=== PATIENT | female | born 1950 | race Caucasian/White ===

== ENCOUNTER 2017-12-21 08:15 | Outpatient (RCR) | payer MEDICARE, OTHER, SELFPAY ==
--- NOTE | 2017-12-07 16:03 | PT.OTN ---
Transition note: On December 01, 2017 our therapy services consisting of Speech, Occupational, and Physical Therapy transitioned from the [employer] electronic documentation system to a new [employer] electronic documentation system.?? All documentation prior to December 01 can be found under [employer] saved data. From December 01 forward all medical record documentation will be in [employer] 6.1. Current Diagnoses Type 2 diabetes mellitus with diabetic nephropathy (12/07/17) Type 2 diabetes mellitus with hyperglycemia (12/07/17) Other abnormalities of gait and mobility (12/07/17) retirement (current) use of insulin (12/07/17)
--- NOTE | 2017-12-08 10:05 | PT.OTN ---
Current Diagnoses Type 2 diabetes mellitus with diabetic nephropathy (12/07/17) Type 2 diabetes mellitus with hyperglycemia (12/07/17) Other abnormalities of gait and mobility (12/07/17) alf (current) use of insulin (12/07/17) Physical Therapy Treatment Note PT-OP-A Visit Information Start: 12/07/17 08:13 Freq: Status: Active Protocol: Activity Type Activity Date Activity User E-Sign Co-Sign Detail Recorded Client Recorded Date Recorded By Document 12/07/17 08:25 [facility] [id number] 12/07/17 16:19 LRN 12/07/17 08:25 Out-Patient Physical Therapy Visit Information [Visit Information] -Visit Type Treatment Note -Visit Start Time 08:22 -Visit Stop Time 09:01 -Total Visit Minutes 39 -Visit Number 4 -Number of WATER VALVE MECHANIC Visits 0 [Evaluation Information] -Evaluation Date 11/16/17 PT-OP-C Subjective Start: 12/07/17 08:13 Freq: Status: Active Protocol: Activity Type Activity Date Activity User E-Sign Co-Sign Detail Recorded Client Recorded Date Recorded By Document 12/07/17 08:25 [facility] [id number] 12/07/17 09:03 LRN 12/07/17 08:25 OP-PT Subjective [Patient Comments] -Patient Comments Knee feels better, quit hurting. Still has swollen R foot and still hurts in the lower leg. -Patient Reported Progress Improving OP-PT Pain Assessment [Pain Assessment Grid] -Paper Pain Assessment Grid Completed No [Location] Right Ankle -Pain Location Details Lateral ankle and lower leg -Intensity 8 -Scale Used Numeric (1 - 10 ) -Pain Alleviating Factors Cold -Patient Stated Pain Goal Walk 200-300 ft PT-OP-Q Treatments Start: 12/07/17 08:13 Freq: Status: Active Protocol: Activity Type Activity Date Activity User E-Sign Co-Sign Detail Recorded Client Recorded Date Recorded By Document 12/07/17 08:25 LR [id number] 12/07/17 09:03 LRN 12/07/17 08:25 Cardio Equipment [Recumbent Stepper (Sci-Fit)] -Duration (Minutes) 8 -Seat Position 10 Therapeutic Exercises [Supine Exercises] 4 -Supine Exercise Name Active hip ext immediately after stretch with DLS -Side bilateral -Reps/Minutes 10 3 -Supine Exercise Name Supine Iliopsoas stretch with DLS -Side bilateral -Reps/Minutes 2 -Comments 60 second stretch followed by active hip ext 2 -Supine Exercise Name Leg lifts: Flex , AB, ext -Side bilateral -Reps/Minutes 15x2 1 -Supine Exercise Name Bridging -Side bilateral -Reps/Minutes 15 [Prone Exercises] 2 -Prone Exercise Name Hip ext -Side bilateral -Reps/Minutes 15x2 1 -Prone Exercise Name Knee flex -Side bilateral -Reps/Minutes 15x2 Neuro Re-Education Treatment [Balance Activities] 1 -Details SLS in corner -Surface Level -Equipment Chair in front during training for self care -Reps/Duration 15 each leg -Comments Self care training and Core training during balance PT-OP-T Assessment and Plan Start: 12/07/17 09:03 Freq: Status: Active Protocol: Activity Type Activity Date Activity User E-Sign Co-Sign Detail Recorded Client Recorded Date Recorded By Document 12/07/17 08:25 LRRonen [id number] 12/08/17 10:05 LRN 12/07/17 08:25 Physical Therapy Assessment [Impairments] -Impairments Balance Edema Gait Pain Posture ROM Strength [Assessment Summary] -Assessment Patient is having less knee pain, primarily ankle pain. Pt has good understanding of home ex's and appears to be compliant. SLS posture improves with core stabilization. Physical Therapy Plan [Frequency and Duration] -Frequency of Treatment 2x/Week -Duration of Treatment 5 weeks left -Plan of Care Start Date 11/16/17 -Plan of Care End Date 01/15/18 [Next Visit Focus/Plan] -Next Visit Plan Assess Feet sensation & 5TSTS test. Educate in edema management. Review SLS home ex, progress ROM hips & LE/ core strengthening ex's. Progress ankle IV ROM. Progress stair ambulation tolerance.
--- NOTE | 2017-12-14 15:26 | PT.OTN ---
Current Diagnoses Type 2 diabetes mellitus with diabetic nephropathy (12/14/17) Type 2 diabetes mellitus with hyperglycemia (12/14/17) Other abnormalities of gait and mobility (12/14/17) FDC (current) use of insulin (12/14/17) Physical Therapy Treatment Note PT-OP-A Visit Information Start: 12/07/17 08:13 Freq: Status: Active Protocol: Document 12/14/17 08:21 LRN (Rec: 12/14/17 15:12 LRN [id number]) Out-Patient Physical Therapy Visit Information Visit Information Visit Type Treatment Note Visit Note 12/10 Visit Start Time 08:18 Visit Stop Time 09:12 Total Visit Minutes 54 Visit Number 5 Number of CODE ENFORCEMENT SUPERVISOR Visits 0 Evaluation Information Evaluation Date 11/16/17 PT-OP-C Subjective Start: 12/07/17 08:13 Freq: Status: Active Protocol: Document 12/14/17 08:21 LRN (Rec: 12/14/17 09:08 LRN [id number]) OP-PT Subjective Patient Comments Patient Comments States she was able to stand and put her pants on, so she feels her balance is better. States she is very tired because she worked hard this weekend. Patient Reported Progress Improving PT-OP-Q Treatments Start: 12/07/17 08:13 Freq: Status: Active Protocol: Document 12/14/17 08:21 LRN (Rec: 12/14/17 09:08 LRN [id number]) Therapeutic Exercises Supine Exercises 5 Supine Exercise Name Hip AB with T-Band resistance Side bilateral Equipment Used Lev 1 T-Band Reps/Minutes 15x2 Comments Started with Sidelie hip AB, but pt unable to tolerate lying on the hip 4 Supine Exercise Name Active hip ext immediately after stretch with DLS Side bilateral Reps/Minutes 10x2 reps 3 Supine Exercise Name Supine Iliopsoas stretch with DLS Side bilateral Reps/Minutes 2 Comments 60 second stretch followed by active hip ext 2 Supine Exercise Name Hip Flex Side bilateral Resistance see below Reps/Minutes 15x2 Comments 1st set with 1# 1 Supine Exercise Name Bridging Side bilateral Reps/Minutes 15x2 Prone Exercises 2 Prone Exercise Name Hip ext Side bilateral Reps/Minutes 15x2 Comments Use of B-Ball to assist his end-range hip ext PT-OP-T Assessment and Plan Start: 12/07/17 09:03 Freq: Status: Active Protocol: Document 12/14/17 08:21 LRN (Rec: 12/14/17 09:08 LRN [id number]) Physical Therapy Assessment Impairments Impairments Balance Edema Gait Pain Posture ROM Strength Assessment Summary Assessment Pt is having trouble with anterior hip stretch routine, needed extra training Physical Therapy Plan Frequency and Duration Frequency of Treatment 2x/Week Duration of Treatment 4 weeks left Plan of Care Start Date 11/16/17 Plan of Care End Date 01/15/18 Next Visit Focus/Plan Next Visit Plan Assess Feet sensation. 5TSTS. Progress ROM hips & LE/core strengthening ex's. Progress ankle IV ROM. Progress stair ambulation tolerance.
--- NOTE | 2017-12-21 16:14 | PT.OTRE ---
Current Diagnoses Type 2 diabetes mellitus with diabetic nephropathy (12/21/17) Type 2 diabetes mellitus with hyperglycemia (12/21/17) Other abnormalities of gait and mobility (12/21/17) assisted (current) use of insulin (12/21/17) Provider Visit Care Team Role Provider Type Vanessa Hirsch MD Family Provider Physician Primary Care Provider Specialty: Internal Medicine Address: [address] [place] [address], [id number] Email: Keya Haque MD Attending Provider Non-Staff Specialty: Neurology Address: [address] [place], [address] Email: Physical Therapy Re-Evaluation PT-OP-A Visit Information Start: 12/07/17 08:13 Freq: Status: Active Protocol: Document 12/21/17 08:16 LRN (Rec: 12/21/17 09:02 LRN [id number]) Out-Patient Physical Therapy Visit Information Visit Information Visit Type Treatment Note Visit Note 01/10 Visit Start Time 08:16 Visit Stop Time 09:10 Total Visit Minutes 54 Visit Number 6 Number of SURGICAL SALES REPRESENTATIVE Visits 0 Evaluation Information Evaluation Date 11/16/17 PT-OP-C Subjective Start: 12/07/17 08:13 Freq: Status: Active Protocol: Document 12/21/17 08:16 LRN (Rec: 12/21/17 15:31 LRN [id number]) OP-PT Subjective Patient Comments Patient Comments Has new physician referral for treatment of R ankle for chronic pain. Wasn't able to do ex's this weekend because being so busy at work. OP-PT Pain Assessment Location Right Ankle Pain Location Details R lateral ankle pain Description Aching Chronic Frequency Constant Pain Aggravating Factors Activity Standing Walking Stair Climbing Pain Alleviating Factors Inactivity Rest Patient Stated Pain Goal Alleviate the pain PT-OP-H Neuro Start: 12/21/17 16:09 Freq: Status: Active Protocol: Document 12/21/17 08:16 LRN (Rec: 12/21/17 16:10 LRN [id number]) Sensation Evaluation Location Details Right Volar Foot Light Touch Impaired Sharp/Dull Impaired Hot/Cold Impaired PT-OP-K Range of Motion Start: 12/21/17 16:07 Freq: Status: Active Protocol: Document 12/21/17 08:16 LRN (Rec: 12/21/17 16:09 LRN [id number]) Ankle and Foot Goniometric Range of Motion Ankle and Foot Measured in Degrees Left Active Testing Position Supine Dorsiflexion with Knee Extended 10 Plantarflexion 40 Inversion 30 Eversion 20 Right Active Testing Position Supine Dorsiflexion with Knee Extended 7 Plantarflexion 45 Inversion 15 Eversion 18 PT-OP-M Strength Start: 12/07/17 08:13 Freq: Status: Active Protocol: Document 12/21/17 08:16 LRN (Rec: 12/21/17 16:06 LRN [id number]) Ankle/Foot Strength Ankle and Foot Manual Muscle Testing Left Dorsiflexion (L4) 5 Normal Plantarflexion (S1) 5 Normal Inversion 5 Normal Eversion (S1) 5 Normal Right Dorsiflexion (L4) 3 Fair Plantarflexion (S1) 5 Normal Inversion 4 Good Eversion (S1) 3+ Fair+ PT-OP-Q Treatments Start: 12/07/17 08:13 Freq: Status: Active Protocol: Document 12/21/17 08:16 LRN (Rec: 12/21/17 09:02 LRN [id number]) Therapeutic Exercises Supine Exercises 8 Supine Exercise Name Ankle IV/PF Reps/Minutes 1' Comments No Deficits noted 7 Supine Exercise Name Ankle EV Side right Reps/Minutes 1' 6 Supine Exercise Name Ankle DF Side right Reps/Minutes 1' 5 Supine Exercise Name Hip AB with T-Band resistance Side bilateral Equipment Used Lev 1 T-Band Reps/Minutes 15x3 Comments Started with Sidelie hip AB, but pt unable to tolerate lying on the hip 4 Supine Exercise Name Active hip ext immediately after stretch with DLS Side bilateral Reps/Minutes 10x2 reps 3 Supine Exercise Name Supine Iliopsoas stretch with DLS Side bilateral Reps/Minutes 2 Comments 60 second stretch followed by active hip ext 2 Supine Exercise Name Hip Flex Side bilateral Resistance see below Reps/Minutes 15x2, 8 L/ 15R with 0# Comments 1# 1 Supine Exercise Name Bridging Side bilateral Reps/Minutes 15x3 Prone Exercises 2 Prone Exercise Name Hip ext Side bilateral Reps/Minutes 10x3 Comments Use of B-Ball to assist his end-range hip ext 1 Prone Exercise Name Knee flex Side bilateral Reps/Minutes 15x2 Self-Care/Home Management Treatment Education Other Education Pt instructed in self care for Edema management for R ankle. Use of her current compression stockings before getting out of bed. PT-OP-T Assessment and Plan Start: 12/07/17 09:03 Freq: Status: Active Protocol: Document 12/21/17 08:16 LRN (Rec: 12/21/17 09:02 LRN [id number]) Physical Therapy Assessment Impairments Impairments Balance Edema Gait Pain Posture ROM Strength Goals Five Impairment Chronic R Ankle Pain Correction Goal (LTG) Pt will have relief of R ankle pain and will be able to walk with minimal pain and will be able to manage her pain with home modalities (cryotherapy, compression sock). LTG Duration 02/12/18 Four Impairment Client Lacks knowledge of HEP: Lacks appropriate program. Centrifugal Screen Tender Goal (LTG) Pt will be educated and independent in a Home Exercise /Self Care Program. LTG Duration 02/12/18 Three Impairment TUG 13 sec's: 12-13 (20%<40% impaired) Short Term Goal (STG) Pt to improve endurance per TUG score decrease and pt able to make a Sumit sized bed without having to sit and rest . STG Duration 01/15/18 Two Impairment Decreased balance Correction Goal (LTG) Pt able to demosntrate improved balance and will be able to transfer sit to stand without onset of falling backwards. LTG Duration 02/12/18. One Impairment LE Weakness Correction Goal (LTG) Improve hip and knee by 1 grade with pt able to transfer floor to stand without use of furniture. 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 The pt has improved in her tolerance to activity overall and she has occasional onset of knee pain. Assessment Summary Assessment The pt presents with Chronic R ankle sprain of probably the anterior talofibular ligament, with severe swelling at the ankle and lower limb. 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 Her General lower extremity weakness hinders her progress, but the pt has shown some improvement in LE strength. Lately the pt reports no R knee pain except with stair ambulation. Her hip strength is weak and especial the gluteal strength is very weak. The pt appears to be very diligent with her HEP and is expected to continue progressing with the exercise program. Therapy is expected to be prolonged with the addition of rehabilitation for her chronic R ankle pain. Pt prognosis is good. Recommend the pt continue with skilled physical therapy to achieve the above stated goals . Physical Therapy Plan Frequency and Duration Frequency of Treatment 2x/Week Duration of Treatment 4 weeks left Plan of Care Start Date 11/16/17 Plan of Care End Date 01/15/18 Therapeutic Interventions Therapeutic Interventions Aquatic Therapy Balance Training Home Exercise Program Manual Therapy Neuromuscular Re-education Patient/Caregiver Education Self-Care/Home Management Soft Tissue Mobilization Taping Therapeutic Exercises Modalities Cold Pack/Ice Massage Hot Packs Iontophoresis Ultrasound Next Visit Focus/Plan Next Visit Plan Initiate Ultrasound for the R ankle at anterior talofibular lig 50%, 1.0W/cm2. She has decreased sensation in the R foot for sharp/dull and hot/ cold. L foot is normal. Please Sign and Return: I have reviewed this Plan of Care and certify that the skilled therapy services above are required to meet the patient???s needs. Physician Signature Date Printed Name and Credentials Clinical Instructor Signature Printed Name and Credentials
--- NOTE | 2018-03-26 17:21 | PT.OPDS ---
Current Diagnoses Type 2 diabetes mellitus with diabetic nephropathy (12/21/17) Type 2 diabetes mellitus with hyperglycemia (12/21/17) Other abnormalities of gait and mobility (12/21/17) detention (current) use of insulin (12/21/17) Provider Visit Care Team Role Provider Type Vanessa Hirsch MD Family Provider Physician Primary Care Provider Specialty: Internal Medicine Address: [address] [place] [address], [id number] Email: Keya Haque MD Attending Provider Non-Staff Specialty: Neurology Address: [address] [place], [address] Email: Visit Number Visit Number 6 Discharge Summary PT-OP-T Assessment and Plan Start: 12/07/17 09:03 Freq: Status: Active Protocol: Document 03/26/18 17:14 LRN (Rec: 03/26/18 17:20 LRN [id number]) Physical Therapy Assessment Goals Five Impairment Chronic R Ankle Pain Senior Care Goal (LTG) Pt will have relief of R ankle pain and will be able to walk with minimal pain and will be able to manage her pain with home modalities (cryotherapy, compression sock). LTG Duration 02/12/18 Four Impairment Client Lacks knowledge of HEP: Lacks appropriate program. 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 LTG Duration 02/12/18 Three Impairment TUG 13 sec's: 12-13 (20%<40% impaired) Short Term Goal (STG) Pt to improve endurance per TUG score decrease and pt able to make a Sumit sized bed without having to sit and rest . STG Duration 01/15/18 Two Impairment Decreased balance Senior Care Goal (LTG) Pt able to demosntrate improved balance and will be able to transfer sit to stand without onset of falling backwards. LTG Duration 02/12/18. 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 LTG Duration 02/12/18 Assessment Summary Assessment Pt was last seen 12/21/17. Unable to assess status of goals due to pt unavailable for final assessment. Per phone conversation with the patient she has had a change in status with admittance to the hospital in January. The pt will need a new referral to return to physical therapy. Physical Therapy Plan Discharge Physical Therapy Discharge Reasons No Longer Attending PT Discharge Comments Pt has had a change in medical status with hospital admittance in January 2018. Pt is being discharged from physical therapy.
== END 2018-07-02 13:51 ==
LOC: PHYS 08:15
PROVIDERS: Family Provider Internal Medicine; PCP Internal Medicine; Visit Provider Psychiatry & Neurology Neurology
DX: R26.89 Other abnormalities of gait and mobility (principal); E11.21 Type 2 diabetes mellitus with diabetic nephropathy; E11.65 Type 2 diabetes mellitus with hyperglycemia; Z79.4 Long term (current) use of insulin
CPT/HCPCS: 97010; 97110; 97112

== ENCOUNTER → 2017-12-21 09:23 | Outpatient (CLI) | payer MEDICARE, OTHER, SELFPAY ==
[2017-12-21 11:06] LABS: BUN Creatinine Ratio 24.4 (6-22); Calcium 9.5 mg/dL (8.4-10.2); Estimated Glomerular Filt Rate 32.1 mL/min (>60); Glucose 128 mg/dL (80-110); HEMOLYSIS < 15 (0-50); Sodium 140 mmol/L (137-145)
[2017-12-21 11:26] LABS: Creatinine Urine Random 63.5 mg/dL; Protein (Total) Urine Random 82 mg/dL (0-12); Protein Creatinine Ratio Urine 1.29 GRAM/24H
== END ==
PROVIDERS: Family Provider Internal Medicine; PCP Internal Medicine; Visit Provider Student in an Organized Health Care Education/Training Program
DX: N05.9 Unspecified nephritic syndrome with unspecified morphologic changes (principal); N80.9 Endometriosis, unspecified
CPT/HCPCS: 36415; 80048; 82570; 84156

== ENCOUNTER → 2017-12-24 06:54 | Outpatient (CLI) | payer MEDICARE, OTHER, SELFPAY ==
[2017-12-24 08:44] LABS: HEMOLYSIS < 15 (0-50); Potassium 4.8 mmol/L (3.4-5.1)
== END ==
PROVIDERS: PCP Internal Medicine; Visit Provider Student in an Organized Health Care Education/Training Program
DX: E87.5 Hyperkalemia (principal)
CPT/HCPCS: 36415; 84132

== ENCOUNTER 2018-01-04 12:06 | Inpatient (IN) | payer MEDICARE, OTHER, SELFPAY ==
[2018-01-04] VITALS (15 sets, daily range): BP systolic 103–143; BP diastolic 37–58; PULSE 67–88; RESP 13–20; TEMP 37.2; O2SAT 92–99
--- NOTE | 2018-01-04 12:53 | DI.RAD.S_ITS ---
PROCEDURE: XR CHEST 2V INDICATIONS: weakness and hypoxemia TECHNIQUE: 2 views of the chest were acquired. COMPARISON: None. FINDINGS: Surgical changes and devices: None. Lungs and pleura: No pleural effusions or pneumothorax. Lungs are clear. Mediastinum: Mediastinal contours are normal. Heart size is normal. Bones and chest wall: No suspicious bony abnormalities. Soft tissues appear unremarkable. IMPRESSION: Mildly reduced inspiratory volume, no acute disease. Dictated by: Doc Mccann M.D. on 01/04/2018 at 13:18 Approved by: Doc Mccann M.D. on 01/04/2018 at 13:19
[2018-01-04 13:01] LABS: Add Manual Diff / Slide Review NO; Basophils Percent Auto 0.3 % (0-2); Eosinophils Percent Auto 0.2 % (2-4); Hematocrit 29.3 % (36-46); Lymphocytes Percent Auto 4.8 % (25-40); Mean Corpuscular Hemoglobin 28.5 PG (26-34); Mean Corpuscular Volume 83.9 fL (80-100); Monocytes Percent Auto 5.9 % (3-14); Neutrophils Absolute Auto 10900 /uL (3000-5900); Neutrophils Percent Auto 88.8 % (50-75); Platelet Count 204 X10^3/uL (150-400); Red Blood Cell Count 3.49 X10^6/uL (4.0-5.2); Red Cell Distribution Width 13.2 % (11.6-14.8); White Blood Cell Count 12.3 X10^3/uL (4.5-11.0)
[2018-01-04 13:05] LABS: D Dimer 713 ng/mL (<230)
[2018-01-04 13:24] LABS: Procalcitonin 9.13 ng/mL (<0.5)
--- NOTE | 2018-01-04 13:42 | ED_ITS ---
HPI - Weakness General Chief complaint: Weakness Stated complaint: DIABETIC, CANNOT STAND, FALLING VOMMITING Related Data Home Medications Medication Instructions Recorded Confirmed gabapentin [Neurontin] 600 mg PO BID #0 06/05/16 glyburide 5 mg PO BID #0 06/05/16 metformin [Glucophage XR] 500 mg PO TID #0 06/05/16 lisinopril 2.5 mg PO QDAY #0 11/16/16 Previous Rx's Medication Instructions Recorded ondansetron 4 mg SUBLINGUAL Q6HP PRN #10 tab 06/05/16 Allergies Allergy/AdvReac Type Severity Reaction Status Date / Time No Known Allergies Allergy Uncoded 11/11/17 12:01 Exam Initial Vital Signs Initial Vital Signs: Vital Signs Temperature 99 F 01/04/18 12:29 Pulse Rate 88 01/04/18 12:29 Respiratory Rate 13 01/04/18 12:29 Blood Pressure 143/44 H 01/04/18 12:29 Pulse Oximetry 94 01/04/18 12:29 Course Orders Ordered: ED Orders 01/04/18 12:32 Complete Blood Count AUTO DIFF Stat D Dimer Stat Procalcitonin Stat 01/04/18 12:53 XR chest 2V Stat Urinalysis and Microscopic Stat 01/04/18 13:22 Comprehensive Metabolic Panel Stat Lactate (Lactic Acid) Stat Troponin I Stat Vital Signs - 8 hr 01/04/18 12:29 Temperature 99 F Pulse Rate 88 Respiratory Rate 13 Blood Pressure 143/44 H Pulse Oximetry 94 MDM - Weakness Differential Diagnosis Differential diagnosis: Likely other Lab Data Result diagrams: 01/04/18 12:32 01/04/18 13:22 Lab Results 01/04/18 01/04/18 01/04/18 Range/Units 12:32 12:32 12:32 WBC 12.3 H (4.5-11.0) X10^3/uL RBC 3.49 L (4.0-5.2) X10^6/uL Hgb 10.0 L (12.0-16.0) g/dL Hct 29.3 L (36-46) % MCV 83.9 (80-100) fL MCH 28.5 (26-34) PG MCHC 34.0 (30-36) % RDW 13.2 (11.6-14.8) % Plt Count 204 (150-400) X10^3/uL Neut % (Auto) 88.8 H (50-75) % Lymph % (Auto) 4.8 L (25-40) % [place] % (Auto) 5.9 (3-14) % Eos % (Auto) 0.2 L (2-4) % Baso % (Auto) 0.3 (0-2) % Neut # (Auto) 26313 H (8705-0816) /uL D-Dimer 713 H (<230) ng/mL Procalcitonin 9.13 H (<0.5) ng/mL Discharge Plan Departure Prescriptions: No Action glyburide 5 MG tablet 5 mg PO BID Qty: 0 RF: 0 gabapentin [Neurontin] 300 MG capsule 600 mg PO BID Qty: 0 RF: 0 metformin [Glucophage XR] 500 MG tablet extended release 24 hr 500 mg PO TID Qty: 0 RF: 0 ondansetron 4 MG tablet,disintegrating 4 mg Sublingual Q6HP PRNQty: 10 RF: 0 lisinopril 2.5 MG tablet 2.5 mg PO QDAY Qty: 0 RF: 0
[2018-01-04 13:44] LABS: Lactate (Lactic Acid) 1.1 mmol/L (0.7-2.1)
[2018-01-04 13:45] LABS: Alanine Aminotransferase 71 IU/L (9-52); Albumin 3.9 g/dL (3.5-5.0); Albumin Globulin Ratio 1.3 (1.0-2.8); Alkaline Phosphatase 114 U/L (38-126); Aspartate Aminotransferase 89 IU/L (14-36); BUN Creatinine Ratio 21.1 (6-22); Bilirubin Total 0.4 mg/dL (0.2-1.3); Blood Urea Nitrogen 38 mg/dL (7-17); Calcium 9.2 mg/dL (8.4-10.2); Carbon Dioxide 25 mmol/L (22-32); Chloride 100 mmol/L (98-107); Glucose 294 mg/dL (80-110); HEMOLYSIS < 15 (0-50); Potassium 4.7 mmol/L (3.4-5.1); Sodium 137 mmol/L (137-145); Total Protein 6.9 g/dL (6.3-8.2)
[2018-01-04 13:58] LABS: Troponin I < 0.012 ng/mL (0.01-0.034)
--- NOTE | 2018-01-04 14:17 | DI.CT.S_ITS ---
PROCEDURE: CT HEAD/BRAIN WO CON INDICATIONS: syncope TECHNIQUE: Noncontrast 4.5 mm thick angled axial sections acquired from the foramen magnum to the vertex, with coronal and sagittal reformats. For radiation dose reduction, the following was used: automated exposure control, adjustment of mA and/or kV according to patient size. COMPARISON: [facility], CT, HEAD WITHOUT CONTRAST, 06/05/2016, 17:10. FINDINGS: Image quality: Excellent. CSF spaces: Basal cisterns are patent. No extra-axial fluid collections. Ventricles are normal in size and shape. Brain: No midline shift. No intracranial masses or hemorrhage. Childress-white matter interface is normal. Skull and face: Calvarium and visualized facial bones are intact, without suspicious lesions. Sinuses: Visualized sinuses and mastoids are clear. IMPRESSION: Stable head CT. No acute intracranial hemorrhage. Dictated by: Kali Kelley M.D. on 01/04/2018 at 13:36 Approved by: Kali Kelley M.D. on 01/04/2018 at 13:36
--- NOTE | 2018-01-04 14:17 | DI.CT.S_ITS ---
PROCEDURE: CT CHEST WO CON INDICATIONS: hypoxemia w/ elevated dimer clear CXR TECHNIQUE: Noncontrast 5 mm thick sections acquired from the pulmonary apices to the posterior costophrenic angles. 7 mm thick coronal and sagittal MIP reformats were then acquired. For radiation dose reduction, the following was used: automated exposure control, adjustment of mA and/or kV according to patient size. COMPARISON: [facility], CR, XR CHEST 2V, 01/04/2018, 12:44. FINDINGS: Image quality: Diagnostic. Lungs and pleura: The lungs are relatively well aerated. There are areas of scarring versus atelectasis within the bilateral lung bases (left greater than right). No focal consolidation, effusion, or pneumothorax is evident. There is no lung mass. No definitive pulmonary nodules are appreciated. Mediastinum: Heart size is normal. No pericardial effusion. No mediastinal adenopathy by size criteria. There is coronary artery atherosclerosis. Thoracic aorta and central pulmonary arteries are normal in size. Esophagus is normal in caliber. No hiatal hernia. Bones and chest wall: No suspicious bony lesions. No vertebral body compression fractures. Age-appropriate degenerative changes of the spine are present. No axillary or supraclavicular adenopathy by size criteria. Thyroid gland is not enlarged. Abdomen: Visualized upper abdominal solid organs and bowel loops appear normal in the absence of contrast. IMPRESSION: 1. No acute cardiopulmonary process is evident. 2. Scarring versus atelectasis within the bilateral lung bases. 3. Mild prominence of the wall of the esophagus may be related to incomplete distention. Distal esophagitis is difficult to exclude. 4. Coronary artery atherosclerosis. Dictated by: Kali Kelley M.D. on 01/04/2018 at 13:31 Approved by: Kali Kelley M.D. on 01/04/2018 at 13:33
[2018-01-04] MEDS: SODIUM CHLORIDE 0.9% 1,000 ML 1000 ML IV ×2 (14:40→20:54)
[2018-01-04 16:19] LABS: Creatine Kinase 34 U/L (30-135); Lactate (Lactic Acid) 1.1 mmol/L (0.7-2.1)
--- NOTE | 2018-01-04 18:02 | ED.WEAKNESS ---
HPI - Weakness General Chief complaint: Weakness Stated complaint: DIABETIC, CANNOT STAND, FALLING VOMMITING History of Present Illness HPI Narrative: HPI 67-year-old female presents for evaluation of mild weakness that is been present since yesterday evening, mild malaise, and a syncopal event this morning after which she fell was unable to stand for 2 hours. Patient denies head strike LOC, denies blood thinners or anticoagulants. Denies history of DVT or PE, denies preceding chest pain, abdominal pain, SOB. No apparent dysuria, urinary frequency. Non-smoker. History obtained from: patient. M/S/F/SocHx notable for: DM II; remainder reviewed with patient and in chart. ROS: Negative constitutional, eye, cardiovascular, pulmonary, GI, , MSK, skin, neurologic, psychiatric, endocrine unless noted in the HPI. Exam Gen: Pleasant, non-toxic appearing, resting comfortably. HEENT: Normocephalic, atraumatic Resp: Clear to auscultation bilaterally, normal work of breathing with no accessory muscle usage. Card: Regular rate and rhythm with no murmurs rubs or gallops. No JVD. No pedal edema bilaterally. GI: Nontender to palpation throughout all quadrants. Nondistended. : No CVA tenderness to percussion bilaterally. No suprapubic tenderness or palpable masses. MSK: No visible deformities, strength and tone within normal limits. Skin: Normal color with no visible lesions. Neuro: Gen AO x 3, no facial asymmetry, no gaze preference, no slurring of speech. CN II-III: pupils equal and reactive (4->2mm bilaterally); III, IV, : EOMI, V1-V3: sensation to touch bilaterally intact; VII: no facial asymmetry (frown / smile); VIII: no nystagmus; X: phonation intact, uvula midline; XI: trapezius 5/5 bilaterally, XII: tongue midline. Cerebellar: no pronator drift, [id number] testing without dysmetria. Motor: bilateral 5/5 licensed electrician strength and intact hand sensation to touch, bilateral 5/5 dorsiflexion/plantarflexion and foot sensation intact to touch. Gait: unable to assess. Psych: Mood and affect appropriate. Labs / Imaging (pertinent): WBC 12.3, hemoglobin 10.0, d-dimer 713, sodium 137, potassium 4.7, creatinine 1.0, glucose 294, troponin <0.012, Procalcitonin 9.13, d-dimer 713, lactic (repeat) 1.1. CXR: no acute cardiopulmonary disease process. EKG: SR at 88 BPM, [place] 418 msec, no new ST segment changes, new LBBB, or T-wave changes that would suggest acute ischemia. CT chest (non-contrast): no acute cardiopulmonary process is evident. Scarring versus atelectasis within the bilateral lung bases. Mild prominence of the wall the esophagus may be related incomplete distention. Distal esophagitis is difficult to exclude. Coronary artery atherosclerosis. CT head: no acute intracranial abnormality. MDM Previous chart, nursing note, and vitals reviewed. A: 67-year-old female presents for evaluation of mild weakness that is been present since yesterday evening, mild malaise, and a syncopal event this morning after which she fell was unable to stand for 2 hours. DDx: CVA, ACS/UA, UTI, pneumonia, electrolyte abnormalities,anemia, hypothyroidism, hypothermia. Evaluation: * CVA: Examination without evidence of focal neuro deficit and history without evidence of resolved focal neuro deficit making stroke or TIA unlikely. CT head without evidence of abnormalities. * ACS/UA: Doubt ACS given a nonischemic EKG and negative troponin, history without clear evidence of symptoms consistent with unstable angina. * UTI: urinalysis pending. * Pneumonia: chest x-ray and noncontrast CT the chest without evidence of pneumonia. * Heme/Lytes/Thyroid: CBC, BMP are clinically within normal limits. * PE: concern exists for PE, patient with mild hypoxemia, elevated d-dimer, remains hemodynamically stable. CTA chest pending fluid resuscitation, and anticipated demonstration of improved GFR. Otherwise, anticipate VQ scan. * Sepsis: patient without clear sepsis pathophysiology, lactic stable over time, Procalcitonin elevation of uncertain etiology. Blood cultures drawn, Levaquin ordered. Patient without signs of meningitis, intra-abdominal infection, skin infection. Disposition: patient care transfer to the oncoming provider pending completion of evaluation. Impression: syncope, elevated Procalcitonin, hypoxemia. (please reference below for remainder of encounter information) Related Data Home Medications Medication Instructions Recorded Confirmed gabapentin [Neurontin] 600 mg PO BID #0 06/05/16 01/04/18 Novolog Mix 70-30 U-100 Insuln 30 units SUB-Q QPM 01/04/18 01/04/18 aspirin 81 mg PO DAILY 01/04/18 01/04/18 atorvastatin 20 mg PO DAILY 01/04/18 01/04/18 gabapentin 300 mg PO QNOON 01/04/18 01/04/18 hydrochlorothiazide 12.5 mg PO DAILY 01/04/18 01/04/18 insulin regular human [Novolin R 5 units SUB-Q TIDWM 01/04/18 01/04/18 Regular U-100 Insuln] primidone 250 mg PO BEDTIME 01/04/18 01/04/18 sodium bicarbonate 2 tab PO BID 01/04/18 01/04/18 Allergies Allergy/AdvReac Type Severity Reaction Status Date / Time No Known Drug Allergies Allergy Verified 01/04/18 14:11 Exam Initial Vital Signs Initial Vital Signs: Vital Signs Temperature 99 F 01/04/18 12:29 Pulse Rate 88 01/04/18 12:29 Respiratory Rate 13 01/04/18 12:29 Blood Pressure 143/44 H 01/04/18 12:29 Pulse Oximetry 94 01/04/18 12:29 Course Orders Ordered: ED Orders 01/04/18 12:32 Complete Blood Count AUTO DIFF Stat D Dimer Stat Procalcitonin Stat 01/04/18 12:53 XR chest 2V Stat 01/04/18 13:22 Comprehensive Metabolic Panel Stat Lactate (Lactic Acid) Stat Troponin I Stat 01/04/18 14:17 CT chest wo con Stat CT head/brain wo con Stat 01/04/18 14:41 Basic Metabolic Panel PRN 01/04/18 15:53 Basic Metabolic Panel Stat Creatine Kinase Stat Lactate (Lactic Acid) Stat 01/04/18 16:00 Blood Culture Stat 01/04/18 17:47 Urinalysis and Microscopic Stat Levofloxacin (Levaquin) 750 mg in 150 mls @ 100 mls/hr IV NOW ONE Stop: 01/04/18 19:16 Last Admin: 01/04/18 18:10 Dose: 100 mls/hr Discontinued Medications Sodium Chloride (Normal Saline 0.9%) 1,000 mls @ 1,000 mls/hr IV BOLUS ONE Stop: 01/04/18 15:02 Last Infusion: 01/04/18 16:24 Dose: 0 mls/hr Admin: 01/04/18 14:40 Dose: 1,000 mls/hr Vital Signs - 8 hr 01/04/18 12:29 01/04/18 14:18 01/04/18 15:08 Temperature 99 F Pulse Rate 88 83 81 Respiratory Rate 13 16 16 Blood Pressure 143/44 H Blood Pressure [Left Arm] 125/40 H 124/45 H Pulse Oximetry 94 96 99 01/04/18 17:29 Temperature Pulse Rate 77 Respiratory Rate 14 Blood Pressure Blood Pressure [Left Arm] 126/50 H Pulse Oximetry 95 MDM - Weakness Lab Data Result diagrams: 01/04/18 12:32 01/04/18 13:22 Lab Results 01/04/18 01/04/18 01/04/18 Range/Units 12:32 12:32 12:32 WBC 12.3 H (4.5-11.0) X10^3/uL RBC 3.49 L (4.0-5.2) X10^6/uL Hgb 10.0 L (12.0-16.0) g/dL Hct 29.3 L (36-46) % MCV 83.9 (80-100) fL MCH 28.5 (26-34) PG MCHC 34.0 (30-36) % RDW 13.2 (11.6-14.8) % Plt Count 204 (150-400) X10^3/uL Neut % (Auto) 88.8 H (50-75) % Lymph % (Auto) 4.8 L (25-40) % Rankin % (Auto) 5.9 (3-14) % Eos % (Auto) 0.2 L (2-4) % Baso % (Auto) 0.3 (0-2) % Neut # (Auto) 42920 H (9119-8137) /uL D-Dimer 713 H (<230) ng/mL Sodium (137-145) mmol/L Potassium (3.4-5.1) mmol/L Chloride (98-107) mmol/L Carbon Dioxide (22-32) mmol/L BUN (7-17) mg/dL Creatinine (0.52-1.04) mg/dL Estimated GFR (>60) mL/min BUN/Creatinine Ratio (6-22) Glucose (80-110) mg/dL Lactate (0.7-2.1) mmol/L Calcium (8.4-10.2) mg/dL Total Bilirubin (0.2-1.3) mg/dL AST (14-36) IU/L ALT (9-52) IU/L Alkaline Phosphatase (38-126) U/L Total Creatine Kinase (30-135) U/L Troponin I (0.01-0.034) ng/mL Total Protein (6.3-8.2) g/dL Albumin (3.5-5.0) g/dL Globulin (1.7-4.1) g/dL Albumin/Globulin Ratio (1.0-2.8) Procalcitonin 9.13 H (<0.5) ng/mL 01/04/18 01/04/18 01/04/18 Range/Units 13:22 13:22 15:53 WBC (4.5-11.0) X10^3/uL RBC (4.0-5.2) X10^6/uL Hgb (12.0-16.0) g/dL Hct (36-46) % MCV (80-100) fL MCH (26-34) PG MCHC (30-36) % RDW (11.6-14.8) % Plt Count (150-400) X10^3/uL Neut % (Auto) (50-75) % Lymph % (Auto) (25-40) % Rankin % (Auto) (3-14) % Eos % (Auto) (2-4) % Baso % (Auto) (0-2) % Neut # (Auto) (7618-6141) /uL D-Dimer (<230) ng/mL Sodium 137 (137-145) mmol/L Potassium 4.7 (3.4-5.1) mmol/L Chloride 100 (98-107) mmol/L Carbon Dioxide 25 (22-32) mmol/L BUN 38 H (7-17) mg/dL Creatinine 1.80 H (0.52-1.04) mg/dL Estimated GFR 28.0 L (>60) mL/min BUN/Creatinine Ratio 21.1 (6-22) Glucose 294 H (80-110) mg/dL Lactate 1.1 (0.7-2.1) mmol/L Calcium 9.2 (8.4-10.2) mg/dL Total Bilirubin 0.4 (0.2-1.3) mg/dL AST 89 H (14-36) IU/L ALT 71 H (9-52) IU/L Alkaline Phosphatase 114 (38-126) U/L Total Creatine Kinase 34 (30-135) U/L Troponin I < 0.012 (0.01-0.034) ng/mL Total Protein 6.9 (6.3-8.2) g/dL Albumin 3.9 (3.5-5.0) g/dL Globulin 3.0 (1.7-4.1) g/dL Albumin/Globulin Ratio 1.3 (1.0-2.8) Procalcitonin (<0.5) ng/mL 01/04/18 Range/Units 15:53 WBC (4.5-11.0) X10^3/uL RBC (4.0-5.2) X10^6/uL Hgb (12.0-16.0) g/dL Hct (36-46) % MCV (80-100) fL MCH (26-34) PG MCHC (30-36) % RDW (11.6-14.8) % Plt Count (150-400) X10^3/uL Neut % (Auto) (50-75) % Lymph % (Auto) (25-40) % Rankin % (Auto) (3-14) % Eos % (Auto) (2-4) % Baso % (Auto) (0-2) % Neut # (Auto) (2922-4664) /uL D-Dimer (<230) ng/mL Sodium (137-145) mmol/L Potassium (3.4-5.1) mmol/L Chloride (98-107) mmol/L Carbon Dioxide (22-32) mmol/L BUN (7-17) mg/dL Creatinine (0.52-1.04) mg/dL Estimated GFR (>60) mL/min BUN/Creatinine Ratio (6-22) Glucose (80-110) mg/dL Lactate 1.1 (0.7-2.1) mmol/L Calcium (8.4-10.2) mg/dL Total Bilirubin (0.2-1.3) mg/dL AST (14-36) IU/L ALT (9-52) IU/L Alkaline Phosphatase (38-126) U/L Total Creatine Kinase (30-135) U/L Troponin I (0.01-0.034) ng/mL Total Protein (6.3-8.2) g/dL Albumin (3.5-5.0) g/dL Globulin (1.7-4.1) g/dL Albumin/Globulin Ratio (1.0-2.8) Procalcitonin (<0.5) ng/mL Discharge Plan Departure Prescriptions: No Action gabapentin [Neurontin] 300 MG capsule 600 mg PO BID Qty: 0 RF: 0 primidone 50 mg tablet 250 mg PO BEDTIME RF: 0 atorvastatin 20 mg tablet 20 mg PO DAILY RF: 0 sodium bicarbonate 650 mg tablet 2 tab PO BID RF: 0 hydrochlorothiazide 12.5 mg tablet 12.5 mg PO DAILY RF: 0 aspirin 81 mg Tablet,Delayed Release (Dr/Ec) 81 mg PO DAILY RF: 0 insulin regular human [Novolin R Regular U-100 Insuln] 100 unit/mL solution 5 units Sub-Q TIDWM RF: 0 Novolog Mix 70-30 U-100 Insuln 30 units Sub-Q QPM RF: 0 gabapentin 300 mg Capsule 300 mg PO QNOON RF: 0
[2018-01-04] MEDS: levoFLOXacin 750 MG/150 ML PIGGYBACK 100 MG IV (18:10)
--- NOTE | 2018-01-04 18:16 | ED_ITS ---
HPI - Weakness General Chief complaint: Weakness Stated complaint: DIABETIC, CANNOT STAND, FALLING VOMMITING History of Present Illness HPI Narrative: HPI 67-year-old female presents for evaluation of mild weakness that is been present since yesterday evening, mild malaise, and a syncopal event this morning after which she fell was unable to stand for 2 hours. Patient denies head strike LOC, denies blood thinners or anticoagulants. Denies history of DVT or PE, denies preceding chest pain, abdominal pain, SOB. No apparent dysuria, urinary frequency. Non-smoker. History obtained from: patient. M/S/F/SocHx notable for: DM II; remainder reviewed with patient and in chart. ROS: Negative constitutional, eye, cardiovascular, pulmonary, GI, , MSK, skin , neurologic, psychiatric, endocrine unless noted in the HPI. Exam Gen: Pleasant, non-toxic appearing, resting comfortably. HEENT: Normocephalic, atraumatic Resp: Clear to auscultation bilaterally, normal work of breathing with no accessory muscle usage. Card: Regular rate and rhythm with no murmurs rubs or gallops. No JVD. No pedal edema bilaterally. GI: Nontender to palpation throughout all quadrants. Nondistended. : No CVA tenderness to percussion bilaterally. No suprapubic tenderness or palpable masses. MSK: No visible deformities, strength and tone within normal limits. Skin: Normal color with no visible lesions. Neuro: Gen AO x 3, no facial asymmetry, no gaze preference, no slurring of speech. CN II-III: pupils equal and reactive (4->2mm bilaterally); III, IV, : EOMI, V1-V3: sensation to touch bilaterally intact; VII: no facial asymmetry ( frown / smile); VIII: no nystagmus; X: phonation intact, uvula midline; XI: trapezius 5/5 bilaterally, XII: tongue midline. Cerebellar: no pronator drift, [id number] testing without dysmetria. Motor: bilateral 5/5 senior administrative services officer strength and intact hand sensation to touch, bilateral 5/5 dorsiflexion/plantarflexion and foot sensation intact to touch. Gait: unable to assess. Psych: Mood and affect appropriate. Labs / Imaging (pertinent): WBC 12.3, hemoglobin 10.0, d-dimer 713, sodium 137, potassium 4.7, creatinine 1.0, glucose 294, troponin <0.012, Procalcitonin 9.13, d-dimer 713, lactic ( repeat) 1.1. CXR: no acute cardiopulmonary disease process. EKG: SR at 88 BPM, [place] 418 msec, no new ST segment changes, new LBBB, or T-wave changes that would suggest acute ischemia. CT chest (non-contrast): no acute cardiopulmonary process is evident. Scarring versus atelectasis within the bilateral lung bases. Mild prominence of the wall the esophagus may be related incomplete distention. Distal esophagitis is difficult to exclude. Coronary artery atherosclerosis. CT head: no acute intracranial abnormality. MDM Previous chart, nursing note, and vitals reviewed. A: 67-year-old female presents for evaluation of mild weakness that is been present since yesterday evening, mild malaise, and a syncopal event this morning after which she fell was unable to stand for 2 hours. DDx: CVA, ACS/UA, UTI, pneumonia, electrolyte abnormalities,anemia, hypothyroidism, hypothermia. Evaluation: * CVA: Examination without evidence of focal neuro deficit and history without evidence of resolved focal neuro deficit making stroke or TIA unlikely. CT head without evidence of abnormalities. * ACS/UA: Doubt ACS given a nonischemic EKG and negative troponin, history without clear evidence of symptoms consistent with unstable angina. * UTI: urinalysis pending. * Pneumonia: chest x-ray and noncontrast CT the chest without evidence of pneumonia. * Heme/Lytes/Thyroid: CBC, BMP are clinically within normal limits. * PE: concern exists for PE, patient with mild hypoxemia, elevated d-dimer, remains hemodynamically stable. CTA chest pending fluid resuscitation, and anticipated demonstration of improved GFR. Otherwise, anticipate VQ scan. * Sepsis: patient without clear sepsis pathophysiology, lactic stable over time , Procalcitonin elevation of uncertain etiology. Blood cultures drawn, Levaquin ordered. Patient without signs of meningitis, intra-abdominal infection, skin infection. Disposition: patient care transfer to the oncoming provider pending completion of evaluation. Impression: syncope, elevated Procalcitonin, hypoxemia. (please reference below for remainder of encounter information) Related Data Home Medications Medication Instructions Recorded Confirmed gabapentin [Neurontin] 600 mg PO BID #0 06/05/16 01/04/18 Novolog Mix 70-30 U-100 Insuln 30 units SUB-Q QPM 01/04/18 01/04/18 aspirin 81 mg PO DAILY 01/04/18 01/04/18 atorvastatin 20 mg PO DAILY 01/04/18 01/04/18 gabapentin 300 mg PO QNOON 01/04/18 01/04/18 hydrochlorothiazide 12.5 mg PO DAILY 01/04/18 01/04/18 insulin regular human [Novolin R 5 units SUB-Q TIDWM 01/04/18 01/04/18 Regular U-100 Insuln] primidone 250 mg PO BEDTIME 01/04/18 01/04/18 sodium bicarbonate 2 tab PO BID 01/04/18 01/04/18 Allergies Allergy/AdvReac Type Severity Reaction Status Date / Time No Known Drug Allergies Allergy Verified 01/04/18 14:11 Exam Initial Vital Signs Initial Vital Signs: Vital Signs Temperature 99 F 01/04/18 12:29 Pulse Rate 88 01/04/18 12:29 Respiratory Rate 13 01/04/18 12:29 Blood Pressure 143/44 H 01/04/18 12:29 Pulse Oximetry 94 01/04/18 12:29 Course Orders Ordered: ED Orders 01/04/18 12:32 Complete Blood Count AUTO DIFF Stat D Dimer Stat Procalcitonin Stat 01/04/18 12:53 XR chest 2V Stat 01/04/18 13:22 Comprehensive Metabolic Panel Stat Lactate (Lactic Acid) Stat Troponin I Stat 01/04/18 14:17 CT chest wo con Stat CT head/brain wo con Stat 01/04/18 14:41 Basic Metabolic Panel PRN 01/04/18 15:53 Basic Metabolic Panel Stat Creatine Kinase Stat Lactate (Lactic Acid) Stat 01/04/18 16:00 Blood Culture Stat 01/04/18 17:47 Urinalysis and Microscopic Stat Levofloxacin (Levaquin) 750 mg in 150 mls @ 100 mls/hr IV NOW ONE Stop: 01/04/18 19:16 Last Admin: 01/04/18 18:10 Dose: 100 mls/hr Discontinued Medications Sodium Chloride (Normal Saline 0.9%) 1,000 mls @ 1,000 mls/hr IV BOLUS ONE Stop: 01/04/18 15:02 Last Infusion: 01/04/18 16:24 Dose: 0 mls/hr Admin: 01/04/18 14:40 Dose: 1,000 mls/hr Vital Signs - 8 hr 01/04/18 12:29 01/04/18 14:18 01/04/18 15:08 Temperature 99 F Pulse Rate 88 83 81 Respiratory Rate 13 16 16 Blood Pressure 143/44 H Blood Pressure [Left Arm] 125/40 H 124/45 H Pulse Oximetry 94 96 99 01/04/18 17:29 Temperature Pulse Rate 77 Respiratory Rate 14 Blood Pressure Blood Pressure [Left Arm] 126/50 H Pulse Oximetry 95 MDM - Weakness Lab Data Result diagrams: 01/04/18 12:32 01/04/18 13:22 Lab Results 01/04/18 01/04/18 01/04/18 Range/Units 12:32 12:32 12:32 WBC 12.3 H (4.5-11.0) X10^3/uL RBC 3.49 L (4.0-5.2) X10^6/uL Hgb 10.0 L (12.0-16.0) g/dL Hct 29.3 L (36-46) % MCV 83.9 (80-100) fL MCH 28.5 (26-34) PG MCHC 34.0 (30-36) % RDW 13.2 (11.6-14.8) % Plt Count 204 (150-400) X10^3/uL Neut % (Auto) 88.8 H (50-75) % Lymph % (Auto) 4.8 L (25-40) % Jackson % (Auto) 5.9 (3-14) % Eos % (Auto) 0.2 L (2-4) % Baso % (Auto) 0.3 (0-2) % Neut # (Auto) 51674 H (8679-9611) /uL D-Dimer 713 H (<230) ng/mL Sodium (137-145) mmol/L Potassium (3.4-5.1) mmol/L Chloride (98-107) mmol/L Carbon Dioxide (22-32) mmol/L BUN (7-17) mg/dL Creatinine (0.52-1.04) mg/dL Estimated GFR (>60) mL/min BUN/Creatinine Ratio (6-22) Glucose (80-110) mg/dL Lactate (0.7-2.1) mmol/L Calcium (8.4-10.2) mg/dL Total Bilirubin (0.2-1.3) mg/dL AST (14-36) IU/L ALT (9-52) IU/L Alkaline Phosphatase (38-126) U/L Total Creatine Kinase (30-135) U/L Troponin I (0.01-0.034) ng/mL Total Protein (6.3-8.2) g/dL Albumin (3.5-5.0) g/dL Globulin (1.7-4.1) g/dL Albumin/Globulin Ratio (1.0-2.8) Procalcitonin 9.13 H (<0.5) ng/mL 01/04/18 01/04/18 01/04/18 Range/Units 13:22 13:22 15:53 WBC (4.5-11.0) X10^3/uL RBC (4.0-5.2) X10^6/uL Hgb (12.0-16.0) g/dL Hct (36-46) % MCV (80-100) fL MCH (26-34) PG MCHC (30-36) % RDW (11.6-14.8) % Plt Count (150-400) X10^3/uL Neut % (Auto) (50-75) % Lymph % (Auto) (25-40) % Jackson % (Auto) (3-14) % Eos % (Auto) (2-4) % Baso % (Auto) (0-2) % Neut # (Auto) (5707-4417) /uL D-Dimer (<230) ng/mL Sodium 137 (137-145) mmol/L Potassium 4.7 (3.4-5.1) mmol/L Chloride 100 (98-107) mmol/L Carbon Dioxide 25 (22-32) mmol/L BUN 38 H (7-17) mg/dL Creatinine 1.80 H (0.52-1.04) mg/dL Estimated GFR 28.0 L (>60) mL/min BUN/Creatinine Ratio 21.1 (6-22) Glucose 294 H (80-110) mg/dL Lactate 1.1 (0.7-2.1) mmol/L Calcium 9.2 (8.4-10.2) mg/dL Total Bilirubin 0.4 (0.2-1.3) mg/dL AST 89 H (14-36) IU/L ALT 71 H (9-52) IU/L Alkaline Phosphatase 114 (38-126) U/L Total Creatine Kinase 34 (30-135) U/L Troponin I < 0.012 (0.01-0.034) ng/mL Total Protein 6.9 (6.3-8.2) g/dL Albumin 3.9 (3.5-5.0) g/dL Globulin 3.0 (1.7-4.1) g/dL Albumin/Globulin Ratio 1.3 (1.0-2.8) Procalcitonin (<0.5) ng/mL 01/04/18 Range/Units 15:53 WBC (4.5-11.0) X10^3/uL RBC (4.0-5.2) X10^6/uL Hgb (12.0-16.0) g/dL Hct (36-46) % MCV (80-100) fL MCH (26-34) PG MCHC (30-36) % RDW (11.6-14.8) % Plt Count (150-400) X10^3/uL Neut % (Auto) (50-75) % Lymph % (Auto) (25-40) % Jackson % (Auto) (3-14) % Eos % (Auto) (2-4) % Baso % (Auto) (0-2) % Neut # (Auto) (8092-7719) /uL D-Dimer (<230) ng/mL Sodium (137-145) mmol/L Potassium (3.4-5.1) mmol/L Chloride (98-107) mmol/L Carbon Dioxide (22-32) mmol/L BUN (7-17) mg/dL Creatinine (0.52-1.04) mg/dL Estimated GFR (>60) mL/min BUN/Creatinine Ratio (6-22) Glucose (80-110) mg/dL Lactate 1.1 (0.7-2.1) mmol/L Calcium (8.4-10.2) mg/dL Total Bilirubin (0.2-1.3) mg/dL AST (14-36) IU/L ALT (9-52) IU/L Alkaline Phosphatase (38-126) U/L Total Creatine Kinase (30-135) U/L Troponin I (0.01-0.034) ng/mL Total Protein (6.3-8.2) g/dL Albumin (3.5-5.0) g/dL Globulin (1.7-4.1) g/dL Albumin/Globulin Ratio (1.0-2.8) Procalcitonin (<0.5) ng/mL Discharge Plan Departure Prescriptions: No Action gabapentin [Neurontin] 300 MG capsule 600 mg PO BID Qty: 0 RF: 0 primidone 50 mg tablet 250 mg PO BEDTIME RF: 0 atorvastatin 20 mg tablet 20 mg PO DAILY RF: 0 sodium bicarbonate 650 mg tablet 2 tab PO BID RF: 0 hydrochlorothiazide 12.5 mg tablet 12.5 mg PO DAILY RF: 0 aspirin 81 mg Tablet,Delayed Release (Dr/Ec) 81 mg PO DAILY RF: 0 insulin regular human [Novolin R Regular U-100 Insuln] 100 unit/mL solution 5 units Sub-Q TIDWM RF: 0 Novolog Mix 70-30 U-100 Insuln 30 units Sub-Q QPM RF: 0 gabapentin 300 mg Capsule 300 mg PO QNOON RF: 0
[2018-01-04 18:20] LABS: BUN Creatinine Ratio 22.9 (6-22); Blood Urea Nitrogen 39 mg/dL (7-17); Calcium 8.8 mg/dL (8.4-10.2); Carbon Dioxide 24 mmol/L (22-32); Chloride 102 mmol/L (98-107); Estimated Glomerular Filt Rate 29.9 mL/min (>60); Glucose 250 mg/dL (80-110); HEMOLYSIS 15 (0-50); Potassium 4.7 mmol/L (3.4-5.1); Sodium 137 mmol/L (137-145)
[2018-01-04 20:31] LABS: RBC Urine None Seen (0-5/HPF)
--- NOTE | 2018-01-04 20:37 | DI.US.S_ITS ---
PROCEDURE: US PERIPH VENOUS LOW EXTREM BI INDICATIONS: syncope, elevated DDimer, can't do CTA TECHNIQUE: Real-time imaging, as well as color and pulse Doppler interrogation, were performed of the deep veins of both legs from the inguinal ligament to the popliteal fossa. COMPARISON: None. FINDINGS: The deep veins are normally compressible, and free of intraluminal thrombus. Color and pulse Doppler demonstrate normal phasic intravascular flow. There is normal augmentation response to distal compression maneuver. IMPRESSION: No sonographic evidence of deep venous thrombus in either lower extremity. Dictated by: Tanner Barragan M.D. on 01/04/2018 at 21:44 Approved by: Tanner Barragan M.D. on 01/04/2018 at 21:44
[2018-01-04 20:47] LABS: Bilirubin Urine UA NEGATIVE (NEGATIVE); Color Urine UA YELLOW; Glucose Urine UA TRACE g/dL (Normal); Ketones Urine UA NEGATIVE (NEGATIVE); Leukocyte Esterase Urine UA 1+ (NEGATIVE); Nitrite Urine UA Negative (Negative); Occult Blood Urine UA TRACE-LYSED (Negative); Protein Urine UA 2+ (Negative); Specific Gravity Urine UA 1.015 (1.000-1.035); Urobilinogen Urine UA 0.2 E.U./dL (0.2); pH Urine UA 5.5 (4.5-8.0)
[2018-01-04] MEDS: KETOROLAC 60 MG/2 ML VIAL 15 MG IV (20:54)
[2018-01-04] MEDS: METOCLOPRAMIDE 10 MG/2 ML INJ IV (20:54)
[2018-01-04 21:02] LABS: Appearance Urine UA Slightly Cloudy; WBC Urine 10-30/HPF (0-5/HPF)
[2018-01-04 21:03] LABS: Bacteria Urine Occasional (0-1); Culture Indicated Urine Specimen Cultured; Squamous Epithelial Cell Urine 0-1 /HPF
[2018-01-05] VITALS (16 sets, daily range): BP systolic 77–147; BP diastolic 27–69; PULSE 70–103; RESP 15–26; TEMP 36.6–37; O2SAT 93–99; BMI 41.5
[2018-01-05] MEDS: cefTRIAXone 500 MG in DEXTROSE 5 % IN WATER 50 ML 100 ML IV (00:06)
[2018-01-05] MEDS: EPINEPHrine 1 MG/ML AMPUL 0.5 MG IM (01:45)
[2018-01-05] MEDS: FAMOTIDINE 20 MG/50 ML PIGGYBACK 200 MG IV (01:46)
[2018-01-05] MEDS: diphenhydrAMINE 50 MG/ML VIAL 25 MG IV (01:46)
[2018-01-05] MEDS: methylPREDNISolone 125 MG/2 ML VIAL IV (01:50)
[2018-01-05 01:56] LABS: Add Manual Diff / Slide Review NO; Basophils Percent Auto 0.2 % (0-2); Eosinophils Percent Auto 0.7 % (2-4); Hematocrit 27.4 % (36-46); Hemoglobin 9.6 g/dL (12.0-16.0); Lymphocytes Percent Auto 26.8 % (25-40); Mean Corpuscular HGB Conc 34.9 % (30-36); Mean Corpuscular Hemoglobin 29.5 PG (26-34); Mean Corpuscular Volume 84.7 fL (80-100); Monocytes Percent Auto 5.1 % (3-14); Neutrophils Absolute Auto 5500 /uL (3000-5900); Neutrophils Percent Auto 67.2 % (50-75); Platelet Count 241 X10^3/uL (150-400); Red Blood Cell Count 3.24 X10^6/uL (4.0-5.2); Red Cell Distribution Width 13.5 % (11.6-14.8); White Blood Cell Count 8.1 X10^3/uL (4.5-11.0)
--- NOTE | 2018-01-05 02:00 | PC.NURSE ---
0115- Pt became diaphoretic, c/o nausea and just not feeling well. Rocephin infusion complete. Room air sats dropped to 80's. BP 70's/40's. Pt had unresponsive episode in which she held her arms out in front of her, tremoring, gaze fixed to upper left. Episode lasted <[address] Marsh called to bedside. Pt became responsive, c/o itching. No hives noted. 2nd PIV inserted and repeat labs drawn. Repeat 12 lead done. Pt medicated with solumederol, benedryl, pepcid, and IM epi to treat for allergic reaction. Floor nurse, Lurdes, phoned to notify that transfer is pending for now. 0200- BP improved now after epi 147/46. Pt responsive, still comlaining of not feeling right.
[2018-01-05 02:08] LABS: Alanine Aminotransferase 66 IU/L (9-52); Albumin 3.2 g/dL (3.5-5.0); Albumin Globulin Ratio 1.1 (1.0-2.8); Alkaline Phosphatase 102 U/L (38-126); Aspartate Aminotransferase 70 IU/L (14-36); BUN Creatinine Ratio 19.5 (6-22); Bilirubin Total 0.4 mg/dL (0.2-1.3); Blood Urea Nitrogen 39 mg/dL (7-17); Calcium 8.5 mg/dL (8.4-10.2); Carbon Dioxide 22 mmol/L (22-32); Chloride 102 mmol/L (98-107); Estimated Glomerular Filt Rate 24.8 mL/min (>60); Globulin 2.9 g/dL (1.7-4.1); Glucose 214 mg/dL (80-110); HEMOLYSIS < 15 (0-50); Sodium 137 mmol/L (137-145); Total Protein 6.1 g/dL (6.3-8.2)
[2018-01-05] MEDS: LACTATED RINGERS 1,000 ML 125 ML IV ×3 (04:02→20:58)
[2018-01-05 05:44] LABS: Add Manual Diff / Slide Review NO; Hematocrit 26.7 % (36-46); Hemoglobin 9.2 g/dL (12.0-16.0); Lymphocytes Percent Auto 5.3 % (25-40); Mean Corpuscular HGB Conc 34.4 % (30-36); Mean Corpuscular Hemoglobin 29.4 PG (26-34); Mean Corpuscular Volume 85.4 fL (80-100); Monocytes Percent Auto 2.5 % (3-14); Neutrophils Absolute Auto 9900 /uL (3000-5900); Neutrophils Percent Auto 92.2 % (50-75); Platelet Count 173 X10^3/uL (150-400); Red Blood Cell Count 3.12 X10^6/uL (4.0-5.2); Red Cell Distribution Width 13.7 % (11.6-14.8); White Blood Cell Count 10.8 X10^3/uL (4.5-11.0)
[2018-01-05 05:52] LABS: BUN Creatinine Ratio 21.6 (6-22); Blood Urea Nitrogen 41 mg/dL (7-17); Calcium 8.2 mg/dL (8.4-10.2); Carbon Dioxide 21 mmol/L (22-32); Chloride 104 mmol/L (98-107); Estimated Glomerular Filt Rate 26.3 mL/min (>60); Glucose 310 mg/dL (80-110); HEMOLYSIS < 15 (0-50); Potassium 4.4 mmol/L (3.4-5.1); Sodium 136 mmol/L (137-145)
--- NOTE | 2018-01-05 06:17 | PC.NURSE ---
Auditing Coder- Report rec'd from PHILLIP Brown in ED at 0120. Updated at 0147 by ED RN that pt is Symptomatic and a delay in transfer. Update rec'd again at 0300 by PHILLIP Brown on current pt status. Pt arrived at 0310 via stretcher into room 218. Pt A&OX3, able to make needs known, states very tired. Rates 6/10 headache more so to right anterior, falls asleep easily. VSS, IVF started per order. BG checked at 0330 for 325. Pt placed on telemetry monitoring & WAREHOUSE ATTENDANT called & notified. HR 96bpm & regular upon auscultation. Skin intact. Voided last in ED-inc. BSX4 hypoactive, denies flatus which pt states is normal for her to have little to no flatus. Last BM was Monday 01/01, pt states is normal for her to have BM every 8-9 days at home. High fall risk precautions in place. Bed alarm on, call light within reach.
--- NOTE | 2018-01-05 08:32 | CM.DANOTE ---
Addendum entered by Valerie Brooks LPN 01/05/18 12:48: No needs at this point indicating an BAND EDGER referral. adz worker Anh is updated and agrees with same. Original Note: Addendum entered by Valerie Brooks LPN 01/05/18 12:32: Met with pt and her daughter Radha as planned. Introduced self and role. Pt clarifies that she lives with her sister Jh. She says she has been living with her since August as was homeless. She notes she is a severe alcoholic. Radha, her and 3 children live in [facility] and are very supportive. Pt confirms Dr Hirsch is PCP. Says also has a contact center representative: Dr. Rodriguez (?sp), a diabetic specialist: RAMANA Abebe and a neurologist (for ideopathic tremors, mostly in hands. 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 Pt has been seeing PT in the outpt setting ([facility] dept) with one session left. working on core strenthening. Does not have Life, Radha has been encouraging her to get this and thus far she has not wished to do this. She does today accept the [employer] brochure and will reconsider. P: likely home when stable for same but will follow prn for needs as POC unfolds. re Admission status: confirmed inpt now by NANI Hubbard. Original Note: DCP: assessment: Case received, EMR reviewed. Is noted that contrary to information on face sheet stating that pt admitted 01/05 2332 she failed to stabilize in the ER and was not sent to the medical floor until 01/05 310. Info shared with UR PHILLIP Hubbard. Admission status currently listed as inpt/pending UR review. Payer: Medicare and [facility] Admitted to hospitalist team. PCP: Dr. Patricio Hirsch Pt is a 67 year old female who admitted after weakness with syncopal event and inability to stand for 2 hours. Went to room to check in with pt. She is noted to be lying very still, eyes closed. Will check in later after she is awake and alert. Social Work consult: routine is noted via the initial furniture packer. Will discuss with BAND EDGER colleaglb Kamara at [facility] team meeting.
--- NOTE | 2018-01-05 08:42 | PC.NURSE ---
Dena is easily awakened this AM. She denies pain but reports she feels queasy. VSS. Pre-meal blood glucose 307. Awaiting orders for meds, including usual insulin coverage, from MD. Page out to MD currently requesting this. Has not voided since admission, wearing diaper. States she feels very tired, sleeping if no one in room.
--- NOTE | 2018-01-05 09:26 | PM.HP.1 ---
History of Present Illness Date Patient Seen: 01/05/18 Time Patient Seen: 06:40 Chief complaint: Weakness, Dehydration, UTI Narrative: The patient presents to emergency department with onset of weakness, malaise and a syncopal event yesterday morning, after which she was unable to stand for 2 hr due to weakness. She had no overt symptoms, and on emergency department evaluation was found to have mild hypoxia, and elevated D-dimer of 713 and elevated creatinine of 1.8, with a procalcitonin of 9.3 and white blood count 12.3, with negative cardiac enzymes and normal lactate of 1.1. Head CT showed no acute changes, chest x-ray showed no acute cardiopulmonary disease process, noncontrast chest CT was unremarkable for infection, and urinalysis markedly abnormal suggestive of a urinary infection. CT angiogram was not performed due to her elevated creatinine though bilateral lower extremity Dopplers were negative for DVT. She was administered 3 L of IV fluids given persistent orthostatic hypotension and IV antibiotics, and admitted for further management and evaluation. Upon admission, just prior to transfer to the floor she became nauseated, diaphoretic and lightheaded. IV antibiotics had just completed and she complained of itchiness. She was given Benadryl and Solu-Medrol. She reports feeling significantly better this morning. She notes that she had dental extractions done 1 week ago, and has 2 teeth in her right side that require extraction, though has no dental pain at this point. She does note right ear pain, with a normal ear exam today, likely due to his eustachian tube dysfunction. Patient History Medical History Chronic kidney disease (CKD) (Acute) Closed head injury (Acute) Diabetes mellitus with neuropathy (Acute) Diabetic neuropathy (Acute) Essential tremor (Acute) High cholesterol (Acute) Hypertension (Acute) Surgical History Hx of cataract surgery (Acute) S/P cholecystectomy (Acute) Family & Social History Family History: Reviewed 01/05/18 by José Luis Milligan MD Social History: household members family Prior Living Arrangements Apartment/Condo Safety & Behavioral: Feels Safe in Current Yes Environment Been Physically Hurt or No Threatened By a Person Suicidal Ideation Description None Suicide Plan Description No Plan Tobacco & Substance use: Smoking Status Never smoker alcohol intake frequency holiday/special occasion Substance Use Type does not use Meds Home Medications Medication Instructions Recorded Confirmed Type gabapentin [Neurontin] 600 mg PO BID #0 06/05/16 01/04/18 History Novolog Mix 70-30 U-100 Insuln 30 units SUB-Q QPM 01/04/18 01/04/18 History aspirin 81 mg PO DAILY 01/04/18 01/04/18 History atorvastatin 20 mg PO DAILY 01/04/18 01/04/18 History gabapentin 300 mg PO QNOON 01/04/18 01/04/18 History hydrochlorothiazide 12.5 mg PO DAILY 01/04/18 01/04/18 History insulin regular human [Novolin R 5 units SUB-Q TIDWM 01/04/18 01/04/18 History Regular U-100 Insuln] primidone 250 mg PO BEDTIME 01/04/18 01/04/18 History sodium bicarbonate 2 tab PO BID 01/04/18 01/04/18 History Allergies Allergy/AdvReac Type Severity Reaction Status Date / Time ceftriaxone Allergy Severe Anaphylaxis Verified 01/05/18 08:05 Review of Systems Review of Systems All systems reviewed & are unremarkable except as noted in HPI and below Exam Vital Signs (past 8 hours): Vital Signs - 8 hr 01/05/18 01:33 01/05/18 01:48 01/05/18 02:03 Temperature Pulse Rate 76 83 96 H Respiratory Rate 19 26 H 15 Blood Pressure Blood Pressure [Left Arm] 77/35 L 93/45 L 147/46 H Pulse Oximetry 96 96 95 01/05/18 02:49 01/05/18 03:20 01/05/18 03:44 Temperature 98.2 F 97.9 F Pulse Rate 103 H 96 H Respiratory Rate 17 19 Blood Pressure 139/48 H Blood Pressure [Left Arm] 122/50 H Pulse Oximetry 99 95 96 01/05/18 05:30 01/05/18 08:30 Temperature 98.2 F Pulse Rate 80 79 Respiratory Rate 20 16 Blood Pressure 138/63 H Blood Pressure [Left Arm] Pulse Oximetry 95 96 Pulse Oximetry 96 Oxygen Delivery Method Room Air Oxygen Flow Rate 0 Narrative Exam Narrative: General: Alert, pleasant obese female, in no apparent distress HEENT: Pupils 2 mm, round, reactive, extraocular movements intact, mucous membranes pink and moist, poor dentition with several carious teeth in the right mandible Neck: Supple Lungs: Clear to auscultation Cardiac: Regular rate and rhythm with grade 1/6 systolic ejection murmur at right upper sternal border Abdomen: Soft, obese, nontender Extremities: Trace pedal edema Neurologic: Alert, oriented, mild head and arm intention tremor consistent with benign essential tremor, full upper and motor strength, normal distal sensation with hyperesthesia of lower extremities to feet consistent with diabetic neuropathy Dermatologic: No rash or skin lesions, onychomycosis involving several toenails noted incidentally Objective Imaging Chest x-ray: Radiologist's impression: Mildly reduced inspiratory volume, no acute disease. CT scan - chest: Radiologist's impression: 1. No acute cardiopulmonary process is evident. 2. Scarring versus atelectasis within the bilateral lung bases. 3. Mild prominence of the wall of the esophagus may be related to incomplete distention. Distal esophagitis is difficult to exclude. 4. Coronary artery atherosclerosis. CT scan - head: Radiologist's impression: No acute intracranial hemorrhage. Venous US: Radiologist's impression: No sonographic evidence of deep venous thrombus in either lower extremity. ECG: Normal sinus rhythm at 88 beats per minute, no ischemic changes. Labs Result Diagrams: 01/05/18 05:25 01/05/18 05:25 Labs: Laboratory Results - last 24 hr 01/04/18 01/04/18 01/04/18 12:32 12:32 12:32 WBC 12.3 H RBC 3.49 L Hgb 10.0 L Hct 29.3 L MCV 83.9 MCH 28.5 MCHC 34.0 RDW 13.2 Plt Count 204 Neut % (Auto) 88.8 H Lymph % (Auto) 4.8 L [place] % (Auto) 5.9 Eos % (Auto) 0.2 L Baso % (Auto) 0.3 Neut # (Auto) 86754 H D-Dimer 713 H Sodium Potassium Chloride Carbon Dioxide BUN Creatinine Estimated GFR BUN/Creatinine Ratio Glucose Lactate Calcium Total Bilirubin AST ALT Alkaline Phosphatase Total Creatine Kinase Troponin I B-Natriuretic Peptide Total Protein Albumin Globulin Albumin/Globulin Ratio Procalcitonin 9.13 H Urine Color Urine Appearance Urine pH Ur Specific [place] Urine Protein Urine Glucose (UA) Urine Ketones Urine Occult Blood Urine Nitrate Urine Bilirubin Urine Urobilinogen Ur Leukocyte Esterase Urine RBC Urine WBC Ur Squamous Epith Cells Urine Bacteria Ur Culture Indicated? Micro UA Comment 01/04/18 01/04/18 01/04/18 13:22 13:22 15:53 WBC RBC Hgb Hct MCV MCH MCHC RDW Plt Count Neut % (Auto) Lymph % (Auto) [place] % (Auto) Eos % (Auto) Baso % (Auto) Neut # (Auto) D-Dimer Sodium 137 Potassium 4.7 Chloride 100 Carbon Dioxide 25 BUN 38 H Creatinine 1.80 H Estimated GFR 28.0 L BUN/Creatinine Ratio 21.1 Glucose 294 H Lactate 1.1 Calcium 9.2 Total Bilirubin 0.4 AST 89 H ALT 71 H Alkaline Phosphatase 114 Total Creatine Kinase 34 Troponin I < 0.012 B-Natriuretic Peptide Total Protein 6.9 Albumin 3.9 Globulin 3.0 Albumin/Globulin Ratio 1.3 Procalcitonin Urine Color Urine Appearance Urine pH Ur Specific [place] Urine Protein Urine Glucose (UA) Urine Ketones Urine Occult Blood Urine Nitrate Urine Bilirubin Urine Urobilinogen Ur Leukocyte Esterase Urine RBC Urine WBC Ur Squamous Epith Cells Urine Bacteria Ur Culture Indicated? Micro UA Comment 01/04/18 01/04/18 01/04/18 15:53 15:53 Unknown WBC RBC Hgb Hct MCV MCH MCHC RDW Plt Count Neut % (Auto) Lymph % (Auto) [place] % (Auto) Eos % (Auto) Baso % (Auto) Neut # (Auto) D-Dimer Sodium 137 Potassium 4.7 Chloride 102 Carbon Dioxide 24 BUN 39 H Creatinine 1.70 H Estimated GFR 29.9 L BUN/Creatinine Ratio 22.9 H Glucose 250 H Lactate 1.1 Calcium 8.8 Total Bilirubin AST ALT Alkaline Phosphatase Total Creatine Kinase Troponin I B-Natriuretic Peptide Total Protein Albumin Globulin Albumin/Globulin Ratio Procalcitonin Urine Color Yellow Urine Appearance Slightly cloudy Urine pH 5.5 Ur Specific [place] 1.015 Urine Protein 2+ H Urine Glucose (UA) Trace Urine Ketones Negative Urine Occult Blood Trace-lysed Urine Nitrate Negative Urine Bilirubin Negative Urine Urobilinogen 0.2 Ur Leukocyte Esterase 1+ H Urine RBC None seen Urine WBC 10-30/hpf H Ur Squamous Epith Cells 0-1 /hpf Urine Bacteria Occasional (0-1) Ur Culture Indicated? Specimen cultured Micro UA Comment Not Reportable 01/05/18 01/05/18 01/05/18 01:40 01:40 01:40 WBC 8.1 RBC 3.24 L Hgb 9.6 L Hct 27.4 L MCV 84.7 MCH 29.5 MCHC 34.9 RDW 13.5 Plt Count 241 Neut % (Auto) 67.2 D Lymph % (Auto) 26.8 D [place] % (Auto) 5.1 Eos % (Auto) 0.7 L Baso % (Auto) 0.2 Neut # (Auto) 5500 D-Dimer Sodium 137 Potassium 4.0 Chloride 102 Carbon Dioxide 22 BUN 39 H Creatinine 2.00 H Estimated GFR 24.8 L BUN/Creatinine Ratio 19.5 Glucose 214 H Lactate 1.0 Calcium 8.5 Total Bilirubin 0.4 AST 70 H ALT 66 H Alkaline Phosphatase 102 Total Creatine Kinase Troponin I B-Natriuretic Peptide 164.0 H Total Protein 6.1 L Albumin 3.2 L Globulin 2.9 Albumin/Globulin Ratio 1.1 Procalcitonin Urine Color Urine Appearance Urine pH Ur Specific [place] Urine Protein Urine Glucose (UA) Urine Ketones Urine Occult Blood Urine Nitrate Urine Bilirubin Urine Urobilinogen Ur Leukocyte Esterase Urine RBC Urine WBC Ur Squamous Epith Cells Urine Bacteria Ur Culture Indicated? Micro UA Comment 01/05/18 01/05/18 05:25 05:25 WBC 10.8 RBC 3.12 L Hgb 9.2 L Hct 26.7 L MCV 85.4 MCH 29.4 MCHC 34.4 RDW 13.7 Plt Count 173 Neut % (Auto) 92.2 H D Lymph % (Auto) 5.3 L D [place] % (Auto) 2.5 L Eos % (Auto) 0.0 L Baso % (Auto) 0.0 Neut # (Auto) 9900 H D-Dimer Sodium 136 L Potassium 4.4 Chloride 104 Carbon Dioxide 21 L BUN 41 H Creatinine 1.90 H Estimated GFR 26.3 L BUN/Creatinine Ratio 21.6 Glucose 310 H Lactate Calcium 8.2 L Total Bilirubin AST ALT Alkaline Phosphatase Total Creatine Kinase Troponin I B-Natriuretic Peptide Total Protein Albumin Globulin Albumin/Globulin Ratio Procalcitonin Urine Color Urine Appearance Urine pH Ur Specific [place] Urine Protein Urine Glucose (UA) Urine Ketones Urine Occult Blood Urine Nitrate Urine Bilirubin Urine Urobilinogen Ur Leukocyte Esterase Urine RBC Urine WBC Ur Squamous Epith Cells Urine Bacteria Ur Culture Indicated? Micro UA Comment Assessment & Plan Plan: Assessment/Plan Narrative: 1. Syncope, due to orthostatic hypotension. Possibly due to urinary infection. Monitor blood cultures and follow serial orthostatics. Doubt pulmonary embolism clinically, noting negative Dopplers on admission and lack of hypoxemia (initial hypoxemia may have been artifactual due to decreased perfusion). Consider possible underlying diabetic autonomic neuropathy. Continue IV hydration. 2. Possible urinary tract infection. Continue IV antibiotics and follow clinically. She received a dose of Levaquin 750 mg at 5:00 p.m. on 01/04/2018, and will need a 2nd dose ordered on 01/06/2018 at 5:00 p.m. pending culture review. 3. Possible allergic reaction. She received Levaquin at 5:00 p.m. in the emergency department and ceftriaxone at 10:00 p.m.. After the ceftriaxone she developed itching, nausea and orthostasis. She was given Benadryl and Solu-Medrol. Therefore, it is presumed she reacted to ceftriaxone and will continue to monitor. 4. Acute prerenal kidney injury superimposed on chronic kidney disease, stage III. Continue to monitor with IV hydration and treatment. Continue sodium bicarbonate per home routine for chronic renal tubular acidosis. Dose medications for renal function. 5. Anemia. Appears stable. She has chronic anemia and appears near her baseline of 27-29%, likely due to chronic kidney disease. Continue to monitor. 6. Diabetes mellitus, type 2. Continue diabetic diet, her usual insulin with sliding scale coverage as needed. 7. Hypertension. Hold diuretics at this point and monitor. 8. Hyperlipidemia. Continue atorvastatin. 9. Diabetic neuropathy. Continue gabapentin. Note that she may have a component of chronic autonomic insufficiency, proprioceptive loss and painful diabetic neuropathy. Continue to monitor orthostatics. 10. Benign essential tremor. Continue primidone. 11. DVT prophylaxis. Treat with low-dose Lovenox. 12. Code status: Full code. Addressed on admission with patient. Thirteen. Disposition: The patient is admitted to inpatient status as she will require at least 2 midnights of inpatient level care. Quality VTE Deep Vein Thrombosis/Pulmonary Embolism Present on Admission: No
[2018-01-05] MEDS: ASPIRIN EC 81 MG TABLET PO (10:09)
[2018-01-05] MEDS: SODIUM BICARBONATE 650 MG TABLET 1300 MG PO ×2 (10:09→22:00)
[2018-01-05] MEDS: ATORVASTATIN 20 MG TABLET PO (10:10)
[2018-01-05] MEDS: GABAPENTIN 300 MG CAPSULE 600 MG PO ×2 (10:10→21:59)
[2018-01-05] MEDS: INSULIN REGULAR 100 UNIT/ML 3 ML VIAL SUBCUT ×3 (10:32→17:14)
[2018-01-05] MEDS: ENOXAPARIN 30 MG/0.3 ML SYRINGE SUBCUT (12:26)
[2018-01-05] MEDS: GABAPENTIN 300 MG CAPSULE PO (14:48)
[2018-01-05] MEDS: POLYETHYLENE GLYCOL 3350 17 GM POWD.PACK PO (16:57)
[2018-01-05] MEDS: PRIMIDONE 50 MG TABLET 250 MG PO (21:59)
[2018-01-05] MEDS: NOVOLIN N 30 EACH SUBCUT (22:03)
[2018-01-06] VITALS (7 sets, daily range): BP systolic 134–179; BP diastolic 52–96; PULSE 71–82; RESP 16–19; TEMP 36.6–37.1; O2SAT 94–97
--- NOTE | 2018-01-06 01:32 | PC.NURSE ---
Patient is alert and oriented. Breath sounds CTA with RA sat of 97%. HRR; on telemetry and last reading available was SR. Denies nausea. BT present and abdomen is soft. Has not had BM since 01/01 but states that is normal for her; did take Miralax last night. Denies dysuria, frequency or urgency but states it take a long time for her to empty her bladder. Is able to turn self in bed. Skin moist and warm. Non pitting edema in right ankle noted. Has chronic neuropathy in bilateral feet. Denies pain. Fall risk score is high and bed alarm is activated. Gets up to BSC with 1 assist and walker; denies dizziness and/or lightheadedness.
[2018-01-06] MEDS: LACTATED RINGERS 1,000 ML 125 ML IV (05:16)
[2018-01-06 05:43] LABS: Add Manual Diff / Slide Review NO; Basophils Percent Auto 0.4 % (0-2); Eosinophils Percent Auto 3.6 % (2-4); Hematocrit 25.4 % (36-46); Hemoglobin 8.6 g/dL (12.0-16.0); Lymphocytes Percent Auto 36.2 % (25-40); Mean Corpuscular HGB Conc 33.8 % (30-36); Mean Corpuscular Hemoglobin 28.8 PG (26-34); Mean Corpuscular Volume 85.3 fL (80-100); Monocytes Percent Auto 4.5 % (3-14); Neutrophils Absolute Auto 3000 /uL (3000-5900); Neutrophils Percent Auto 55.3 % (50-75); Platelet Count 180 X10^3/uL (150-400); Red Blood Cell Count 2.98 X10^6/uL (4.0-5.2); Red Cell Distribution Width 13.2 % (11.6-14.8); White Blood Cell Count 5.4 X10^3/uL (4.5-11.0)
[2018-01-06 05:57] LABS: BUN Creatinine Ratio 21.2 (6-22); Blood Urea Nitrogen 36 mg/dL (7-17); Calcium 8.9 mg/dL (8.4-10.2); Carbon Dioxide 25 mmol/L (22-32); Chloride 106 mmol/L (98-107); Estimated Glomerular Filt Rate 29.9 mL/min (>60); Glucose 136 mg/dL (80-110); HEMOLYSIS < 15 (0-50); Potassium 4.2 mmol/L (3.4-5.1); Sodium 141 mmol/L (137-145)
--- NOTE | 2018-01-06 08:46 | P.PN_ITS ---
Subjective Date Patient Seen: 01/06/18 Time Patient Seen: 08:44 Interval history: Uneventful overnight. Patient up in chair, in no acute distress, without complaints. Exam Vital Signs (past 8 hours): Vital Signs - 8 hr 3 01/06/18 04:36 01/06/18 07:35 Temperature 98.7 F 97.8 F Pulse Rate 72 76 Respiratory Rate 19 17 Blood Pressure 146/65 H 153/76 H Pulse Oximetry 96 95 Pulse Oximetry 95 Oxygen Delivery Method Room Air Oxygen Flow Rate 96 Narrative Exam Narrative: Const General: cooperative, comfortable and well hydrated Nutritional Appearance: obese Orientation: alert, awake and oriented x3 HENMT Head: normal to inspection Ears: hearing grossly normal bilaterally and other (No ear pain.) Nose: external nose normal Face and sinus: other (Mild pain and tenderness noted on right latter-day region.) Mouth: oral mucosae normal and moist mucous membranes Eyes General: appearance normal, both eyes and all related structures Pupils: PERRL and pupil size (2mm) bilaterally Neck Neck: normal visual inspection Chest Chest: normal inspection of the chest Resp Effort & Inspection: normal respiratory effort and able to speak in complete sentences Auscultation: rales (Lower lobes) bilaterally Cardio Rate: regular rate Rhythm: regular rhythm (Telemetry reveals normal sinus rhythm without any events.) Heart Sounds: S1 normal and S2 normal GI Inspection: normal to inspection Palpation: soft Auscultation: normal bowel sounds Other: Voiding without dysuria Back/Spine/Pelvis Back: normal to inspection Sacroiliac Joints: nontender Skin General: no rashes or lesions noted Neuro General: alert, awake and oriented x3 Cranial Nerves: CN's II-XI intact bilaterally Cognition: normal cognition Speech: speech normal Motor: muscle tone normal throughout Sensory Exam: no sensory deficits noted Other: Patient has tremors in both right and left hands. Extrem Right lower extremity: edema Details: 2+ Left lower extremity: edema Details: 2+ Psych Appearance: grossly normal Mental Status: mental status grossly normal Speech and Movement: speech and movement normal Mood: congruent mood Affect: normal affect Attitude: cooperative Thought Process: normal Thought Content: normal Judgment: judgment good Objective Labs Result Diagrams: 01/06/18 05:26 01/06/18 05:26 Labs: Laboratory Results - last 24 hr 01/06/18 01/06/18 05:26 05:26 WBC 5.4 RBC 2.98 L Hgb 8.6 L Hct 25.4 L MCV 85.3 MCH 28.8 MCHC 33.8 RDW 13.2 Plt Count 180 Neut % (Auto) 55.3 D Lymph % (Auto) 36.2 D [place] % (Auto) 4.5 Eos % (Auto) 3.6 Baso % (Auto) 0.4 Neut # (Auto) 3000 Sodium 141 Potassium 4.2 Chloride 106 Carbon Dioxide 25 BUN 36 H Creatinine 1.70 H Estimated GFR 29.9 L BUN/Creatinine Ratio 21.2 Glucose 136 H D Calcium 8.9 Assessment & Plan Plan: Assessment/Plan Narrative: 1. Syncope, due to orthostatic hypotension. Monitor blood cultures and follow serial orthostatics. No evidence for pulmonary embolism clinically, noting negative Dopplers on admission and lack of hypoxemia (initial hypoxemia may have been artifactual due to decreased perfusion). D-dimer most likely elevated secondary to syncopal episode. Consider possible underlying diabetic autonomic neuropathy. Patient taking adequate oral intake. Positive 3 L fluid balance since arriving. Urine output greater than 1300 mL overnight. Will decrease IV fluids. 2. Possible urinary tract infection. Continue IV antibiotics and follow clinically. She received a dose of Levaquin 750 mg at 5:00 p.m. on 01/04/2018, and a 2nd dose is ordered for 01/06/2018 at 5:00 p.m. urine revealed mixed gram- positive jyothi. Blood culture pending review. 3. Possible allergic reaction. She received Levaquin at 5:00 p.m. in the emergency department and ceftriaxone at 10:00 p.m.. After the ceftriaxone she developed itching, nausea and orthostasis. She was given Benadryl and Solu- Medrol. Therefore, it is presumed she reacted to ceftriaxone. No further itching, shortness of breath, or signs of reaction to antibiotics. 4. Acute prerenal kidney injury superimposed on chronic kidney disease, stage III. Continue to monitor with IV hydration and treatment. Continue sodium bicarbonate per home routine for chronic renal tubular acidosis. Dose medications for renal function. Will restart her hydrochlorothiazide blood pressure remains stable without orthostatic changes. 5. Anemia. Appears stable. She has chronic anemia and appears near her baseline of 27-29%, likely due to chronic kidney disease. Continue to monitor. 6. Diabetes mellitus, type 2. Continue diabetic diet, her usual insulin with sliding scale coverage as needed. 7. Hypertension. Will restart her hydrochlorothiazide blood pressure medication if there are no further orthostatic changes. 8. Hyperlipidemia. Continue atorvastatin. 9. Diabetic neuropathy. Continue gabapentin. Note that she may have a component of chronic autonomic insufficiency, proprioceptive loss and painful diabetic neuropathy. Continue to monitor orthostatics. 10. Benign essential tremor. Continue primidone. 11. DVT prophylaxis. Treat with low-dose Lovenox. 12. Code status: Full code. Addressed on admission with patient. 13. Disposition: The patient is admitted to inpatient status as she will require at least 2 midnights of inpatient level care. Possible discharge in a.m. Quality VTE Deep Vein Thrombosis/Pulmonary Embolism Present on Admission: No
[2018-01-06] MEDS: GABAPENTIN 300 MG CAPSULE 600 MG PO ×2 (09:47→20:58)
[2018-01-06] MEDS: ATORVASTATIN 20 MG TABLET PO (09:47)
[2018-01-06] MEDS: ASPIRIN EC 81 MG TABLET PO (09:47)
[2018-01-06] MEDS: INSULIN REGULAR 100 UNIT/ML 3 ML VIAL SUBCUT ×3 (09:47→17:16)
[2018-01-06] MEDS: ENOXAPARIN 30 MG/0.3 ML SYRINGE SUBCUT (09:48)
[2018-01-06] MEDS: SODIUM BICARBONATE 650 MG TABLET 1300 MG PO ×2 (09:48→20:59)
[2018-01-06] MEDS: GABAPENTIN 300 MG CAPSULE PO (12:28)
[2018-01-06] MEDS: ACETAMINOPHEN 325 MG TABLET PO (12:29)
[2018-01-06] MEDS: LACTATED RINGERS 1,000 ML 50 ML IV (13:26)
[2018-01-06] MEDS: levoFLOXacin 750 MG/150 ML PIGGYBACK 100 MG IV (17:10)
[2018-01-06] MEDS: PRIMIDONE 50 MG TABLET 250 MG PO (20:58)
[2018-01-06] MEDS: STORED IN PHARMACY 30 EACH SUBCUT (20:59)
[2018-01-06] MEDS: NOVOLIN N 30 EACH SUBCUT (20:59)
--- NOTE | 2018-01-06 22:59 | PC.NURSE ---
Silke shift- Pt reports feeling less weakness, using FWW to BRP with 1 assist to void and BM. 96%RA, LS clear, but later on slight wheezy, new order to DC LR fluids. Order for CBC, BMP, and procalcitonin. CBG 116 @ 1600, and 121 @ 1999. Telemetry in place with NSR this shift.DC to home 01/07. Call light in reach and bed alarm on for safety.
[2018-01-07 02:25] VITALS: RESP 20
[2018-01-07 03:18] VITALS: BP 146/68; PULSE 80; RESP 16; TEMP 36.7; O2SAT 96
--- NOTE | 2018-01-07 05:15 | PC.NURSE ---
Bulbs Farmworker- Pt A&OX3, able to make needs known using call light. Denied pain, nausea, chest pain, any breathing issues. Remains on telemetry monitoring at [facility] documented by RESIDENT DIRECTOR at 2400/0400. Orthostatic vital signs taken by GUN TESTER, see flowsheet, pt asymptomatic. O2 95% on RA. Reports neuropathy to left bottom of foot is greater than left bottom foot that has intermittently woken pt. Offered out of room ambulation & pt declined stating she feels tired enough now. At 0305, blod glucose finger stick checked by GUN TESTER, result was 62, pt asymptomatic, awoken from sleep. 2 orange juice boxes and 2 felicity cracker packages given, pt ate all and rechecked for result of 94. Pt states at home when she is symptomatic, the first symptom is her upper lip is diaphoretic. No other voiced concerns.
[2018-01-07 05:49] LABS: Add Manual Diff / Slide Review NO; Basophils Percent Auto 0.4 % (0-2); Hematocrit 26.1 % (36-46); Hemoglobin 8.7 g/dL (12.0-16.0); Lymphocytes Percent Auto 19.8 % (25-40); Mean Corpuscular HGB Conc 33.4 % (30-36); Mean Corpuscular Hemoglobin 28.6 PG (26-34); Mean Corpuscular Volume 85.8 fL (80-100); Monocytes Percent Auto 5.2 % (3-14); Neutrophils Absolute Auto 4500 /uL (3000-5900); Neutrophils Percent Auto 71.6 % (50-75); Platelet Count 197 X10^3/uL (150-400); Red Blood Cell Count 3.05 X10^6/uL (4.0-5.2); Red Cell Distribution Width 13.5 % (11.6-14.8); White Blood Cell Count 6.3 X10^3/uL (4.5-11.0)
[2018-01-07 05:57] LABS: BUN Creatinine Ratio 21.4 (6-22); Blood Urea Nitrogen 30 mg/dL (7-17); Calcium 9.2 mg/dL (8.4-10.2); Carbon Dioxide 27 mmol/L (22-32); Chloride 106 mmol/L (98-107); Estimated Glomerular Filt Rate 37.4 mL/min (>60); Glucose 118 mg/dL (80-110); HEMOLYSIS < 15 (0-50); Magnesium 1.6 mg/dL (1.6-2.3); Potassium 4.7 mmol/L (3.4-5.1); Sodium 141 mmol/L (137-145)
[2018-01-07 06:19] LABS: Procalcitonin 11.39 ng/mL (<0.5)
[2018-01-07 07:30] VITALS: BP 151/79; PULSE 75; RESP 16; TEMP 36.7; O2SAT 95
--- NOTE | 2018-01-07 09:09 | P.DS_ITS ---
History of Present Illness Date Patient Seen: 01/07/18 Time Patient Seen: 09:02 Chief complaint: Weakness, Dehydration, UTI Narrative: Dena Borrego is a 67-year-old female patient. She presented to the emergency department with onset of weakness, malaise and a syncopal event yesterday morning, after which she was unable to stand for 2 hr due to weakness. She had no overt symptoms, and on emergency department evaluation was found to have mild hypoxia, and elevated D-dimer of 713 and elevated creatinine of 1.8, with a procalcitonin of 9.3 and white blood count 12.3, with negative cardiac enzymes and normal lactate of 1.1. Head CT showed no acute changes, chest x-ray showed no acute cardiopulmonary disease process, noncontrast chest CT was unremarkable for infection, and urinalysis markedly abnormal suggestive of a urinary infection. CT angiogram was not performed due to her elevated creatinine though bilateral lower extremity Dopplers were negative for DVT. She was administered 3 L of IV fluids given persistent orthostatic hypotension and IV antibiotics, and admitted for further management and evaluation. Upon admission, just prior to transfer to the floor she became nauseated, diaphoretic and lightheaded. IV antibiotics had just completed and she complained of itchiness. She was given Benadryl and Solu-Medrol. She reports feeling significantly better this morning. She notes that she had dental extractions done 1 week ago, and has 2 teeth in her right side that require extraction, though has no dental pain at this point. She does note right ear pain, with a normal ear exam today, likely due to his eustachian tube dysfunction. Discharge Providers Date of admission: 01/05/18 03:10 Primary care physician: Vanessa Hirsch MD Consults: 01/05/18 08:04 Consult to Aircraft Seat Upholsterer Routine Comment: Discharge provider: MACIEJ Saravia Summary Discharge Diagnosis: 1. Syncope 2. Acute pre renal injury superimposed on chronic kidney disease, stage III 3. Chronic anemia 4. Diabetes mellitus, type 2 5. Hypertension 6. Diabetic neuropathy 7. Hyperlipidemia Hospital Course: This is a summary for 3 day hospitalization for this patient who presented to the emergency department with onset of weakness, malaise, and a syncopal event. She was suspected of having urinary tract infection,and was started on IV antibiotics Levaquin and ceftriaxone. She appeared to have an allergy to ceftriaxone and was treated appropriately with steroids, epi, Benadryl, and Pepcid. and She was also bolused with 3 L of normal saline for her underlying dehydration. She continued to fail orthostatics after these 3 L. Blood and urine were sent for cultures but after 48 hr revealed no growth. She also had an elevated D-dimer of 713 and a procalcitonin of 9.3, and elevated white count of 12.3. Chest x-ray showed no acute disease. Due to her chronic kidney disease a chest CT without contrast was performed which showed no acute pulmonary process. There was scarring versus atelectasis within the bilateral lung bases. Head CT was normal. An ultrasound of her bilateral lower extremities revealed no evidence of deep vein thrombosis. She was admitted to the inpatient espino. She has remained afebrile during the hospitalization. Dena was also placed on cardiac telemetry with no history of tachy or Evans dysrhythmias. She continues to have orthostatic changes with drop in systolic blood pressure of 15-20 mm from the lying to the standing position. She is asymptomatic with standing and/or walking. Her changes in her blood pressure may be associated with diabetic neuropathy and vascular tone issues. She will need to be followed up by her primary care provider for her elevated procalcitonin levels (11.4 at discharge) and management of her diabetes. During this hospitalization her glucoses were all managed with the exception of 1 event where her blood sugar went to 62 during the night. She was supplemented with oral glucose. She will continue on her routine home medications for her hypertension hyperlipidemia and diabetes. Thyroid studies may also be indicated. Status at Discharge Functional status at discharge: independent ambulation Overall status at discharge: patient is back to baseline Time Spent with Patient Greater than 30 minutes Exam Vital Signs (past 8 hours): Vital Signs - 8 hr 3 01/07/18 02:25 01/07/18 03:18 01/07/18 07:30 Temperature 98.0 F 98.1 F Pulse Rate 80 75 Respiratory Rate 20 16 16 Blood Pressure 146/68 H 151/79 H Pulse Oximetry 96 95 Pulse Oximetry 95 Oxygen Delivery Method Room Air Oxygen Flow Rate 96 Narrative Exam Narrative: Exam Narrative: Const General: cooperative, comfortable and well hydrated Nutritional Appearance: obese Orientation: alert, awake and oriented x3 HENMT Head: normal to inspection Ears: hearing grossly normal bilaterally and other (No ear pain.) Nose: external nose normal Face and sinus: other (minimal pain and tenderness noted on right gnosticism region. ) Mouth: oral mucosae normal and moist mucous membranes Eyes General: appearance normal, both eyes and all related structures Pupils: PERRL and pupil size (2mm) bilaterally Neck Neck: normal visual inspection Chest Chest: normal inspection of the chest Resp Effort & Inspection: normal respiratory effort and able to speak in complete sentences Auscultation: Clear bilaterally Cardio Rate: regular rate Rhythm: regular rhythm (Telemetry reveals normal sinus rhythm without any events.) Heart Sounds: S1 normal and S2 normal GI Inspection: normal to inspection Palpation: soft Auscultation: normal bowel sounds Other: Voiding without dysuria Back/Spine/Pelvis Back: Lower back macular rash, pruritic in nature Sacroiliac Joints: nontender Skin General: no rashes or lesions noted with the exception of above Neuro General: alert, awake and oriented x3 Cranial Nerves: CN's II-XI intact bilaterally Cognition: normal cognition Speech: speech normal Motor: muscle tone normal throughout Sensory Exam: no sensory deficits noted Other: Patient has tremors in both right and left hands. Extrem Right lower extremity: edema Details: 2+ Left lower extremity: edema Details: 2+ Psych Appearance: grossly normal Mental Status: mental status grossly normal Speech and Movement: speech and movement normal Mood: congruent mood Affect: normal affect Attitude: cooperative Thought Process: normal Thought Content: normal Judgment: judgment good Objective Labs Result Diagrams: 01/07/18 05:35 01/07/18 05:35 Labs: Laboratory Results - last 24 hr 01/07/18 01/07/18 01/07/18 05:35 05:35 05:35 WBC 6.3 RBC 3.05 L Hgb 8.7 L Hct 26.1 L MCV 85.8 MCH 28.6 MCHC 33.4 RDW 13.5 Plt Count 197 Neut % (Auto) 71.6 Lymph % (Auto) 19.8 L [place] % (Auto) 5.2 Eos % (Auto) 3.0 Baso % (Auto) 0.4 Neut # (Auto) 4500 Sodium 141 Potassium 4.7 Chloride 106 Carbon Dioxide 27 BUN 30 H Creatinine 1.40 H Estimated GFR 37.4 L BUN/Creatinine Ratio 21.4 Glucose 118 H Calcium 9.2 Magnesium 1.6 Procalcitonin 11.39 H Discharge Plan Discharge Plan Patient Disposition: Home, Self-Care Provider Discharge Instructions Diet: Carb-consistent/Diabetic Activity: Up ad theresa as tolerated. Oxygen: Room air Wound Care Report to your healthcare provider any signs of infection, such as:: chills, fever, night sweats and increased pain Discharge Data Primary Care Provider: Vanessa Hirsch Attending Provider: José Luis Milligan V Admit Date/Time: 01/05/18 03:10 Quality VTE Deep Vein Thrombosis/Pulmonary Embolism Present on Admission: No
[2018-01-07] MEDS: ENOXAPARIN 30 MG/0.3 ML SYRINGE SUBCUT (09:44)
[2018-01-07] MEDS: ATORVASTATIN 20 MG TABLET PO (09:44)
[2018-01-07] MEDS: SODIUM BICARBONATE 650 MG TABLET 1300 MG PO (09:44)
[2018-01-07] MEDS: ASPIRIN EC 81 MG TABLET PO (09:45)
[2018-01-07] MEDS: GABAPENTIN 300 MG CAPSULE 600 MG PO (09:45)
--- NOTE | 2018-01-07 11:46 | CM.DPC ---
DCP Discharge Home Per MD, pt is medically stable to d/c home today with no identified barriers to discharge. Per RN, no needs identified. Plan: Patient to d/c home today via POV and no SW needs at this time. ALEJANDRO German
== END 2018-01-07 12:00 | disposition home or self-care (01) | DRG 683 ==
LOC: ED 18:58 → AC 01-05 03:51
PROVIDERS: Emergency Medicine; Nurse Practitioner Acute Care; Admitting Provider Internal Medicine; Emergency Provider Emergency Medicine; Family Provider Internal Medicine; PCP Internal Medicine; Visit Provider Internal Medicine
DX: N17.9 Acute kidney failure, unspecified (principal); Z68.41 Body mass index [BMI] 40.0-44.9, adult; I95.1 Orthostatic hypotension; N25.89 Other disorders resulting from impaired renal tubular function; I12.9 Hypertensive chronic kidney disease with stage 1 through stage 4 chronic kidney disease, or unspecified chronic kidney disease; E11.22 Type 2 diabetes mellitus with diabetic chronic kidney disease; N18.3 Chronic kidney disease, stage 3 (moderate); Z79.4 Long term (current) use of insulin; E11.40 Type 2 diabetes mellitus with diabetic neuropathy, unspecified; D63.1 Anemia in chronic kidney disease; E78.5 Hyperlipidemia, unspecified; G25.0 Essential tremor; E66.9 Obesity, unspecified; E86.0 Dehydration; R11.0 Nausea; L29.9 Pruritus, unspecified; T36.1X5A Adverse effect of cephalosporins and other beta-lactam antibiotics, initial encounter
CPT/HCPCS: 36415; 70450; 71046; 71250; 80048; 80053; 81001; 82550; 82962; 83605; 83735; 83880; 84145; 84484; 85025; 85379; 87040; 87086; 93005; 93041; 93970; 96361; 96365; 99285; 99291; 99292; J0171; J0696; J1200; J1650; J1885; J1956; J2765; J2930

== ENCOUNTER → 2018-01-22 06:51 | Outpatient (CLI) | payer MEDICARE, OTHER, SELFPAY ==
[2018-01-05 15:09] VITALS: BMI 41.5
[2018-01-22 09:05] LABS: Hematocrit 31.3 % (36-46); Hemoglobin 10.5 g/dL (12.0-16.0)
[2018-01-22 09:11] LABS: BUN Creatinine Ratio 21.9 (6-22); Blood Urea Nitrogen 35 mg/dL (7-17); Calcium 9.6 mg/dL (8.4-10.2); Carbon Dioxide 26 mmol/L (22-32); Chloride 101 mmol/L (98-107); Estimated Glomerular Filt Rate 32.1 mL/min (>60); Glucose 80 mg/dL (80-110); HEMOLYSIS < 15 (0-50); Potassium 4.6 mmol/L (3.4-5.1); Sodium 142 mmol/L (137-145)
[2018-01-22 09:22] LABS: HEMOLYSIS < 15 (0-50); Iron 57 ug/dL (37-170)
[2018-01-22 09:32] LABS: Percent Iron Saturation 21 % (15-50); Total Iron Binding Capacity 276 ug/dL (265-497); Transferrin 217 mg/dL (206-381)
[2018-01-22 09:42] LABS: Ferritin 52.9 ng/mL (11.1-264)
== END ==
PROVIDERS: PCP Internal Medicine; Visit Provider Student in an Organized Health Care Education/Training Program
DX: N05.9 Unspecified nephritic syndrome with unspecified morphologic changes (principal); D50.0 Iron deficiency anemia secondary to blood loss (chronic); D64.9 Anemia, unspecified
CPT/HCPCS: 36415; 80048; 82728; 83540; 83550; 85014; 85018

== ENCOUNTER → 2018-04-30 10:05 | Outpatient (CLI) | payer MEDICARE, OTHER, SELFPAY ==
[2018-01-05 15:09] VITALS: BMI 41.5
[2018-04-30 11:22] LABS: Hematocrit 29.7 % (36-46); Hemoglobin 10.1 g/dL (12.0-16.0)
[2018-04-30 11:48] LABS: HEMOLYSIS < 15 (0-50); Iron 72 ug/dL (37-170)
[2018-04-30 11:50] LABS: BUN Creatinine Ratio 19.4 (6-22); Blood Urea Nitrogen 33 mg/dL (7-17); Calcium 9.7 mg/dL (8.4-10.2); Carbon Dioxide 25 mmol/L (22-32); Chloride 105 mmol/L (98-107); Estimated Glomerular Filt Rate 29.9 mL/min (>60); Glucose 75 mg/dL (80-110); HEMOLYSIS < 15 (0-50); Potassium 5.2 mmol/L (3.4-5.1); Sodium 143 mmol/L (137-145)
[2018-04-30 11:59] LABS: Percent Iron Saturation 28 % (15-50); Total Iron Binding Capacity 256 ug/dL (265-497); Transferrin 215 mg/dL (206-381)
[2018-04-30 12:16] LABS: Creatinine Urine Random 42.7 mg/dL; Protein (Total) Urine Random 53 mg/dL (0-12); Protein Creatinine Ratio Urine 1.24 GRAM/24H
[2018-04-30 12:24] LABS: Ferritin 41.3 ng/mL (11.1-264)
[2018-05-04 15:18] LABS: Parathyroid Hormone Int 112 pg/mL (14-64)
== END ==
PROVIDERS: Family Provider Internal Medicine; PCP Internal Medicine; Visit Provider Student in an Organized Health Care Education/Training Program
DX: N05.9 Unspecified nephritic syndrome with unspecified morphologic changes (principal); D50.0 Iron deficiency anemia secondary to blood loss (chronic); D64.9 Anemia, unspecified; N25.81 Secondary hyperparathyroidism of renal origin; R80.9 Proteinuria, unspecified
CPT/HCPCS: 36415; 80048; 82570; 82728; 83540; 83550; 83970; 84156; 85014; 85018

== ENCOUNTER → 2018-06-11 09:45 | Outpatient (CLI) | payer MEDICARE, OTHER, SELFPAY ==
[2018-01-05 15:09] VITALS: BMI 41.5
[2018-06-11 12:11] LABS: Blood Urea Nitrogen 36 mg/dL (7-17); Calcium 9.2 mg/dL (8.4-10.2); Carbon Dioxide 22 mmol/L (22-32); Chloride 107 mmol/L (98-107); Estimated Glomerular Filt Rate 24.8 mL/min (>60); Glucose 172 mg/dL (80-110); HEMOLYSIS < 15 (0-50); Potassium 5.1 mmol/L (3.4-5.1); Sodium 142 mmol/L (137-145)
== END ==
PROVIDERS: PCP Internal Medicine; Visit Provider Student in an Organized Health Care Education/Training Program
DX: N05.9 Unspecified nephritic syndrome with unspecified morphologic changes (principal)
CPT/HCPCS: 36415; 80048

== ENCOUNTER → 2018-08-13 08:26 | Outpatient (CLI) | payer MEDICARE, OTHER, SELFPAY ==
[2018-01-05 15:09] VITALS: BMI 41.5
[2018-08-13 09:11] LABS: Hematocrit 30.5 % (36-46); Hemoglobin 10.3 g/dL (12.0-16.0)
[2018-08-13 09:32] LABS: Blood Urea Nitrogen 38 mg/dL (7-17); Calcium 9.6 mg/dL (8.4-10.2); Carbon Dioxide 21 mmol/L (22-32); Chloride 103 mmol/L (98-107); Estimated Glomerular Filt Rate 26.3 mL/min (>60); Glucose 142 mg/dL (80-110); HEMOLYSIS < 15 (0-50); Potassium 4.6 mmol/L (3.4-5.1); Sodium 138 mmol/L (137-145)
[2018-08-13 09:40] LABS: HEMOLYSIS < 15 (0-50); Iron 78 ug/dL (37-170)
[2018-08-13 09:50] LABS: Percent Iron Saturation 29 % (15-50); Total Iron Binding Capacity 269 ug/dL (265-497); Transferrin 220 mg/dL (206-381)
[2018-08-13 10:00] LABS: Ferritin 42.6 ng/mL (11.1-264)
[2018-08-14 14:13] LABS: Parathyroid Hormone Int 86 pg/mL (14-64)
== END ==
PROVIDERS: PCP Internal Medicine; Visit Provider Student in an Organized Health Care Education/Training Program
DX: N05.9 Unspecified nephritic syndrome with unspecified morphologic changes (principal); D50.0 Iron deficiency anemia secondary to blood loss (chronic); D64.9 Anemia, unspecified; N25.81 Secondary hyperparathyroidism of renal origin
CPT/HCPCS: 36415; 80048; 82728; 83540; 83550; 83970; 85014; 85018

== ENCOUNTER 2018-08-22 22:19 | Emergency (ER) | payer MEDICARE, OTHER, SELFPAY ==
[2018-01-05 15:09] VITALS: BMI 41.5
[2018-08-22 22:18] VITALS: BP 164/63; PULSE 118; RESP 26; TEMP 39.3; O2SAT 95
[2018-08-22] MEDS: ONDANSETRON 4 MG/2 ML INJ IV (22:29)
--- NOTE | 2018-08-22 22:30 | DI.RAD.S_ITS ---
PROCEDURE: XR CHEST 1V INDICATIONS: fever TECHNIQUE: One view of the chest was acquired. COMPARISON: [facility], CT, CT CHEST WO CON, 01/04/2018, 14:03. [facility], CR, XR CHEST 2V, 01/04/2018, 12:44. FINDINGS: Surgical changes and devices: None. Lungs and pleura: No pleural effusions or pneumothorax. Lungs are free of consolidative pneumonia considering reduced inspiratory volume. There is a radiodensity identified by the emergency room physician at the right upper lobe overlying the medial right fifth rib, of uncertain etiology and clinical significance. Mediastinum: Mediastinal contours appear normal. Heart size is normal. Bones and chest wall: No suspicious bony lesions. Overlying soft tissues appear unremarkable. IMPRESSION: 1. The inspiratory volume is reduced, the patient body habitus is large, no definite pneumonia found. 2. Overlying the medial aspect of the right fifth rib is a radiodensity which also was identified by the emergency room physician as a possible mass, a two-view chest with deep inspiration is recommended to more accurately assess that area. If this density persists contrast-enhanced CT scanning would be recommended. With reference to a prior CT scan from January of last year no lesion in that area was present, but this does not entirely exclude the possibility of interval development of malignancy in that area. Dictated by: Doc Mccann M.D. on 08/23/2018 at 8:27 Approved by: Doc Mccann M.D. on 08/23/2018 at 8:32
[2018-08-22] MEDS: SODIUM CHLORIDE 0.9% 1,000 ML 200 ML IV (22:36)
[2018-08-22] MEDS: ACETAMINOPHEN 325 MG TABLET 975 MG PO (22:38)
[2018-08-22 22:40] VITALS: BP 171/61; PULSE 111; RESP 24; O2SAT 92
[2018-08-22 22:45] LABS: Add Manual Diff / Slide Review NO; Basophils Absolute Auto 0 /uL (0-100); Basophils Percent Auto 0.8 % (0-2); Eosinophils Absolute Auto 0 /uL (0-450); Eosinophils Percent Auto 0.8 % (2-4); Hematocrit 32.2 % (36-46); Hemoglobin 10.8 g/dL (12.0-16.0); Lymphocytes Absolute Auto 600 /uL (1100-4500); Lymphocytes Percent Auto 12.4 % (25-40); Mean Corpuscular HGB Conc 33.6 % (30-36); Mean Corpuscular Hemoglobin 29.3 PG (26-34); Mean Corpuscular Volume 87.1 fL (80-100); Monocytes Absolute Auto 0 /uL (0-900); Monocytes Percent Auto 0.9 % (3-14); Neutrophils Absolute Auto 4200 /uL (1500-7000); Neutrophils Percent Auto 85.1 % (50-75); Platelet Count 192 X10^3/uL (150-400); Red Cell Distribution Width 13.3 % (11.6-14.8)
--- NOTE | 2018-08-22 22:52 | PC.NURSE ---
Patient not oriented to place, time, or situation. Thinks she is in a hotel and it is 1992. Hx of prior episodes like this with UTI. Family at bedside.
[2018-08-22 22:54] LABS: Alanine Aminotransferase 18 IU/L (9-52); Albumin 4.5 g/dL (3.5-5.0); Albumin Globulin Ratio 1.4 (1.0-2.8); Alkaline Phosphatase 114 U/L (38-126); Aspartate Aminotransferase 45 IU/L (14-36); BUN Creatinine Ratio 21.6 (6-22); Bilirubin Total 0.3 mg/dL (0.2-1.3); Blood Urea Nitrogen 41 mg/dL (7-17); Carbon Dioxide 22 mmol/L (22-32); Chloride 106 mmol/L (98-107); Estimated Glomerular Filt Rate 26.3 mL/min (>60); Globulin 3.3 g/dL (1.7-4.1); Glucose 227 mg/dL (80-110); HEMOLYSIS 17 (0-50); Potassium 4.9 mmol/L (3.4-5.1); Sodium 141 mmol/L (137-145); Total Protein 7.8 g/dL (6.3-8.2)
[2018-08-22 22:59] LABS: Influenza A and B by PCR Rapid Negative (Negative)
[2018-08-22 22:59] LABS: Ketones (Beta-Hydroxybutyrate) 0.17 mmol/L (<0.27)
[2018-08-22 23:05] LABS: Appearance Urine UA CLEAR; Bilirubin Urine UA NEGATIVE (NEGATIVE); Color Urine UA YELLOW; Glucose Urine UA 1+ g/dL (Negative); Ketones Urine UA NEGATIVE (NEGATIVE); Leukocyte Esterase Urine UA 1+ (NEGATIVE); Nitrite Urine UA NEGATIVE (Negative); Occult Blood Urine UA TRACE-INTACT (Negative); Protein Urine UA 2+ (Negative); Specific Gravity Urine UA 1.015 (1.000-1.035); Urobilinogen Urine UA 0.2 E.U./dL (0.2)
--- NOTE | 2018-08-22 23:07 | ED_ITS ---
HPI - Altered Mental Status General Chief Complaint: Altered Mental Status Stated Complaint: Altered mental status Time Seen by Provider: 08/22/18 22:24 Source: patient Mode of arrival: ambulatory Limitations: no limitations History of Present Illness HPI narrative: Patient is a 59-year-old female who presents with fever and confusion. She is a diabetic. She missed 1 dose of insulin today. According to family lumbar did not have a prescription ready or there was not a refill. She missed her long-acting insulin. She is currently febrile at 1:02 a.m.. She does have a history of getting frequent UTIs. She was well earlier today and yesterday. Now she is feeling nauseated she has vomited a number of times in the last hour. No abdominal pain. No diarrhea. MD complaint: altered mental status and confusion Related Data Home Medications Medication Instructions Recorded Confirmed gabapentin [Neurontin] 600 mg PO BID #0 06/05/16 08/22/18 aspirin 81 mg PO DAILY 01/04/18 08/22/18 atorvastatin 20 mg PO DAILY 01/04/18 08/22/18 gabapentin 300 mg PO QNOON 01/04/18 08/22/18 hydrochlorothiazide 12.5 mg PO DAILY 01/04/18 08/22/18 insulin NPH isoph U-100 human 30 units SUB-Q QPM 01/04/18 01/04/18 insulin regular human 5 units SUB-Q TIDWM 01/04/18 08/22/18 primidone 250 mg PO BEDTIME 01/04/18 08/22/18 sodium bicarbonate 2 tab PO BID 01/04/18 08/22/18 Allergies Allergy/AdvReac Type Severity Reaction Status Date / Time ceftriaxone Allergy Severe Anaphylaxis Verified 08/22/18 22:25 Review of Systems Review of Systems ROS Unobtainable: All systems reviewed & are unremarkable except as noted in HPI and below Constitutional Reports fever(s) Cardiovascular Denies chest pain, Denies irregular heart rhythm, Denies lightheadedness, Denies palpitations, Denies dyspnea, Denies dyspnea on exertion and Denies orthopnea Respiratory Denies cough, Denies dyspnea, Denies dyspnea on exertion and Denies wheezing Gastrointestinal Gastrointestinal: Denies abdominal pain, Denies diarrhea and Reports vomiting Musculoskeletal Denies back pain, Denies muscle weakness, Denies numbness and Denies tingling Integumentary/Breasts Denies pruritus, Denies erythema, Denies rash and Denies wounds Neurologic Denies numbness and Denies tingling Endocrine Denies palpitations Allergic/Immunologic Denies wheezing Exam Initial Vital Signs Initial Vital Signs: Vital Signs Temperature 102.8 F H 08/22/18 22:18 Pulse Rate 118 H 08/22/18 22:18 Respiratory Rate 26 H 08/22/18 22:18 Blood Pressure 164/63 H 08/22/18 22:18 Pulse Oximetry 95 08/22/18 22:18 GENERAL: patient confused, extremely warm to touch HEENT: Head atraumatic,EOMI, pupils reactive, Face symmetric CARDIOVASCULAR: Regular rate and rhythm without murmurs, rubs or gallops. RESPIRATORY: Breath sounds equal bilaterally, no wheezes rales or rhonchi. ABDOMEN: Soft, nontender. Normoactive bowel sounds all 4 quadrants. No guarding or rebound. EXTREMITIES: Normal range of motion, no clubbing or edema. Neurovascularly intact NEUROLOGICAL: Alert and oriented x4. 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 Course Orders Ordered: ED Orders 08/22/18 22:05 Complete Blood Count AUTO DIFF Stat Comprehensive Metabolic Panel Stat Ketones (Beta-Hydroxybutyrate) Stat Procalcitonin Stat 08/22/18 22:25 Influenza A and B by PCR Rapid Stat 08/22/18 22:30 XR chest 1V Stat 08/22/18 22:50 Urinalysis and Microscopic Stat Urine Culture Stat 08/22/18 22:56 Lactate (Lactic Acid) Stat 08/22/18 23:00 Blood Culture Stat Discontinued Medications Acetaminophen (Tylenol) 975 mg PO NOW ONE Stop: 08/22/18 22:37 Last Admin: 08/22/18 22:38 Dose: 975 mg Sodium Chloride (Normal Saline 0.9%) 1,000 mls @ 200 mls/hr IV CONT MELY Last Infusion: 08/23/18 00:03 Dose: 0 mls/hr Admin: 08/22/18 22:36 Dose: 200 mls/hr Sodium Chloride (Normal Saline 0.9%) 1,000 mls @ 1,000 mls/hr IV BOLUS ONE Stop: 08/23/18 00:40 Last Infusion: 08/23/18 01:24 Dose: 0 mls/hr Admin: 08/23/18 00:04 Dose: 1,000 mls/hr Ondansetron HCl (Zofran) 4 mg IV NOW ONE Stop: 08/22/18 22:27 Last Admin: 08/22/18 22:29 Dose: 4 mg Vital Signs - 8 hr 08/22/18 22:18 08/22/18 22:40 08/22/18 23:17 Temperature 102.8 F H 100.2 F H Pulse Rate 118 H 111 H Respiratory Rate 26 H 24 Blood Pressure 164/63 H Blood Pressure [Left Arm] 171/61 H Pulse Oximetry 95 92 08/22/18 23:30 08/23/18 00:04 08/23/18 00:50 Temperature Pulse Rate 100 H 96 H 95 H Respiratory Rate 23 21 16 Blood Pressure Blood Pressure [Left Arm] 143/55 H 143/50 H 132/49 L Pulse Oximetry 94 93 100 08/23/18 01:22 Temperature Pulse Rate 91 H Respiratory Rate 18 Blood Pressure Blood Pressure [Left Arm] 132/46 L Pulse Oximetry 95 MDM - Altered Mental Status Lab Data Attestation: I reviewed the patient's lab results. Result diagrams: 08/22/18 22:05 08/22/18 22:05 Lab Results 08/22/18 08/22/18 08/22/18 Range/Units 22:05 22:05 22:05 WBC 5.0 (4.5-11.0) X10^3/uL RBC 3.70 L (4.0-5.2) X10^6/uL Hgb 10.8 L (12.0-16.0) g/dL Hct 32.2 L (36-46) % MCV 87.1 (80-100) fL MCH 29.3 (26-34) PG MCHC 33.6 (30-36) % RDW 13.3 (11.6-14.8) % Plt Count 192 (150-400) X10^3/uL Neut % (Auto) 85.1 H (50-75) % Lymph % (Auto) 12.4 L (25-40) % [place] % (Auto) 0.9 L (3-14) % Eos % (Auto) 0.8 L (2-4) % Baso % (Auto) 0.8 (0-2) % Neut # (Auto) 4200 (4284-5891) /uL Lymph # (Auto) 600 L (5087-4029) /uL [place] # (Auto) 0 (0-900) /uL Eos # (Auto) 0 (0-450) /uL Baso # (Auto) 0 (0-100) /uL Sodium 141 (137-145) mmol/L Potassium 4.9 (3.4-5.1) mmol/L Chloride 106 (98-107) mmol/L Carbon Dioxide 22 (22-32) mmol/L BUN 41 H (7-17) mg/dL Creatinine 1.90 H (0.52-1.04) mg/dL Estimated GFR 26.3 L (>60) mL/min BUN/Creatinine Ratio 21.6 (6-22) Glucose 227 H (80-110) mg/dL Lactate (0.7-2.1) mmol/L Calcium 10.0 (8.4-10.2) mg/dL Total Bilirubin 0.3 (0.2-1.3) mg/dL AST 45 H (14-36) IU/L ALT 18 (9-52) IU/L Alkaline Phosphatase 114 (38-126) U/L Total Protein 7.8 (6.3-8.2) g/dL Albumin 4.5 (3.5-5.0) g/dL Globulin 3.3 (1.7-4.1) g/dL Albumin/Globulin Ratio 1.4 (1.0-2.8) Procalcitonin 0.21 (<0.5) ng/mL Urine Color Urine Appearance Urine pH (4.5-8.0) Ur Specific [place] (1.000-1.035) Urine Protein (Negative) Urine Glucose (UA) (Negative) g/dL Urine Ketones (NEGATIVE) Urine Occult Blood (Negative) Urine Nitrate (Negative) Urine Bilirubin (NEGATIVE) Urine Urobilinogen (0.2) E.U./dL Ur Leukocyte Esterase (NEGATIVE) Urine RBC (0-5/HPF) Urine WBC (0-5/HPF) Urine Bacteria (None) Ur Culture Indicated? Ketones 0.17 (<0.27) mmol/L Influenza A & B (PCR) (Negative) 01/20/19 01/20/19 01/20/19 Range/Units 22:25 22:50 22:56 WBC (4.5-11.0) X10^3/uL RBC (4.0-5.2) X10^6/uL Hgb (12.0-16.0) g/dL Hct (36-46) % MCV (80-100) fL MCH (26-34) PG MCHC (30-36) % RDW (11.6-14.8) % Plt Count (150-400) X10^3/uL Neut % (Auto) (50-75) % Lymph % (Auto) (25-40) % [place] % (Auto) (3-14) % Eos % (Auto) (2-4) % Baso % (Auto) (0-2) % Neut # (Auto) (4295-9410) /uL Lymph # (Auto) (5696-0338) /uL [place] # (Auto) (0-900) /uL Eos # (Auto) (0-450) /uL Baso # (Auto) (0-100) /uL Sodium (137-145) mmol/L Potassium (3.4-5.1) mmol/L Chloride (98-107) mmol/L Carbon Dioxide (22-32) mmol/L BUN (7-17) mg/dL Creatinine (0.52-1.04) mg/dL Estimated GFR (>60) mL/min BUN/Creatinine Ratio (6-22) Glucose (80-110) mg/dL Lactate 2.3 H (0.7-2.1) mmol/L Calcium (8.4-10.2) mg/dL Total Bilirubin (0.2-1.3) mg/dL AST (14-36) IU/L ALT (9-52) IU/L Alkaline Phosphatase (38-126) U/L Total Protein (6.3-8.2) g/dL Albumin (3.5-5.0) g/dL Globulin (1.7-4.1) g/dL Albumin/Globulin Ratio (1.0-2.8) Procalcitonin (<0.5) ng/mL Urine Color Yellow Urine Appearance Clear Urine pH 6.0 (4.5-8.0) Ur Specific [place] 1.015 (1.000-1.035) Urine Protein 2+ H (Negative) Urine Glucose (UA) 1+ H (Negative) g/dL Urine Ketones Negative (NEGATIVE) Urine Occult Blood Trace-intact (Negative) Urine Nitrate Negative (Negative) Urine Bilirubin Negative (NEGATIVE) Urine Urobilinogen 0.2 (0.2) E.U./dL Ur Leukocyte Esterase 1+ H (NEGATIVE) Urine RBC 0-1/hpf (0-5/HPF) Urine WBC 1-5/hpf (0-5/HPF) Urine Bacteria Occasional (0-1) (None) Ur Culture Indicated? Specimen cultured Ketones (<0.27) mmol/L Influenza A & B (PCR) Negative (Negative) Point of Care Testing Glucose POC 237 Imaging Data Chest x-ray: Attestation: I personally reviewed and interpreted this imaging study as follows: My impression: no acute cardiopulmonary process. Possible right upper low but mass not seen on previous chest x-ray MDM Narrative Medical decision making narrative: patient is renal function is baseline. She has no leukocytosis slightly elevated lactic acid. Procalcitonin also slightly elevated but no clear source of bacterial infection. Urine shows occasional bacteria she frequently gets UTIs. Her last urine culture in January of 2018 at this hospital did not actually grow anything. She has no symptoms of UTI she frequently does not get symptoms of a UTI. Chest x-ray is clear. She has only had fever for a few hours. This may be viral. She has appointment with her PCP tomorrow. She is much less confused after IV fluids in fever improved. At this time she does not appear septic a toxic. She has a follow-up with tomorrow. Is will hold off antibiotics for now. Discharge Plan Departure Patient Disposition: Home Clinical Impression: Acute viral syndrome Discharge Date/Time: 08/23/18 01:46 Interventions: ED Discharge Assessment Last Done: 08/23/18 01:46 Instructions: DI for Viral Syndrome Activity Restrictions/Additional Instructions: *You have been diagnosed with Viral syndrome *What to do: at this time influenza is negative chest x-ray is negative. Will wait for urine culture results before starting antibiotics *Continue to take medications as directed *Follow up with your primary care provider in 2-3 days *Return to ER if you should have confusion, persistant vomiting, or any new, worsening or concerning symptoms Prescriptions: No Action gabapentin [Neurontin] 300 MG capsule 600 mg PO BID Qty: 0 RF: 0 primidone 50 mg tablet 250 mg PO BEDTIME RF: 0 atorvastatin 20 mg tablet 20 mg PO DAILY RF: 0 sodium bicarbonate 650 mg tablet 2 tab PO BID RF: 0 hydrochlorothiazide 12.5 mg tablet 12.5 mg PO DAILY RF: 0 aspirin 81 mg Tablet,Delayed Release (Dr/Ec) 81 mg PO DAILY RF: 0 insulin regular human 100 unit/mL solution 5 units Sub-Q TIDWM RF: 0 insulin NPH isoph U-100 human 30 units Sub-Q QPM RF: 0 gabapentin 300 mg Capsule 300 mg PO QNOON RF: 0
[2018-08-22 23:08] LABS: Procalcitonin 0.21 ng/mL (<0.5)
[2018-08-22 23:13] LABS: RBC Urine 0-1/HPF (0-5/HPF); WBC Urine 1-5/HPF (0-5/HPF)
[2018-08-22 23:14] LABS: Bacteria Urine Occasional (0-1); Culture Indicated Urine Specimen Cultured
[2018-08-22 23:16] LABS: Lactate (Lactic Acid) 2.3 mmol/L (0.7-2.1)
[2018-08-22 23:17] VITALS: TEMP 37.9
[2018-08-22 23:30] VITALS: BP 143/55; PULSE 100; RESP 23; O2SAT 94
[2018-08-23 00:04] VITALS: BP 143/50; PULSE 96; RESP 21; O2SAT 93
[2018-08-23] MEDS: SODIUM CHLORIDE 0.9% 1,000 ML 1000 ML IV (00:04)
[2018-08-23 00:50] VITALS: BP 132/49; PULSE 95; RESP 16; O2SAT 100
[2018-08-23 01:22] VITALS: BP 132/46; PULSE 91; RESP 18; O2SAT 95
[2018-08-23 03:03] LABS: Reflexed Lactate in 2 Hours Y
== END 2018-08-23 01:46 | disposition home or self-care (01) ==
PROVIDERS: Emergency Provider Emergency Medicine; Family Provider Internal Medicine; PCP Internal Medicine
DX: B34.9 Viral infection, unspecified (principal); R41.0 Disorientation, unspecified; E11.9 Type 2 diabetes mellitus without complications; Z87.440 Personal history of urinary (tract) infections
CPT/HCPCS: 36415; 71045; 80053; 81001; 82009; 82962; 83605; 84145; 85025; 87040; 87077; 87086; 87186; 87400; 96361; 96374; 99284; 99285; J2405

== ENCOUNTER 2018-09-27 09:53 | Emergency (ER) | payer MEDICARE, OTHER, SELFPAY ==
[2018-01-05 15:09] VITALS: BMI 41.5
[2018-09-27 10:00] VITALS: BP 159/103; PULSE 80; RESP 18; TEMP 36.6; O2SAT 99
--- NOTE | 2018-09-27 10:56 | DI.RAD.S_ITS ---
PROCEDURE: XR HUMERUS RT 2V INDICATIONS: fall with right arm outstretched catching fall. TECHNIQUE: 2 views of the humerus were acquired. COMPARISON: [facility], CR, XR HAND RT MIN 3V, 09/27/2018, 10:58. [facility], CR, XR SHOULDER RT MIN 2V, 09/27/2018, 10:58. FINDINGS: Bones: There is a complex structure seen the humeral head and neck. Age-appropriate bony degenerative changes are seen. Soft tissues: No suspicious soft tissue calcifications. Cholecystectomy clips are seen. IMPRESSION: Complex fracture of the humeral head and neck. Dictated by: Alonzo Harry M.D. on 09/27/2018 at 10:42 Approved by: Alonzo Harry M.D. on 09/27/2018 at 10:44
--- NOTE | 2018-09-27 10:56 | DI.RAD.S_ITS ---
PROCEDURE: XR SHOULDER RT MIN 2V INDICATIONS: fall with right arm outstretched catching fall. TECHNIQUE: 3 views of the shoulder were acquired. COMPARISON: [facility], CT, CT CHEST WO CON, 01/04/2018, 14:03. [facility], CR, XR HAND RT MIN 3V, 09/27/2018, 10:58. [facility], CR, XR HUMERUS RT 2V, 09/27/2018, 10:58. [facility], CR, XR CHEST 1V, 08/22/2018, 22:36. FINDINGS: Bones: There is a complex are seen of the humeral head and neck. No dislocation can be seen. Age-appropriate bony degenerative changes are seen. No suspicious lytic or blastic lesions are seen. Soft tissues: No suspicious soft tissue calcifications. The visualized lung demonstrates an unremarkable appearance. IMPRESSION: Complex fracture of the humeral head and neck. Dictated by: Alonzo Harry M.D. on 09/27/2018 at 10:44 Approved by: Alonzo Harry M.D. on 09/27/2018 at 10:45
--- NOTE | 2018-09-27 10:56 | DI.RAD.S_ITS ---
PROCEDURE: XR HAND RT MIN 3V INDICATIONS: fall with right arm outstretched catching fall. TECHNIQUE: 3 views of the hand(s) acquired. COMPARISON: None. FINDINGS: Bones: No fractures or dislocations. Carpal bones are normally aligned. No suspicious bony lesions. Possible marginal lucency projecting at the DIP joint of the ring finger comment nonspecific. Diffuse interphalangeal, first CMC and triscaphe degeneration. Soft tissues: No suspicious soft tissue calcifications. IMPRESSION: No fracture Dictated by: Yogesh Vasquez M.D. on 09/27/2018 at 11:27 Approved by: Yogesh Vasquez M.D. on 09/27/2018 at 11:28
--- NOTE | 2018-09-27 12:05 | ED.UPPEXIN ---
HPI - Extremity Injury (Upper) <Sangita Myers PA-C - Last Filed: 09/27/18 21:09> General Chief Complaint: Extremity Injury, Upper Stated Complaint: FELL,RIGHT ARM SORE Time Seen by Provider: 09/27/18 12:05 Source: patient Mode of arrival: ambulatory Limitations: no limitations History of Present Illness HPI narrative: This 67-year-old female who has a history of balance problems and neuropathy in her feet states that she tripped getting out of her chair this morning and pitched forward onto her outstretched right arm and shoulder. She states that she fell onto thin carpet. She denies any other injury, head contusion, LOC, but started to have pain mainly in the upper arm near the shoulder right away, also swelling. She states that she has problems with her ankle on the right and thinks that and her neuropathy are why she tripped. No new symptoms such as chest pain or dizziness prior. Related Data Home Medications Medication Instructions Recorded Confirmed gabapentin [Neurontin] 600 mg PO BID #0 06/05/16 09/27/18 aspirin 81 mg PO DAILY 01/04/18 08/22/18 atorvastatin 20 mg PO DAILY 01/04/18 09/27/18 gabapentin 300 mg PO QNOON 01/04/18 08/22/18 primidone 250 mg PO BEDTIME 01/04/18 09/27/18 sodium bicarbonate 2 tab PO BID 01/04/18 08/22/18 hydrochlorothiazide 25 mg PO DAILY 09/27/18 09/27/18 insulin NPH isoph U-100 human 09/27/18 [Novolin N NPH U-100 Insulin] insulin regular human [Novolin R 09/27/18 Regular U-100 Insuln] Previous Rx's Medication Instructions Recorded hydrocodone-acetaminophen [[place]] 1 tab PO Q4H PRN #20 tab 09/27/18 Allergies Allergy/AdvReac Type Severity Reaction Status Date / Time ceftriaxone Allergy Severe Anaphylaxis Verified 08/22/18 22:25 Review of Systems <Sangita Myers PA-C - Last Filed: 09/27/18 21:09> Review of Systems ROS Unobtainable: All systems reviewed & are unremarkable except as noted in HPI and below PFSH <Sangita Myers PA-C - Last Filed: 09/27/18 21:09> Medical History Chronic kidney disease (CKD) (Chronic) Diabetes mellitus with neuropathy (Chronic) Diabetic neuropathy (Chronic) Essential tremor (Chronic) High cholesterol (Chronic) Hypertension (Chronic) Closed head injury (Resolved) Surgical History Hx of cataract surgery (Resolved) S/P cholecystectomy (Resolved) Family History Father Diabetes mellitus COPD (chronic obstructive pulmonary disease) Mother Alzheimer disease Brother Diabetes mellitus Sister Hyperlipidemia Hypertension Social History household members: family Smoking Status: Never smoker Family History Father Diabetes mellitus COPD (chronic obstructive pulmonary disease) Mother Alzheimer disease Brother Diabetes mellitus Sister Hyperlipidemia Hypertension Social History household members: family Smoking Status: Never smoker Exam <Sangita Myers PA-C - Last Filed: 09/27/18 21:09> Narrative Exam Narrative: GENERAL APPEARANCE: Patient sitting comfortably, in no distress. LUNGS: Clear to auscultation bilaterally. HEART: Rate and rhythm regular without murmur, normal S1 and S2, no S3 or S4. DERMATOLOGIC: ecchymoses and erythema right proximal forearm MUSCULOSKELETAL: Tender from the proximal right forearm to the lateral shoulder bony prominences. Unable to attempt range of motion of the shoulder secondary to tenderness. She has normal range of motion of the right elbow, wrist and fingers, rubber trimmer strength intact. She has a little bit of tenderness with range of motion of the fingers but no point tenderness over the hand on exam NEUROVASCULAR: right hand fingers are warm and pink with a brisk cap refill, sensation grossly intact Initial Vital Signs Initial Vital Signs: Vital Signs Temperature 97.8 F 09/27/18 10:00 Pulse Rate 80 09/27/18 10:00 Respiratory Rate 18 09/27/18 10:00 Blood Pressure 159/103 H 09/27/18 10:00 Pulse Oximetry 99 09/27/18 10:00 <Frances Strickland DO - Last Filed: 09/28/18 11:54> Initial Vital Signs Initial Vital Signs: Vital Signs Temperature 97.8 F 09/27/18 10:00 Pulse Rate 80 09/27/18 10:00 Respiratory Rate 18 09/27/18 10:00 Blood Pressure 159/103 H 09/27/18 10:00 Pulse Oximetry 99 09/27/18 10:00 Course <Sangita Myers PA-C - Last Filed: 09/27/18 21:09> Orders Ordered: Discontinued Medications Hydrocodone Bitart/Acetaminophen ([place] 5/325) 2 tab PO NOW ONE Stop: 09/27/18 12:18 Last Admin: 09/27/18 12:21 Dose: 2 tab review x-rays with Dr. Strickland who agrees patient can be placed in a sling with ortho f/u since n/v intact. Patient is agreeable and will call orthopedics to schedule after d/c from here. She agreed to return if any acutely worsening sx in the interim Vital Signs - 8 hr 09/27/18 10:00 Temperature 97.8 F Pulse Rate 80 Respiratory Rate 18 Blood Pressure 159/103 H Pulse Oximetry 99 <Frances Strickland DO - Last Filed: 09/28/18 11:54> Orders Ordered: Discontinued Medications Hydrocodone Bitart/Acetaminophen ([place] 5/325) 2 tab PO NOW ONE Stop: 09/27/18 12:18 Last Admin: 09/27/18 12:21 Dose: 2 tab Vital Signs - 8 hr 09/27/18 10:00 Temperature 97.8 F Pulse Rate 80 Respiratory Rate 18 Blood Pressure 159/103 H Pulse Oximetry 99 MDM - Extremity Injury (Upper) <Sangita Myers PA-C - Last Filed: 09/27/18 21:09> Imaging Data hand: Radiologist's impression: Chart Viewer Diagnostics DATE TYPE STATUS AUTHOR Hx 09/27/18 10:56 Yogesh Vasquez 09/27/18 10:56 Alonzo Harry 09/27/18 10:56 Alonzo Harry 08/22/18 22:30 Doc Mccann 01/05/18 03:10 01/05/18 03:10 01/04/18 20:37 Michael Barragan 01/04/18 14:17 Kali Kelley 01/04/18 14:17 Kali Kelley 01/04/18 12:53 Doc Mccann Marsha L 67, 1950 REG ER, ED.LOC - Main ED: R04 Extremity Injury, Upper Search Chart Anaphylaxis ONSET Today 10:00 Dena Borrego F [address] [address] XRay Report Signed Patient: Dena Borrego LMR#: [id number] : 1950Acct:[id number] Age/Sex: 67 / FDate of Service: 09/27/18 Loc: ED Accession Number: [id number] Procedure: XR hand RT min 3V Ordering Provider: Frances Strickland D.O. PROCEDURE: XR HAND RT MIN 3V INDICATIONS: fall with right arm outstretched catching fall. TECHNIQUE: 3 views of the hand(s) acquired. COMPARISON: None. FINDINGS: Bones: No fractures or dislocations. Carpal bones are normally aligned. No suspicious bony lesions. Possible marginal lucency projecting at the DIP joint of the ring finger comment nonspecific. Diffuse interphalangeal, first CMC and triscaphe degeneration. Soft tissues: No suspicious soft tissue calcifications. IMPRESSION: No fracture Dictated by: Yogesh Vasquez M.D. on 09/27/2018 at 11:27 Approved by: Yogesh Vasquez M.D. on 09/27/2018 at 11:28 humerus: Radiologist's impression: Chart Viewer Diagnostics DATE TYPE STATUS AUTHOR Hx 09/27/18 10:56 Yogesh Vasquez 09/27/18 10:56 Alonzo Harry 09/27/18 10:56 Alonzo Harry 08/22/18 22:30 Doc Mccann 01/05/18 03:10 01/05/18 03:10 01/04/18 20:37 Michael Barragan 01/04/18 14:17 Kali Kelley 01/04/18 14:17 Kali Kelley 01/04/18 12:53 Doc Mccann Marsha L 67, 1950 REG ER, ED.LOC - Main ED: R04 Extremity Injury, Upper Search Chart Anaphylaxis ONSET Today 10:00 Dena Borrego F [address] [address] XRay Report Signed Patient: Dena Borrego LMR#: [id number] : 1950Acct:[id number] Age/Sex: 67 / FDate of Service: 09/27/18 Loc: ED Accession Number: [id number] Procedure: XR humerus RT 2V Ordering Provider: Frances Strickland D.O. PROCEDURE: XR HUMERUS RT 2V INDICATIONS: fall with right arm outstretched catching fall. TECHNIQUE: 2 views of the humerus were acquired. COMPARISON: [facility], CR, XR HAND RT MIN 3V, 09/27/2018, 10:58. [facility], CR, XR SHOULDER RT MIN 2V, 09/27/2018, 10:58. FINDINGS: Bones: There is a complex structure seen the humeral head and neck. Age-appropriate bony degenerative changes are seen. Soft tissues: No suspicious soft tissue calcifications. Cholecystectomy clips are seen. IMPRESSION: Complex fracture of the humeral head and neck. Dictated by: Alonzo Harry M.D. on 09/27/2018 at 10:42 Approved by: Alonzo Harry M.D. on 09/27/2018 at 10:44 shoulder: Radiologist's impression: [address] [address] XRay Report Signed Patient: Dena Borrego LMR#: [id number] : 1950Acct:[id number] Age/Sex: 67 / FDate of Service: 09/27/18 Loc: ED Accession Number: [id number] Procedure: XR shoulder RT min 2V Ordering Provider: Frances Strickland D.O. PROCEDURE: XR SHOULDER RT MIN 2V INDICATIONS: fall with right arm outstretched catching fall. TECHNIQUE: 3 views of the shoulder were acquired. COMPARISON: [facility], CT, CT CHEST WO CON, 01/04/2018, 14:03. [facility], CR, XR HAND RT MIN 3V, 09/27/2018, 10:58. [facility], CR, XR HUMERUS RT 2V, 09/27/2018, 10:58. [facility], CR, XR CHEST 1V, 08/22/2018, 22:36. FINDINGS: Bones: There is a complex are seen of the humeral head and neck. No dislocation can be seen. Age-appropriate bony degenerative changes are seen. No suspicious lytic or blastic lesions are seen. Soft tissues: No suspicious soft tissue calcifications. The visualized lung demonstrates an unremarkable appearance. IMPRESSION: Complex fracture of the humeral head and neck. Dictated by: Alonzo Harry M.D. on 09/27/2018 at 10:44 Approved by: Alonzo Harry M.D. on 09/27/2018 at 10:45 Discharge Plan Departure Patient Disposition: Home Clinical Impression: Fracture, humerus closed Qualifiers: Encounter type: initial encounter Humerus Location: proximal Fracture morphology: unspecified fracture morphology Laterality: right Qualified Code(s): S42.201A - Unspecified fracture of upper end of right humerus, initial encounter for closed fracture Discharge Date/Time: 09/27/18 13:23 Interventions: ED Discharge Assessment Last Done: 09/27/18 13:16 Instructions: DI for Shoulder Fracture Activity Restrictions/Additional Instructions: You have a break in the bone in your upper arm close to the shoulder (where your pain and swelling are). Please keep this arm in the sling to help with pain and keep the fracture stable. I have given you a prescription for hydrocodone / acetaminophen, that you have taken in the past without problems for pain. Please use it as needed, but remember and can make you sleepy and to be careful of falls. Please call Orthopedics when you leave here today and let them know that you were seen here with an arm and shoulder fracture and need to be seen this week for follow-up. Please return here if you have acutely worsening pain, or new symptoms such as new numbness or weakness in your hand or fingers. in the interim Prescriptions: New hydrocodone-acetaminophen [[place]] 5-325 mg tablet 1 tab PO Q4H PRN (Reason: shoulder fracture (acute)) Qty: 20 RF: 0 No Action gabapentin [Neurontin] 300 MG capsule 600 mg PO BID Qty: 0 RF: 0 primidone 50 mg tablet 250 mg PO BEDTIME RF: 0 atorvastatin 20 mg tablet 20 mg PO DAILY RF: 0 sodium bicarbonate 650 mg tablet 2 tab PO BID RF: 0 aspirin 81 mg Tablet,Delayed Release (Dr/Ec) 81 mg PO DAILY RF: 0 gabapentin 300 mg Capsule 300 mg PO QNOON RF: 0 Novolin N NPH U-100 Insulin 100 unit/mL suspension RF: 0 hydrochlorothiazide 25 mg tablet 25 mg PO DAILY RF: 0 Novolin R Regular U-100 Insuln 100 unit/mL solution RF: 0 Referrals: Quincy Ramires MD [Physician] - Vanessa Hirsch MD [Primary Care Provider] - <Frances Strickland DO - Last Filed: 09/28/18 11:54> Cosign ED Attending Cosignature Attestation: I was immediately available in the department for consultation. Documentation has been reviewed. I agree with assessment and plan.
--- NOTE | 2018-09-27 12:08 | ED_ITS ---
HPI - Extremity Injury (Upper) <Sangita Myers PA-C - Last Filed: 09/27/18 21:09> General Chief Complaint: Extremity Injury, Upper Stated Complaint: FELL,RIGHT ARM SORE Time Seen by Provider: 09/27/18 12:05 Source: patient Mode of arrival: ambulatory Limitations: no limitations History of Present Illness HPI narrative: This 67-year-old female who has a history of balance problems and neuropathy in her feet states that she tripped getting out of her chair this morning and pitched forward onto her outstretched right arm and shoulder. She states that she fell onto thin carpet. She denies any other injury, head contusion, LOC, but started to have pain mainly in the upper arm near the shoulder right away, also swelling. She states that she has problems with her ankle on the right and thinks that and her neuropathy are why she tripped. No new symptoms such as chest pain or dizziness prior. Related Data Home Medications Medication Instructions Recorded Confirmed gabapentin [Neurontin] 600 mg PO BID #0 06/05/16 09/27/18 aspirin 81 mg PO DAILY 01/04/18 08/22/18 atorvastatin 20 mg PO DAILY 01/04/18 09/27/18 gabapentin 300 mg PO QNOON 01/04/18 08/22/18 primidone 250 mg PO BEDTIME 01/04/18 09/27/18 sodium bicarbonate 2 tab PO BID 01/04/18 08/22/18 hydrochlorothiazide 25 mg PO DAILY 09/27/18 09/27/18 insulin NPH isoph U-100 human 09/27/18 [Novolin N NPH U-100 Insulin] insulin regular human [Novolin R 09/27/18 Regular U-100 Insuln] Previous Rx's Medication Instructions Recorded hydrocodone-acetaminophen [Deport] 1 tab PO Q4H PRN #20 tab 09/27/18 Allergies Allergy/AdvReac Type Severity Reaction Status Date / Time ceftriaxone Allergy Severe Anaphylaxis Verified 08/22/18 22:25 Review of Systems <Sangita Myers PA-C - Last Filed: 09/27/18 21:09> Review of Systems ROS Unobtainable: All systems reviewed & are unremarkable except as noted in HPI and below PFSH <Sangita Myers PA-C - Last Filed: 09/27/18 21:09> Medical History Chronic kidney disease (CKD) (Chronic) Diabetes mellitus with neuropathy (Chronic) Diabetic neuropathy (Chronic) Essential tremor (Chronic) High cholesterol (Chronic) Hypertension (Chronic) Closed head injury (Resolved) Surgical History Hx of cataract surgery (Resolved) S/P cholecystectomy (Resolved) Family History Father Diabetes mellitus COPD (chronic obstructive pulmonary disease) Mother Alzheimer disease Brother Diabetes mellitus Sister Hyperlipidemia Hypertension Social History household members: family Smoking Status: Never smoker Family History Father Diabetes mellitus COPD (chronic obstructive pulmonary disease) Mother Alzheimer disease Brother Diabetes mellitus Sister Hyperlipidemia Hypertension Social History household members: family Smoking Status: Never smoker Exam <Sangita Myers PA-C - Last Filed: 09/27/18 21:09> Narrative Exam Narrative: GENERAL APPEARANCE: Patient sitting comfortably, in no distress. LUNGS: Clear to auscultation bilaterally. HEART: Rate and rhythm regular without murmur, normal S1 and S2, no S3 or S4. DERMATOLOGIC: ecchymoses and erythema right proximal forearm MUSCULOSKELETAL: Tender from the proximal right forearm to the lateral shoulder bony prominences. Unable to attempt range of motion of the shoulder secondary to tenderness. 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 She has a little bit of tenderness with range of motion of the fingers but no point tenderness over the hand on exam NEUROVASCULAR: right hand fingers are warm and pink with a brisk cap refill, sensation grossly intact Initial Vital Signs Initial Vital Signs: Vital Signs Temperature 97.8 F 09/27/18 10:00 Pulse Rate 80 09/27/18 10:00 Respiratory Rate 18 09/27/18 10:00 Blood Pressure 159/103 H 09/27/18 10:00 Pulse Oximetry 99 09/27/18 10:00 <Frances Strickland DO - Last Filed: 09/28/18 11:54> Initial Vital Signs Initial Vital Signs: Vital Signs Temperature 97.8 F 09/27/18 10:00 Pulse Rate 80 09/27/18 10:00 Respiratory Rate 18 09/27/18 10:00 Blood Pressure 159/103 H 09/27/18 10:00 Pulse Oximetry 99 09/27/18 10:00 Course <Sangita Myers PA-C - Last Filed: 09/27/18 21:09> Orders Ordered: Discontinued Medications Hydrocodone Bitart/Acetaminophen ([place] 5/325) 2 tab PO NOW ONE Stop: 09/27/18 12:18 Last Admin: 09/27/18 12:21 Dose: 2 tab review x-rays with Dr. Strickland who agrees patient can be placed in a sling with ortho f/u since n/v intact. Patient is agreeable and will call orthopedics to schedule after d/c from here. She agreed to return if any acutely worsening sx in the interim Vital Signs - 8 hr 09/27/18 10:00 Temperature 97.8 F Pulse Rate 80 Respiratory Rate 18 Blood Pressure 159/103 H Pulse Oximetry 99 <Frances Strickland DO - Last Filed: 09/28/18 11:54> Orders Ordered: Discontinued Medications Hydrocodone Bitart/Acetaminophen ([place] 5/325) 2 tab PO NOW ONE Stop: 09/27/18 12:18 Last Admin: 09/27/18 12:21 Dose: 2 tab Vital Signs - 8 hr 09/27/18 10:00 Temperature 97.8 F Pulse Rate 80 Respiratory Rate 18 Blood Pressure 159/103 H Pulse Oximetry 99 MDM - Extremity Injury (Upper) <Sangita Myers PA-C - Last Filed: 09/27/18 21:09> Imaging Data hand: Radiologist's impression: Chart Viewer Diagnostics DATE TYPE STATUS AUTHOR Hx 09/27/18 10:56 Yogesh Vasquez 09/27/18 10:56 Alonzo Harry 09/27/18 10:56 Alonzo Harry 08/22/18 22:30 Doc Mccann 01/05/18 03:10 01/05/18 03:10 01/04/18 20:37 Michael Barragan 01/04/18 14:17 Kali Kelley 01/04/18 14:17 Kali Kelley 01/04/18 12:53 Doc Mccann Marsha L 67, 1950 REG ER, ED.LOC - Main ED: R04 Extremity Injury, Upper Search Chart Anaphylaxis ONSET Today 10:00 Dena Borrego F [address] [address] XRay Report Signed Patient: Dena Borrego LMR#: [id number] : 1950Acct:[id number] Age/Sex: 67 / FDate of Service: 09/27/18 Loc: ED Accession Number: [id number] Procedure: XR hand RT min 3V Ordering Provider: Frances Strickland D.O. PROCEDURE: XR HAND RT MIN 3V INDICATIONS: fall with right arm outstretched catching fall. TECHNIQUE: 3 views of the hand(s) acquired. COMPARISON: None. FINDINGS: Bones: No fractures or dislocations. Carpal bones are normally aligned. No suspicious bony lesions. Possible marginal lucency projecting at the DIP joint of the ring finger comment nonspecific. Diffuse interphalangeal, first CMC and triscaphe degeneration. Soft tissues: No suspicious soft tissue calcifications. IMPRESSION: No fracture Dictated by: Yogesh Vasquez M.D. on 09/27/2018 at 11:27 Approved by: Yogesh Vasquez M.D. on 09/27/2018 at 11:28 humerus: Radiologist's impression: Chart Viewer Diagnostics DATE TYPE STATUS AUTHOR Hx 09/27/18 10:56 Yogesh Vasquez 09/27/18 10:56 Alonzo Harry 09/27/18 10:56 Alonzo Harry 08/22/18 22:30 Doc Mccann 01/05/18 03:10 01/05/18 03:10 01/04/18 20:37 Michael Barragan 01/04/18 14:17 Kali Kelley 01/04/18 14:17 Kali Kelley 01/04/18 12:53 Doc Mccann Marsha L 67, 1950 REG ER, ED.LOC - Main ED: R04 Extremity Injury, Upper Search Chart Anaphylaxis ONSET Today 10:00 Dena Borrego F [address] [address] XRay Report Signed Patient: Dena Borrego LMR#: [id number] : 1950Acct:[id number] Age/Sex: 67 / FDate of Service: 09/27/18 Loc: ED Accession Number: [id number] Procedure: XR humerus RT 2V Ordering Provider: Frances Strickland D.O. PROCEDURE: XR HUMERUS RT 2V INDICATIONS: fall with right arm outstretched catching fall. TECHNIQUE: 2 views of the humerus were acquired. COMPARISON: [facility], CR, XR HAND RT MIN 3V, 09/27/2018, 10:58. [facility], CR, XR SHOULDER RT MIN 2V, 09/27/2018, 10:58. FINDINGS: Bones: There is a complex structure seen the humeral head and neck. Age-appropriate bony degenerative changes are seen. Soft tissues: No suspicious soft tissue calcifications. Cholecystectomy clips are seen. IMPRESSION: Complex fracture of the humeral head and neck. Dictated by: Alonzo Harry M.D. on 09/27/2018 at 10:42 Approved by: Alonzo Harry M.D. on 09/27/2018 at 10:44 shoulder: Radiologist's impression: [address] [address] XRay Report Signed Patient: Dena Borrego LMR#: [id number] : 1950Acct:[id number] Age/Sex: 67 / FDate of Service: 09/27/18 Loc: ED Accession Number: [id number] Procedure: XR shoulder RT min 2V Ordering Provider: Frances Strickland D.O. PROCEDURE: XR SHOULDER RT MIN 2V INDICATIONS: fall with right arm outstretched catching fall. TECHNIQUE: 3 views of the shoulder were acquired. COMPARISON: [facility], CT, CT CHEST WO CON, 01/04/2018, 14:03. [facility], CR, XR HAND RT MIN 3V, 09/27/2018, 10:58. [facility], CR, XR HUMERUS RT 2V, 09/27/2018, 10:58. [facility], CR, XR CHEST 1V, 08/22/2018, 22:36. FINDINGS: Bones: There is a complex are seen of the humeral head and neck. No dislocation can be seen. Age-appropriate bony degenerative changes are seen. No suspicious lytic or blastic lesions are seen. Soft tissues: No suspicious soft tissue calcifications. The visualized lung demonstrates an unremarkable appearance. IMPRESSION: Complex fracture of the humeral head and neck. Dictated by: Alonzo Harry M.D. on 09/27/2018 at 10:44 Approved by: Alonzo Harry M.D. on 09/27/2018 at 10:45 Discharge Plan Departure Patient Disposition: Home Clinical Impression: Fracture, humerus closed Qualifiers: Encounter type: initial encounter Humerus Location: proximal Fracture morphology: unspecified fracture morphology Laterality: right Qualified Code(s): S42.201A - Unspecified fracture of upper end of right humerus, initial encounter for closed fracture Discharge Date/Time: 09/27/18 13:23 Interventions: ED Discharge Assessment Last Done: 09/27/18 13:16 Instructions: DI for Shoulder Fracture Activity Restrictions/Additional Instructions: You have a break in the bone in your upper arm close to the shoulder (where your pain and swelling are). Please keep this arm in the sling to help with pain and keep the fracture stable. I have given you a prescription for hydrocodone / acetaminophen, that you have taken in the past without problems for pain. Please use it as needed, but remember and can make you sleepy and to be careful of falls. Please call Orthopedics when you leave here today and let them know that you were seen here with an arm and shoulder fracture and need to be seen this week for follow-up. Please return here if you have acutely worsening pain, or new symptoms such as new numbness or weakness in your hand or fingers. in the interim Prescriptions: New hydrocodone-acetaminophen [Deport] 5-325 mg tablet 1 tab PO Q4H PRN (Reason: shoulder fracture (acute)) Qty: 20 RF: 0 No Action gabapentin [Neurontin] 300 MG capsule 600 mg PO BID Qty: 0 RF: 0 primidone 50 mg tablet 250 mg PO BEDTIME RF: 0 atorvastatin 20 mg tablet 20 mg PO DAILY RF: 0 sodium bicarbonate 650 mg tablet 2 tab PO BID RF: 0 aspirin 81 mg Tablet,Delayed Release (Dr/Ec) 81 mg PO DAILY RF: 0 gabapentin 300 mg Capsule 300 mg PO QNOON RF: 0 Novolin N NPH U-100 Insulin 100 unit/mL suspension RF: 0 hydrochlorothiazide 25 mg tablet 25 mg PO DAILY RF: 0 Novolin R Regular U-100 Insuln 100 unit/mL solution RF: 0 Referrals: Quincy Ramires MD [Physician] - Vanessa Hirsch MD [Primary Care Provider] - <Frances Strickland DO - Last Filed: 09/28/18 11:54> Cosign ED Attending Cosignature Attestation: I was immediately available in the department for consultation. Documentation has been reviewed. I agree with assessment and plan.
[2018-09-27] MEDS: HYDROCODONE/ACET 5/325 TABLET 2 TAB PO (12:21)
[2018-09-27 12:41] VITALS: BP 175/73; PULSE 72; RESP 18; O2SAT 98
== END 2018-09-27 13:23 | disposition home or self-care (01) ==
PROVIDERS: Emergency Provider Internal Medicine; Family Provider Internal Medicine; PCP Internal Medicine
DX: S42.201A Unspecified fracture of upper end of right humerus, initial encounter for closed fracture (principal); W01.0XXA Fall on same level from slipping, tripping and stumbling without subsequent striking against object, initial encounter
CPT/HCPCS: 73030; 73060; 73130; 99283

== ENCOUNTER → 2018-09-29 11:34 | Outpatient (CLI) | payer MEDICARE, OTHER, SELFPAY ==
[2018-01-05 15:09] VITALS: BMI 41.5
--- NOTE | 2018-09-29 11:56 | DI.CT.S_ITS ---
PROCEDURE: CT UE RT WO CON INDICATIONS: FRACTURE OF HUMERUS TECHNIQUE: Noncontrast 1-1.5 mm thick sections acquired from the acromioclavicular joint to the inferior scapula, with coronal and sagittal reformatting. COMPARISON: None. FINDINGS: Image quality: Excellent. Bones: Comminuted severely impacted fracture involving the surgical neck of the right proximal humerus. There is also fracture involving the greater tuberosity. The visualized ribs and remaining osseous structures appear grossly intact. There is anatomic alignment at the AC joint, which demonstrates moderate osteoarthritis Soft tissues: Scattered atelectasis seen in the visualized right lung without focal consolidation. Glenohumeral joint effusion. IMPRESSION: Severely impacted comminuted fracture involving the surgical neck and greater tuberosity of the proximal right humerus. Dictated by: Yogesh Vasquez M.D. on 09/29/2018 at 13:37 Approved by: Yogesh Vasquez M.D. on 09/29/2018 at 13:41
== END ==
PROVIDERS: Family Provider Internal Medicine; PCP Internal Medicine; Visit Provider Internal Medicine
DX: S42.251A Displaced fracture of greater tuberosity of right humerus, initial encounter for closed fracture (principal); S42.211A Unspecified displaced fracture of surgical neck of right humerus, initial encounter for closed fracture
CPT/HCPCS: 73200

== ENCOUNTER → 2018-10-07 07:08 | Outpatient (CLI) | payer MEDICARE, OTHER, SELFPAY ==
[2018-01-05 15:09] VITALS: BMI 41.5
[2018-10-07 08:33] LABS: Hematocrit 29.1 % (36-46); Hemoglobin 9.6 g/dL (12.0-16.0); Mean Corpuscular HGB Conc 32.8 % (30-36); Mean Corpuscular Hemoglobin 29.3 PG (26-34); Mean Corpuscular Volume 89.2 fL (80-100); Platelet Count 344 X10^3/uL (150-400); Red Blood Cell Count 3.26 X10^6/uL (4.0-5.2); White Blood Cell Count 5.5 X10^3/uL (4.5-11.0)
[2018-10-07 08:51] LABS: Carbon Dioxide 25 mmol/L (22-32); Chloride 101 mmol/L (98-107); HEMOLYSIS < 15 (0-50); Potassium 5.2 mmol/L (3.4-5.1); Sodium 140 mmol/L (137-145)
== END ==
PROVIDERS: Family Provider Internal Medicine; PCP Internal Medicine; Visit Provider Orthopaedic Surgery
DX: Z01.818 Encounter for other preprocedural examination (principal)
CPT/HCPCS: 36415; 80051; 85027; 93005; 93010

== ENCOUNTER 2018-10-12 05:59 | Inpatient (IN) | payer MEDICARE, OTHER, SELFPAY ==
[2018-01-05 15:09] VITALS: BMI 41.5
[2018-10-08 13:26] VITALS: BMI 42.4
[2018-10-12] VITALS (18 sets, daily range): BP systolic 109–169; BP diastolic 46–82; PULSE 73–86; RESP 12–24; TEMP 36.4–36.9; O2SAT 91–99; BMI 42.5
--- NOTE | 2018-10-12 | DI.RAD.S_ITS ---
PROCEDURE: XR SHOULDER RT MIN 2V INDICATIONS: RIGHT SHOULDER ORIF TECHNIQUE: 5 intraoperative fluoroscopic views of the shoulder were acquired. COMPARISON: [facility], CR, XR SHOULDER RT MIN 2V, 09/27/2018, 10:58. FINDINGS: Intraoperative fluoroscopic images of right shoulder shows internal fixation of right proximal humeral shaft and humeral head. Alignment of right shoulder is anatomic. IMPRESSION: Fluoroscopy guidance was provided intraoperatively for internal fixation of proximal right humeral shaft and right humeral head. Dictated by: Donis Gilman M.D. on 10/12/2018 at 11:54 Approved by: Donis Gilman M.D. on 10/12/2018 at 11:57
[2018-10-12] MEDS: LACTATED RINGERS 1,000 ML 42 ML IV (07:20)
--- NOTE | 2018-10-12 07:44 | PM.PREOP ---
Pre-operative Note Interval Note History & Physical reviewed/Exam performed by Physician: Yes Changes to H&P: No
[2018-10-12] MEDS: CLINDAMYCIN 900 MG/50 ML PIGGYBACK 50 MG IV ×2 (08:17→16:02)
[2018-10-12] MEDS: MIDAZOLAM 2 MG/2 ML VIAL IV (08:20)
[2018-10-12] MEDS: fentaNYL 100 MCG/2 ML INJ IV (08:21)
--- NOTE | 2018-10-12 08:23 | SUR.PREOP ---
Block start time [0750] . Monitoring initiated and maintained throughout procedure. Oxygen and medications given per anesthesiologist instructions. Patient remained stable throughout procedure, no adverse reactions noted. Block end time [0815].
--- NOTE | 2018-10-12 08:58 | SUR.OPER ---
Beach chair with skytron bed shoulder positioner. Lower body on padded OR bed. Head in foam padded head cradle, secured with straps. Non-operative arm secured <90 degrees abduction. Pillow under knees. Safety belt at thigh. Cloth tape over blanket over lower legs.
--- NOTE | 2018-10-12 08:59 | SUR.OPER ---
pt prestnts to OR with multiple contusions on right arm on inner bicep and on forearm from elbow to wrist posteriorly
[2018-10-12] MEDS: LIDOCAINE 1% W/EPI INJ 20 ML INJ (09:13)
--- NOTE | 2018-10-12 09:14 | PC.NURSE ---
Day shift: Pt not on the AC unit at this time.
--- NOTE | 2018-10-12 10:25 | SUR.OPER ---
glucose checked at 1021 and was 79
--- NOTE | 2018-10-12 11:13 | PM.OP.1 ---
Operative Date/Time/Diagnoses Date of procedure: 10/12/18 Time of procedure: 09:00 Pre-op diagnosis: comminuted displaced right proximal humerus fracture Post-op diagnosis: same Procedure & Clinicians Procedure: open reduction internal fixation of a right proximal humerus fracture with allograft bone graft Same procedure as scheduled: Yes Indications: highly comminuted displaced impacted proximal humerus fracture, right Surgeon: Quincy Ramires Student Support Advisor: Tatum Stallworth Anesthesia Type: General and Peripheral nerve block Operative Notes Findings: displaced humeral neck fracture with no extension into the head. Significant posterior superior displacement of the greater tuberosity. No sign of any lesser tuberosity fracture. No significant arthritic changes to the glenohumeral joint. Three-part proximal humerus fracture Closure Type: primary Specimen(s): none sent Prosthetic devices, grafts, tissues, transplants, or devices: Arthrex proximal humerus plate as well as a cortical strut graft Applied: graft(s) and implant(s) Estimated Blood Loss (mL): 20 Blood products transfused: none Procedure in detail: on date of service, patient was met in the holding area where her operative site was signed and witnessed by the OR staff. Surgeries once again discussed with the patient any remaining questions or concerns she had were answered fully. Patient received her preoperative antibiotics. Patient was taken to the operating theater. Time-out had been performed verifying patient's name procedure and operative site. Patient was placed on to the operative table in a supine position. Great care was taken to ensure that all bony prominences were appropriately padded. Patient was placed into the beach chair position with the head and neck appropriately positioned and secured in a stable fashion. Patient's right upper extremity and chest area was prepped and draped in the normal sterile fashion. Deltopectoral approach was performed. Ten blade was used incise through skin and fascia tissue. Electrocautery was used to achieve hemostasis and Gelpi retractors were placed. Continued sharp dissection with a deep knife was performed. The cephalic vein was identified and exposed. It was taken laterally with the deltoid while the pectoralis was taken medially opening the deltopectoral interval. This gave us good visualization the proximal humerus. Rongeur was used to debride around the fracture site removing soft callus and any devitalized tissue. Deeper retractors were placed giving us good visualization of the head as well as the neck. Patient had a large tuberosity fragment that was displaced quite posteriorly. We are able to get some sutures around the posterior aspect of the head at the head tendon interval. This allowed us to pull traction on the tuberosity and bring it back over to a more anatomic position. Next, we turned our attention to the neck. Patient had displacement as well as impaction. Lamina retirement administrator was used to bring the head back into a more anatomic position. A strut graft was placed into the shaft and secured into the shaft with a K-wire. This allowed us to hold the head in a more anatomic position. Two more sutures were then placed through the bicipital groove and then these were then passed through the greater tuberosity and tied to itself allowing us to reduce the greater tuberosity fragment back to the remaining intact tuberosity. No sign of any rotator cuff injury with the cuff tendon attached securely to the tuberosity fragment. This allowed us to reduce the tuberosity back to the remaining tuberosity as well as the head. C-arm was brought in to verify overall reduction of the head onto the neck as well as the tuberosity to the head. Next, a plate was placed and held provisionally with 3 separate K-wires. C-arm was brought in again to verify plate positioning and overall reduction. Once we were satisfied with the position of the plate and the reduction of fracture screws were placed both distally and proximally securing the plate across the fracture site. Throughout screw placement C-arm was brought in periodically to verify maintenance of reduction as well as screw positioning. Once all the final proximal and distal screws were placed final x-rays were obtained showing good overall alignment and reduction of the fracture with placement of the strut graft providing additional fixation as well as additional reduction of the humeral head. Shoulder was taken through range of motion and was quite stable. No stressors strain across the fracture site with forward flexion beyond 90? and abduction to 90?. Good external internal rotation with the arm at the side as well as with the arm abducted to 90?. Next, wound was then copiously irrigated. It was closed in layered fashion. Patient's shoulder was then cleaned, dried, and dressed. Patient was extubated and taken to the PACU in stable condition. Complications: none Condition: stable Disposition: PACU Plan for aftercare: sling is mainly for comfort. Okay for patient to come out of the sling to work on gentle range of motion of the proximal humerus.
[2018-10-12] MEDS: fentaNYL 100 MCG/2 ML INJ 50 MCG IV ×2 (11:57→12:05)
--- NOTE | 2018-10-12 12:39 | PC.NURSE ---
Day shift: Pt on unit from PACU at approx 1235. A&Ox3. 2L NC 94%. Rt arm in sling. Aquacel dressing CDI with 2 pin head sized areas of shadow drainage. Marked with Sharpie. Also area slightly smaller than a dime. Ice on site. Pt stated that she needs to void. ROCK ROOM WORKER and RN student helping to BSC. Oriented to room and call light. BP elevated. Will continue to monitor BP. Bruises present on rt arm from the fall 2 weeks ago. No nausea. Hx chronic back pain. Will medicate for pain per OCT.
[2018-10-12] MEDS: LACTATED RINGERS 1,000 ML 125 ML IV ×2 (12:55→22:09)
[2018-10-12] MEDS: ACETAMINOPHEN 325 MG TABLET 975 MG PO ×2 (13:49→21:39)
[2018-10-12] MEDS: INSULIN REGULAR 100 UNIT/ML 3 ML VIAL SUBCUT (14:00)
--- NOTE | 2018-10-12 14:14 | PC.NURSE ---
Day shift: Verbal MD order to d/c the discharge order. That was done. Still not complete set of AC unit orders. MAR orders still have PACU/per surgery orders. SECURITY FLEX UTILITY OFFICER notified as well as telehealth director [place]. Put in ADA diet order per protocol. No orders for PT OT. Pt doing well. Only c/o headache. Admission done but it may need to be done again if current orders change or get wiped out. Will report above info to oncoming RN.
--- NOTE | 2018-10-12 14:15 | PT.IPTN ---
Current Diagnoses Other displaced fracture of upper end of right humerus, initial encounter for closed fracture (10/12/18) Surgery Performed Operation Date: 10/12/18 07:45 Actual Procedures p ORIF Shoulder fracture (Right) - Quincy Ramires MD s Total Shoulder Arthroplasty - Reverse(Right) - Quincy Ramires MD Physical Therapy Treatment Note M2 PT-IP Current Condition Start: 10/12/18 12:09 Freq: NEEDED Status: Active Protocol: Document 10/12/18 14:15 AB (Rec: 10/12/18 17:12 AB [id number]) Physical Therapy Current Condition Current Condition Evaluation Date 10/12/18 Treatment Diagnosis R comminuted displaced R prox. humerus fx s/p ORIF: difficulty in walking Onset Date 10/12/18 Precautions Shoulder Precautions Sling PROM Internal Rotation to Body No External Rotation No Abduction Forward Flexion to 90 degrees Pendulums Other Precautions from Dr. Sánchez POC: sling is mainly for comfort. Okay for patient to come out of the sling to work on gentle range of motion of the proximal humerus. Weight Bearing Status Weight Bearing Status Non-Weight Bearing Allowed Weight Bearing Amount (enter % R UE NWB or #) (%) M3 PT-IP Subjective Start: 10/12/18 12:09 Freq: NEEDED Status: Active Protocol: Document 10/12/18 14:15 AB (Rec: 10/12/18 17:12 AB [id number]) Subjective Physical Therapy Visit Type Type Initial Evaluation Visit Start Time 14:15 Visit Stop Time 15:15 Total Visit Minutes 60 Number of CUSTOM MILLER Visits 0 Physical Therapy Visit Comments Patient Comments pt agreeable to do PT Therapy Pain Assessment Pain Present Pain Present Denied Pain M4 PT-IP Mobility and Gait Start: 10/12/18 12:09 Freq: NEEDED Status: Active Protocol: Document 10/12/18 14:15 AB (Rec: 10/12/18 17:12 AB [id number]) PT-Bed Mobility Assessment Supine to Sit Supine to Sit Standby Assistance Sit to Supine Sit to Supine Standby Assistance Scooting Scooting to Edge of Bed Standby Assistance PT-Transfer Assessment Sit to and From Stand Sit to and from Stand Moderate Assistance 1 Person Assistance Use of Upper Extremities Equipment Transfer Assistive Device Gait Belt Straight Cane Comments Mobility Comments adjusted and completed sling management with pt sitting on EOB. pt still is numb from the elbow down but tends to shrug R shoulder and tighten R shoudler. Gait Assessment Gait Gait Assistance Required: Moderate Assistance Maximum Assistance Distance (Feet) 20 Able to Maintain Weight Bearing Status Yes During Gait Assistive Devices Assistive Device Gait Belt Straight Cane Gait Deviations General Gait Pattern Antalgic Decreased Stride Length Decreased Feet Clearance Step-to Gait Wide Based Gait Factors Limiting Gait Function Factors Limiting Gait Function Decreased Activity Tolerance Decreased Strength Difficulty Following Directions Limited Range of Motion Poor Balance Poor Safety Awareness Respiratory Distress Comments Gait Comments pt ambulated in room ~ 20 ft , initially requiring mod A but prison through requiring max A and cues for safety. Daughter present during PT session and stated that pt's knee just gives out whenever pt started to stagger with ambulation . pt requested to go back to bed after ambulation. PT-Balance Assessment Sitting Balance and Reactions Static Sitting Balance Ability Good Dynamic Sitting Balance Ability Good Standing Balance and Reactions Static Standing Balance Ability Fair Dynamic Standing Balance Ability Poor Device Used SPC M5 PT-IP Objective Assessments Start: 10/12/18 12:09 Freq: NEEDED Status: Active Protocol: Document 10/12/18 14:15 AB (Rec: 10/12/18 17:12 [id number]) Orientation Orientation/Cognition Level of Alertness Alert Orientation Name Place Situation Safety Awareness Decreased Safety Awareness Memory Description Short Term Impaired Snf Impaired Gross Range of Motion Lower Extremity ROM Assessment Right Impaired Strength Lower Extremity Strength Assessment Right Impaired Knee 3+/5 Sensation Assessment Sensation Gross Sensation Right LE Impaired Left LE Impaired Sensation Description Numbness Tingling Comments Sensation Comments impaired sensation to light touch on B fee but absent sensation on R big toe Muscle Tone Muscle Tone WNL No M6 PT-IP Treatment Start: 10/12/18 12:09 Freq: NEEDED Status: Active Protocol: Document 10/12/18 14:15 AB (Rec: 10/12/18 17:12 AB [id number]) Physical Therapy Treatment Other Treatments Other Treatment Performed educated on sling management and PROM on RUE M7 PT-IP Assessment and Plan Start: 10/12/18 12:09 Freq: NEEDED Status: Active Protocol: Document 10/12/18 14:15 AB (Rec: 10/12/18 17:12 [id number]) PT Summary Assessment and Plan Potential Rehabilitation Potential Fair Status of Condition at Evaluation Evolving Summary Impairments Pain ROM Strength Balance Coordination Sensation Tone Cognition Bed Mobility Transfers Gait Activity Tolerance Assessment Summary pt requiring max A with ambulation and presents with unsteady gait. pt also has decrease activity tolerance affecting independence and was only able to ambulate ~ 20 ft . d/c plan depending on progress but pt requirs SNF rehab at this time. Goals Bed Mobility Goal Standby Assistance Transfer Goal Standby Assistance Cane Gait Goal Standby Assistance Cane Gait Distance 150 Days to Meet Goals 5 Frequency of Treatment Frequency Of Treatment Twice a Day Treatment Plan Physical Therapy Treatment Plan Bed Mobility Training Transfer Training Gait Training Therapeutic Exercise Balance Retraining Post Op Education Discharge Planning Hot or Cold Pack Neuromuscular Re-ed Coordination Retraining Manual Therapy Other Recommendations and Next Treatment ambulation, stair climbing, Focus caregiver training. pendulums Recommendations To Nursing Amount of Assist Needed 2 Person Assist Discharge Recommendations PT Discharge Recommendations SNF Rehab
[2018-10-12] MEDS: GABAPENTIN 600 MG TABLET PO (21:39)
[2018-10-12] MEDS: SODIUM BICARBONATE 650 MG TABLET 1300 MG PO (21:41)
[2018-10-12] MEDS: PRIMIDONE 50 MG TABLET 250 MG PO (21:41)
[2018-10-12] MEDS: INSULIN NPH 100 UNIT/ML VIAL 15 UNIT SUBCUT (21:41)
[2018-10-13] MEDS: CLINDAMYCIN 900 MG/50 ML PIGGYBACK 50 MG IV ×3 (00:26→17:18)
--- NOTE | 2018-10-13 00:51 | PC.NURSE ---
Addendum entered by Zahra Little R.N. 10/13/18 06:26: Still states pain is 5/10 so medicated with morning dose of Gabapentin and warm blanket applied to area. Sister here massaging her arm for comfort. Original Note: Addendum entered by Zahra Little R.N. 10/13/18 05:18: Patient medicated with Oxycodone at 0408 for complaint of 5/10 right shoulder pain and now states pain has not improved so medicated with morning scheduled dose of Tylenol. Sling removed per patient request as she thought that may be increasing discomfort. No longer has tingling in right foot (although has existing neuropathy) but still tingling in right hand. No new drainage on dressing. Has bilateral UE tremors which are chronic. Original Note: Addendum entered by Zahra Little R.N. 10/13/18 01:03: States she is beginning to have pain in right shoulder and rates it at 4/10 with accompanying nausea. Medicated with SL Zofran and then with Oxycodone. Original Note: Patient is alert and oriented. Breath sounds diminished in right LL but CTA with RA sat of 93%. HRR. Denies nausea. BT hypoactive but states she is having flatus. Able to shift self in bed and pull self into sitting position. Up to bathroom with 1 assist. Dressing to right shoulder is intact with shadow drainage outlined. Still with tingling in right hand/foot but able to move fingers well and has good radial pulse. Right arm currently in sling. Denies pain but ice pack applied for comfort. Denies dysuria, frequency, urgency or incontinence. Wearing bilateral SCD's. Fall risk score is high and bed alarm is activated.
[2018-10-13] MEDS: ONDANSETRON 4 MG ODT PO (01:00)
[2018-10-13] MEDS: OXYCODONE IR 5 MG TABLET PO ×4 (01:02→11:28)
[2018-10-13 04:45] VITALS: BP 144/57; PULSE 80; RESP 20; TEMP 36.7; O2SAT 96
[2018-10-13] MEDS: ACETAMINOPHEN 325 MG TABLET 975 MG PO ×3 (05:11→21:34)
[2018-10-13 06:08] LABS: Hemoglobin 7.6 g/dL (12.0-16.0); Mean Corpuscular HGB Conc 33.4 % (30-36); Mean Corpuscular Hemoglobin 29.5 PG (26-34); Mean Corpuscular Volume 88.4 fL (80-100); Platelet Count 242 X10^3/uL (150-400); Red Blood Cell Count 2.57 X10^6/uL (4.0-5.2); Red Cell Distribution Width 14.4 % (11.6-14.8); White Blood Cell Count 5.5 X10^3/uL (4.5-11.0)
[2018-10-13 06:12] LABS: Hematocrit 22.7 % (36-46)
[2018-10-13] MEDS: GABAPENTIN 600 MG TABLET PO ×2 (06:23→21:34)
[2018-10-13 07:45] VITALS: BP 138/59; PULSE 77; RESP 18; TEMP 36.5; O2SAT 94
[2018-10-13] MEDS: ATORVASTATIN 20 MG TABLET PO (08:16)
[2018-10-13] MEDS: SODIUM BICARBONATE 650 MG TABLET 1300 MG PO ×2 (08:16→21:34)
[2018-10-13] MEDS: CHOLECALCIFEROL (VITAMIN D3) 1,000 UNIT TABLET 4000 UNIT PO (08:16)
[2018-10-13] MEDS: hydroCHLOROthiazide 25 MG TABLET PO (08:16)
[2018-10-13] MEDS: ASPIRIN EC 81 MG TABLET PO (08:16)
[2018-10-13] MEDS: INSULIN NPH 100 UNIT/ML VIAL 12 UNIT SUBCUT (08:19)
[2018-10-13] MEDS: INSULIN REGULAR 100 UNIT/ML 3 ML VIAL SUBCUT ×3 (08:20→17:51)
--- NOTE | 2018-10-13 08:58 | PC.NURSE ---
Addendum entered by Griselda Quinonez R.N. 10/13/18 16:32: Pt has continued c/o pain after oxycodone. PT has hasked about having OT see Pt as there are quitea few tasks she is needing assist with. Daughter is in later this shift, discussed d/c planning. Pt remains in OBS status. Original Note: Addendum entered by Griselda Quinonez R.N. 10/13/18 14:53: Pt has recieved increase dose of PRN Oxycodone in hopes to get mobilizing with better pain control. Original Note: Addendum entered by Griselda Quinonez R.N. 10/13/18 13:01: Multiple attempts to contact provider for pain management, nursing consultant Jenna made aware. Pt has c/o 9/10 pain and oxycodone PO q3 is only PRN. Original Note: Am shift Spoke with Pt's daughter who had concerns about potential d/c home today. Pt reports sister is living at home with her, per Daughter this is not a caregiver assist situation as sister is alcoholic and likely will not wake if assistance is needed. Daughter is for the rehab if that is possible, as Pt may not have been entirely honest about fall history at home. Update to CM. Pt has had significant pain to shoulder this AM. Oxycodone given, will address pain management with PA.
--- NOTE | 2018-10-13 09:28 | PM.PNPO.1 ---
Subjective Date Patient Seen: 10/13/18 Time Patient Seen: 07:28 Interval history: Pain 8/10. No fever, chills. No nausea, vomiting. Denies shortness of breath or chest pain. No dizziness. She had a short session of physical therapy yesterday has been up a couple times to use the restroom with assistance. Her sister is home and available to assist her. Otherwise without complaints. Exam Vital Signs (past 8 hours): - 10/13/18 04:45 Temperature 98.1 F Pulse Rate 80 Respiratory Rate 20 Blood Pressure 144/57 H Pulse Oximetry 96 Oxygen Delivery Method Room Air Oxygen Flow Rate 0 Narrative Exam Narrative: Pleasant 59-year-old female resting comfortably in bed in no apparent distress. Dressing is clean, dry and intact. Motor function is intact distally right upper extremity. Good capillary refill. Sensation grossly intact to light touch. Objective Labs Result Diagrams: 10/13/18 05:33 Labs: Laboratory Results - last 24 hr 10/13/18 05:33 WBC 5.5 RBC 2.57 L Hgb 7.6 L Hct 22.7 L MCV 88.4 MCH 29.5 MCHC 33.4 RDW 14.4 Plt Count 242 Assessment & Plan Post-op Postoperative Procedures Operation Date: 10/12/18 07:45 Actual Procedures Side Surgeon p ORIF Shoulder fracture Right Quincy Ramires MD s Total Shoulder Arthroplasty - Reverse Right Quincy Ramires MD Patient progressing as expected status post ORIF right proximal humerus fracture with allograft bone graft. Repeat H&H in the a.m.. Mobilize with physical therapy. A sling mainly for comfort. Patient may come out of sling to work on gentle range of motion of the proximal humerus.
--- NOTE | 2018-10-13 09:40 | PT.IPTN ---
Current Diagnoses Other displaced fracture of upper end of right humerus, initial encounter for closed fracture (10/12/18) Surgery Performed Operation Date: 10/12/18 07:45 Actual Procedures p ORIF Shoulder fracture (Right) - Quincy Ramires MD s Total Shoulder Arthroplasty - Reverse(Right) - Quincy Ramires MD Physical Therapy Treatment Note M2 PT-IP Current Condition Start: 10/12/18 12:09 Freq: NEEDED Status: Active Protocol: Document 10/12/18 14:15 AB (Rec: 10/12/18 17:12 AB [id number]) Physical Therapy Current Condition Current Condition Evaluation Date 10/12/18 Treatment Diagnosis R comminuted displaced R prox. humerus fx s/p ORIF: difficulty in walking Onset Date 10/12/18 Precautions Shoulder Precautions Sling PROM Internal Rotation to Body No External Rotation No Abduction Forward Flexion to 90 degrees Pendulums Other Precautions from Dr. Sánchez POC: sling is mainly for comfort. Okay for patient to come out of the sling to work on gentle range of motion of the proximal humerus. Weight Bearing Status Weight Bearing Status Non-Weight Bearing Allowed Weight Bearing Amount (enter % R UE NWB or #) (%) M3 PT-IP Subjective Start: 10/12/18 12:09 Freq: NEEDED Status: Active Protocol: Document 10/13/18 09:30 AMB (Rec: 10/13/18 09:40 AMB [email or web address]) Subjective Physical Therapy Visit Type Type Treatment Note Visit Start Time 09:10 Visit Stop Time 09:30 Total Visit Minutes 20 Physical Therapy Visit Comments Patient Comments Pt in room with pt's sister at beginning of session. Pt is willing to get up and walk. M4 PT-IP Mobility and Gait Start: 10/12/18 12:09 Freq: NEEDED Status: Active Protocol: Document 10/13/18 09:30 AMB (Rec: 10/13/18 09:40 AMB [email or web address]) PT-Bed Mobility Assessment Supine to Sit Supine to Sit Minimal Assistance Sit to Supine Sit to Supine Standby Assistance PT-Transfer Assessment Sit to and From Stand Sit to and from Stand Minimal Assistance Equipment Transfer Assistive Device Gait Belt Small Based Quad Cane Comments Mobility Comments Pt required bed rail and Jimmie for supine to sit. Pt sates she sleeps in recliner, but is worried she would be unable to reach the handle on the right to manage the leg rest at home. She states she has not slept in her bed for 3 years due to painful neuropathy. Gait Assessment Gait Gait Assistance Required: Moderate Assistance Distance (Feet) 15 Able to Maintain Weight Bearing Status Yes During Gait Assistive Devices Assistive Device Gait Belt Small Based Quad Cane Gait Deviations General Gait Pattern Antalgic Decreased Stride Length Decreased Feet Clearance Wide Based Gait Factors Limiting Gait Function Factors Limiting Gait Function Decreased Activity Tolerance Decreased Strength Difficulty Following Directions Limited Range of Motion Poor Balance Poor Safety Awareness Comments Gait Comments Pt ambulated with a SBQC 15'x2 with one seated rest break. Pt reports knee just gives way due neuropathy and ankle issues, but did not give way today. Pt continued to need physical assist for safe gait. M5 PT-IP Objective Assessments Start: 10/12/18 12:09 Freq: NEEDED Status: Active Protocol: Document 10/12/18 14:15 AB (Rec: 10/12/18 17:12 AB [id number]) Orientation Orientation/Cognition Level of Alertness Alert Orientation Name Place Situation Safety Awareness Decreased Safety Awareness Memory Description Short Term Impaired Fci Impaired Gross Range of Motion Lower Extremity ROM Assessment Right Impaired Strength Lower Extremity Strength Assessment Right Impaired Knee 3+/5 Sensation Assessment Sensation Gross Sensation Right LE Impaired Left LE Impaired Sensation Description Numbness Tingling Comments Sensation Comments impaired sensation to light touch on B fee but absent sensation on R big toe Muscle Tone Muscle Tone WNL No M6 PT-IP Treatment Start: 10/12/18 12:09 Freq: NEEDED Status: Active Protocol: Document 10/12/18 14:15 AB (Rec: 10/12/18 17:12 AB [id number]) Physical Therapy Treatment Other Treatments Other Treatment Performed educated on sling management and PROM on RUE M7 PT-IP Assessment and Plan Start: 10/12/18 12:09 Freq: NEEDED Status: Active Protocol: Document 10/13/18 09:30 AMB (Rec: 10/13/18 09:40 AMB [email or web address]) PT Summary Assessment and Plan Summary Assessment Summary Pt did better with gait today, but continues to have limited distance and needs physical assist for safety and would be unsafe with stairs. She needed assist getting out bed. Pt would benefit from OT eval and SNF placement due to safety concerns and continued need for physical assistance with transfers and gait. Although she lives with her sister, her sister would be unable to provide assistance due to alcoholism per the patient. Goals Bed Mobility Goal Standby Assistance Transfer Goal Standby Assistance Cane Gait Goal Standby Assistance Cane Gait Distance 150 Days to Meet Goals 5 Frequency of Treatment Frequency Of Treatment Twice a Day Treatment Plan Physical Therapy Treatment Plan Bed Mobility Training Transfer Training Gait Training Therapeutic Exercise Balance Retraining Post Op Education Discharge Planning Hot or Cold Pack Neuromuscular Re-ed Coordination Retraining Manual Therapy Other Recommendations and Next Treatment ambulation, stair climbing, Focus caregiver training. pendulums Recommendations To Nursing Amount of Assist Needed 2 Person Assist Discharge Recommendations PT Discharge Recommendations SNF Rehab
[2018-10-13 11:08] VITALS: BP 141/60; PULSE 77; RESP 18; TEMP 36.9; O2SAT 92
[2018-10-13] MEDS: OXYCODONE IR 10 MG TABLET PO ×2 (14:34→17:19)
--- NOTE | 2018-10-13 15:00 | PT.IPTN ---
Current Diagnoses Other displaced fracture of upper end of right humerus, initial encounter for closed fracture (10/12/18) Surgery Performed Operation Date: 10/12/18 07:45 Actual Procedures p ORIF Shoulder fracture (Right) - Quincy Ramires MD s Total Shoulder Arthroplasty - Reverse(Right) - Quincy Ramires MD Physical Therapy Treatment Note M2 PT-IP Current Condition Start: 10/12/18 12:09 Freq: NEEDED Status: Active Protocol: Document 10/12/18 14:15 AB (Rec: 10/12/18 17:12 AB [id number]) Physical Therapy Current Condition Current Condition Evaluation Date 10/12/18 Treatment Diagnosis R comminuted displaced R prox. humerus fx s/p ORIF: difficulty in walking Onset Date 10/12/18 Precautions Shoulder Precautions Sling PROM Internal Rotation to Body No External Rotation No Abduction Forward Flexion to 90 degrees Pendulums Other Precautions from Dr. Sánchez POC: sling is mainly for comfort. Okay for patient to come out of the sling to work on gentle range of motion of the proximal humerus. Weight Bearing Status Weight Bearing Status Non-Weight Bearing Allowed Weight Bearing Amount (enter % R UE NWB or #) (%) M3 PT-IP Subjective Start: 10/12/18 12:09 Freq: NEEDED Status: Active Protocol: Document 10/13/18 15:06 GGD (Rec: 10/13/18 15:19 GGD [email or web address]) Subjective Physical Therapy Visit Type Type Treatment Note Visit Start Time 14:45 Visit Stop Time 15:05 Total Visit Minutes 25 Number of SAS PROGRAMMER Visits 1 Physical Therapy Visit Comments Patient Comments Pt states she needs to use the bathroom. M4 PT-IP Mobility and Gait Start: 10/12/18 12:09 Freq: NEEDED Status: Active Protocol: Document 10/13/18 15:06 GGD (Rec: 10/13/18 15:19 GGD [email or web address]) PT-Bed Mobility Assessment Supine to Sit Supine to Sit Contact Guard Assistance 1 Person Assistance Head of Bed Elevated Scooting Scooting to Edge of Bed Standby Assistance PT-Transfer Assessment Sit to and From Stand Sit to and from Stand Contact Guard Assistance Equipment Transfer Assistive Device Gait Belt Small Based Quad Cane Transfers Transfer Destination Chair Toilet Gait Assessment Gait Gait Assistance Required: Minimum Assistance Distance (Feet) 20 Able to Maintain Weight Bearing Status Yes During Gait Assistive Devices Assistive Device Gait Belt Small Based Quad Cane Gait Deviations General Gait Pattern Antalgic Decreased Stride Length Decreased Feet Clearance Wide Based Gait Factors Limiting Gait Function Factors Limiting Gait Function Decreased Activity Tolerance Decreased Strength Difficulty Following Directions Limited Range of Motion Poor Balance Poor Safety Awareness M5 PT-IP Objective Assessments Start: 10/12/18 12:09 Freq: NEEDED Status: Active Protocol: Document 10/12/18 14:15 AB (Rec: 10/12/18 17:12 AB [id number]) Orientation Orientation/Cognition Level of Alertness Alert Orientation Name Place Situation Safety Awareness Decreased Safety Awareness Memory Description Short Term Impaired Shelter Impaired Gross Range of Motion Lower Extremity ROM Assessment Right Impaired Strength Lower Extremity Strength Assessment Right Impaired Knee 3+/5 Sensation Assessment Sensation Gross Sensation Right LE Impaired Left LE Impaired Sensation Description Numbness Tingling Comments Sensation Comments impaired sensation to light touch on B fee but absent sensation on R big toe Muscle Tone Muscle Tone WNL No M6 PT-IP Treatment Start: 10/12/18 12:09 Freq: NEEDED Status: Active Protocol: Document 10/12/18 14:15 AB (Rec: 10/12/18 17:12 AB [id number]) Physical Therapy Treatment Other Treatments Other Treatment Performed educated on sling management and PROM on RUE M7 PT-IP Assessment and Plan Start: 10/12/18 12:09 Freq: NEEDED Status: Active Protocol: Document 10/13/18 15:06 GGD (Rec: 10/13/18 15:19 GGD [email or web address]) PT Summary Assessment and Plan Summary Assessment Summary Pt improving slowly. She had trouble sequencing gait with quad cane. She is unsteady with gait. She was unable to safe care after toileting. She has stairs to enter home. Treatment Plan Physical Therapy Treatment Plan Bed Mobility Training Transfer Training Gait Training Therapeutic Exercise Balance Retraining Post Op Education Discharge Planning Hot or Cold Pack Neuromuscular Re-ed Coordination Retraining Manual Therapy Other Recommendations and Next Treatment ambulation, stair climbing, Focus caregiver training. pendulums Recommendations To Nursing Amount of Assist Needed 1 Person Assist Discharge Recommendations PT Discharge Recommendations SNF Rehab
[2018-10-13 15:36] VITALS: BP 160/57; PULSE 80; RESP 18; TEMP 36.7; O2SAT 94
--- NOTE | 2018-10-13 15:42 | CM.DANOTE ---
Patient is a 67 year old female who was admitted on 10/12/18 OBS STATUS for Surgical Intervention. Pt has MCR and REG PPO for insurance and her PCP is Dr. Vanessa Hirsch. EMR was reviewed. Per MD, pt's H&H has been quite low today and not medically stable for d/c yet today. Per PT, currently recommended SNF at d/c. SW met bedside with pt and explained role and updated white board and pt confirmed that she lives at home in [place] with her adult sister and is mostly Independent with ADL's at baseline. Pt states her sister can provide limited assist due to excessive drinking and not being the most reliable but she can help with some things. Pt's adult Dtr lives locally in [facility] but works realtime reporter and has 3 kids and is limited in her availability. Pt preference would be SNF at d/c and pt has no hx of HH or SNF but feels SNF needed prior to safe d/c home. SW discussed OBS vs Inpt Status and pt seems to mostly understand and confirms that she does not have financial means to private pay for SNF or for private pay caregivers. SW discussed HH frequency and diciplines and pt would be agreeable to this if Medicare does not cover SNF. SW provided her with the HH and SNF Choice List and currently SNF preference is [facility] and no current HH preference. Plan: SW to follow closely for likely d/c home with HH vs SNF but pt's OBS status a barrier to SNF placement. ALEJANDRO German Discharge Planning/Care Management CM Discharge Assessment Start: 10/13/18 15:39 Freq: Status: Active Protocol: Document 10/13/18 15:39 BF (Rec: 10/13/18 15:42 BF [id number]) Discharge Planning Assessment Assigned Commercial Manager ALEJANDRO Copeland Advance Directives? No: Declines further information History Provided By Patient Family Member Medical Record Has Patient been admitted in last 30 No days? Prior Living Arrangements Apartment/Condo Household Members family Type of transporation used prior to Drives own vehicle admit Comment Lives with adult sister and is mostly Independent with ADL's at base Independent with ADL's Yes Is patient alert and oriented? Yes Caregiver for Another No Comment outpt PT at Therapy Comment PT recommending SNF but pt currently OBS Status and cannot private pay SNF Barriers to Discharge Yes Comment OBS Status barrier to Medicare paying for SNF Discharge Plan Home with Home Health Transportation Arrangement Family can likely provide transport at d/c unless pt ends up going to SNF Medicare Choice List Provided Yes SNF/HH Preference [facility] if pt changes to Inpt Status, no HH pref Has Agency SNF been contacted No Whiteboard Updated in Patient Room with Yes name and ext. # of Commercial Manager Review Status In Process Please Provide Date Initial DC 10/13/18 Assessment Was Performed Next Review Type Continued Stay Review Pre-Anesthesia Assessment Start: 10/08/18 13:26 Freq: Status: Complete Protocol: Document 10/08/18 13:26 CAB (Rec: 10/08/18 14:57 CAB [id number]) Pre-Anesthesia Assessment PAC Comment [facility] Kidney Physician note 08/17/18 to surg folder for dos Patient Information Reviewed Via Phone Assessment Assessment Completed With Patient Diagnostic Results CBC Electrolytes Comment Labs at 10/07/18 H/H 9.6/29.1 , K+ 5.2 Primary Care Provider Vanessa Hirsch Seen Specialist in Last 12 Months Yes Specialist Seen [facility] Coder Technology Instructor Orthopedist Recordak Operator Primary Language B[place] Construction Carpenter Required No Height 166.37 cm Weight 117.48 kg Body Mass Index (BMI) 42.4 Hearing Ability Normal Visual Assist Magnifying Glass Dentition Type Teeth, Natural Present Teeth, Missing Barriers to Learning None Other Aids No Hx Anesthesia Reactions Yes: It took me longer to come out of it s/p stacie kaminski 2016 Hx Family Anesthesia Reaction No Hx Malignant Hyperthermia No Hx Blood Transfusions No Anesthesia Review Requested No Track Broom Operator No alcohol intake current alcohol intake frequency holidays/special occasions only Smoking Status Never smoker Substance Use Type marijuana Comment CBD cream for neuropathy Pain Present Pain Reported Musculoskeletal Symptoms Difficulty Walking Joint Pain Limited Range of Motion Numbness History of Falling (Recent or History of Yes ) Patient is completely paralyzed or No completely immobile Mental Status Oriented to own ability Comment Balance issues Is patient on oxygen? No Does patient have DEL CID/SOB No Hx Sleep Apnea No Currently Taking a Beta Jacquie No Can You Climb a Flight of Stairs Without Yes SOB Hx Chest Pain No Hx SOB No Hx Syncope or Dizziness No Anti-Coagulant Therapy No Has a Band Ripsaw Operator No Cardiac Testing No Hx Pacemaker/ICD No Pacemaker Rep Required? No Cardiac Clearance Received Not Applicable Diet Type At Home Regular dysphagia No Bladder Pattern Incontinent, Stress Urgency Urinary Catheter Present No Hx Urinary Self Catheterization No Diabetes Yes HgbA1C 7.0 Date 09/24/18 Patient No Lactating No Have you traveled outside the [place] in the last 30 days? Marital Status Lives With family Prior Living Arrangements Apartment/Condo Number of Floors (Floors) Two Floors Support System Sibling(s) Does the Patient Have Assistance After Yes Surgery Patient Discharge Plan Description Return Home Feels Safe in Current Environment Yes Been Physically Hurt or Threatened By a No Person in Current Environment Do you have thoughts of harming yourself None or others? Are you currently considering suicide? No Do you have a plan to hurt yourself or No Plan others? Do You Have Any Spiritual Beliefs That No May Affect Your HC Choices? Do You Have Any Cultural Practices That No May Affect Your HC Choices? Comment Shinto Who Can We Speak to About Patient's Care Family, friends Identifying Code for Release of Patient Declines to issue Information Health Care Proxy/Next of Kin Radha (daughter) Health Care Proxy Emergency Contact Name Radha Deterding Emergency Contact Advance Directives? No: Declines further information Power of Shaker Screen Operator No PAC Instructions Durable medical equipment Medications to take/avoid No ETOH/petroleum product on skin DOS NPO Post-op transportation
[2018-10-13] MEDS: SODIUM CHLORIDE 0.9% 250 ML 21 ML IV (16:50)
[2018-10-13 19:12] VITALS: BP 148/65; PULSE 80; RESP 18; TEMP 37.1; O2SAT 92
[2018-10-13] MEDS: hydrOXYzine pamoate 25 MG CAPSULE PO (19:26)
[2018-10-13] MEDS: DOCUSATE 100 MG CAPSULE PO (21:33)
[2018-10-13] MEDS: PRIMIDONE 50 MG TABLET 250 MG PO (21:33)
[2018-10-13] MEDS: INSULIN NPH 100 UNIT/ML VIAL 15 UNIT SUBCUT (21:35)
--- NOTE | 2018-10-13 22:56 | PC.NURSE ---
pt AOx3 and pleasant. Patient c/o being itchy at start of shift (1814). AM shift spoke with Dr. William on the phone and he ordered 25mg Visteril Q4 PRN and 50MG Visteril PO, Q4 PRN. 25mg visteril was administered around 1929, pain reported 8/10 then and 30 minutes later was sleeping. Patient was up to BR 3 times and needed moderate assistance to get back into bed. Patient states her goal pain is 0/10 and wouldn't be able to go home with anything greater than 0/10 pain. Patient associates generalized weakness to fall which occurred at home, previous to admission and the reason for the surgery.
[2018-10-14] VITALS (13 sets, daily range): BP systolic 107–143; BP diastolic 49–83; PULSE 71–80; RESP 16–24; TEMP 36.1–37.8; O2SAT 91–96
[2018-10-14] MEDS: CLINDAMYCIN 900 MG/50 ML PIGGYBACK 50 MG IV (00:05)
[2018-10-14] MEDS: SODIUM CHLORIDE 0.9% FLUSH 10 ML IV ×3 (00:05→20:27)
[2018-10-14] MEDS: OXYCODONE IR 10 MG TABLET PO ×2 (02:11→06:40)
--- NOTE | 2018-10-14 02:29 | PC.NURSE ---
Patient is drowsy but oriented. Breath sounds CTA with RA sat of 94%. HRR. Denies nausea. BT present and abdomen is soft; passing flatus. Denies urinary frequency, urgency or dysuria and is continent. Able to move self in bed but needs 1 assist with gait belt to walk to/from bathroom due to bilateral LE weakness. Dressing to right shoulder is intact with no new drainage beyond markings re-outlined on previous shift. Right arm is in sling for comfort. Has good radial pulse, cap refill, but still states hand feels tingly. Complains of 8/10 right shoulder pain so medicated with Oxycodone and warm blanket applied for comfort. Wearing bilateral SCD's. Fall risk score is high and bed alarm is activated.
[2018-10-14 06:32] LABS: Hematocrit 22.4 % (36-46); Hemoglobin 7.5 g/dL (12.0-16.0)
--- NOTE | 2018-10-14 09:01 | PM.PNPO.1 ---
Subjective Date Patient Seen: 10/14/18 Time Patient Seen: 09:01 Interval history: Hospital day 3, postop day 2 following right proximal humerus fracture ORIF by Dr. Ramires. She has remained stable postoperatively except a progressive anemia. H&H today 7.5/22.4 decreased from 7.6/22.7 yesterday. Patient continues having limited function. PT is recommending SNF. Patient is in hospital as outpatient observation. She does not have funds available for pain privately for SNF. She does have a sister who can give her limited help at home. She does have 14 stairs that she needs to go in to get into her home. Still having noticeable pain to her shoulder. The Aquacel dressing is causing a lot of itching and irritation. Exam Vital Signs (past 8 hours): - 10/14/18 04:05 Temperature 99.0 F Pulse Rate 78 Respiratory Rate 24 Blood Pressure 141/57 H Pulse Oximetry 93 Oxygen Delivery Method Room Air Oxygen Flow Rate 0 Narrative Exam Narrative: Alert, oriented no acute distress lying in bed. Right arm. Aquacel dressing to right shoulder notes she has some areas of shadowing to the distal and and there is some loosening of the dressing to the distal and. At no signs of infection or inflammation. Avionics Repair Technician is a little weaker on the right than left. Mild edema to her forearm and hand. Sling in position. Good pulses and sensation to hand. Objective Labs Result Diagrams: 10/14/18 06:09 Labs: Laboratory Results - last 24 hr 10/14/18 06:09 Hgb 7.5 L Hct 22.4 L Assessment & Plan Post-op (1) Postoperative anemia due to acute blood loss: Postoperative Procedures Operation Date: 10/12/18 07:45 Actual Procedures Side Surgeon p ORIF Shoulder fracture Right Quincy Ramires MD s Total Shoulder Arthroplasty - Reverse Right Quincy Ramires MD Plan: Will have patient received 2 units packed RBC today. Also order OT evaluation. resource management planner to evaluate patient for discharge options. May need to consider home health versus SNF. Recheck H&H in the morning.
--- NOTE | 2018-10-14 09:07 | P.PN_ITS ---
Subjective Date Patient Seen: 10/14/18 Time Patient Seen: 09:01 Interval history: Hospital day 3, postop day 2 following right proximal humerus fracture ORIF by Dr. Ramires. She has remained stable postoperatively except a progressive anemia. H&H today 7.5/22.4 decreased from 7.6/22.7 yesterday. Patient continues having limited function. PT is recommending SNF. Patient is in hospital as outpatient observation. She does not have funds available for pain privately for SNF. She does have a sister who can give her limited help at home. She does have 14 stairs that she needs to go in to get into her home. Still having noticeable pain to her shoulder. The Aquacel dressing is causing a lot of itching and irritation. Exam Vital Signs (past 8 hours): - 10/14/18 04:05 Temperature 99.0 F Pulse Rate 78 Respiratory Rate 24 Blood Pressure 141/57 H Pulse Oximetry 93 Oxygen Delivery Method Room Air Oxygen Flow Rate 0 Narrative Exam Narrative: Alert, oriented no acute distress lying in bed. Right arm. Aquacel dressing to right shoulder notes she has some areas of shadowing to the distal and and there is some loosening of the dressing to the distal and. At no signs of infection or inflammation. Leather Scraper is a little weaker on the right than left. Mild edema to her forearm and hand. Sling in position. Good pulses and sensation to hand. Objective Labs Result Diagrams: 10/14/18 06:09 Labs: Laboratory Results - last 24 hr 10/14/18 06:09 Hgb 7.5 L Hct 22.4 L Assessment & Plan Post-op (1) Postoperative anemia due to acute blood loss: Postoperative Procedures Operation Date: 10/12/18 07:45 Actual Procedures Side Surgeon p ORIF Shoulder fracture Right Quincy Ramires MD s Total Shoulder Arthroplasty - Reverse Right Quincy Ramires MD Plan: Will have patient received 2 units packed RBC today. Also order OT evaluation. manufacturing planner to evaluate patient for discharge options. May need to consider home health versus SNF. Recheck H&H in the morning.
[2018-10-14] MEDS: hydroCHLOROthiazide 25 MG TABLET PO (09:59)
[2018-10-14] MEDS: ATORVASTATIN 20 MG TABLET PO (10:00)
[2018-10-14] MEDS: ASPIRIN EC 81 MG TABLET PO (10:00)
[2018-10-14] MEDS: OXYCODONE IR 5 MG TABLET PO ×2 (10:00→20:27)
[2018-10-14] MEDS: SODIUM BICARBONATE 650 MG TABLET 1300 MG PO ×2 (10:01→20:29)
[2018-10-14] MEDS: GABAPENTIN 600 MG TABLET PO ×2 (10:01→20:29)
[2018-10-14] MEDS: INSULIN REGULAR 100 UNIT/ML 3 ML VIAL SUBCUT ×3 (10:03→16:33)
[2018-10-14] MEDS: INSULIN NPH 100 UNIT/ML VIAL 12 UNIT SUBCUT (10:05)
--- NOTE | 2018-10-14 10:55 | PT.IPTN ---
Current Diagnoses Acute posthemorrhagic anemia (10/12/18) Other displaced fracture of upper end of right humerus, initial encounter for closed fracture (10/12/18) Surgery Performed Operation Date: 10/12/18 07:45 Actual Procedures p ORIF Shoulder fracture (Right) - Quincy Ramires MD s Total Shoulder Arthroplasty - Reverse(Right) - Quincy Ramires MD Physical Therapy Treatment Note M2 PT-IP Current Condition Start: 10/12/18 12:09 Freq: NEEDED Status: Active Protocol: Document 10/12/18 14:15 AB (Rec: 10/12/18 17:12 AB [id number]) Physical Therapy Current Condition Current Condition Evaluation Date 10/12/18 Treatment Diagnosis R comminuted displaced R prox. humerus fx s/p ORIF: difficulty in walking Onset Date 10/12/18 Precautions Shoulder Precautions Sling PROM Internal Rotation to Body No External Rotation No Abduction Forward Flexion to 90 degrees Pendulums Other Precautions from Dr. Sánchez POC: sling is mainly for comfort. Okay for patient to come out of the sling to work on gentle range of motion of the proximal humerus. Weight Bearing Status Weight Bearing Status Non-Weight Bearing Allowed Weight Bearing Amount (enter % R UE NWB or #) (%) M3 PT-IP Subjective Start: 10/12/18 12:09 Freq: NEEDED Status: Active Protocol: Document 10/14/18 10:55 GGD (Rec: 10/14/18 12:23 GGD [id number]) Subjective Physical Therapy Visit Type Type Treatment Note Visit Start Time 10:30 Visit Stop Time 10:55 Total Visit Minutes 25 Number of RECOVERY COLLECTOR Visits 2 Physical Therapy Visit Comments Patient Comments Pt states she needs to use the bathroom. Therapy Pain Assessment Pain When Pain Assessed During Mobility Pain Present Pain Present Pain Reported M4 PT-IP Mobility and Gait Start: 10/12/18 12:09 Freq: NEEDED Status: Active Protocol: Document 10/14/18 10:55 GGD (Rec: 10/14/18 12:23 GGD [id number]) PT-Bed Mobility Assessment Supine to Sit Supine to Sit Contact Guard Assistance 1 Person Assistance Head of Bed Elevated Scooting Scooting to Edge of Bed Minimal Assistance PT-Transfer Assessment Sit to and From Stand Sit to and from Stand Minimal Assistance Equipment Transfer Assistive Device Gait Belt Small Based Quad Cane Transfers Transfer Destination Chair Toilet Transfer Ability Level of Assist Minimal Assistance Gait Assessment Gait Gait Assistance Required: Moderate Assistance Distance (Feet) 20 Able to Maintain Weight Bearing Status Yes During Gait Assistive Devices Assistive Device Gait Belt Small Based Quad Cane Gait Deviations General Gait Pattern Antalgic Decreased Stride Length Decreased Feet Clearance Wide Based Gait Factors Limiting Gait Function Factors Limiting Gait Function Decreased Activity Tolerance Decreased Strength Difficulty Following Directions Limited Range of Motion Poor Balance Poor Safety Awareness Comments Gait Comments Pt unsteady with gait with leg buckling and needing mod cues for safety cane. 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 Range of Motion Lower Extremity ROM Assessment Right Impaired Strength Lower Extremity Strength Assessment Right Impaired Knee 3+/5 Sensation Assessment Sensation Gross Sensation Right LE Impaired Left LE Impaired Sensation Description Numbness Tingling Comments Sensation Comments impaired sensation to light touch on B fee but absent sensation on R big toe Muscle Tone Muscle Tone WNL No M6 PT-IP Treatment Start: 10/12/18 12:09 Freq: NEEDED Status: Active Protocol: Document 10/12/18 14:15 AB (Rec: 10/12/18 17:12 AB [id number]) Physical Therapy Treatment Other Treatments Other Treatment Performed educated on sling management and PROM on RUE M7 PT-IP Assessment and Plan Start: 10/12/18 12:09 Freq: NEEDED Status: Active Protocol: Document 10/14/18 10:55 GGD (Rec: 10/14/18 12:23 GGD [id number]) PT Summary Assessment and Plan Summary Assessment Summary Pt needed increase in assistance. She was unsafe with gait and fall risk. She unable to do self care after using the toilet. She would benefit from SNF. Frequency of Treatment Frequency Of Treatment Twice a Day Treatment Plan Physical Therapy Treatment Plan Bed Mobility Training Transfer Training Gait Training Therapeutic Exercise Balance Retraining Post Op Education Discharge Planning Hot or Cold Pack Neuromuscular Re-ed Coordination Retraining Manual Therapy Other Recommendations and Next Treatment ambulation, stair climbing, Focus caregiver training. pendulums Recommendations To Nursing Amount of Assist Needed 1 Person Assist Discharge Recommendations PT Discharge Recommendations SNF Rehab
--- NOTE | 2018-10-14 11:54 | PC.NURSE ---
Addendum entered by Griselda Quinonez R.N. 10/14/18 15:32: Pt tolerating first unit well, no complications, sitting up in chair, napping most of afternoon. Family into visit. Updated on change of status and weakness, with hopes for improvement after PRBCs. Pt had knees buckle while coming back from BR and is now 2 PA d/t increased weakness and fall risk. Original Note: Am shift Pt reports pain has continued to be a barrier to mobility and comfort. Rating 7/10. However during assessment. Pt is nodding off midsentance. Pain control goals and Scale reviewewd with Pt again. Goal for pain is 0/10 Discussed post op course and need to not oversedate Pt, verbalizes understanding, however does not seem to understand not going to achieve pain free at this stage. Continue to provide education. PT into see Pt, significant decline from this RN's assessment 24 hours ago. KNees are almost buckling during ambulation to BR. Continues to rate pain 7/10. Orders rec'd for 2 units of PRBC and change dressing, lab to draw type and cross. Per Liliana, Pt will now be inpatient for status decline. DL
[2018-10-14] MEDS: ACETAMINOPHEN 325 MG TABLET 975 MG PO ×2 (14:01→20:28)
[2018-10-14] MEDS: ASCORBIC ACID 500 MG TABLET PO ×2 (14:01→20:28)
[2018-10-14] MEDS: FERROUS GLUCONATE 324 MG TABLET PO ×2 (14:01→20:28)
[2018-10-14] MEDS: CHOLECALCIFEROL (VITAMIN D3) 1,000 UNIT TABLET 4000 UNIT PO (14:06)
--- NOTE | 2018-10-14 15:03 | PT.IPTN ---
Current Diagnoses Acute posthemorrhagic anemia (10/14/18) Other displaced fracture of upper end of right humerus, initial encounter for closed fracture (10/14/18) Surgery Performed Operation Date: 10/12/18 07:45 Actual Procedures p ORIF Shoulder fracture (Right) - Quincy Ramires MD s Total Shoulder Arthroplasty - Reverse(Right) - Quincy Ramires MD Physical Therapy Treatment Note M2 PT-IP Current Condition Start: 10/12/18 12:09 Freq: NEEDED Status: Active Protocol: Document 10/12/18 14:15 AB (Rec: 10/12/18 17:12 AB [id number]) Physical Therapy Current Condition Current Condition Evaluation Date 10/12/18 Treatment Diagnosis R comminuted displaced R prox. humerus fx s/p ORIF: difficulty in walking Onset Date 10/12/18 Precautions Shoulder Precautions Sling PROM Internal Rotation to Body No External Rotation No Abduction Forward Flexion to 90 degrees Pendulums Other Precautions from Dr. Sánchez POC: sling is mainly for comfort. Okay for patient to come out of the sling to work on gentle range of motion of the proximal humerus. Weight Bearing Status Weight Bearing Status Non-Weight Bearing Allowed Weight Bearing Amount (enter % R UE NWB or #) (%) M3 PT-IP Subjective Start: 10/12/18 12:09 Freq: NEEDED Status: Active Protocol: Document 10/14/18 15:01 GGD (Rec: 10/14/18 15:03 GGD [id number]) Subjective Physical Therapy Visit Type Notes Hold per RN, due to pt receiving blood. M4 PT-IP Mobility and Gait Start: 10/12/18 12:09 Freq: NEEDED Status: Active Protocol: Document 10/14/18 10:55 GGD (Rec: 10/14/18 12:23 GGD [id number]) P Frequency of Treatment Frequency Of Treatment Twice a Day Treatment Plan Physical Therapy Treatment Plan Bed Mobility Training Transfer Training Gait Training Therapeutic Exercise Balance Retraining Post Op Education Discharge Planning Hot or Cold Pack Neuromuscular Re-ed Coordination Retraining Manual Therapy Other Recommendations and Next Treatment ambulation, stair climbing, Focus caregiver training. pendulums Recommendations To Nursing Amount of Assist Needed 1 Person Assist Discharge Recommendations PT Discharge Recommendations SNF Rehab
--- NOTE | 2018-10-14 15:44 | OT.IP.TRT ---
Current Diagnoses Acute posthemorrhagic anemia (10/14/18) Other displaced fracture of upper end of right humerus, initial encounter for closed fracture (10/14/18) Surgery Performed Operation Date: 10/12/18 07:45 Actual Procedures p ORIF Shoulder fracture (Right) - Quincy Ramires MD s Total Shoulder Arthroplasty - Reverse(Right) - Quincy Ramires MD Occupational Therapy Treatment Note M3 OT- IP Subjective and Pain Start: 10/14/18 15:43 Freq: Status: Active Protocol: Document 10/14/18 15:43 [facility] (Rec: 10/14/18 15:44 [facility] [id number]) OT- Subjective Occupational Therapy Visit Type Type Patient Unavailable Notes Pt getting blood transfusion today and therefore to see pt for OT eval tomorrow.
--- NOTE | 2018-10-14 20:08 | PC.NURSE ---
elevated BP after 2nd unit PRBCs likely r/t pt's activity and pain. Will notify
[2018-10-14] MEDS: DOCUSATE 100 MG CAPSULE PO (20:28)
[2018-10-14] MEDS: PRIMIDONE 50 MG TABLET 250 MG PO (20:29)
[2018-10-14] MEDS: INSULIN NPH 100 UNIT/ML VIAL 15 UNIT SUBCUT (20:30)
[2018-10-14 21:15] LABS: Hematocrit 27.9 % (36-46); Hemoglobin 9.4 g/dL (12.0-16.0)
[2018-10-15] VITALS (7 sets, daily range): BP systolic 111–148; BP diastolic 40–74; PULSE 70–76; RESP 16–20; TEMP 36.6–36.9; O2SAT 94–98
[2018-10-15] MEDS: OXYCODONE IR 5 MG TABLET PO ×4 (00:19→21:11)
--- NOTE | 2018-10-15 00:26 | PC.NURSE ---
Addendum entered by Zahra Little R.N. 10/15/18 05:57: Slept most of shift. UA obtained and sent to lab as part of transfusion reaction workup. States pain is 8/10 this morning so medicated with Oxycodone. Seems to be able to move arm slightly this morning. CMS is intact. Original Note: Patient is alert and oriented. Breath sounds with inspiratory crackles at bilateral base; RA sat 96%. HRR. Denies nausea. BT present and is passing flatus. Denies dysuria, frequency or urgency. Dressing to right shoulder is intact with old drainage outlined. Wearing sling to support right arm. Sensation normal with good radial pulse. Can move hand but not arm. Complains of 5/10 pain which exacerbates with movement; medicated with Oxycodone but declines ice/heat to area. Needing 1 assist to get up to bathroom; feeling stronger tonight after blood transfusion. Wearing bilateral SCD's. Fall risk score is high and bed alarm is activated.
[2018-10-15 06:02] LABS: Hematocrit 27.4 % (36-46); Hemoglobin 9.6 g/dL (12.0-16.0)
[2018-10-15] MEDS: ASPIRIN EC 81 MG TABLET PO (08:18)
[2018-10-15] MEDS: FERROUS GLUCONATE 324 MG TABLET PO ×2 (08:18→20:53)
[2018-10-15] MEDS: ACETAMINOPHEN 325 MG TABLET 975 MG PO ×3 (08:18→20:51)
[2018-10-15] MEDS: DOCUSATE 100 MG CAPSULE PO ×2 (08:18→20:53)
[2018-10-15] MEDS: ATORVASTATIN 20 MG TABLET PO (08:18)
[2018-10-15] MEDS: ASCORBIC ACID 500 MG TABLET PO ×2 (08:18→20:52)
[2018-10-15] MEDS: hydroCHLOROthiazide 25 MG TABLET PO (08:19)
[2018-10-15] MEDS: SODIUM BICARBONATE 650 MG TABLET 1300 MG PO ×2 (08:19→20:54)
[2018-10-15] MEDS: GABAPENTIN 600 MG TABLET PO ×2 (08:19→20:53)
[2018-10-15] MEDS: CHOLECALCIFEROL (VITAMIN D3) 1,000 UNIT TABLET 4000 UNIT PO (08:19)
[2018-10-15] MEDS: SODIUM CHLORIDE 0.9% FLUSH 10 ML IV ×2 (08:20→20:55)
[2018-10-15] MEDS: INSULIN NPH 100 UNIT/ML VIAL 12 UNIT SUBCUT (08:23)
--- NOTE | 2018-10-15 08:48 | P.PN_ITS ---
Subjective Date Patient Seen: 10/15/18 Interval history: Patient seen bedside s/p ORIF of the right proximal humerus postop day 3. Patient was transitioned from outpatient to inpatient yesterday as she was recommended for discharge to a subacute rehab facility by Physical therapy. She also received 2 units of packed red blood cells yesterday for postoperative anemia. Her hemoglobin is now stable at 9.6. Exam Vital Signs (past 8 hours): - 10/15/18 04:15 Temperature 98.0 F Pulse Rate 73 Respiratory Rate 16 Blood Pressure 148/68 H Pulse Oximetry 98 Oxygen Delivery Method Room Air Oxygen Flow Rate 0 Narrative Exam Narrative: Well-developed well-nourished no acute distress alert oriented x3. Dressing is clean dry and intact no signs of drainage minimal swelling and erythema around the operative joint. Full range of motion of the elbow and wrist. Neurovascularly intact in the right upper extremity. Objective Labs Result Diagrams: 10/15/18 05:40 Labs: Laboratory Results - last 24 hr 10/14/18 10/14/18 10/14/18 10:20 21:10 21:10 Hgb 9.4 L Hct 27.9 L Blood Type A Positive Antibody Screen Negative Crossmatch See Detail Transfusion React Rpt No discrepancies Donor Unit # [id number] Lab Clerical Err Check No error found Pre-Trans Blood Type A positive Pre-Trans Vis Hemolysis No Pre-Trans Antibody Scrn Not Reportable Post-Trans Blood Type A positive Post-Tx Visible Hemolys No Post-Trans Antibody Scrn Not Reportable 10/15/18 05:40 Hgb 9.6 L Hct 27.4 L Blood Type Antibody Screen Crossmatch Transfusion React Rpt Donor Unit # Lab Clerical Err Check Pre-Trans Blood Type Pre-Trans Vis Hemolysis Pre-Trans Antibody Scrn Post-Trans Blood Type Post-Tx Visible Hemolys Post-Trans Antibody Scrn Assessment & Plan Post-op Postoperative Procedures Operation Date: 10/12/18 07:45 Actual Procedures Side Surgeon p ORIF Shoulder fracture Right Quincy Ramires MD s Total Shoulder Arthroplasty - Reverse Right Quincy Ramires MD 1. Postop day 3 s/p ORIF right proximal humerus-continue PT OT, pain control. 2. Postoperative anemia secondary to acute blood loss-hemoglobin stable at 9.6 after 2 units were transfused yesterday. Monitor. Disposition-to SNF on Thursday after 3 day inpatient stay is met. Follow up in office on 10/25/18 at 2pm at the [facility].
--- NOTE | 2018-10-15 09:10 | PT.IPTN ---
Current Diagnoses Acute posthemorrhagic anemia (10/14/18) Other displaced fracture of upper end of right humerus, initial encounter for closed fracture (10/14/18) Surgery Performed Operation Date: 10/12/18 07:45 Actual Procedures p ORIF Shoulder fracture (Right) - Quincy Ramires MD s Total Shoulder Arthroplasty - Reverse(Right) - Quincy Ramires MD Physical Therapy Treatment Note M2 PT-IP Current Condition Start: 10/12/18 12:09 Freq: NEEDED Status: Active Protocol: Document 10/12/18 14:15 AB (Rec: 10/12/18 17:12 AB [id number]) Physical Therapy Current Condition Current Condition Evaluation Date 10/12/18 Treatment Diagnosis R comminuted displaced R prox. humerus fx s/p ORIF: difficulty in walking Onset Date 10/12/18 Precautions Shoulder Precautions Sling PROM Internal Rotation to Body No External Rotation No Abduction Forward Flexion to 90 degrees Pendulums Other Precautions from Dr. Sánchez POC: sling is mainly for comfort. Okay for patient to come out of the sling to work on gentle range of motion of the proximal humerus. Weight Bearing Status Weight Bearing Status Non-Weight Bearing Allowed Weight Bearing Amount (enter % R UE NWB or #) (%) M3 PT-IP Subjective Start: 10/12/18 12:09 Freq: NEEDED Status: Active Protocol: Document 10/15/18 09:09 LJ (Rec: 10/15/18 09:10 LJ [id number]) Subjective Physical Therapy Visit Type Type Treatment Note Notes Pt just returned to bed after being up with OT. States she is too groggy to get up again this am. M4 PT-IP Mobility and Gait Start: 10/12/18 12:09 Freq: NEEDED Status: Active Protocol: Document 10/14/18 10:55 GGD (Rec: 10/14/18 12:23 GGD [id number]) PT-Bed Mobility Assessment Supine to Sit Supine to Sit Contact Guard Assistance 1 Person Assistance Head of Bed Elevated Scooting Scooting to Edge of Bed Minimal Assistance PT-Transfer Assessment Sit to and From Stand Sit to and from Stand Minimal Assistance Equipment Transfer Assistive Device Gait Belt Small Based Quad Cane Transfers Transfer Destination Chair Toilet Transfer Ability Level of Assist Minimal Assistance Gait Assessment Gait Gait Assistance Required: Moderate Assistance Distance (Feet) 20 Able to Maintain Weight Bearing Status Yes During Gait Assistive Devices Assistive Device Gait Belt Small Based Quad Cane Gait Deviations General Gait Pattern Antalgic Decreased Stride Length Decreased Feet Clearance Wide Based Gait Factors Limiting Gait Function Factors Limiting Gait Function Decreased Activity Tolerance Decreased Strength Difficulty Following Directions Limited Range of Motion Poor Balance Poor Safety Awareness Comments Gait Comments Pt unsteady with gait with leg buckling and needing mod cues for safety cane. M5 PT-IP Objective Assessments Start: 10/12/18 12:09 Freq: NEEDED Status: Active Protocol: Document 10/12/18 14:15 AB (Rec: 10/12/18 17:12 AB [id number]) Orientation Orientation/Cognition Level of Alertness Alert Orientation Name Place Situation Safety Awareness Decreased Safety Awareness Memory Description Short Term Impaired Longterm Impaired Gross Range of Motion Lower Extremity ROM Assessment Right Impaired Strength Lower Extremity Strength Assessment Right Impaired Knee 3+/5 Sensation Assessment Sensation Gross Sensation Right LE Impaired Left LE Impaired Sensation Description Numbness Tingling Comments Sensation Comments impaired sensation to light touch on B fee but absent sensation on R big toe Muscle Tone Muscle Tone WNL No M6 PT-IP Treatment Start: 10/12/18 12:09 Freq: NEEDED Status: Active Protocol: Document 10/12/18 14:15 AB (Rec: 10/12/18 17:12 AB [id number]) Physical Therapy Treatment Other Treatments Other Treatment Performed educated on sling management and PROM on RUE M7 PT-IP Assessment and Plan Start: 10/12/18 12:09 Freq: NEEDED Status: Active Protocol: Document 10/14/18 10:55 GGD (Rec: 10/14/18 12:23 GGD [id number]) PT Summary Assessment and Plan Summary Assessment Summary Pt needed increase in assistance. She was unsafe with gait and fall risk. She unable to do self care after using the toilet. She would benefit from SNF. Frequency of Treatment Frequency Of Treatment Twice a Day Treatment Plan Physical Therapy Treatment Plan Bed Mobility Training Transfer Training Gait Training Therapeutic Exercise Balance Retraining Post Op Education Discharge Planning Hot or Cold Pack Neuromuscular Re-ed Coordination Retraining Manual Therapy Other Recommendations and Next Treatment ambulation, stair climbing, Focus caregiver training. pendulums Recommendations To Nursing Amount of Assist Needed 1 Person Assist Discharge Recommendations PT Discharge Recommendations SNF Rehab
--- NOTE | 2018-10-15 09:31 | OT.IP.EVAL ---
Current Diagnoses Acute posthemorrhagic anemia (10/14/18) Other displaced fracture of upper end of right humerus, initial encounter for closed fracture (10/14/18) Surgery Performed Operation Date: 10/12/18 07:45 Actual Procedures p ORIF Shoulder fracture (Right) - Quincy Ramires MD s Total Shoulder Arthroplasty - Reverse(Right) - Quincy Ramires MD Past Medical History (Last Updated 10/11/18 @ 07:29 by Padmini Jeff RN) CKD stage 4 due to type 2 diabetes mellitus (Acute) Balance problem (Acute) Neuropathy (Acute) Diabetes mellitus with neuropathy (Chronic) Essential tremor (Chronic) High cholesterol (Chronic) Hypertension (Chronic) Closed head injury (Resolved) Surgical History (Last Updated 09/27/18 @ 12:11 by Sangita Myers PA-C) Hx of cataract surgery (Resolved) S/P cholecystectomy (Resolved) Occupational Therapy Inpatient Evaluation/Re-Eval Protocol: Document 10/15/18 09:06 [facility] (Rec: 10/15/18 09:31 [facility] [id number]) Medical Review Prior Functional Status Medical History Reviewed Yes Communication able to make needs known Mobility and Gait pt stated that she is modified independent with all mobilities and ambulation without AD. has h/o falls with ~ 4 falls in that last year; stated that she started PT for her R ankle and the doctor also wants her to use a cane but pt refused. 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 Social History Household Members family Living Arrangements Apartment/Condo Number of Floors (Floors) One Floor Number of Stairs To Enter/Railing? has 14 steps to enter with L rail ascening Home Environment Walk in Shower Tub/Shower Home Equipment Straight Cane Shower Seat without Backrest Hand Held Shower Grab Bars In Shower Employment Status Retired Additional Social History Comment Pt's sister assist pt with mobility. 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 above toilet set up is regarding this walk in shower. pt has a recliner chair that she sleeps on M2 OT-IP Current Condition Start: 10/14/18 15:43 Freq: Status: Active Protocol: Document 10/15/18 09:06 [facility] (Rec: 10/15/18 09:31 [facility] [id number]) Occupational Therapy Current Condition Current Condition Evaluation Date 10/15/18 Treatment Diagnosis Right Proximal Humerus Fracture Diagnosis Onset Date 10/12/18 Post Operative Precautions Shoulder Precautions Sling No External Rotation No Abduction Forward Flexion to 90 degrees Pendulums Weight Bearing Status Weight Bearing Status Non-Weight Bearing M3 OT- IP Subjective and Pain Start: 10/14/18 15:43 Freq: Status: Active Protocol: Document 10/15/18 09:06 [facility] (Rec: 10/15/18 09:31 [facility] [id number]) OT- Subjective Occupational Therapy Visit Type Type Initial Evaluation Visit Start Time 09:35 Visit Stop Time 10:05 Total Visit Minutes 30 Occupational Therapy Visit Comments Patient Comments Pt agreeable to get up to rosario up at the sink. OT Pain Assessment Pain When Pain Assessed During Mobility Pain Present Pain Present Pain Reported Location Right Shoulder Intensity 8 Scale Used Numeric (1 - 10) M4 OT- IP ADL's Start: 10/14/18 15:43 Freq: Status: Active Protocol: Document 10/15/18 09:06 [facility] (Rec: 10/15/18 09:31 [facility] [id number]) OT ADL-Grooming General Evaluation Grooming Ability Moderate Assistance Areas Needing Assistance Retrieving/Set-up of Grooming Items Combing/Brushing Hair Comments OT Grooming Comments Pt able to hold toothbrush with right hand and able use left hand to brush her teeth. Pt needing assist for completeness to brush her hair in the back. Pt had to sit as getting tired. OT ADL-Oral Care General Eval Oral Care Ability Independent OT ADL-Dressing General Eval Upper Body Dressing Ability Total Assistance Comments OT Dressing Comments Dependent for sling management , had to readjust the sling for pt. Pt not wanting to do pendulums at this time. M6 OT- IP Functional Cognition Start: 10/14/18 15:43 Freq: Status: Active Protocol: Document 10/15/18 09:06 [facility] (Rec: 10/15/18 09:31 [facility] [id number]) Cognitive Factors Limiting Selfcare Function Cognitive Ability Level of Alertness Alert Patient Orientation Name Place Situation Attention Span Ability Capable of Focused Attention Capable of Sustained Attention Ability to Follow Commands Able to Follow One Step Commands Safety Awareness Underestimates Need for Assistance Problem Solving Ability Needs Assist to Identify Solutions Cognitive Comments Cognitive Assessment Comments Pt a bit groggy and tired and able to follow one step commands. Pt able to states that she should not move her right shoulder but okay to move from elbow to distal. OT- Vision and Hearing OT- Hearing Assessment OT- Hearing Assessment WFL M7 OT- IP Mobility and Balance Start: 10/14/18 15:43 Freq: Status: Active Protocol: Document 10/15/18 09:06 [facility] (Rec: 10/15/18 09:31 [facility] [id number]) OT- Bed Mobility Assessment Supine to Sit Supine to Sit Assist Moderate Assistance 1 Person Assistance Sit to Supine Sit to Supine Assist Moderate Assistance 1 Person Assistance Scooting Scooting to Edge of Bed Moderate Assistance 1 Person Assistance OT-Transfer Assessment Sit to and From Stand Sit to and from Stand Minimal Assistance 1 Person Assistance Transfers Transfer Ability Minimal Assistance Moderate Assistance 1 Person Assistance Technique Transfer Destination Bed Transfer Technique Stand Step Pivot Devices Transfer Assistive Devices Gait Belt Small Based Quad Cane Comments Mobility Comments Bed mobility, pt insistent on getting out from the right with HOB up as usually sleeps in a recliner at home. Educated pt best to get out from the left to prevent from putting pressure on right shoulder, therefore needing MOD A to get up. Pt very unsteady with small based quad cane and needing from DEBBIE to MODA for balance. OT- Balance Assessment Sitting Balance and Reactions Static Sitting Balance Ability Good Standing Balance and Reactions Static Standing Balance Ability Fair M8 OT- IP Objective Assessments Start: 10/14/18 15:43 Freq: Status: Active Protocol: Document 10/15/18 09:06 [facility] (Rec: 10/15/18 09:31 [facility] [id number]) OT Gross Range of Motion Upper Extremity Range of Motion Assessment Right Impaired ROM Impairments WFL from wrist/fingers right hand. M9 OT- IP Assessment and Plan Start: 10/14/18 15:43 Freq: Status: Active Protocol: Document 10/15/18 09:06 [facility] (Rec: 10/15/18 09:31 [facility] [id number]) OT Summary Assessment and Plan Potential Rehabilitation Potential Good Analytic Complexity at Evaluation Low Summary OT Impairments Pain Range of Motion Strength Balance Functional Cognition Functional Mobility Grooming Dressing Toileting Bathing Toilet Transfers Shower Transfers Progress Towards Goals Slow Progress due to Pain Slow Progress due to Activity Tolerance Assessment Summary Pt low complexity and main barrier is steps, activity tolerance, balance, and now needing one person assist for all ADL and IADl needs. Pt will benefit from skilled rehab prior to going home. Goals Grooming Goal Independent Dressing Goal Moderate Assistance Toileting Goal Moderate Assistance Toilet Transfer Goal Contact Guard Assistance Patient/Caregiver Education Goal Caregiver Independent Assisting Patient Days to Meet Goals 4 Frequency of Treatment Frequency Of Treatment Once a Day Treatment Plan OT Treatment Plan ADL Training Functional Cognition Training Functional Mobility Patient/Family Education Discharge Planning Other Treatment Recommendations and Next continue sling management Treatment Focus needs, pendulums Discharge Recommendations OT Discharge Recommendations SNF Rehab Home Equipment Needs defer to SNF
[2018-10-15] MEDS: INSULIN REGULAR 100 UNIT/ML 3 ML VIAL SUBCUT ×2 (12:13→17:07)
--- NOTE | 2018-10-15 15:54 | PT.IPTN ---
Current Diagnoses Acute posthemorrhagic anemia (10/14/18) Other displaced fracture of upper end of right humerus, initial encounter for closed fracture (10/14/18) Surgery Performed Operation Date: 10/12/18 07:45 Actual Procedures p ORIF Shoulder fracture (Right) - Quincy Ramires MD s Total Shoulder Arthroplasty - Reverse(Right) - Quincy Ramires MD Physical Therapy Treatment Note M2 PT-IP Current Condition Start: 10/12/18 12:09 Freq: NEEDED Status: Active Protocol: Document 10/12/18 14:15 AB (Rec: 10/12/18 17:12 AB [id number]) Physical Therapy Current Condition Current Condition Evaluation Date 10/12/18 Treatment Diagnosis R comminuted displaced R prox. humerus fx s/p ORIF: difficulty in walking Onset Date 10/12/18 Precautions Shoulder Precautions Sling PROM Internal Rotation to Body No External Rotation No Abduction Forward Flexion to 90 degrees Pendulums Other Precautions from Dr. Sánchez POC: sling is mainly for comfort. Okay for patient to come out of the sling to work on gentle range of motion of the proximal humerus. Weight Bearing Status Weight Bearing Status Non-Weight Bearing Allowed Weight Bearing Amount (enter % R UE NWB or #) (%) M3 PT-IP Subjective Start: 10/12/18 12:09 Freq: NEEDED Status: Active Protocol: Document 10/15/18 14:32 LJ (Rec: 10/15/18 15:54 LJ [id number]) Subjective Physical Therapy Visit Type Type Treatment Note Visit Start Time 14:32 Visit Stop Time 14:49 Total Visit Minutes 17 Notes Pt in bed more awake than this am. Requesting to get up and use the BSC M4 PT-IP Mobility and Gait Start: 10/12/18 12:09 Freq: NEEDED Status: Active Protocol: Document 10/15/18 14:32 LJ (Rec: 10/15/18 15:54 LJ [id number]) PT-Bed Mobility Assessment Supine to Sit Supine to Sit Standby Assistance 1 Person Assistance Head of Bed Elevated Scooting Scooting to Edge of Bed Standby Assistance PT-Transfer Assessment Sit to and From Stand Sit to and from Stand Contact Guard Assistance Use of Upper Extremities Equipment Transfer Assistive Device Gait Belt Small Based Quad Cane Transfers Transfer Destination Chair Toilet Transfer Ability Level of Assist Contact Guard Assistance Comments Mobility Comments Pt able to get out of bed SBA and use of LUE. Transfers with CGA and quad cane. Pt unsteady on her feet. Stand> sit onto BSC and into chair somewhat uncontrolled Gait Assessment Gait Gait Assistance Required: Contact Guard Assist Distance (Feet) 8 Able to Maintain Weight Bearing Status Yes During Gait Assistive Devices Assistive Device Gait Belt Small Based Quad Cane Gait Deviations General Gait Pattern Antalgic Decreased Stride Length Decreased Feet Clearance Wide Based Gait Factors Limiting Gait Function Factors Limiting Gait Function Decreased Activity Tolerance Decreased Strength Difficulty Following Directions Limited Range of Motion Poor Balance Poor Safety Awareness Comments Gait Comments Pt Unsteady on her feet. No loss of balance from BSC to chair. Pt requires cueing for proper posture during gait and hand placement for better control sor lowering into chair or BSC. M5 PT-IP Objective Assessments Start: 10/12/18 12:09 Freq: NEEDED Status: Active Protocol: Document 10/12/18 14:15 AB (Rec: 10/12/18 17:12 AB [id number]) Orientation Orientation/Cognition Level of Alertness Alert Orientation Name Place Situation Safety Awareness Decreased Safety Awareness Memory Description Short Term Impaired Ecmo Specialist Impaired Gross Range of Motion Lower Extremity ROM Assessment Right Impaired Strength Lower Extremity Strength Assessment Right Impaired Knee 3+/5 Sensation Assessment Sensation Gross Sensation Right LE Impaired Left LE Impaired Sensation Description Numbness Tingling Comments Sensation Comments impaired sensation to light touch on B fee but absent sensation on R big toe Muscle Tone Muscle Tone WNL No M6 PT-IP Treatment Start: 10/12/18 12:09 Freq: NEEDED Status: Active Protocol: Document 10/15/18 14:32 PAUL (Rec: 10/15/18 15:54 [id number]) Physical Therapy Treatment Exercises Exercises Ankle Pumps Gluteal Sets Elbow Flexion/Extension Wrist ROM Hand ROM Education Education Provided Safety Other Treatments Other Treatment Performed PROM of RUE flexion, extension , Adduction. Demonstrated and explained pendulum but not performed. M7 PT-IP Assessment and Plan Start: 10/12/18 12:09 Freq: NEEDED Status: Active Protocol: Document 10/15/18 14:32 LJ (Rec: 10/15/18 15:54 LJ [id number]) PT Summary Assessment and Plan Summary Assessment Summary Pt still unsafe for gait. Improving in bed mobility and transfers. Frequency of Treatment Frequency Of Treatment Twice a Day Treatment Plan Physical Therapy Treatment Plan Bed Mobility Training Transfer Training Gait Training Therapeutic Exercise Balance Retraining Post Op Education Discharge Planning Hot or Cold Pack Neuromuscular Re-ed Coordination Retraining Manual Therapy Recommendations To Nursing Amount of Assist Needed 1 Person Assist Discharge Recommendations PT Discharge Recommendations SNF Rehab
[2018-10-15] MEDS: INSULIN NPH 100 UNIT/ML VIAL 15 UNIT SUBCUT (20:50)
[2018-10-15] MEDS: MAGNESIUM HYDROXIDE 30 ML UDC PO (20:53)
[2018-10-15] MEDS: PRIMIDONE 50 MG TABLET 250 MG PO (20:54)
--- NOTE | 2018-10-15 23:13 | PC.NURSE ---
Pt continued to have low BP through the day, all pulses palpable except patient has swollen rgt hand. BP's were 125/59, 120/40,137/74. Pt continued to nod off and fall asleep. Patient complained of pain 03/12, observationally seemed like she would sleep through it. Tylenol given for the most part until the evening.
[2018-10-16 00:30] VITALS: BP 135/56; PULSE 70; RESP 18; TEMP 37.2; O2SAT 94
--- NOTE | 2018-10-16 01:07 | PC.NURSE ---
Food Service Worker Hospital Note: 0045: Awake, assisted up to bedside commode. Pt has good balance but states at home her knees buckle when she bends them and she falls. Advised pt to have the bed or chair behind her if she is going to bend her knees. Vital signs stable. Dressing to rt arm saturated with serosanguinous drainage.
[2018-10-16 04:15] VITALS: BP 115/65; PULSE 73; RESP 18; TEMP 36.3; O2SAT 94
[2018-10-16 07:40] VITALS: BP 142/61; PULSE 72; RESP 20; TEMP 36.7; O2SAT 93
[2018-10-16] MEDS: ACETAMINOPHEN 325 MG TABLET 975 MG PO ×3 (08:33→20:19)
[2018-10-16] MEDS: CHOLECALCIFEROL (VITAMIN D3) 1,000 UNIT TABLET 4000 UNIT PO (08:34)
[2018-10-16] MEDS: GABAPENTIN 600 MG TABLET PO ×2 (08:34→20:18)
[2018-10-16] MEDS: ASPIRIN EC 81 MG TABLET PO (08:34)
[2018-10-16] MEDS: ATORVASTATIN 20 MG TABLET PO (08:34)
[2018-10-16] MEDS: DOCUSATE 100 MG CAPSULE PO ×2 (08:34→20:19)
[2018-10-16] MEDS: FERROUS GLUCONATE 324 MG TABLET PO ×2 (08:34→20:19)
[2018-10-16] MEDS: ASCORBIC ACID 500 MG TABLET PO ×2 (08:34→20:18)
[2018-10-16] MEDS: hydroCHLOROthiazide 25 MG TABLET PO (08:35)
[2018-10-16] MEDS: SODIUM BICARBONATE 650 MG TABLET 1300 MG PO ×2 (08:35→20:18)
[2018-10-16] MEDS: SODIUM CHLORIDE 0.9% FLUSH 10 ML IV ×2 (08:35→20:20)
[2018-10-16] MEDS: INSULIN NPH 100 UNIT/ML VIAL 12 UNIT SUBCUT (08:37)
[2018-10-16] MEDS: INSULIN REGULAR 100 UNIT/ML 3 ML VIAL SUBCUT ×3 (08:40→16:31)
--- NOTE | 2018-10-16 10:20 | PM.PNPO.1 ---
Subjective Date Patient Seen: 10/16/18 Time Patient Seen: 10:20 Interval history: Hospital day 5, postop day 4 following right humerus fracture ORIF. Patient also had postoperative anemia. Received 2 units of PRBC 2 days ago with good improvement in H&H. She has been having some increasing drainage from the distal dressing area of her right arm. This was reinforced with gauze. Has been having swelling of the arm and hand. No increased pain. Patient is scheduled to go to [facility] for further rehab before going home. PT notes that she needs more learning support assistant is unstable with ambulation. Exam Vital Signs (past 8 hours): - 10/16/18 04:15 10/16/18 07:40 Temperature 97.3 F L 98.1 F Pulse Rate 73 72 Respiratory Rate 18 20 Blood Pressure 115/65 142/61 H Pulse Oximetry 94 93 Oxygen Delivery Method Room Air Oxygen Flow Rate 0 Narrative Exam Narrative: Alert, oriented in no acute distress resting in bed. Right arm. Dressing and Aquacel dressing removed. Skin in good condition. No signs of infection or inflammation. Slight serous drainage to distal incision. New Aquacel dressing applied. Patient does have moderate swelling of her forearm and hand with good blanching and sensation. Peg Driver is strong. Objective Labs Result Diagrams: 10/15/18 05:40 Assessment & Plan Post-op Postoperative Procedures Operation Date: 10/12/18 07:45 Actual Procedures Side Surgeon p ORIF Shoulder fracture Right Quincy Ramires MD s Total Shoulder Arthroplasty - Reverse Right Quincy Ramires MD Plan: Observe for further improvement in pain and function. Physical therapy may do gentle range of motion of her arm to help with circulation. Anticipate discharge to [facility] tomorrow if she is stable.
--- NOTE | 2018-10-16 10:23 | P.PN_ITS ---
Subjective Date Patient Seen: 10/16/18 Time Patient Seen: 10:20 Interval history: Hospital day 5, postop day 4 following right humerus fracture ORIF. Patient also had postoperative anemia. Received 2 units of PRBC 2 days ago with good improvement in H&H. She has been having some increasing drainage from the distal dressing area of her right arm. This was reinforced with gauze. Has been having swelling of the arm and hand. No increased pain. Patient is scheduled to go to [facility] for further rehab before going home. PT notes that she needs more cosmetic sales assistant is unstable with ambulation. Exam Vital Signs (past 8 hours): - 10/16/18 04:15 10/16/18 07:40 Temperature 97.3 F L 98.1 F Pulse Rate 73 72 Respiratory Rate 18 20 Blood Pressure 115/65 142/61 H Pulse Oximetry 94 93 Oxygen Delivery Method Room Air Oxygen Flow Rate 0 Narrative Exam Narrative: Alert, oriented in no acute distress resting in bed. Right arm. Dressing and Aquacel dressing removed. Skin in good condition. No signs of infection or inflammation. Slight serous drainage to distal incision. New Aqu acel dressing applied. Patient does have moderate swelling of her forearm and hand with good blanching and sensation. Paper Plate Machine Tender is strong. Objective Labs Result Diagrams: 10/15/18 05:40 Assessment & Plan Post-op Postoperative Procedures Operation Date: 10/12/18 07:45 Actual Procedures Side Surgeon p ORIF Shoulder fracture Right Quincy Ramires MD s Total Shoulder Arthroplasty - Reverse Right Quincy Ramires MD Plan: Observe for further improvement in pain and function. Physical therapy may do gentle range of motion of her arm to help with circulation. Anticipate discharge to [facility] tomorrow if she is stable.
--- NOTE | 2018-10-16 10:46 | CM.DPNOTE ---
Reviewed chart and met w/ pt this morning. Pt was changed to inpt as of 10.14.18. Reviewed DCP options w/ pt and she continues to want [facility] upon DC, Medicare ready [id number]. Placed call to Daisy at [facility]; discussed referral and faxed clinical packet to include completed PASRR. Awaiting CB to see if [facility] can accept pt Thursday. ALEJANDRO Morales
[2018-10-16 11:10] VITALS: BP 144/58; PULSE 73; RESP 20; TEMP 36.7; O2SAT 96
--- NOTE | 2018-10-16 12:10 | PT.IPTN ---
Current Diagnoses Acute posthemorrhagic anemia (10/14/18) Other displaced fracture of upper end of right humerus, initial encounter for closed fracture (10/14/18) Surgery Performed Operation Date: 10/12/18 07:45 Actual Procedures p ORIF Shoulder fracture (Right) - Quincy Ramires MD s Total Shoulder Arthroplasty - Reverse(Right) - Quincy Ramires MD Physical Therapy Treatment Note M2 PT-IP Current Condition Start: 10/12/18 12:09 Freq: NEEDED Status: Active Protocol: Document 10/12/18 14:15 AB (Rec: 10/12/18 17:12 AB [id number]) Physical Therapy Current Condition Current Condition Evaluation Date 10/12/18 Treatment Diagnosis R comminuted displaced R prox. humerus fx s/p ORIF: difficulty in walking Onset Date 10/12/18 Precautions Shoulder Precautions Sling PROM Internal Rotation to Body No External Rotation No Abduction Forward Flexion to 90 degrees Pendulums Other Precautions from Dr. Sánchez POC: sling is mainly for comfort. Okay for patient to come out of the sling to work on gentle range of motion of the proximal humerus. Weight Bearing Status Weight Bearing Status Non-Weight Bearing Allowed Weight Bearing Amount (enter % R UE NWB or #) (%) M3 PT-IP Subjective Start: 10/12/18 12:09 Freq: NEEDED Status: Active Protocol: Document 10/16/18 12:09 GGD (Rec: 10/16/18 12:10 GGD [id number]) Subjective Physical Therapy Visit Type Type Patient Refusal Notes Pt refused x 2 due to just getting up to BSC and then having family visit. Will see pt in PM. Amount of Assist Needed 1 Person Assist Discharge Recommendations PT Discharge Recommendations SNF Rehab
--- NOTE | 2018-10-16 13:40 | OT.IP.TRT ---
Current Diagnoses Acute posthemorrhagic anemia (10/14/18) Other displaced fracture of upper end of right humerus, initial encounter for closed fracture (10/14/18) Surgery Performed Operation Date: 10/12/18 07:45 Actual Procedures p ORIF Shoulder fracture (Right) - Quincy Ramires MD s Total Shoulder Arthroplasty - Reverse(Right) - Quincy Ramires MD Occupational Therapy Treatment Note M2 OT-IP Current Condition Start: 10/14/18 15:43 Freq: Status: Active Protocol: Document 10/15/18 09:06 [facility] (Rec: 10/15/18 09:31 [facility] [id number]) Occupational Therapy Current Condition Current Condition Evaluation Date 10/15/18 Treatment Diagnosis Right Proximal Humerus Fracture Diagnosis Onset Date 10/12/18 Post Operative Precautions Shoulder Precautions Sling No External Rotation No Abduction Forward Flexion to 90 degrees Pendulums Weight Bearing Status Weight Bearing Status Non-Weight Bearing M3 OT- IP Subjective and Pain Start: 10/14/18 15:43 Freq: Status: Active Protocol: Document 10/16/18 13:32 [facility] (Rec: 10/16/18 13:40 [facility] [id number]) OT- Subjective Occupational Therapy Visit Type Type Treatment Note Visit Start Time 12:35 Visit Stop Time 13:15 Total Visit Minutes 40 Occupational Therapy Visit Comments Patient Comments Pt agreeable to be seen for OT . OT Pain Assessment Pain When Pain Assessed At Rest Pain Present Pain Present Denied Pain M4 OT- IP ADL's Start: 10/14/18 15:43 Freq: Status: Active Protocol: Document 10/16/18 13:32 [facility] (Rec: 10/16/18 13:40 [facility] [id number]) OT ADL-Toileting General Evaluation Toileting Ability Maximum Assistance Areas Needing Assistance Manage Clothing Perform Perineal Hygiene Devices Toileting Assistive Devices Commode Comments OT Toileting Comments Pt able to stand with sling and gait belt on and to hold to bed rail to stand while therapist assist for all hygiene and brief management needs. M6 OT- IP Functional Cognition Start: 10/14/18 15:43 Freq: Status: Active Protocol: Document 10/16/18 13:32 [facility] (Rec: 10/16/18 13:40 [facility] [email or web address]) Cognitive Factors Limiting Selfcare Function Cognitive Ability Level of Alertness Alert Patient Orientation Name Place Situation Attention Span Ability Capable of Focused Attention Capable of Sustained Attention Ability to Follow Commands Able to Follow One Step Commands Memory Description Short Term Impaired Safety Awareness Underestimates Need for Assistance Problem Solving Ability Unable to Identify Errors Needs Assist to Identify Solutions Cognitive Comments Cognitive Assessment Comments Pt not able to recall safety suggestions of wearing sling in bed and to get in and out of the bed from left side. Pt has difficulty to follow direction of not moving her right arm. M7 OT- IP Mobility and Balance Start: 10/14/18 15:43 Freq: Status: Active Protocol: Document 10/16/18 13:32 [facility] (Rec: 10/16/18 13:40 [facility] [email or web address]) OT- Bed Mobility Assessment Sit to Supine Sit to Supine Assist Moderate Assistance 1 Person Assistance OT-Transfer Assessment Sit to and From Stand Sit to and from Stand Minimal Assistance 1 Person Assistance Transfers Transfer Ability Minimal Assistance 1 Person Assistance Technique Transfer Destination Bed Bedside Commode Transfer Technique Stand Step Pivot Devices Transfer Assistive Devices Gait Belt Small Based Quad Cane Comments Mobility Comments Pt needing DEBBIE to stand and for balance while walking with small based quad cane. Pt did better to get into bed from left side today and agreed to do so from now on. OT- Balance Assessment Sitting Balance and Reactions Static Sitting Balance Ability Good Standing Balance and Reactions Static Standing Balance Ability Fair M8 OT- IP Objective Assessments Start: 10/14/18 15:43 Freq: Status: Active Protocol: Document 10/15/18 09:06 [facility] (Rec: 10/15/18 09:31 [facility] [id number]) OT Gross Range of Motion Upper Extremity Range of Motion Assessment Right Impaired ROM Impairments WFL from wrist/fingers right hand. 10/16/18 noted increased swelling throughout RUE and temperature of RUE warmer than left side. Pt has difficulty to relax right shoulder and also difficulty to follow just having RUE hang forwards. Pt tends to manager transportation planning and hike her shoulder during attempts of pendulums. Educated pt to focus on upright posture, as pt tends to be very flexed at her trunk and neck. Nurse aid notified of swelling and temperature difference of arms and to pass to nurse. M9 OT- IP Assessment and Plan Start: 10/14/18 15:43 Freq: Status: Active Protocol: Document 10/16/18 13:32 [facility] (Rec: 10/16/18 13:40 [facility] [email or web address]) OT Summary Assessment and Plan Potential Rehabilitation Potential Good Analytic Complexity at Evaluation Low Summary OT Impairments Pain Range of Motion Strength Balance Functional Cognition Functional Mobility Grooming Dressing Toileting Bathing Toilet Transfers Shower Transfers Progress Towards Goals Slow Progress due to Pain Slow Progress due to Activity Tolerance Assessment Summary Pt low complexity and main barrier is steps, memory, activity tolerance, balance, and now needing one person assist for all ADL and IADl needs. Pt will benefit from skilled rehab prior to going home. Goals Grooming Goal Independent Dressing Goal Moderate Assistance Toileting Goal Moderate Assistance Toilet Transfer Goal Contact Guard Assistance Patient/Caregiver Education Goal Caregiver Independent Assisting Patient Days to Meet Goals 3 Frequency of Treatment Frequency Of Treatment Once a Day Treatment Plan OT Treatment Plan ADL Training Functional Cognition Training Functional Mobility Patient/Family Education Discharge Planning Discharge Recommendations OT Discharge Recommendations SNF Rehab Home Equipment Needs defer to SNF
--- NOTE | 2018-10-16 15:05 | PT.IPTN ---
Current Diagnoses Acute posthemorrhagic anemia (10/14/18) Other displaced fracture of upper end of right humerus, initial encounter for closed fracture (10/14/18) Surgery Performed Operation Date: 10/12/18 07:45 Actual Procedures p ORIF Shoulder fracture (Right) - Quincy Ramires MD s Total Shoulder Arthroplasty - Reverse(Right) - Quincy Ramires MD Physical Therapy Treatment Note M2 PT-IP Current Condition Start: 10/12/18 12:09 Freq: NEEDED Status: Active Protocol: Document 10/12/18 14:15 AB (Rec: 10/12/18 17:12 AB [id number]) Physical Therapy Current Condition Current Condition Evaluation Date 10/12/18 Treatment Diagnosis R comminuted displaced R prox. humerus fx s/p ORIF: difficulty in walking Onset Date 10/12/18 Precautions Shoulder Precautions Sling PROM Internal Rotation to Body No External Rotation No Abduction Forward Flexion to 90 degrees Pendulums Other Precautions from Dr. Sánchez POC: sling is mainly for comfort. Okay for patient to come out of the sling to work on gentle range of motion of the proximal humerus. Weight Bearing Status Weight Bearing Status Non-Weight Bearing Allowed Weight Bearing Amount (enter % R UE NWB or #) (%) M3 PT-IP Subjective Start: 10/12/18 12:09 Freq: NEEDED Status: Active Protocol: Document 10/16/18 15:05 [facility] (Rec: 10/16/18 15:21 [facility] [id number]) Subjective Physical Therapy Visit Type Type Treatment Note Visit Start Time 14:40 Visit Stop Time 15:05 Total Visit Minutes 25 Number of PLANT ETIOLOGIST Visits 4 Physical Therapy Visit Comments Patient Comments Pt states she is willing to work with therapy. M4 PT-IP Mobility and Gait Start: 10/12/18 12:09 Freq: NEEDED Status: Active Protocol: Document 10/16/18 15:05 [facility] (Rec: 10/16/18 15:21 GGD [id number]) PT-Bed Mobility Assessment Supine to Sit Supine to Sit Standby Assistance 1 Person Assistance Head of Bed Elevated Scooting Scooting to Edge of Bed Standby Assistance PT-Transfer Assessment Sit to and From Stand Sit to and from Stand Contact Guard Assistance Use of Upper Extremities Equipment Transfer Assistive Device Gait Belt Small Based Quad Cane Transfers Transfer Destination Chair Transfer Ability Level of Assist Contact Guard Assistance Comments Mobility Comments Out of bed to the left. Gait Assessment Gait Gait Assistance Required: Contact Guard Assist Distance (Feet) 40 Able to Maintain Weight Bearing Status Yes During Gait Assistive Devices Assistive Device Gait Belt Small Based Quad Cane Gait Deviations General Gait Pattern Antalgic Decreased Stride Length Decreased Feet Clearance Wide Based Gait Factors Limiting Gait Function Factors Limiting Gait Function Decreased Activity Tolerance Decreased Strength Difficulty Following Directions Limited Range of Motion Poor Balance Poor Safety Awareness M5 PT-IP Objective Assessments Start: 10/12/18 12:09 Freq: NEEDED Status: Active Protocol: Document 10/12/18 14:15 AB (Rec: 10/12/18 17:12 AB [id number]) Orientation Orientation/Cognition Level of Alertness Alert Orientation Name Place Situation Safety Awareness Decreased Safety Awareness Memory Description Short Term Impaired Detention Impaired Gross Range of Motion Lower Extremity ROM Assessment Right Impaired Strength Lower Extremity Strength Assessment Right Impaired Knee 3+/5 Sensation Assessment Sensation Gross Sensation Right LE Impaired Left LE Impaired Sensation Description Numbness Tingling Comments Sensation Comments impaired sensation to light touch on B fee but absent sensation on R big toe Muscle Tone Muscle Tone WNL No M6 PT-IP Treatment Start: 10/12/18 12:09 Freq: NEEDED Status: Active Protocol: Document 10/16/18 15:05 GGD (Rec: 10/16/18 15:21 GGD [id number]) Physical Therapy Treatment Exercises Exercises Ankle Pumps Gluteal Sets Elbow Flexion/Extension Wrist ROM Hand ROM Education Education Provided Precautions Weight Bearing Status Safety M7 PT-IP Assessment and Plan Start: 10/12/18 12:09 Freq: NEEDED Status: Active Protocol: Document 10/16/18 15:05 [facility] (Rec: 10/16/18 15:21 GGD [id number]) PT Summary Assessment and Plan Summary Assessment Summary Pt improving with stability with gait. She had mild unsteadiness, but no LOB. She had improved stability and strength with sit to stand and controlled sit. She need assistance with UE positioning . Pt would benefit from SNF to improve mobility and balance . Frequency of Treatment Frequency Of Treatment Twice a Day Treatment Plan Physical Therapy Treatment Plan Bed Mobility Training Transfer Training Gait Training Therapeutic Exercise Balance Retraining Post Op Education Discharge Planning Hot or Cold Pack Neuromuscular Re-ed Coordination Retraining Manual Therapy Recommendations To Nursing Amount of Assist Needed 1 Person Assist Discharge Recommendations PT Discharge Recommendations SNF Rehab
--- NOTE | 2018-10-16 15:30 | PC.NURSE ---
GI: Last bowel movement was 10/13. She has been getting her Docusate and MOM scheduled. This insurance underwriter spoke to Dr Bryan and got order for PRN suppository, asked carlos shift to admin if patient is agreeable.
[2018-10-16 15:59] VITALS: BP 134/57; PULSE 72; RESP 18; TEMP 36.7; O2SAT 95
[2018-10-16 20:00] VITALS: BP 143/59; PULSE 74; RESP 18; TEMP 36.7; O2SAT 96
[2018-10-16] MEDS: MAGNESIUM HYDROXIDE 30 ML UDC PO (20:19)
[2018-10-16] MEDS: PRIMIDONE 50 MG TABLET 250 MG PO (20:20)
[2018-10-16] MEDS: INSULIN NPH 100 UNIT/ML VIAL 15 UNIT SUBCUT (20:20)
[2018-10-17] VITALS (7 sets, daily range): BP systolic 126–157; BP diastolic 63–83; PULSE 66–94; RESP 16–20; TEMP 36.1–36.8; O2SAT 93–97
--- NOTE | 2018-10-17 00:04 | PC.NURSE ---
Metal Slitter Note: 2345: Awake, assisted up to bedside commode. Pt steady on her feet, with sba; voided. IV in place in lt wrist. Rt arm sling in place. Rt hand remains edematous, with normal movement of fingers, and normal sensation. Vital signs stable. Encouraged pt to use incentive spirometer more frequently.
--- NOTE | 2018-10-17 08:40 | PM.PNPO.1 ---
Subjective Date Patient Seen: 10/17/18 Time Patient Seen: 08:40 Interval history: Pain levels are improving and she is feeling a little bit more comfortable moving her right arm. Exam Vital Signs (past 8 hours): - 10/17/18 04:18 10/17/18 07:22 Temperature 97.7 F 97.9 F Pulse Rate 66 72 Respiratory Rate 20 18 Blood Pressure 126/63 143/63 H Pulse Oximetry 94 94 Oxygen Delivery Method Room Air Oxygen Flow Rate 0 Const Orientation: alert and oriented x3 Back/Spine/Pelvis Other: Dressing CDI. Easily wiggles wrist and fingers. Moderate swelling and hand. Objective Labs Result Diagrams: 10/15/18 05:40 Assessment & Plan Post-op Postoperative Procedures Operation Date: 10/12/18 07:45 Actual Procedures Side Surgeon p ORIF Shoulder fracture Right Quincy Ramires MD s Total Shoulder Arthroplasty - Reverse Right Quincy Ramires MD she is making slow progress. Plan for discharge to custodial today for ongoing therapy.
--- NOTE | 2018-10-17 08:42 | PM.DS.1 ---
History of Present Illness Date Patient Seen: 10/17/18 Time Patient Seen: 08:42 Chief complaint: [id number] Narrative: 67-year-old [id number] female who fell and fractured her right proximal humerus. Discharge Providers Date of admission: 10/14/18 09:00 Discharge Date: 10/17/18 Primary care physician: Vanessa Hirsch MD Consults: 10/12/18 12:04 Consult to Discharge Planning Routine Comment: Consult to Physical Therapy Evaluate & Treat Comment: Physician Instructions: Evaluate and Treat Consult to Respiratory Therapy Evaluate & Treat Comment: Physician Instructions: Evaluate and treat 10/12/18 14:00 Consult to Discharge Planning Routine Comment: Consult to Physical Therapy Evaluate & Treat Comment: Physician Instructions: Evaluate and Treat Consult to Respiratory Therapy Evaluate & Treat Comment: Physician Instructions: Evaluate and treat 10/14/18 08:58 Consult to Occupational Therapy Evaluate & Treat Comment: Postop right proximal humerus fracture ORIF. Physician Instructions: Evaluate and treat Discharge provider: Karlo Bryan MD Summary Discharge Diagnosis: Right proximal humerus fracture Hospital Course: She was brought to the operating room on 10/12/2018 where she underwent ORIF of the right proximal humerus fracture with Dr. Ramires. Postoperatively, she had acute blood loss anemia and was transfused with 2 units packed red blood cells and her levels appropriately restored afterwards. She was slow to mobilize with physical therapy. She was not safe with stairs, which she had at home, and was very limited on her mobility. It was felt that her best bet would be senior living. Exam Vital Signs (past 8 hours): - 10/17/18 04:18 10/17/18 07:22 Temperature 97.7 F 97.9 F Pulse Rate 66 72 Respiratory Rate 20 18 Blood Pressure 126/63 143/63 H Pulse Oximetry 94 94 Oxygen Delivery Method Room Air Oxygen Flow Rate 0 Const Orientation: alert and oriented x3 Back/Spine/Pelvis Other: New dressing clean dry intact. She easily wiggles fingers and wrist. Moderate swelling of the right hand. Objective Labs Result Diagrams: 10/15/18 05:40 Discharge Plan Discharge Plan Patient Disposition: SNF Transfer to: [facility] Under care of provider: facility provider Labs: H/H every 3 days x1 week I certify the postop hospital senior living care is medically necessary on a continuing basis for any conditions for which he/ she received care during this hospitalization.: Yes The receiving facility has agreed to accept transfer and provide medical treatment.: Yes Discharge Med Rec/Prescriptions Prescriptions: New oxycodone-acetaminophen [Percocet] 5-325 mg tablet 2 tab PO Q4-6H PRN (Reason: pain) Qty: 60 RF: 0 hydroxyzine pamoate [Vistaril] 25 mg capsule 25 mg PO TID-QID PRN (Reason: spasms) Qty: 60 RF: 0 Continued gabapentin [Neurontin] 300 MG capsule 600 mg PO BID Qty: 0 RF: 0 primidone 50 mg tablet 250 mg PO BEDTIME RF: 0 atorvastatin 20 mg tablet 20 mg PO QAM RF: 0 sodium bicarbonate 650 mg tablet 2 tab PO BID RF: 0 aspirin 81 mg Tablet,Delayed Release (Dr/Ec) 81 mg PO DAILY RF: 0 insulin NPH isoph U-100 human 100 unit/mL suspension 15 unit subcut BEDTIME RF: 0 hydrochlorothiazide 25 mg tablet 25 mg PO DAILY RF: 0 insulin regular human 100 unit/mL solution 3 - 6 unit subcut TID RF: 0 hydrocodone-acetaminophen [[place]] 5-325 mg tablet 1 tab PO Q4H PRN (Reason: shoulder fracture (acute)) Qty: 20 RF: 0 insulin NPH isoph U-100 human 100 unit/mL Suspension 12 unit SUBCUT QAM RF: 0 cholecalciferol (vitamin D3) [Vitamin D3] 2,000 unit Capsule 4,000 unit PO DAILY RF: 0 Follow up/Referrals: Quincy Ramires MD [Physician] - (10-14 days post-op at your previously scheduled post-op appointment.) Discharge Health Status Multidrug resistant organism: No MDRO Precautions: Hector Provider Discharge Instructions Diet: Carb-consistent/Diabetic Activity: Sling for comfort. Okay to come out of the sling to work on gentle [id number]-[id number] exercises. No lifting with the right arm. No restrictions to elbow or wrist range of motion. Cold/Heat Therapy: Apply ice 20 minutes at a time to operative site at least hourly while awake for swelling/pain Skin/Wound/Dressing Care Report to your healthcare provider any signs of infection, such as:: chills, fever, night sweats, increased pain, unusual drainage and unusual redness Dressing: Keep dressing clean and dry Other wound treatment: [place] out 2 weeks post-op [facility] Reason for rehabilitation: Post-operative therapy Rehab type: Physical therapy and Occupational therapy Restrictions to mobility: Full range of motion but absolutely no lifting. Visit Report/Discharge Packet Instructions: DI for Open Reduction Internal Fixation Surgery Stand Alone Forms: Surgery Discharge Discharge Data Primary Care Provider: Vanessa Hirsch Attending Provider: Quincy Ramires Admit Date/Time: 10/14/18 09:00
--- NOTE | 2018-10-17 08:53 | PT.IPTN ---
Current Diagnoses Acute posthemorrhagic anemia (10/14/18) Other displaced fracture of upper end of right humerus, initial encounter for closed fracture (10/14/18) Surgery Performed Operation Date: 10/12/18 07:45 Actual Procedures p ORIF Shoulder fracture (Right) - Quincy Ramires MD s Total Shoulder Arthroplasty - Reverse(Right) - Quincy Ramires MD Physical Therapy Treatment Note M2 PT-IP Current Condition Start: 10/12/18 12:09 Freq: NEEDED Status: Active Protocol: Document 10/12/18 14:15 AB (Rec: 10/12/18 17:12 AB [id number]) Physical Therapy Current Condition Current Condition Evaluation Date 10/12/18 Treatment Diagnosis R comminuted displaced R prox. humerus fx s/p ORIF: difficulty in walking Onset Date 10/12/18 Precautions Shoulder Precautions Sling PROM Internal Rotation to Body No External Rotation No Abduction Forward Flexion to 90 degrees Pendulums Other Precautions from Dr. Sánchez POC: sling is mainly for comfort. Okay for patient to come out of the sling to work on gentle range of motion of the proximal humerus. Weight Bearing Status Weight Bearing Status Non-Weight Bearing Allowed Weight Bearing Amount (enter % R UE NWB or #) (%) M3 PT-IP Subjective Start: 10/12/18 12:09 Freq: NEEDED Status: Active Protocol: Document 10/17/18 08:20 AMB (Rec: 10/17/18 08:53 AMB [email or web address]) Subjective Physical Therapy Visit Type Type Treatment Note Visit Start Time 08:15 Visit Stop Time 08:30 Physical Therapy Visit Comments Patient Comments Pt willing to get up M4 PT-IP Mobility and Gait Start: 10/12/18 12:09 Freq: NEEDED Status: Active Protocol: Document 10/17/18 08:20 AMB (Rec: 10/17/18 08:53 AMB [email or web address]) PT-Transfer Assessment Sit to and From Stand Sit to and from Stand Contact Guard Assistance Use of Upper Extremities Equipment Transfer Assistive Device Gait Belt Small Based Quad Cane Transfers Transfer Destination Chair Gait Assessment Gait Gait Assistance Required: Contact Guard Assist Distance (Feet) 40 Able to Maintain Weight Bearing Status Yes During Gait Assistive Devices Assistive Device Gait Belt Small Based Quad Cane Gait Deviations General Gait Pattern Antalgic Decreased Stride Length Decreased Feet Clearance Wide Based Gait PT-Balance Assessment Comments Other Balance Tests/Deviations/Treatment Standing at counter to brush : teeth, sidestepping with counter support, no leg buckling M5 PT-IP Objective Assessments Start: 10/12/18 12:09 Freq: NEEDED Status: Active Protocol: Document 10/12/18 14:15 AB (Rec: 10/12/18 17:12 AB [id number]) Orientation Orientation/Cognition Level of Alertness Alert Orientation Name Place Situation Safety Awareness Decreased Safety Awareness Memory Description Short Term Impaired Adult Literacy Instructor Impaired Gross Range of Motion Lower Extremity ROM Assessment Right Impaired Strength Lower Extremity Strength Assessment Right Impaired Knee 3+/5 Sensation Assessment Sensation Gross Sensation Right LE Impaired Left LE Impaired Sensation Description Numbness Tingling Comments Sensation Comments impaired sensation to light touch on B fee but absent sensation on R big toe Muscle Tone Muscle Tone WNL No M6 PT-IP Treatment Start: 10/12/18 12:09 Freq: NEEDED Status: Active Protocol: Document 10/17/18 08:20 AMB (Rec: 10/17/18 08:53 AMB [email or web address]) Physical Therapy Treatment Exercises Exercises Shoulder Pendulums Wrist ROM Hand ROM M7 PT-IP Assessment and Plan Start: 10/12/18 12:09 Freq: NEEDED Status: Active Protocol: Document 10/17/18 08:20 AMB (Rec: 10/17/18 08:53 AMB [email or web address]) PT Summary Assessment and Plan Summary Assessment Summary Pt fatigued quickly with standing pendulums, but tolerated gait well. Frequency of Treatment Frequency Of Treatment Twice a Day Treatment Plan Physical Therapy Treatment Plan Bed Mobility Training Transfer Training Gait Training Therapeutic Exercise Balance Retraining Post Op Education Discharge Planning Hot or Cold Pack Neuromuscular Re-ed Coordination Retraining Manual Therapy Recommendations To Nursing Amount of Assist Needed 1 Person Assist Discharge Recommendations PT Discharge Recommendations SNF Rehab
[2018-10-17] MEDS: ACETAMINOPHEN 325 MG TABLET 975 MG PO ×3 (09:06→21:41)
[2018-10-17] MEDS: ASCORBIC ACID 500 MG TABLET PO (09:07)
[2018-10-17] MEDS: CHOLECALCIFEROL (VITAMIN D3) 1,000 UNIT TABLET 4000 UNIT PO (09:07)
[2018-10-17] MEDS: ASPIRIN EC 81 MG TABLET PO (09:07)
[2018-10-17] MEDS: DOCUSATE 100 MG CAPSULE PO ×2 (09:07→21:42)
[2018-10-17] MEDS: GABAPENTIN 600 MG TABLET PO ×2 (09:08→21:42)
[2018-10-17] MEDS: SODIUM BICARBONATE 650 MG TABLET 1300 MG PO (09:08)
[2018-10-17] MEDS: FERROUS GLUCONATE 324 MG TABLET PO (09:08)
[2018-10-17] MEDS: SODIUM CHLORIDE 0.9% FLUSH 10 ML IV ×2 (09:08→21:43)
[2018-10-17] MEDS: ATORVASTATIN 20 MG TABLET PO (09:08)
[2018-10-17] MEDS: hydroCHLOROthiazide 25 MG TABLET PO (09:08)
--- NOTE | 2018-10-17 09:08 | CM.DPC ---
Addendum entered by ALEJANDRO German 10/17/18 14:40: ADD: Return call from Daisy, admissions at [facility], they can accept pt tomorrow and transport w/c van set up for 1100 tomorrow 10/18/18. BF Original Note: Addendum entered by ALEJANDRO German 10/17/18 14:24: ADD: Return call from [facility] stating that they do not have enough staff to accept an admission today but they can accept the pt tomorrow (Thursday). SW called [facility] admissions and they think they have availability and request clinicals and after review they state they can accept the pt but do not have an open rehab bed today but likely tomorrow. [facility] for admissions today and cannot accept the pt. SW updated pt and friend bedside and pt agreeable with staying in the hospital tonight as safe plan of SNF is not currently available and preference is [facility]. MARISOL called MD and updated and he is agreeable with cancelling discharge today and discharging the pt in the morning. MARISOL updated crane assembler and pt's RN. MARISOL called [facility] admissions and left msg with update on pt preference of their facility for tomorrow and requested call back confirmation that they can accommodate this tomorrow. PASRR, signed med rec, scripts, d/c summary ready for faxing at d/c. Plan: SW to follow closely for return call from [facility] to confirm they can accept the pt tomorrow. Dinorah De Los Santos, REAL ESTATE ASSOCIATE ATTORNEY Original Note: DCP SNF Discharge: Per MD, pt is medically stable to d/c to SNF today. MARISOL called pt's first preference [facility] and left a msg to confirm that they cannot accept today due to low staff (they previously accepted but for Thursday not Thursday). MARISOL met bedside with pt and friend and explained role again and updated on medically stable to d/c to SNF and likely [facility] cannot accept. SW provided SNF Choice List again and pt states she primarily wants to be in [facility] for close proximity to adult Dtr and grandchildren and is agreeable to [facility] as well. MARISOL called [facility] admissions phone and left msg requesting review for discharge TODAY and faxed clinicals to review. MARISOL updated MD and RN and MD signed med rec and printed scripts. Plan: SW to follow closely for [facility] review to confirm they can accept the pt today. ALEJANDRO German
[2018-10-17] MEDS: INSULIN NPH 100 UNIT/ML VIAL 12 UNIT SUBCUT (09:13)
[2018-10-17] MEDS: INSULIN REGULAR 100 UNIT/ML 3 ML VIAL SUBCUT ×3 (09:13→16:54)
[2018-10-17] MEDS: MAGNESIUM HYDROXIDE 30 ML UDC PO (09:36)
[2018-10-17] MEDS: OXYCODONE IR 5 MG TABLET PO ×3 (10:34→21:50)
--- NOTE | 2018-10-17 11:45 | PC.NURSE ---
Shift summary: Alert and oriented X3. Dressing to R shoulder C/D/I, R arm in sling per patient request. Medicated with 5 mg Oxycodone for 8/10 pain in R shoulder after getting 975 mg Tylenol. Fresh ice pack to R shoulder. R arm/hand are still edematous, but they look less swollen than they did yesterday (to this copy writer). Circulation/sensation WNL, all extremities are pink and warm, cap refill <2 sec. Last BM was on 10/13. This copy writer tried to get her to agree to a suppository, but she declined. Agreed to take another dose of MOM + some prune juice and was given both. She denies feeling constipated, bloated or uncomfortable. BT+ X4, flatus+. Abdomen soft, nontender. Able to make needs known and calls appropriately. Up in chair visiting with family. Light in reach, chair alarm on. Plan is to transfer to SNF today pending placement- patient aware and agreeable.
--- NOTE | 2018-10-17 15:47 | PT.IPTN ---
Current Diagnoses Acute posthemorrhagic anemia (10/14/18) Other displaced fracture of upper end of right humerus, initial encounter for closed fracture (10/14/18) Surgery Performed Operation Date: 10/12/18 07:45 Actual Procedures p ORIF Shoulder fracture (Right) - Quincy Ramires MD s Total Shoulder Arthroplasty - Reverse(Right) - Quincy Ramires MD Physical Therapy Treatment Note or #) (%) M3 PT-IP Subjective Start: 10/12/18 12:09 Freq: NEEDED Status: Active Protocol: Document 10/17/18 15:46 AMB (Rec: 10/17/18 15:47 AMB [id number]) Subjective Physical Therapy Visit Type Type Patient Refusal Notes pt just got out of the shower and is planning on d/cing to [facility] tomorrow, will recheck in AM.
[2018-10-17] MEDS: INSULIN NPH 100 UNIT/ML VIAL 15 UNIT SUBCUT (21:42)
[2018-10-17] MEDS: ZOLPIDEM 5 MG TABLET PO (23:27)
[2018-10-18] VITALS: BP 137/65; PULSE 72; RESP 18; TEMP 36.2; O2SAT 95
[2018-10-18 04:00] VITALS: BP 171/69; PULSE 70; RESP 18; TEMP 35.6; O2SAT 96
--- NOTE | 2018-10-18 07:24 | P.DS_ITS ---
History of Present Illness Date Patient Seen: 10/18/18 Chief complaint: [id number] Narrative: Patient seen bedside s/p R. proximal humerus fracture POD #6. Patient was supposed to go to SNF yesterday but there were no beds at [facility] and not enough staff for an admission at [facility] yesterday. Patient will go to [facility] today. Patient is ready for discharge today. Her pain is well controlled but has been slow to ambulate with PT. Patient has not had a BM since the , but states that this is normal for her. Discharge Providers Date of admission: 10/14/18 09:00 Discharge Date: 10/18/18 Primary care physician: Vanessa Hirsch MD Consults: 10/12/18 12:04 Consult to Discharge Planning Routine Comment: Consult to Physical Therapy Evaluate & Treat Comment: Physician Instructions: Evaluate and Treat Consult to Respiratory Therapy Evaluate & Treat Comment: Physician Instructions: Evaluate and treat 10/12/18 14:00 Consult to Discharge Planning Routine Comment: Consult to Physical Therapy Evaluate & Treat Comment: Physician Instructions: Evaluate and Treat Consult to Respiratory Therapy Evaluate & Treat Comment: Physician Instructions: Evaluate and treat 10/14/18 08:58 Consult to Occupational Therapy Evaluate & Treat Comment: Postop right proximal humerus fracture ORIF. Physician Instructions: Evaluate and treat Discharge provider: Tatum Stallworth PA-C Summary Discharge Diagnosis: 1. Right proximal humerus fracture 2. Post-operative anemia secondary to acute blood loss-stable Exam Vital Signs (past 8 hours): - 10/18/18 00:00 10/18/18 04:00 Temperature 97.1 F L 96.0 F L Pulse Rate 72 70 Respiratory Rate 18 18 Blood Pressure 137/65 171/69 H Pulse Oximetry 95 96 Oxygen Delivery Method Room Air Oxygen Flow Rate 0 Narrative Exam Narrative: WDWN NAD A&O x3. Dressing is CDI, no signs of drainage/discharge, minimal erythema, generalized edema surrounding the joint. Mild dependent edema in right hand. Objective Labs Result Diagrams: 10/15/18 05:40 Discharge Plan Discharge Plan Patient Disposition: SNF Transfer to: [facility], [facility] Under care of provider: facility provider Labs: H/H every 3 days x1 week I certify the postop hospital jail care is medically necessary on a continuing basis for any conditions for which he/ she received care during this hospitalization.: Yes The receiving facility has agreed to accept transfer and provide medical treatment.: Yes Discharge Med Rec/Prescriptions Prescriptions: New oxycodone-acetaminophen [Percocet] 5-325 mg tablet 2 tab PO Q4-6H PRN (Reason: pain) Qty: 60 RF: 0 hydroxyzine pamoate [Vistaril] 25 mg capsule 25 mg PO TID-QID PRN (Reason: spasms) Qty: 60 RF: 0 Continued gabapentin [Neurontin] 300 MG capsule 600 mg PO BID Qty: 0 RF: 0 primidone 50 mg tablet 250 mg PO BEDTIME RF: 0 atorvastatin 20 mg tablet 20 mg PO QAM RF: 0 sodium bicarbonate 650 mg tablet 2 tab PO BID RF: 0 aspirin 81 mg Tablet,Delayed Release (Dr/Ec) 81 mg PO DAILY RF: 0 insulin NPH isoph U-100 human 100 unit/mL suspension 15 unit subcut BEDTIME RF: 0 hydrochlorothiazide 25 mg tablet 25 mg PO DAILY RF: 0 insulin regular human 100 unit/mL solution 3 - 6 unit subcut TID RF: 0 hydrocodone-acetaminophen [[place]] 5-325 mg tablet 1 tab PO Q4H PRN (Reason: shoulder fracture (acute)) Qty: 20 RF: 0 insulin NPH isoph U-100 human 100 unit/mL Suspension 12 unit SUBCUT QAM RF: 0 cholecalciferol (vitamin D3) [Vitamin D3] 2,000 unit Capsule 4,000 unit PO DAILY RF: 0 Follow up/Referrals: Quincy Ramires MD [Physician] - (10-14 days post-op at your previously scheduled post-op appointment.) Discharge Health Status Multidrug resistant organism: No MDRO Precautions: [facility] Provider Discharge Instructions Diet: Carb-consistent/Diabetic Activity: Sling for comfort. Okay to come out of the sling to work on gentle [id number] exercises. No lifting with the right arm. No restrictions to elbow or wrist range of motion. Cold/Heat Therapy: Apply ice 20 minutes at a time to operative site at least hourly while awake for swelling/pain Skin/Wound/Dressing Care Report to your healthcare provider any signs of infection, such as:: chills, fever, night sweats, increased pain, unusual drainage and unusual redness Dressing: Keep dressing clean and dry Other wound treatment: Ruben out 2 weeks post-op [facility] Reason for rehabilitation: Post-operative therapy Rehab type: Physical therapy and Occupational therapy Restrictions to mobility: Full range of motion but absolutely no lifting. Visit Report/Discharge Packet Instructions: DI for Open Reduction Internal Fixation Surgery Stand Alone Forms: Surgery Discharge Discharge Data Primary Care Provider: Vanessa Hirsch Attending Provider: Quincy Ramires Admit Date/Time: 10/14/18 09:00 Quality VTE Deep Vein Thrombosis/Pulmonary Embolism Present on Admission: No
[2018-10-18 08:00] VITALS: BP 153/68; PULSE 68; RESP 16; TEMP 36.6; O2SAT 95
[2018-10-18] MEDS: OXYCODONE IR 5 MG TABLET PO (08:04)
[2018-10-18] MEDS: LACTULOSE 20 GM/30 ML SOLUTION PO (08:04)
[2018-10-18] MEDS: ACETAMINOPHEN 325 MG TABLET 975 MG PO (08:05)
[2018-10-18] MEDS: SODIUM CHLORIDE 0.9% FLUSH 10 ML IV (08:06)
[2018-10-18] MEDS: INSULIN NPH 100 UNIT/ML VIAL 12 UNIT SUBCUT (08:09)
[2018-10-18] MEDS: INSULIN REGULAR 100 UNIT/ML 3 ML VIAL SUBCUT (08:10)
[2018-10-18] MEDS: DOCUSATE 100 MG CAPSULE PO (08:11)
--- NOTE | 2018-10-18 08:17 | PT.IPNOTE ---
PT POC UPDATE Pt is scheduled to discharge to SNF this morning. Acute PT will sign off.
--- NOTE | 2018-10-18 11:09 | PC.NURSE ---
Discharge: IV dc'd intact. All belongings packed up and sent with patient. Transferred into wheelchair and taken out by transport staff. Report called to Isela at [facility], provided with my extension should any other questions arise.
== END 2018-10-18 11:11 | DRG 493 ==
PROVIDERS: Physician Assistant; Physician Assistant Medical; Admitting Provider Orthopaedic Surgery; Family Provider Internal Medicine; PCP Internal Medicine; Visit Provider Orthopaedic Surgery
PROC: 0PSC04Z Reposition Right Humeral Head with Internal Fixation Device, Open Approach (ICD-10-PCS; principal; 2018-10-12 07:45)
PROC: 0PSC04Z Reposition Right Humeral Head with Internal Fixation Device, Open Approach (ICD-10-PCS; CPT 23472; 2018-10-12 07:45)
DX: S42.291A Other displaced fracture of upper end of right humerus, initial encounter for closed fracture (principal); D62 Acute posthemorrhagic anemia; Z68.41 Body mass index [BMI] 40.0-44.9, adult; E11.9 Type 2 diabetes mellitus without complications; E66.9 Obesity, unspecified; Z79.4 Long term (current) use of insulin; I10 Essential (primary) hypertension; M25.511 Pain in right shoulder; W19.XXXA Unspecified fall, initial encounter
CPT/HCPCS: 36415; 36430; 64450; 73030; 76000; 82962; 85014; 85018; 85027; 86078; 86850; 86900; 86901; 94760; 94762; 97110; 97116; 97162; 97165; 97530; 97535; G0378; P9016; G0379; J1100; J2250; J2704; J3010

== ENCOUNTER → 2018-11-26 08:09 | Outpatient (CLI) | payer MEDICARE, OTHER, SELFPAY ==
[2018-10-12 13:18] VITALS: BMI 42.5
[2018-11-26 09:03] LABS: Hematocrit 30.7 % (36-46); Hemoglobin 10.6 g/dL (12.0-16.0)
[2018-11-26 09:25] LABS: HEMOLYSIS 17 (0-50); Iron 95 ug/dL (37-170)
[2018-11-26 09:32] LABS: BUN Creatinine Ratio 24.1 (6-22); Blood Urea Nitrogen 41 mg/dL (7-17); Calcium 9.7 mg/dL (8.4-10.2); Carbon Dioxide 28 mmol/L (22-32); Chloride 100 mmol/L (98-107); Estimated Glomerular Filt Rate 29.9 mL/min (>60); Glucose 146 mg/dL (80-110); HEMOLYSIS < 15 (0-50); Potassium 4.9 mmol/L (3.4-5.1); Sodium 139 mmol/L (137-145)
[2018-11-26 09:37] LABS: Percent Iron Saturation 41 % (15-50); Total Iron Binding Capacity 229 ug/dL (265-497); Transferrin 183 mg/dL (206-381)
[2018-11-26 12:45] LABS: Creatinine Urine Random 53.5 mg/dL; Protein (Total) Urine Random 39 mg/dL (0-12); Protein Creatinine Ratio Urine 0.72 GRAM/24H
[2018-11-30 15:23] LABS: Parathyroid Hormone Int 49 pg/mL (14-64)
== END ==
PROVIDERS: Family Provider Internal Medicine; PCP Internal Medicine; Visit Provider Student in an Organized Health Care Education/Training Program
DX: N05.9 Unspecified nephritic syndrome with unspecified morphologic changes (principal); D50.0 Iron deficiency anemia secondary to blood loss (chronic); D64.9 Anemia, unspecified; N25.81 Secondary hyperparathyroidism of renal origin; R80.9 Proteinuria, unspecified
CPT/HCPCS: 36415; 80048; 82570; 82728; 83540; 83550; 83970; 84156; 85014; 85018

== ENCOUNTER 2018-12-14 21:20 | Emergency (ER) | payer MEDICARE, OTHER, SELFPAY ==
[2018-10-12 13:18] VITALS: BMI 42.5
[2018-12-14 21:33] VITALS: BP 159/86; PULSE 82; RESP 18; TEMP 36.6; O2SAT 100; BMI 40.2
[2018-12-14 22:13] LABS: Add Manual Diff / Slide Review NO; Basophils Absolute Auto 0 /uL (0-100); Basophils Percent Auto 0.5 % (0-2); Eosinophils Absolute Auto 0 /uL (0-450); Eosinophils Percent Auto 0.2 % (2-4); Hemoglobin 12.2 g/dL (12.0-16.0); Lymphocytes Absolute Auto 1500 /uL (1100-4500); Lymphocytes Percent Auto 18.7 % (25-40); Mean Corpuscular HGB Conc 32.9 % (30-36); Mean Corpuscular Hemoglobin 29.4 PG (26-34); Mean Corpuscular Volume 89.4 fL (80-100); Monocytes Absolute Auto 400 /uL (0-900); Monocytes Percent Auto 5.4 % (3-14); Neutrophils Absolute Auto 5900 /uL (1500-7000); Neutrophils Percent Auto 75.2 % (50-75); Platelet Count 259 X10^3/uL (150-400); Red Blood Cell Count 4.14 X10^6/uL (4.0-5.2); Red Cell Distribution Width 14.6 % (11.6-14.8); White Blood Cell Count 7.8 X10^3/uL (4.5-11.0)
[2018-12-14 22:24] LABS: Alanine Aminotransferase 11 IU/L (9-52); Albumin 4.5 g/dL (3.5-5.0); Albumin Globulin Ratio 1.3 (1.0-2.8); Alkaline Phosphatase 160 U/L (38-126); Aspartate Aminotransferase 24 IU/L (14-36); BUN Creatinine Ratio 26.1 (6-22); Bilirubin Total 0.5 mg/dL (0.2-1.3); Blood Urea Nitrogen 47 mg/dL (7-17); Calcium 10.1 mg/dL (8.4-10.2); Carbon Dioxide 23 mmol/L (22-32); Chloride 102 mmol/L (98-107); Creatine Kinase 33 U/L (30-135); Globulin 3.4 g/dL (1.7-4.1); Glucose 264 mg/dL (80-110); HEMOLYSIS 19 (0-50); Lipase 71 U/L (23-300); Potassium 4.8 mmol/L (3.4-5.1); Sodium 139 mmol/L (137-145); Total Protein 7.9 g/dL (6.3-8.2)
[2018-12-14 22:36] LABS: Troponin I < 0.012 ng/mL (0.01-0.034)
--- NOTE | 2018-12-14 23:12 | ED.NAVMDI ---
HPI - Nausea/Vomiting/Diarrhea General Chief complaint: Nausea/Vomiting/Diarrhea Stated complaint: VOMITING Time Seen by Provider: 12/14/18 23:12 Source: patient Mode of arrival: ambulatory Limitations: no limitations History of Present Illness HPI Narrative: The patient has been ill for about 5 days. She has not been feeling well, then developed diarrhea about 3 days ago. The diarrhea has ceased. She developed nausea and vomiting today. She has had several episodes of emesis. She complains of upper abdominal pain. The pain is cramping in nature. She has no ENT complaints, chest pain or dyspnea. She denies diarrhea at this time, she diarrhea couple days ago. She has no lower abdominal pain. She denies back pain, she denies dysuria. She feels weak and fatigued, she denies fever or chills. Related Data Home Medications Medication Instructions Recorded Confirmed gabapentin [Neurontin] 600 mg PO BID #0 06/05/16 12/13/18 aspirin 81 mg PO DAILY 01/04/18 12/13/18 atorvastatin 20 mg PO QAM 01/04/18 12/13/18 primidone 250 mg PO BEDTIME 01/04/18 12/13/18 sodium bicarbonate 2 tab PO BID 01/04/18 12/13/18 hydrochlorothiazide 25 mg PO DAILY 09/27/18 12/13/18 insulin NPH isoph U-100 human 15 unit SUBCUT BEDTIME 09/27/18 12/13/18 insulin regular human 3 - 6 unit SUBCUT TID 09/27/18 12/13/18 cholecalciferol (vitamin D3) 4,000 unit PO DAILY 10/08/18 12/13/18 [Vitamin D3] insulin NPH isoph U-100 human 12 unit SUBCUT QAM 10/08/18 12/13/18 Previous Rx's Medication Instructions Recorded hydrocodone-acetaminophen [[place]] 1 tab PO Q4H PRN #20 tab 09/27/18 hydroxyzine pamoate [Vistaril] 25 mg PO TID-QID PRN #60 cap 10/12/18 oxycodone-acetaminophen [Percocet] 2 tab PO Q4-6H PRN #60 tab 10/12/18 ondansetron 4 mg disintegrating 4 mg PO Q6-8H PRN #30 tab 12/13/18 tablet ondansetron 4 mg PO Q6H PRN #10 tab 12/15/18 Allergies Allergy/AdvReac Type Severity Reaction Status Date / Time ceftriaxone Allergy Severe Anaphylaxis Verified 12/13/18 11:37 Review of Systems Review of Systems ROS Unobtainable: All systems reviewed & are unremarkable except as noted in HPI and below Constitutional Denies chills, Reports fatigue, Denies fever(s), Reports headache(s) and Denies night sweats ENT Ears, Nose, Mouth, and Throat: Reports headache(s) Cardiovascular Denies chest pain, Denies irregular heart rhythm, Denies lightheadedness, Denies palpitations, Denies dyspnea, Denies dyspnea on exertion and Denies orthopnea Respiratory Denies cough, Denies dyspnea, Denies dyspnea on exertion and Denies wheezing Gastrointestinal Gastrointestinal: Reports as per HPI, Reports abdominal pain, Denies change in bowel habits, Denies diarrhea, Denies nausea and Reports vomiting Genitourinary Denies dysuria Musculoskeletal Denies back pain, Denies muscle weakness, Denies numbness and Denies tingling Integumentary/Breasts Denies pruritus, Denies erythema, Denies rash and Denies wounds Neurologic Reports headache(s), Denies numbness and Denies tingling Endocrine Reports fatigue and Denies palpitations Allergic/Immunologic Denies wheezing PFSH Medical History Balance problem (Acute) CKD stage 4 due to type 2 diabetes mellitus (Acute) Neuropathy (Acute) Diabetes mellitus with neuropathy (Chronic) Essential tremor (Chronic) High cholesterol (Chronic) Hypertension (Chronic) Closed head injury (Resolved) Surgical History Hx of cataract surgery (Resolved) S/P cholecystectomy (Resolved) Family History Father Diabetes mellitus COPD (chronic obstructive pulmonary disease) Mother Alzheimer disease Brother Diabetes mellitus Sister Hyperlipidemia Hypertension Social History household members: family Smoking Status: Never smoker alcohol intake: current Family History Father Diabetes mellitus COPD (chronic obstructive pulmonary disease) Mother Alzheimer disease Brother Diabetes mellitus Sister Hyperlipidemia Hypertension Social History household members: family Smoking Status: Never smoker alcohol intake: current Exam Initial Vital Signs Initial Vital Signs: Vital Signs Temperature 98 F 12/14/18 21:33 Pulse Rate 82 12/14/18 21:33 Respiratory Rate 18 12/14/18 21:33 Blood Pressure 159/86 H 12/14/18 21:33 Pulse Oximetry 100 12/14/18 21:33 Const General: cooperative and well developed Nutritional Appearance: well nourished Orientation: alert, awake, oriented x3 and not confused HENMT Head: normocephalic and atraumatic Nose: external nose normal Face and sinus: no sinus tenderness Mouth: oral mucosae normal and moist mucous membranes Teeth and gingiva: dentition normal Throat: tonsils normal and uvula midline Eyes Sclera: sclerae normal Pupils: PERRL EOM: EOM intact bilaterally Neck Neck: No JVD Resp Effort & Inspection: normal respiratory effort, able to speak in complete sentences, no respiratory distress and no use of accessory muscles Auscultation: clear to auscultation bilaterally, no rales, no rhonchi and no wheezes Cardio Rate: regular rate Rhythm: regular rhythm Heart Sounds: no click, no gallops, no murmurs and no rubs Pulses: normal peripheral pulses GI Inspection: non-distended Palpation: soft, no hepatosplenomegaly, No pulsatile mass and tender (Epigastric area, no guarding.) Auscultation: normal bowel sounds Back/Spine/Pelvis Back: No CVA tenderness Skin General: no rashes or lesions noted, No jaundice and No petechiae Neuro General: alert, oriented x3, gait normal and no focal motor deficits Speech: speech normal Extrem General: full ROM, no clubbing, cyanosis or edema, no pedal edema and no calf tenderness Course Course Narrative: The patient was IV hydrated. Meds were given for pain and nausea. She is sipping water prior to discharge, not totally asymptomatic but improved. Her headache has improved dramatically. Abdominal pain is improved. The evaluations likely consistent with a viral gastroenteritis. Orders Ordered: ED Orders 12/14/18 22:00 Complete Blood Count AUTO DIFF Stat Comprehensive Metabolic Panel Stat Lipase Stat Troponin & CK Cardiac Panel Stat 12/15/18 02:26 Urine Microscopic Stat Discontinued Medications Acetaminophen (Tylenol) 650 mg PO NOW ONE Stop: 12/14/18 23:25 Last Admin: 12/15/18 00:06 Dose: Not Given Sodium Chloride (Normal Saline 0.9%) 1,000 mls @ 1,000 mls/hr IV BOLUS ONE Stop: 12/15/18 00:23 Last Infusion: 12/15/18 01:19 Dose: 0 mls/hr Admin: 12/15/18 00:06 Dose: 1,000 mls/hr Metoclopramide HCl (Reglan) 10 mg IV NOW ONE Stop: 12/14/18 23:35 Last Admin: 12/15/18 00:06 Dose: 10 mg Morphine Sulfate (Morphine) 2 mg IV NOW ONE Stop: 12/15/18 00:06 Last Admin: 12/15/18 00:06 Dose: 2 mg Ondansetron HCl (Zofran Odt Prepack) 1 bottle MISC SEEINSTR ONE Stop: 12/15/18 03:16 Last Admin: 12/15/18 03:26 Dose: 1 bottle Vital Signs - 8 hr 12/14/18 21:33 12/15/18 00:52 12/15/18 03:28 Temperature 98 F Pulse Rate 82 81 80 Respiratory Rate 18 18 17 Blood Pressure 159/86 H 140/67 Blood Pressure [Left Arm] 144/69 H Pulse Oximetry 100 98 98 MDM - Nausea/Vomiting/Diarrhea Lab Data Result diagrams: 12/14/18 22:00 12/14/18 22:00 Lab Results 12/14/18 12/14/18 12/15/18 Range/Units 22:00 22:00 02:26 WBC 7.8 (4.5-11.0) X10^3/uL RBC 4.14 (4.0-5.2) X10^6/uL Hgb 12.2 (12.0-16.0) g/dL Hct 37.0 (36-46) % MCV 89.4 (80-100) fL MCH 29.4 (26-34) PG MCHC 32.9 (30-36) % RDW 14.6 (11.6-14.8) % Plt Count 259 (150-400) X10^3/uL Neut % (Auto) 75.2 H (50-75) % Lymph % (Auto) 18.7 L (25-40) % [place] % (Auto) 5.4 (3-14) % Eos % (Auto) 0.2 L (2-4) % Baso % (Auto) 0.5 (0-2) % Neut # (Auto) 5900 (5315-0451) /uL Lymph # (Auto) 1500 (5052-9284) /uL [place] # (Auto) 400 (0-900) /uL Eos # (Auto) 0 (0-450) /uL Baso # (Auto) 0 (0-100) /uL Sodium 139 (137-145) mmol/L Potassium 4.8 (3.4-5.1) mmol/L Chloride 102 (98-107) mmol/L Carbon Dioxide 23 (22-32) mmol/L BUN 47 H (7-17) mg/dL Creatinine 1.80 H (0.52-1.04) mg/dL Estimated GFR 28.0 L (>60) mL/min BUN/Creatinine Ratio 26.1 H (6-22) Glucose 264 H (80-110) mg/dL Calcium 10.1 (8.4-10.2) mg/dL Total Bilirubin 0.5 (0.2-1.3) mg/dL AST 24 (14-36) IU/L ALT 11 (9-52) IU/L Alkaline Phosphatase 160 H (38-126) U/L Total Creatine Kinase 33 (30-135) U/L CK-MB (CK-2) TNP CK-MB (CK-2) Rel Index TNP Troponin I < 0.012 (0.01-0.034) ng/mL Total Protein 7.9 (6.3-8.2) g/dL Albumin 4.5 (3.5-5.0) g/dL Globulin 3.4 (1.7-4.1) g/dL Albumin/Globulin Ratio 1.3 (1.0-2.8) Lipase 71 (23-300) U/L Urine RBC 0-1/hpf (0-5/HPF) Urine WBC None seen (0-5/HPF) Ur Squamous Epith Cells 1-5 /hpf (0-5/HPF) Urine Bacteria Few (2-10) H (None) Ur Culture Indicated? Cult not indicated Point of Care Testing Glucose POC 263 Urine Dip Bedside Urine Glucose 1000 mg/dl Bedside Urine Bilirubin - Negative Bedside Urine Ketone - Negative Urine Specific [place] 1.020 Bedside Urine Occult Blood +/- Bedside Urine pH 6.0 Bedside Urine Protein ++ 100 Bedside Urine Urobilinogen - Negative Bedside Urine Nitrite - Negative Bedside Urine Leukocytes - Negative Esterase Discharge Plan Departure Patient Disposition: Home Clinical Impression: Abdominal pain with vomiting, Diabetes, Chronic renal insufficiency Discharge Date/Time: 12/15/18 03:31 Interventions: ED Discharge Assessment Last Done: 12/15/18 03:31 Instructions: DI for Vomiting -- Adult Activity Restrictions/Additional Instructions: Ears symptoms are probably from a stomach flu, symptoms should resolve within the next day or 2. Zofran every 4 hours as needed for nausea. Tylenol every 4 hours as needed for headache or pain. Your glucose is greater than 200. Pay close attention to your glucose level, and follow up with her doctor recheck her levels. Be sure year drinking plenty of fluids. Advance her diet as tolerated. Return here as needed. Prescriptions: New ondansetron 4 mg tablet,disintegrating 4 mg PO Q6H PRN (Reason: nausea and vomiting) Qty: 10 RF: 0 No Action ondansetron 4 mg tablet,disintegrating 4 mg PO Q6-8H PRN (Reason: nausea and vomiting) Qty: 30 RF: 0 gabapentin [Neurontin] 300 MG capsule 600 mg PO BID Qty: 0 RF: 0 primidone 50 mg tablet 250 mg PO BEDTIME RF: 0 atorvastatin 20 mg tablet 20 mg PO QAM RF: 0 sodium bicarbonate 650 mg tablet 2 tab PO BID RF: 0 aspirin 81 mg Tablet,Delayed Release (Dr/Ec) 81 mg PO DAILY RF: 0 insulin NPH isoph U-100 human 100 unit/mL suspension 15 unit subcut BEDTIME RF: 0 hydrochlorothiazide 25 mg tablet 25 mg PO DAILY RF: 0 insulin regular human 100 unit/mL solution 3 - 6 unit subcut TID RF: 0 hydrocodone-acetaminophen [[place]] 5-325 mg tablet 1 tab PO Q4H PRN (Reason: shoulder fracture (acute)) Qty: 20 RF: 0 insulin NPH isoph U-100 human 100 unit/mL Suspension 12 unit SUBCUT QAM RF: 0 cholecalciferol (vitamin D3) [Vitamin D3] 2,000 unit Capsule 4,000 unit PO DAILY RF: 0 oxycodone-acetaminophen [Percocet] 5-325 mg tablet 2 tab PO Q4-6H PRN (Reason: pain) Qty: 60 RF: 0 hydroxyzine pamoate [Vistaril] 25 mg capsule 25 mg PO TID-QID PRN (Reason: spasms) Qty: 60 RF: 0 Referrals: Vanessa Hirsch MD [Primary Care Provider] -
[2018-12-15] MEDS: MORPHINE 2 MG/ML INJ IV (00:06)
[2018-12-15] MEDS: METOCLOPRAMIDE 10 MG/2 ML INJ IV (00:06)
[2018-12-15] MEDS: SODIUM CHLORIDE 0.9% 1,000 ML 1000 ML IV (00:06)
[2018-12-15 00:52] VITALS: BP 144/69; PULSE 81; RESP 18; O2SAT 98
[2018-12-15 02:27] LABS: WBC Urine None Seen (0-5/HPF)
[2018-12-15 02:59] LABS: Bacteria Urine Few (2-10); RBC Urine 0-1/HPF (0-5/HPF); Squamous Epithelial Cell Urine 1-5 /HPF (0-5/HPF)
[2018-12-15 03:00] LABS: Culture Indicated Urine Cult Not Indicated
[2018-12-15] MEDS: ONDANSETRON 4 MG ODT PREPACK 1 BOTTLE MISC (03:26)
[2018-12-15 03:28] VITALS: BP 140/67; PULSE 80; RESP 17; O2SAT 98
== END 2018-12-15 03:31 | disposition home or self-care (01) ==
PROVIDERS: Emergency Provider Emergency Medicine; Family Provider Internal Medicine; PCP Internal Medicine
DX: R11.2 Nausea with vomiting, unspecified (principal); E11.9 Type 2 diabetes mellitus without complications; N18.9 Chronic kidney disease, unspecified
CPT/HCPCS: 80053; 81003; 81015; 82550; 82962; 83690; 84484; 85025; 96361; 96374; 96375; 99284; J2270; J2765

== ENCOUNTER 2018-12-17 18:40 | Inpatient (IN) | payer MEDICARE, OTHER, SELFPAY ==
[2018-10-12 13:18] VITALS: BMI 42.5
[2018-12-17 18:46] VITALS: BP 157/68; PULSE 89; RESP 16; TEMP 37.8; O2SAT 100
--- NOTE | 2018-12-17 18:54 | ED.NAVMDI ---
HPI - Nausea/Vomiting/Diarrhea General Chief complaint: Nausea/Vomiting/Diarrhea Stated complaint: N/V Time Seen by Provider: 12/17/18 18:52 Source: patient Mode of arrival: ambulatory Limitations: no limitations History of Present Illness HPI Narrative: Patient is a 68-year-old female with a history of insulin-dependent diabetes who approximately 5 days ago started having nausea and vomiting. She was seen at the walk-in clinic at the time and was sent home with a prescription for Zofran. At that time it was thought that maybe her symptoms were caused by the doxycycline that she was taking because of a infection over the surgical wound in her right shoulder. She is not taking the doxycycline since that time. The surgical wound patient states is actually improved since that time. She was seen here in the emergency department within the past 24 hours for the same symptoms. Received IV fluids and IV Zofran. According to that note the patient's symptoms improved she was discharged home. Patient returns again today for the same symptoms. She denies chest pain or shortness of breath. States that whenever she tries to eat or drink anything she becomes very nauseous and throws up. Has also had some intermittent diarrhea. No urinary symptoms. Has Zofran at home but states this does not help any of her symptoms. Related Data Home Medications Medication Instructions Recorded Confirmed gabapentin [Neurontin] 600 mg PO BID #0 06/05/16 12/18/18 aspirin 81 mg PO DAILY 01/04/18 12/18/18 atorvastatin 20 mg PO QAM 01/04/18 12/18/18 primidone 250 mg PO BEDTIME 01/04/18 12/18/18 sodium bicarbonate 2 tab PO BID 01/04/18 12/18/18 hydrochlorothiazide 25 mg PO DAILY 09/27/18 12/18/18 insulin NPH isoph U-100 human 15 unit SUBCUT BEDTIME 09/27/18 12/18/18 insulin regular human 3 - 6 unit SUBCUT TID 09/27/18 12/18/18 cholecalciferol (vitamin D3) 4,000 unit PO DAILY 10/08/18 12/18/18 [Vitamin D3] insulin NPH isoph U-100 human 12 unit SUBCUT QAM 10/08/18 12/18/18 Previous Rx's Medication Instructions Recorded hydrocodone-acetaminophen [Mallory] 1 tab PO Q4H PRN #20 tab 09/27/18 hydroxyzine pamoate [Vistaril] 25 mg PO TID-QID PRN #60 cap 10/12/18 oxycodone-acetaminophen [Percocet] 2 tab PO Q4-6H PRN #60 tab 10/12/18 ondansetron 4 mg disintegrating 4 mg PO Q6-8H PRN #30 tab 12/13/18 tablet ondansetron 4 mg PO Q6H PRN #10 tab 12/15/18 Allergies Allergy/AdvReac Type Severity Reaction Status Date / Time ceftriaxone Allergy Severe Anaphylaxis Verified 12/17/18 18:46 Review of Systems Constitutional Denies chills, Denies fever(s) and Reports headache(s) ENT Ears, Nose, Mouth, and Throat: Reports headache(s) and Denies disequilibrium Cardiovascular Denies chest pain, Denies edema, Denies palpitations and Denies dyspnea Respiratory Denies cough and Denies dyspnea Gastrointestinal Gastrointestinal: Denies abdominal pain, Reports diarrhea, Reports nausea and Reports vomiting Genitourinary Denies dysuria Musculoskeletal Denies myalgias and Denies arthralgias Integumentary/Breasts Denies rash Neurologic Denies behavioral changes, Reports headache(s), Denies focal weakness, Denies paresthesias and Denies disequilibrium Psychiatric Denies behavioral changes Endocrine Denies palpitations Hematologic/Lymphatic Denies easy bleeding and Denies easy bruising Allergic/Immunologic Denies urticaria REPLACED BY [facility] Medical History Balance problem (Acute) CKD stage 4 due to type 2 diabetes mellitus (Acute) Neuropathy (Acute) Diabetes mellitus with neuropathy (Chronic) Essential tremor (Chronic) High cholesterol (Chronic) Hypertension (Chronic) Closed head injury (Resolved) Surgical History Hx of cataract surgery (Resolved) S/P cholecystectomy (Resolved) Family History Father Diabetes mellitus COPD (chronic obstructive pulmonary disease) Mother Alzheimer disease Brother Diabetes mellitus Sister Hyperlipidemia Hypertension Social History household members: family Smoking Status: Never smoker alcohol intake: current Social History household members: family Smoking Status: Never smoker alcohol intake: current Exam Initial Vital Signs Initial Vital Signs: Vital Signs Temperature 100.0 F H 12/17/18 18:46 Pulse Rate 89 12/17/18 18:46 Respiratory Rate 16 12/17/18 18:46 Blood Pressure 157/68 H 12/17/18 18:46 Pulse Oximetry 100 12/17/18 18:46 Const General: cooperative, well developed, well groomed and No acute distress Orientation: alert, awake and oriented x3 HENMT Head: normal to inspection and normocephalic Resp Effort & Inspection: normal respiratory effort Auscultation: clear to auscultation bilaterally Cardio Rate: regular rate Rhythm: regular rhythm Pulses: radial pulses present GI Inspection: non-distended Palpation: soft, No firm and No guarding Skin Rashes: no rashes Other: Right shoulder surgical wound well healed except for a small area of scab in the center. No surrounding erythema. No drainage. Neuro General: alert, awake and oriented x3 Cognition: normal cognition Speech: speech normal Extrem General: normal to inspection and capillary refill normal Psych Appearance: grossly normal and well kempt Scores GCS Nevis coma scale eye opening: Spontaneous Bruce coma scale verbal response: Orientated Bruce coma scale motor response: Obey commands Bruce coma scale total score: 15 Course Orders Ordered: ED Orders 12/17/18 18:56 EKG-12 Lead Stat 12/17/18 19:43 Complete Blood Count AUTO DIFF Stat Comprehensive Metabolic Panel Stat Ketones (Beta-Hydroxybutyrate) Stat Lipase Stat Troponin I Stat 12/17/18 20:27 Venous Blood Gas Stat 12/17/18 20:42 Arterial Blood Gas Stat 12/17/18 21:14 CT abdomen pelvis w con Stat 12/17/18 23:12 CT head/brain wo con Stat 12/17/18 23:42 Urine Microscopic Stat 12/18/18 00:21 Urine Drug Screen, Rapid Stat 12/18/18 00:22 Consult to Physician Routine Lactated Ringer's (Lactated Ringers) 1,000 mls @ 125 mls/hr IV CONT MELY Last Admin: 12/18/18 00:00 Dose: 125 mls/hr Ondansetron HCl (Zofran) 4 mg IV Q4HR PRN PRN Reason: Nausea And Vomiting Last Admin: 12/18/18 01:20 Dose: 4 mg Discontinued Medications Al Hydrox/Mg Hydrox/Simethicone 20 ml/ Lidocaine HCl 15 ml 0 ml PO NOW ONE Stop: 12/17/18 22:22 Last Admin: 12/17/18 23:02 Dose: 35 ml Sodium Chloride (Normal Saline 0.9%) 1,000 mls @ 1,000 mls/hr IV BOLUS ONE Stop: 12/17/18 19:54 Last Infusion: 12/17/18 20:33 Dose: 0 mls/hr Admin: 12/17/18 19:36 Dose: 1,000 mls/hr Sodium Chloride (Normal Saline 0.9%) 1,000 mls @ 1,000 mls/hr IV BOLUS ONE Stop: 12/17/18 21:26 Last Infusion: 12/17/18 22:12 Dose: 0 mls/hr Admin: 12/17/18 20:35 Dose: 1,000 mls/hr Metoclopramide HCl (Reglan) 10 mg IV NOW ONE Stop: 12/17/18 19:19 Last Admin: 12/17/18 19:36 Dose: 10 mg Ondansetron HCl (Zofran) 4 mg IV NOW ONE Stop: 12/17/18 22:08 Last Admin: 12/17/18 22:11 Dose: 4 mg Promethazine HCl (Phenadoz) 25 mg MI NOW ONE Stop: 12/17/18 23:06 Last Admin: 12/17/18 23:44 Dose: Not Given Vital Signs - 8 hr 12/17/18 18:46 12/17/18 21:01 12/17/18 22:34 Temperature 100.0 F H Pulse Rate 89 86 85 Respiratory Rate 16 23 17 Blood Pressure 157/68 H Blood Pressure [Left Arm] 171/67 H 188/69 H Pulse Oximetry 100 100 98 12/17/18 23:35 Temperature Pulse Rate 84 Respiratory Rate 20 Blood Pressure Blood Pressure [Left Arm] 165/68 H Pulse Oximetry 98 MDM - Nausea/Vomiting/Diarrhea Lab Data Attestation: I reviewed the patient's lab results. Result diagrams: 12/17/18 19:43 12/17/18 19:43 Lab Results 12/17/18 12/17/18 12/17/18 Range/Units 19:43 19:43 19:43 WBC 8.0 (4.5-11.0) X10^3/uL RBC 4.18 (4.0-5.2) X10^6/uL Hgb 12.6 (12.0-16.0) g/dL Hct 36.7 (36-46) % MCV 87.7 (80-100) fL MCH 30.2 (26-34) PG MCHC 34.4 (30-36) % RDW 14.0 (11.6-14.8) % Plt Count 239 (150-400) X10^3/uL Neut % (Auto) 78.1 H (50-75) % Lymph % (Auto) 15.8 L (25-40) % [place] % (Auto) 5.5 (3-14) % Eos % (Auto) 0.1 L (2-4) % Baso % (Auto) 0.5 (0-2) % Neut # (Auto) 6200 (3441-0699) /uL Lymph # (Auto) 1300 (3730-7274) /uL [place] # (Auto) 400 (0-900) /uL Eos # (Auto) 0 (0-450) /uL Baso # (Auto) 0 (0-100) /uL ABG pH (7.35-7.45) ABG pCO2 (35-45) mmHg ABG pO2 (80-100) mmHg ABG HCO3 (22-26) mmol/L ABG Total CO2 (21-31) mmol/L ABG O2 Saturation (95-100) % ABG Base Excess (-2-2) mmol/L VBG pH (7.33-7.43) VBG pCO2 (45-50) mmHg VBG pO2 (35-45) mmHg VBG HCO3 (23-28) mmol/L VBG Total CO2 (24-29) mmol/L VBG O2 Saturation (70-75) % VBG Base Excess (0-4) mmol/L FiO2 Sodium 138 (137-145) mmol/L Potassium 4.1 (3.4-5.1) mmol/L Chloride 103 (98-107) mmol/L Carbon Dioxide 20 L (22-32) mmol/L BUN 42 H (7-17) mg/dL Creatinine 1.60 H (0.52-1.04) mg/dL Estimated GFR 32.1 L (>60) mL/min BUN/Creatinine Ratio 26.3 H (6-22) Glucose 279 H (80-110) mg/dL Calcium 9.9 (8.4-10.2) mg/dL Total Bilirubin 0.7 (0.2-1.3) mg/dL AST 26 (14-36) IU/L ALT 24 (9-52) IU/L Alkaline Phosphatase 170 H (38-126) U/L Troponin I < 0.012 (0.01-0.034) ng/mL Total Protein 7.7 (6.3-8.2) g/dL Albumin 4.3 (3.5-5.0) g/dL Globulin 3.4 (1.7-4.1) g/dL Albumin/Globulin Ratio 1.3 (1.0-2.8) Lipase 60 (23-300) U/L Urine RBC (0-5/HPF) Urine WBC (0-5/HPF) Ur Squamous Epith Cells (0-5/HPF) Urine Bacteria (None) Hyaline Casts (None) Ur Culture Indicated? Urine Opiates Screen (Negative) Ur Oxycodone Screen (Negative) Urine Methadone Screen (Negative) Ur Barbiturates Screen (Negative) U Tricyclic Antidepress (Negative) Ur Phencyclidine Scrn (Negative) Ur Amphetamines Screen (Negative) U Methamphetamines Scrn (Negative) Ur MDMA Scrn (Ecstasy) (Negative) U Benzodiazepines Scrn (Negative) Urine Cocaine Screen (Negative) U Marijuana (THC) Screen (Negative) Ketones 2.73 H (<0.27) mmol/L 12/17/18 12/17/18 12/17/18 Range/Units 20:27 20:42 23:42 WBC (4.5-11.0) X10^3/uL RBC (4.0-5.2) X10^6/uL Hgb (12.0-16.0) g/dL Hct (36-46) % MCV (80-100) fL MCH (26-34) PG MCHC (30-36) % RDW (11.6-14.8) % Plt Count (150-400) X10^3/uL Neut % (Auto) (50-75) % Lymph % (Auto) (25-40) % [place] % (Auto) (3-14) % Eos % (Auto) (2-4) % Baso % (Auto) (0-2) % Neut # (Auto) (9718-9304) /uL Lymph # (Auto) (8646-2884) /uL [place] # (Auto) (0-900) /uL Eos # (Auto) (0-450) /uL Baso # (Auto) (0-100) /uL ABG pH 7.39 (7.35-7.45) ABG pCO2 27.2 L (35-45) mmHg ABG pO2 78 L (80-100) mmHg ABG HCO3 16 L (22-26) mmol/L ABG Total CO2 17 L (21-31) mmol/L ABG O2 Saturation 96 (95-100) % ABG Base Excess -9.0 L (-2-2) mmol/L VBG pH 7.43 (7.33-7.43) VBG pCO2 24.9 L (45-50) mmHg VBG pO2 39 (35-45) mmHg VBG HCO3 17 L (23-28) mmol/L VBG Total CO2 17 L (24-29) mmol/L VBG O2 Saturation 77 H (70-75) % VBG Base Excess -8.0 L (0-4) mmol/L FiO2 21 Sodium (137-145) mmol/L Potassium (3.4-5.1) mmol/L Chloride (98-107) mmol/L Carbon Dioxide (22-32) mmol/L BUN (7-17) mg/dL Creatinine (0.52-1.04) mg/dL Estimated GFR (>60) mL/min BUN/Creatinine Ratio (6-22) Glucose (80-110) mg/dL Calcium (8.4-10.2) mg/dL Total Bilirubin (0.2-1.3) mg/dL AST (14-36) IU/L ALT (9-52) IU/L Alkaline Phosphatase (38-126) U/L Troponin I (0.01-0.034) ng/mL Total Protein (6.3-8.2) g/dL Albumin (3.5-5.0) g/dL Globulin (1.7-4.1) g/dL Albumin/Globulin Ratio (1.0-2.8) Lipase (23-300) U/L Urine RBC 0-1/hpf (0-5/HPF) Urine WBC None seen (0-5/HPF) Ur Squamous Epith Cells 0-1 /hpf (0-5/HPF) Urine Bacteria Few (2-10) H (None) Hyaline Casts 0-1/lpf (None) Ur Culture Indicated? Cult not indicated Urine Opiates Screen (Negative) Ur Oxycodone Screen (Negative) Urine Methadone Screen (Negative) Ur Barbiturates Screen (Negative) U Tricyclic Antidepress (Negative) Ur Phencyclidine Scrn (Negative) Ur Amphetamines Screen (Negative) U Methamphetamines Scrn (Negative) Ur MDMA Scrn (Ecstasy) (Negative) U Benzodiazepines Scrn (Negative) Urine Cocaine Screen (Negative) U Marijuana (THC) Screen (Negative) Ketones (<0.27) mmol/L 12/17/18 Range/Units 23:42 WBC (4.5-11.0) X10^3/uL RBC (4.0-5.2) X10^6/uL Hgb (12.0-16.0) g/dL Hct (36-46) % MCV (80-100) fL MCH (26-34) PG MCHC (30-36) % RDW (11.6-14.8) % Plt Count (150-400) X10^3/uL Neut % (Auto) (50-75) % Lymph % (Auto) (25-40) % [place] % (Auto) (3-14) % Eos % (Auto) (2-4) % Baso % (Auto) (0-2) % Neut # (Auto) (0838-2551) /uL Lymph # (Auto) (6049-6101) /uL [place] # (Auto) (0-900) /uL Eos # (Auto) (0-450) /uL Baso # (Auto) (0-100) /uL ABG pH (7.35-7.45) ABG pCO2 (35-45) mmHg ABG pO2 (80-100) mmHg ABG HCO3 (22-26) mmol/L ABG Total CO2 (21-31) mmol/L ABG O2 Saturation (95-100) % ABG Base Excess (-2-2) mmol/L VBG pH (7.33-7.43) VBG pCO2 (45-50) mmHg VBG pO2 (35-45) mmHg VBG HCO3 (23-28) mmol/L VBG Total CO2 (24-29) mmol/L VBG O2 Saturation (70-75) % VBG Base Excess (0-4) mmol/L FiO2 Sodium (137-145) mmol/L Potassium (3.4-5.1) mmol/L Chloride (98-107) mmol/L Carbon Dioxide (22-32) mmol/L BUN (7-17) mg/dL Creatinine (0.52-1.04) mg/dL Estimated GFR (>60) mL/min BUN/Creatinine Ratio (6-22) Glucose (80-110) mg/dL Calcium (8.4-10.2) mg/dL Total Bilirubin (0.2-1.3) mg/dL AST (14-36) IU/L ALT (9-52) IU/L Alkaline Phosphatase (38-126) U/L Troponin I (0.01-0.034) ng/mL Total Protein (6.3-8.2) g/dL Albumin (3.5-5.0) g/dL Globulin (1.7-4.1) g/dL Albumin/Globulin Ratio (1.0-2.8) Lipase (23-300) U/L Urine RBC (0-5/HPF) Urine WBC (0-5/HPF) Ur Squamous Epith Cells (0-5/HPF) Urine Bacteria (None) Hyaline Casts (None) Ur Culture Indicated? Urine Opiates Screen Negative (Negative) Ur Oxycodone Screen Negative (Negative) Urine Methadone Screen Negative (Negative) Ur Barbiturates Screen Positive H (Negative) U Tricyclic Antidepress Negative (Negative) Ur Phencyclidine Scrn Negative (Negative) Ur Amphetamines Screen Negative (Negative) U Methamphetamines Scrn Negative (Negative) Ur MDMA Scrn (Ecstasy) Negative (Negative) U Benzodiazepines Scrn Negative (Negative) Urine Cocaine Screen Negative (Negative) U Marijuana (THC) Screen Negative (Negative) Ketones (<0.27) mmol/L Urine Dip Bedside Urine Glucose 500 mg/dl Bedside Urine Bilirubin - Negative Bedside Urine Ketone + 15 Urine Specific Walsh 1.015 Bedside Urine Occult Blood +/- Bedside Urine pH 6 Bedside Urine Protein + 30 Bedside Urine Urobilinogen - Negative Bedside Urine Nitrite - Negative Bedside Urine Leukocytes - Negative Esterase Imaging Data CT scan - abdomen: Radiologist's impression: [address] [address] [address] Scan Report Signed Patient: Dena Borrego LMR#: [id number] : 1950Acct:[id number] Age/Sex: 67 / FDate of Service: 12/17/18 Loc: ED Accession Number: [id number] Procedure: CT abdomen pelvis w con Ordering Provider: Titus Rangel D.O. PROCEDURE: CT ABDOMEN PELVIS W CON INDICATIONS: Vomiting and generalized abdominal pain TECHNIQUE: After the administration of intravenous contrast, 5 mm thick sections acquired from the diaphragm to the symphysis. 5 mm coronal and sagittal reformats were acquired. For radiation dose reduction, the following was used: automated exposure control, adjustment of mA and/or kV according to patient size. COMPARISON: None. FINDINGS: Image quality: Excellent. ABDOMEN: Lung bases: Lung bases are clear. Heart size is normal. Solid organs: Liver is normal in size and enhancement. Gallbladder is surgically absent. Biliary system is non dilated. Pancreas enhances normally. Spleen is normal in size and enhancement. No adrenal nodules. Kidneys demonstrate normal size and enhancement, without hydronephrosis. Peritoneum and bowel: Bowel loops demonstrate normal wall thickness and caliber. No free fluid or air. The appendix is normal. Nodes and vessels: No retroperitoneal or mesenteric adenopathy by size criteria. Aorta and inferior vena cava are normal in size. Miscellaneous: No ventral hernias. PELVIS: Genitourinary: Bladder wall thickness is normal. Small air locules noted within the urinary bladder which could be due to recent catheterization, infection with gas-forming organism normal related fistulous connection with bowel. Miscellaneous: No inguinal hernias or adenopathy. Bones: No suspicious bony lesions. No vertebral body compression fractures. Spine degenerative disease and facet arthropathy noted. IMPRESSION: 1. Small air locules within the urinary bladder. Differential diagnosis includes infection with gas-forming organism, recent catheterization or fistulous connection with bowel. Recommend correlation with clinical and urinalysis data. 2. No free fluid or free air. 3. No dilated loops of bowel. Dictated by: Swati Guzman MD, PhD on 12/17/2018 at 22:06 Approved by: Swati Guzman MD, PhD on 12/17/2018 at 22:10 CT scan - head: Radiologist's impression: No significant abnormalities ECG Data Attestation: I personally reviewed and interpreted this ECG as follows: Prior ECG tracings: not available for review Interpretation: Sinus rhythm Ventricular rate 84 Normal axis Normal QRS Normal QTC No ST T wave changes MDM Narrative Medical decision making narrative: Patient with no improvement of symptoms after nausea medications here in the emergency department. Patient does have ketones and is hyperglycemic however is not acidotic. Has an anion gap of 15. Low suspicion for DKA. CT scan shows no signs of acute pathology. Urine is not consistent with a urinary tract infection. Troponin is negative and no ischemic changes on the EKG is a feel that ACS is unlikely. She has a relatively benign abdominal exam. Head CT was obtained to rule out any sort of intracranial pathology as the potential cause of her intractable nausea. This was unremarkable. Patient denies any drug abuse. A TSH was ordered and this was pending at the time of her admission. Patient was unable to tolerate oral intake here in the emergency department. I discussed the case with Dr. ramos who is the hospitalist on-call who will admit for further evaluation and treatment. Discussed this with the patient who expressed understanding and agreement. Discharge Plan Departure Patient Disposition: Admitted as Observation Clinical Impression: Intractable nausea and vomiting Qualifiers: Vomiting type: unspecified Qualified Code(s): R11.2 - Nausea with vomiting, unspecified Diabetes Qualifiers: Diabetes mellitus type: other specified (including DUNIA) Diabetes mellitus long term care pharmacist insulin use: with assisted use Diabetes mellitus complication status: with unspecified complications Qualified Code(s): E13.8 - Other specified diabetes mellitus with unspecified complications Referrals: Vanessa Hirsch MD [Primary Care Provider] - Admit Date/Time: 12/18/18 00:39 Admit Provider: Patricio Ramos
[2018-12-17] MEDS: SODIUM CHLORIDE 0.9% 1,000 ML 1000 ML IV ×2 (19:36→20:35)
[2018-12-17] MEDS: METOCLOPRAMIDE 10 MG/2 ML INJ IV (19:36)
--- NOTE | 2018-12-17 19:40 | PC.NURSE ---
unable to draw labs from line when started. Lab called and urszula from right hand.
[2018-12-17 19:51] LABS: Add Manual Diff / Slide Review NO; Basophils Absolute Auto 0 /uL (0-100); Basophils Percent Auto 0.5 % (0-2); Eosinophils Absolute Auto 0 /uL (0-450); Eosinophils Percent Auto 0.1 % (2-4); Hematocrit 36.7 % (36-46); Hemoglobin 12.6 g/dL (12.0-16.0); Lymphocytes Absolute Auto 1300 /uL (1100-4500); Lymphocytes Percent Auto 15.8 % (25-40); Mean Corpuscular HGB Conc 34.4 % (30-36); Mean Corpuscular Hemoglobin 30.2 PG (26-34); Mean Corpuscular Volume 87.7 fL (80-100); Monocytes Absolute Auto 400 /uL (0-900); Monocytes Percent Auto 5.5 % (3-14); Neutrophils Absolute Auto 6200 /uL (1500-7000); Neutrophils Percent Auto 78.1 % (50-75); Platelet Count 239 X10^3/uL (150-400); Red Blood Cell Count 4.18 X10^6/uL (4.0-5.2)
[2018-12-17 20:04] LABS: Alanine Aminotransferase 24 IU/L (9-52); Albumin 4.3 g/dL (3.5-5.0); Albumin Globulin Ratio 1.3 (1.0-2.8); Alkaline Phosphatase 170 U/L (38-126); Aspartate Aminotransferase 26 IU/L (14-36); BUN Creatinine Ratio 26.3 (6-22); Bilirubin Total 0.7 mg/dL (0.2-1.3); Blood Urea Nitrogen 42 mg/dL (7-17); Calcium 9.9 mg/dL (8.4-10.2); Carbon Dioxide 20 mmol/L (22-32); Chloride 103 mmol/L (98-107); Estimated Glomerular Filt Rate 32.1 mL/min (>60); Globulin 3.4 g/dL (1.7-4.1); Glucose 279 mg/dL (80-110); HEMOLYSIS < 15 (0-50); Lipase 60 U/L (23-300); Potassium 4.1 mmol/L (3.4-5.1); Sodium 138 mmol/L (137-145); Total Protein 7.7 g/dL (6.3-8.2)
[2018-12-17 20:06] LABS: Ketones (Beta-Hydroxybutyrate) 2.73 mmol/L (<0.27)
[2018-12-17 20:41] LABS: HCO3 VBG 17 mmol/L (23-28); PCO2 VBG 24.9 mmHg (45-50); PO2 VBG 39 mmHg (35-45); Total CO2 VBG 17 mmol/L (24-29); pH VBG 7.43 (7.33-7.43)
[2018-12-17 20:42] LABS: Oxygen Saturation VBG 77 % (70-75)
--- NOTE | 2018-12-17 20:46 | PC.NURSE ---
She RN urszula ronald sample for RT VBG. RT now at bedside drawing abg. Pt calm and cooperative, family at bedside. denies needs at this time.
[2018-12-17 20:56] LABS: Fractionated Inspired Oxygen 21; HCO3 ABG 16 mmol/L (22-26); Oxygen Saturation ABG 96 % (95-100); PCO2 ABG 27.2 mmHg (35-45); PO2 ABG 78 mmHg (80-100); TCO2 ABG 17 mmol/L (21-31); pH ABG 7.39 (7.35-7.45)
[2018-12-17 21:01] VITALS: BP 171/67; PULSE 86; RESP 23; O2SAT 100
--- NOTE | 2018-12-17 21:14 | DI.CT.S_ITS ---
PROCEDURE: CT ABDOMEN PELVIS W CON INDICATIONS: Vomiting and generalized abdominal pain TECHNIQUE: After the administration of intravenous contrast, 5 mm thick sections acquired from the diaphragm to the symphysis. 5 mm coronal and sagittal reformats were acquired. For radiation dose reduction, the following was used: automated exposure control, adjustment of mA and/or kV according to patient size. COMPARISON: None. FINDINGS: Image quality: Excellent. ABDOMEN: Lung bases: Lung bases are clear. Heart size is normal. Solid organs: Liver is normal in size and enhancement. Gallbladder is surgically absent. Biliary system is non dilated. Pancreas enhances normally. Spleen is normal in size and enhancement. No adrenal nodules. Kidneys demonstrate normal size and enhancement, without hydronephrosis. Peritoneum and bowel: Bowel loops demonstrate normal wall thickness and caliber. No free fluid or air. The appendix is normal. Nodes and vessels: No retroperitoneal or mesenteric adenopathy by size criteria. Aorta and inferior vena cava are normal in size. Miscellaneous: No ventral hernias. PELVIS: Genitourinary: Bladder wall thickness is normal. Small air locules noted within the urinary bladder which could be due to recent catheterization, infection with gas-forming organism normal related fistulous connection with bowel. Miscellaneous: No inguinal hernias or adenopathy. Bones: No suspicious bony lesions. No vertebral body compression fractures. Spine degenerative disease and facet arthropathy noted. IMPRESSION: 1. Small air locules within the urinary bladder. Differential diagnosis includes infection with gas-forming organism, recent catheterization or fistulous connection with bowel. Recommend correlation with clinical and urinalysis data. 2. No free fluid or free air. 3. No dilated loops of bowel. Dictated by: Swati Guzman MD, PhD on 12/17/2018 at 22:06 Approved by: Swati Guzman MD, PhD on 12/17/2018 at 22:10
[2018-12-17] MEDS: ONDANSETRON 4 MG/2 ML INJ IV (22:11)
[2018-12-17 22:34] VITALS: BP 188/69; PULSE 85; RESP 17; O2SAT 98
[2018-12-17] MEDS: MAG HYDROX/ALUMINUM/SIMETH SUS 20 ML, LIDOCAINE VISCOUS 2% 15 ML PO (23:02)
--- NOTE | 2018-12-17 23:12 | DI.CT.S_ITS ---
P a ROCEDURE: CT HEAD/BRAIN WO CON INDICATIONS: Intractable nausea eval for intracranial pathology TECHNIQUE: Noncontrast 4.5 mm thick angled axial sections acquired from the foramen magnum to the vertex, with coronal and sagittal reformats. For radiation dose reduction, the following was used: automated exposure control, adjustment of mA and/or kV according to patient size. COMPARISON: [facility], CT, CT HEAD/BRAIN WO CON, 01/04/2018, 14:03. FINDINGS: Image quality: Diagnostic. CSF spaces: Basal cisterns are patent. No extra-axial fluid collections. Mildly increased ventricular size with corresponding mild parenchymal volume loss and is grossly similar to the prior study. Brain: No midline shift. No intracranial masses or hemorrhage. Child[place]-white matter interface is normal. No definite parenchymal abnormalities are appreciated. Skull and face: Calvarium and visualized facial bones are intact, without suspicious lesions. Sinuses: Visualized sinuses and mastoids are clear. IMPRESSION: Stable head CT. No acute intracranial hemorrhage. Note: The preliminary [facility] report and the final report are concordant. Dictated by: Klai Kelley M.D. on 12/18/2018 at 6:55 Approved by: Kali Kelley M.D. on 12/18/2018 at 6:58
[2018-12-17 23:17] LABS: Troponin I < 0.012 ng/mL (0.01-0.034)
--- NOTE | 2018-12-17 23:19 | PC.NURSE ---
pt only able to swallow one sip of gi cocktail then vomited it up within seconds. Provider notified, order recieved.
--- NOTE | 2018-12-17 23:20 | PC.NURSE ---
TESTBOARD OPERATOR assisted pt to bedpan, urine and stool mixed in bedpan, no urine obtained for poc
[2018-12-17 23:35] VITALS: BP 165/68; PULSE 84; RESP 20; O2SAT 98
--- NOTE | 2018-12-17 23:57 | PC.NURSE ---
assisted olga lidia sanchez with in and out cath
[2018-12-18] LABS: WBC Urine None Seen (0-5/HPF)
[2018-12-18 00:01] LABS: Bacteria Urine Few (2-10); Hyaline Casts Urine 0-1/LPF; RBC Urine 0-1/HPF (0-5/HPF); Squamous Epithelial Cell Urine 0-1 /HPF (0-5/HPF)
[2018-12-18 00:02] LABS: Culture Indicated Urine Cult Not Indicated
--- NOTE | 2018-12-18 00:11 | PC.NURSE ---
Pt gulped full glass of water, within seconds pt gaged and spit up a small amount into emesis bag. provider notified and aknowledged information.
[2018-12-18 00:33] LABS: Urine Amphetamines Negative (Negative); Urine Barbiturates Positive (Negative); Urine Benzodiazepines Negative (Negative); Urine Cocaine Negative (Negative); Urine MDMA Negative (Negative); Urine Methadone Negative (Negative); Urine Methamphetamines Negative (Negative); Urine Morphine/Opi cutoff 2000 Negative (Negative); Urine Phencyclidine Negative (Negative); Urine Tetrahydrocannabinol Negative (Negative)
[2018-12-18 00:34] LABS: Urine Oxycodone Negative (Negative); Urine Tricyclic Antidepressant Negative (Negative)
[2018-12-18] MEDS: ONDANSETRON 4 MG/2 ML INJ IV ×3 (01:20→12:49)
[2018-12-18 01:25] VITALS: BP 175/75; PULSE 81; RESP 18; TEMP 36.8; O2SAT 100
[2018-12-18 01:42] VITALS: BP 171/89; PULSE 86; RESP 20; O2SAT 99
--- NOTE | 2018-12-18 01:42 | PC.NURSE ---
LR to continue in acure care
[2018-12-18 02:17] LABS: Thyroid Stimulating Hormone 1.04 uIU/mL (0.47-4.68)
--- NOTE | 2018-12-18 02:53 | PC.ADMIT ---
Addendum entered by Rosy Dhaliwal R.N. 12/18/18 04:40: Notified provided of elevated BP. REC VTO for PO Metoprolol. Per MD elkins to have ice chips and sips with meds. Addendum entered by Rosy Dhaliwal R.N. 12/18/18 02:57: NPO. Oral swabs provided. Original Note: [id number] Sr 20 Admission Note: The patient,Dena Borrego,68 y/o, was given written information regarding hospital policies, unit procedures and contact persons. Patient's smoking status: Never smoker. Vital Signs - 8 hr 12/17/18 21:01 12/17/18 22:34 12/17/18 23:35 Temperature Pulse Rate 86 85 84 Respiratory Rate 23 17 20 Blood Pressure Blood Pressure [Left Arm] 171/67 H 188/69 H 165/68 H Pulse Oximetry 100 98 98 12/18/18 00:30 12/18/18 01:42 Temperature 98.2 F Pulse Rate 81 86 Respiratory Rate 18 20 Blood Pressure 175/75 H 171/89 H Blood Pressure [Left Arm] Pulse Oximetry 100 99 Pt arrived to room 219 at approx 0200 via stretcher; slider board used to trans to bed. Reports nausea with small amt of emesis during transfer. Incontinent loose stool in brief. Briefs changed. Yellow gown and yellow socked put on. Open wound noted to R. Buttocks, pt reports she got it when in rehab for shoulder surgery. Turning schedule implemented. BP elevated; pt states she no longer is taking htn medication. Oriented to room and call system. Bed alarm on for safety.
[2018-12-18 03:45] VITALS: BP 167/81; PULSE 79; RESP 16; TEMP 36.8; O2SAT 97
[2018-12-18] MEDS: METOPROLOL IR 25 MG TABLET PO ×2 (04:02→21:18)
[2018-12-18 04:03] VITALS: BMI 40.2
[2018-12-18] MEDS: LACTATED RINGERS 1,000 ML 125 ML IV ×2 (06:49)
[2018-12-18 09:00] VITALS: BP 161/84; PULSE 71; RESP 16; TEMP 36.6; O2SAT 98
[2018-12-18] MEDS: PROMETHAZINE 25 MG SUPP PR (09:54)
--- NOTE | 2018-12-18 11:09 | PM.HP.1 ---
History of Present Illness Date Patient Seen: 12/18/18 Time Patient Seen: 11:09 Chief complaint: N/V Narrative: This is a 68-year-old female who presents with intractable nausea/vomiting after initially beginning this sequence with severe diarrhea. Symptom onset was just over a week ago with nausea showing up a couple of days after the diarrhea. She went to urgent care last week and also to the Emergency Department. The vomiting started just 5 days ago. The vomiting has been intractable for several days and she is still having brown watery stools/diarrhea. At 1 point she was treated with an antibiotic for an infection in the right shoulder wound. She is not sure of the name but she recalls that subsequently she was given a 2nd antibiotic to counteract the effects of the 1st. This makes me wonder if she was treated with Flagyl at some point recently. (It looks like she was actually treated with doxycycline.) She does not recall ever hearing about any testing or diagnosis for C difficile. She continues to have abdominal bloating but no overt pain. She says she had a fever of 101? yesterday but there has been no other fevers, sweats, coughing, chest pain or blood in her stools or emesis. Head CT is normal. Urine drug screen is negative for marijuana. Abdominal CT shows no cause of the nausea. She does have some air in the bladder which is not fully explained. The CBC and metabolic panels do not explain the ongoing nausea and ABG done because of a ketone level of 2.7 is close to normal. The urine drug screen is positive for barbiturates (due to the primidone.) A dose this low would not be expected to cause this degree of nausea. The UA shows no urinary tract infection. Although the symptoms could be consistent with C diff colitis this was not seen on the CT scan and the C diff stool test was negative today. A norovirus is pending. Her illness sequence actually began 2 months ago when she fell at home apparently fracturing her shoulder. This right shoulder fracture was treated by Dr. Ramires with she says pins, a metal plate and cadaver bone. She subsequently did a rehab stay at [facility] and has been home now for several weeks. There was a wound which has now healed to a minor scab on the anterior right shoulder incision. Patient History Medical History Balance problem (Acute) CKD stage 4 due to type 2 diabetes mellitus (Acute) Neuropathy (Acute) Diabetes mellitus with neuropathy (Chronic) Essential tremor (Chronic) High cholesterol (Chronic) Hypertension (Chronic) Closed head injury (Resolved) Surgical History (Updated 12/18/18 @ 11:30 by Patricio Ramos MD) History of shoulder surgery (Acute) Hx of cataract surgery (Resolved) S/P cholecystectomy (Resolved) Family History (Updated 12/18/18 @ 11:30 by Patricio Ramos MD) Father Diabetes mellitus COPD (chronic obstructive pulmonary disease) Leukemia Mother Alzheimer disease Brother Diabetes mellitus Sister Hyperlipidemia Hypertension Social History household members: family Smoking Status: Never smoker alcohol intake: current Family & Social History Social History: household members family Prior Living Arrangements Apartment/Condo Safety & Behavioral: Feels Safe in Current Yes Environment Been Physically Hurt or No Threatened By a Person Suicidal Ideation Description None Suicide Plan Description No Plan Tobacco & Substance use: Smoking Status Never smoker alcohol intake current alcohol intake frequency holiday/special occasion Substance Use Type marijuana Comment: 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 She has been unable to work since her right shoulder injury and surgery. She does not smoke cigarettes, drink alcohol or use marijuana. She does apply a CBD care home called ?[facility]? on her feet but only about twice a week. Her primary backup decision maker is her daughter, Karie Contreras. Meds Home Medications Medication Instructions Recorded Confirmed Type gabapentin [Neurontin] 600 mg PO BID #0 06/05/16 12/18/18 History aspirin 81 mg PO DAILY 01/04/18 12/18/18 History atorvastatin 20 mg PO QAM 01/04/18 12/18/18 History primidone 250 mg PO BEDTIME 01/04/18 12/18/18 History sodium bicarbonate 2 tab PO BID 01/04/18 12/18/18 History hydrochlorothiazide 25 mg PO DAILY 09/27/18 12/18/18 History hydrocodone-acetaminophen [[place]] 1 tab PO Q4H PRN #20 tab 09/27/18 12/18/18 Rx insulin NPH isoph U-100 human 15 unit SUBCUT BEDTIME 09/27/18 12/18/18 History insulin regular human 3 - 6 unit SUBCUT TID 09/27/18 12/18/18 History cholecalciferol (vitamin D3) 4,000 unit PO DAILY 10/08/18 12/18/18 History [Vitamin D3] insulin NPH isoph U-100 human 12 unit SUBCUT QAM 10/08/18 12/18/18 History hydroxyzine pamoate [Vistaril] 25 mg PO TID-QID PRN #60 cap 10/12/18 12/18/18 Rx oxycodone-acetaminophen [Percocet] 2 tab PO Q4-6H PRN #60 tab 10/12/18 12/18/18 Rx ondansetron 4 mg disintegrating 4 mg PO Q6-8H PRN #30 tab 12/13/18 12/18/18 Rx tablet ondansetron 4 mg PO Q6H PRN #10 tab 12/15/18 12/18/18 Rx Allergies Allergy/AdvReac Type Severity Reaction Status Date / Time ceftriaxone Allergy Severe Anaphylaxis Verified 12/17/18 18:46 Review of Systems Review of Systems Positive for diarrhea, nausea, vomiting. Negative for abdominal pain, chest pain, fever, chills, sweats, coughing, shortness of breath, bleeding, rashes, dysuria, hematuria, joint pain, seizures, headaches, sore throat, trouble talking, new allergies. All systems reviewed & are unremarkable except as noted in HPI and below Exam Vital Signs (past 8 hours): - 12/18/18 03:45 12/18/18 09:00 Temperature 98.2 F 97.9 F Pulse Rate 79 71 Respiratory Rate 16 16 Blood Pressure 167/81 H 161/84 H Pulse Oximetry 97 98 Oxygen Delivery Method Room Air Oxygen Flow Rate 0 Narrative Exam Narrative: Alert and oriented x3. No apparent distress. Pupils are equally round and reactive to light and accommodation. Extraocular muscles are intact. Sclerae are pink and nonicteric. Throat looks normal. No lymph nodes are felt head, neck, supraclavicular area. JVD is less 6 cm. No carotid bruits are heard. Heart is regular rate and rhythm without murmur. Lungs have left base crackles otherwise clear. Abdomen is soft, bowel sounds positive, no organomegaly, with mild epigastric tenderness. Extremities have no ankle edema. There is a well-healed scar on the anterior right shoulder with a small scab were apparently there used to be an ulcer/infection. Skin has no rash or jaundice. Neuro exam. Cranial nerves 2-12 tested intact. Deep tendon reflexes are normal throughout. Motor function is 5/5 throughout. She does have a very low volume tremor of her hands. Objective Labs Result Diagrams: 12/17/18 19:43 12/17/18 19:43 Labs: Laboratory Results - last 24 hr 12/17/18 12/17/18 12/17/18 19:43 19:43 19:43 WBC 8.0 RBC 4.18 Hgb 12.6 Hct 36.7 MCV 87.7 MCH 30.2 MCHC 34.4 RDW 14.0 Plt Count 239 Neut % (Auto) 78.1 H Lymph % (Auto) 15.8 L [place] % (Auto) 5.5 Eos % (Auto) 0.1 L Baso % (Auto) 0.5 Neut # (Auto) 6200 Lymph # (Auto) 1300 [place] # (Auto) 400 Eos # (Auto) 0 Baso # (Auto) 0 ABG pH ABG pCO2 ABG pO2 ABG HCO3 ABG Total CO2 ABG O2 Saturation ABG Base Excess VBG pH VBG pCO2 VBG pO2 VBG HCO3 VBG Total CO2 VBG O2 Saturation VBG Base Excess FiO2 Sodium 138 Potassium 4.1 Chloride 103 Carbon Dioxide 20 L BUN 42 H Creatinine 1.60 H Estimated GFR 32.1 L BUN/Creatinine Ratio 26.3 H Glucose 279 H Calcium 9.9 Total Bilirubin 0.7 AST 26 ALT 24 Alkaline Phosphatase 170 H Troponin I < 0.012 Total Protein 7.7 Albumin 4.3 Globulin 3.4 Albumin/Globulin Ratio 1.3 Lipase 60 TSH Urine RBC Urine WBC Ur Squamous Epith Cells Urine Bacteria Hyaline Casts Ur Culture Indicated? Urine Opiates Screen Ur Oxycodone Screen Urine Methadone Screen Ur Barbiturates Screen U Tricyclic Antidepress Ur Phencyclidine Scrn Ur Amphetamines Screen U Methamphetamines Scrn Ur MDMA Scrn (Ecstasy) U Benzodiazepines Scrn Urine Cocaine Screen U Marijuana (THC) Screen Ketones 2.73 H 12/17/18 12/17/18 12/17/18 19:43 20:27 20:42 WBC RBC Hgb Hct MCV MCH MCHC RDW Plt Count Neut % (Auto) Lymph % (Auto) [place] % (Auto) Eos % (Auto) Baso % (Auto) Neut # (Auto) Lymph # (Auto) [place] # (Auto) Eos # (Auto) Baso # (Auto) ABG pH 7.39 ABG pCO2 27.2 L ABG pO2 78 L ABG HCO3 16 L ABG Total CO2 17 L ABG O2 Saturation 96 ABG Base Excess -9.0 L VBG pH 7.43 VBG pCO2 24.9 L VBG pO2 39 VBG HCO3 17 L VBG Total CO2 17 L VBG O2 Saturation 77 H VBG Base Excess -8.0 L FiO2 21 Sodium Potassium Chloride Carbon Dioxide BUN Creatinine Estimated GFR BUN/Creatinine Ratio Glucose Calcium Total Bilirubin AST ALT Alkaline Phosphatase Troponin I Total Protein Albumin Globulin Albumin/Globulin Ratio Lipase TSH 1.04 Urine RBC Urine WBC Ur Squamous Epith Cells Urine Bacteria Hyaline Casts Ur Culture Indicated? Urine Opiates Screen Ur Oxycodone Screen Urine Methadone Screen Ur Barbiturates Screen U Tricyclic Antidepress Ur Phencyclidine Scrn Ur Amphetamines Screen U Methamphetamines Scrn Ur MDMA Scrn (Ecstasy) U Benzodiazepines Scrn Urine Cocaine Screen U Marijuana (THC) Screen Ketones 12/17/18 12/17/18 23:42 23:42 WBC RBC Hgb Hct MCV MCH MCHC RDW Plt Count Neut % (Auto) Lymph % (Auto) [place] % (Auto) Eos % (Auto) Baso % (Auto) Neut # (Auto) Lymph # (Auto) [place] # (Auto) Eos # (Auto) Baso # (Auto) ABG pH ABG pCO2 ABG pO2 ABG HCO3 ABG Total CO2 ABG O2 Saturation ABG Base Excess VBG pH VBG pCO2 VBG pO2 VBG HCO3 VBG Total CO2 VBG O2 Saturation VBG Base Excess FiO2 Sodium Potassium Chloride Carbon Dioxide BUN Creatinine Estimated GFR BUN/Creatinine Ratio Glucose Calcium Total Bilirubin AST ALT Alkaline Phosphatase Troponin I Total Protein Albumin Globulin Albumin/Globulin Ratio Lipase TSH Urine RBC 0-1/hpf Urine WBC None seen Ur Squamous Epith Cells 0-1 /hpf Urine Bacteria Few (2-10) H Hyaline Casts 0-1/lpf Ur Culture Indicated? Cult not indicated Urine Opiates Screen Negative Ur Oxycodone Screen Negative Urine Methadone Screen Negative Ur Barbiturates Screen Positive H U Tricyclic Antidepress Negative Ur Phencyclidine Scrn Negative Ur Amphetamines Screen Negative U Methamphetamines Scrn Negative Ur MDMA Scrn (Ecstasy) Negative U Benzodiazepines Scrn Negative Urine Cocaine Screen Negative U Marijuana (THC) Screen Negative Ketones Assessment & Plan Assessment & Plan narrative: Intractable nausea/vomiting -no etiology identified so far. 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 -continue IV fluid support -check a GI viral panel Diarrhea -C diff test is negative -check GI viral panel Recent right shoulder fracture/ORIF -this appears to be healed well without signs of infection. -begin physical therapy Hyperlipidemia -holding atorvastatin Peripheral neuropathy -holding gabapentin Hypertension -holding hydrochlorothiazide Diabetes mellitus type 2 -continue NPH and regular insulin Essential tremor/Primidone therapy -holding primidone Small air locules within the urinary bladder. -Differential diagnosis includes infection with gas-forming organism, recent catheterization or fistulous connection with bowel. Recommend correlation with clinical and urinalysis data -consider Urology/general surgery consultation -UA is not consistent with a urinary tract infection Chronic kidney disease -no substantial change
--- NOTE | 2018-12-18 12:03 | CM.DANOTE ---
DCP/Assessment: Reviewed chart. Patient is a 68yr old female admitted [facility] with N/V. PCP is Dr. Vanessa Hirsch. Primary payor is 1)Medicare 2)[facility]. Met with patient explained CM/SW role. Patient reports that she resides with family in [place] at [facility]. Patient and family own it. Patient reports that she uses a cane at baseline. Patient does not anticipate any d/c planning needs. MD to decide if therapy evaluation would be beneficial prior to discharge. Difficult to tell this AM because patient with continued N/V. P: CM team to follow closely for any d/c planning needs that may arise. ALEJANDRO Arce Discharge Planning/Care Management CM Discharge Assessment Start: 12/18/18 11:57 Freq: Status: Active Protocol: Document 12/18/18 11:57 [facility] (Rec: 12/18/18 12:03 [facility] [id number]) Discharge Planning Assessment Assigned Seam Finisher ALEJANDRO Arce Contact Information Radha Contreras ([phone]) daughter Advance Directives? No: Declines further information History Provided By Patient Family Member Medical Record Prior Living Arrangements Apartment/Condo Household Members family Type of transporation used prior to Drives own vehicle admit Independent with ADL's Yes Is patient alert and oriented? Yes Caregiver for Another No DME Already Rented / Owned Cane Barriers to Discharge No Discharge Plan Home Transportation Arrangement Family to provide transport. Additional Comment Patient may benefit from therapy evalauton prior to d/c to assist in determing d/c planning needs. Whiteboard Updated in Patient Room with Yes name and ext. # of Seam Finisher Review Status In Process Next Review Type Continued Stay Review
[2018-12-18] MEDS: SODIUM CHLORIDE 0.45% 1,000 ML 100 ML IV ×2 (12:31→21:12)
--- NOTE | 2018-12-18 14:20 | PT.IIE ---
Current Diagnoses Nausea with vomiting, unspecified (12/18/18) Surgical History (Last Updated 12/18/18 @ 11:30 by Patricio Ramos MD) History of shoulder surgery (Acute) Hx of cataract surgery (Resolved) S/P cholecystectomy (Resolved) Medical History (Last Reviewed 12/18/18 @ 11:29 by Patricio Ramos MD) Balance problem (Acute) CKD stage 4 due to type 2 diabetes mellitus (Acute) Neuropathy (Acute) Diabetes mellitus with neuropathy (Chronic) Essential tremor (Chronic) High cholesterol (Chronic) Hypertension (Chronic) Closed head injury (Resolved) Physical Therapy Inpatient Evaluation/Re-Eval M1 PT/OT-IP Prior Functional Status Start: 12/18/18 14:54 Freq: NEEDED Status: Active Protocol: Document 12/18/18 14:20 [facility] (Rec: 12/18/18 15:13 [facility] [id number]) Medical Review Prior Functional Status Medical History Reviewed Yes Mobility and Gait mod. indep. gait with SPC in LUE, able to do full flight of stairs with railing mod indep . Activities of Daily Living and IADL's some assistance with chores, dressing and washing from sister d/t pt's R shoulder surgery Social History Household Members family Living Arrangements Apartment/Condo Number of Floors (Floors) One Floor Number of Stairs To Enter/Railing? 12 steps to enter/exit- rail on L ascending inside, L descending on outside stairs ( goes up to apartment using the inside stairs and goes the back way to use outside stairs when leaving her apartment Home Environment Standard Height Toilet Walk in Shower Home Equipment Straight Cane Additional Social History Comment pt with 1 wk h/o nausea and vomiting with no improvement after being seen in WIC and ER . She had R shoulder ORIF on @ [facility] by Dr. Ramires d/t fall at home. She went to [facility] for rehab for 3 weeks then returned home. Currently she is going to OP PT 2x/wk at a local clinic. M2 PT-IP Current Condition Start: 12/18/18 14:54 Freq: NEEDED Status: Active Protocol: Document 12/18/18 14:20 [facility] (Rec: 12/18/18 15:13 [facility] [id number]) Physical Therapy Current Condition Current Condition Evaluation Date 12/18/18 Treatment Diagnosis nausea/vomiting, impaired activity tolerance Onset Date 1 wk ago M3 PT-IP Subjective Start: 12/18/18 14:54 Freq: NEEDED Status: Active Protocol: Document 12/18/18 14:20 [facility] (Rec: 12/18/18 15:13 [facility] [id number]) Subjective Physical Therapy Visit Type Type Initial Evaluation Visit Start Time 14:00 Visit Stop Time 14:20 Total Visit Minutes 20 Number of OPTICIANRY TEACHER Visits 0 Physical Therapy Visit Comments Patient Comments pt states she can't do any movement without nausea. Patient Goals get better, wants to d/c home M4 PT-IP Mobility and Gait Start: 12/18/18 14:54 Freq: NEEDED Status: Active Protocol: Document 12/18/18 14:20 [facility] (Rec: 12/18/18 15:13 [facility] [id number]) PT-Bed Mobility Assessment Supine to Sit Supine to Sit Independent Head of Bed Elevated Sit to Supine Sit to Supine Independent Head of Bed Elevated Scooting Scooting to Edge of Bed Independent PT-Transfer Assessment Sit to and From Stand Sit to and from Stand Independent Equipment Transfer Assistive Device Gait Belt Straight Cane Transfers Transfer Destination Bed Transfer Technique Stand Step Pivot Transfer Ability Level of Assist Standby Assistance Gait Assessment Gait Gait Assistance Required: Standby Assistance Distance (Feet) 15 Assistive Devices Assistive Device Gait Belt Straight Cane Gait Deviations General Gait Pattern Decreased Feet Clearance Wide Based Gait Factors Limiting Gait Function Factors Limiting Gait Function Decreased Activity Tolerance Decreased Strength Poor Balance Comments Gait Comments pt fatigued with 15 ft ambulation in room, but no loss of balance with SPC use. PT-Balance Assessment Sitting Balance and Reactions Static Sitting Balance Ability Good Dynamic Sitting Balance Ability Good Standing Balance and Reactions Static Standing Balance Ability Good Dynamic Standing Balance Ability Fair Device Used SPC M5 PT-IP Objective Assessments Start: 12/18/18 14:54 Freq: NEEDED Status: Active Protocol: Document 12/18/18 14:20 [facility] (Rec: 12/18/18 15:13 [facility] [id number]) Orientation Orientation/Cognition Level of Alertness Alert Strength Lower Extremity Strength Hip flexion 4/5 B Knee flexion and extension 4/5 B Ankle DF 5/5 B Coordination Assessment Gross Coordination Gross Coordination WNL Sensation Assessment Sensation Gross Sensation WNL M6 PT-IP Treatment Start: 12/18/18 14:54 Freq: NEEDED Status: Active Protocol: Document 12/18/18 14:20 [facility] (Rec: 12/18/18 15:13 [facility] [id number]) Physical Therapy Treatment Education Education Provided Safety M7 PT-IP Assessment and Plan Start: 12/18/18 14:54 Freq: NEEDED Status: Active Protocol: Document 12/18/18 14:20 [facility] (Rec: 12/18/18 15:13 [facility] [id number]) PT Summary Assessment and Plan Potential Rehabilitation Potential Good Status of Condition at Evaluation Evolving Summary Impairments Strength Balance Bed Mobility Transfers Gait Activity Tolerance Assessment Summary Pt limited this session due to fatigue and 2x episodes of nausea without, but no emesis. Pt without loss of balance with short distance gait x15 ft, and did c/o fatigue as well. Pt is not safe to return home at this point, but due to prior level of function and current ambulation being most limited by nausea, she may be able to return home when medically improved and stable, with sister's assistance, but will need to progress and meet below listed goals. Goals Bed Mobility Goal Independent Transfer Goal Independent Gait Goal Independent Cane Gait Distance 150 Other Goals up/down 12 steps with L rail and SBA Days to Meet Goals 5 Frequency of Treatment Frequency Of Treatment Once a Day Treatment Plan Physical Therapy Treatment Plan Bed Mobility Training Transfer Training Gait Training Therapeutic Exercise Balance Retraining Discharge Planning Neuromuscular Re-ed Other Recommendations and Next Treatment prog. gait with SPC, stairs Focus when able. Recommendations To Nursing Amount of Assist Needed 1 Person Assist Discharge Recommendations PT Discharge Recommendations Home with 23/02 Assist
--- NOTE | 2018-12-18 14:33 | PC.NURSE ---
Pt remains on bedrest this shift, has been to [facility] x3, stool for c-diff sent to lab. Pt had watery , greenish/brown BMs. Pt has c/o Nausea and had a 30 ml emesis after taking in sips of tea. Pt requires assist w/moving about/getting oob due to obesity & old injured R shoulder, had surg on shoulder last Sep. Cont w/IVF. Pt is pleasant & cooperative w/care needs 1430 PT in to eval & treat.
[2018-12-18 14:58] LABS: Clostridium Difficile Tox PCR Negative for C. diff
[2018-12-18 16:41] VITALS: BP 170/105; PULSE 80; RESP 18; TEMP 36.8; O2SAT 98
[2018-12-18] MEDS: INSULIN REGULAR 100 UNIT/ML 3 ML VIAL 6 UNIT SUBCUT (17:35)
[2018-12-18] MEDS: LORazepam 2 MG/ML INJ 0.5 MG IV ×2 (19:22→23:15)
[2018-12-18] MEDS: HYDROCODONE/ACET 5/325 TABLET 1 TAB PO ×2 (19:22→23:15)
[2018-12-18 20:17] VITALS: BP 171/79; PULSE 78; RESP 20; TEMP 36.6; O2SAT 97
[2018-12-18] MEDS: GABAPENTIN 600 MG TABLET PO (21:17)
[2018-12-18] MEDS: INSULIN NPH 100 UNIT/ML VIAL 15 UNIT SUBCUT (21:17)
[2018-12-18] MEDS: SODIUM BICARBONATE 650 MG TABLET 1300 MG PO (21:18)
[2018-12-18] MEDS: PRIMIDONE 50 MG TABLET 250 MG PO (21:18)
[2018-12-19] VITALS (9 sets, daily range): BP systolic 126–158; BP diastolic 56–95; PULSE 62–67; RESP 16–18; TEMP 36.2–36.8; O2SAT 96–99
--- NOTE | 2018-12-19 | DI.NM.S_ITS ---
PROCEDURE: NM GASTRIC EMPTYING STUDY RADIOPHARMACEUTICAL: 1 mCi Tc-99m sulfur colloid in an egg sandwich. INDICATIONS: intractable nausea and vomitting TECHNIQUE: A Tc-99m labeled sulfur colloid labeled egg sandwich or oatmeal was served to the patient. Anterior and posterior planar images of the abdomen were obtained at 0 minutes and 30 minutes, then at hourly intervals up to 4 hours. The patient was upright and ambulating during the interval. COMPARISON: [facility], CT, CT ABDOMEN PELVIS W CON, 12/17/2018, 21:22. FINDINGS: The stomach has normal size, morphology, and position. There is normal emptying of solid gastric contents from the stomach by visual inspection. No gastroesophageal reflux is visualized. The percentage of tracer retained at specific time points are as follows: Time point Percent gastric retention Normal range 30 minutes 72% 70% or more 1 hour 57% 30% to 90% 2 hours 33% 60% or less 3 hours 30% 30% or less 4 hours 25% 10% or less IMPRESSION: Delayed gastric emptying compatible with gastroparesis or partial gastric outlet obstruction. Dictated by: Jonny Rico M.D. on 12/20/2018 at 16:33 Approved by: Jonny Rico M.D. on 12/20/2018 at 16:35
[2018-12-19 05:35] LABS: Add Manual Diff / Slide Review NO; Basophils Absolute Auto 0 /uL (0-100); Basophils Percent Auto 0.3 % (0-2); Eosinophils Absolute Auto 100 /uL (0-450); Eosinophils Percent Auto 1.6 % (2-4); Hematocrit 29.8 % (36-46); Hemoglobin 10.3 g/dL (12.0-16.0); Lymphocytes Absolute Auto 2100 /uL (1100-4500); Lymphocytes Percent Auto 27.3 % (25-40); Mean Corpuscular HGB Conc 34.4 % (30-36); Mean Corpuscular Volume 87.3 fL (80-100); Monocytes Absolute Auto 500 /uL (0-900); Monocytes Percent Auto 6.7 % (3-14); Neutrophils Absolute Auto 4900 /uL (1500-7000); Neutrophils Percent Auto 64.1 % (50-75); Platelet Count 200 X10^3/uL (150-400); Red Blood Cell Count 3.42 X10^6/uL (4.0-5.2); Red Cell Distribution Width 13.7 % (11.6-14.8); White Blood Cell Count 7.7 X10^3/uL (4.5-11.0)
[2018-12-19 05:50] LABS: BUN Creatinine Ratio 17.9 (6-22); Blood Urea Nitrogen 25 mg/dL (7-17); Calcium 8.7 mg/dL (8.4-10.2); Carbon Dioxide 22 mmol/L (22-32); Chloride 105 mmol/L (98-107); Estimated Glomerular Filt Rate 37.3 mL/min (>60); Glucose 108 mg/dL (80-110); HEMOLYSIS < 15 (0-50); Potassium 3.4 mmol/L (3.4-5.1); Sodium 136 mmol/L (137-145)
[2018-12-19] MEDS: SODIUM CHLORIDE 0.45% 1,000 ML 100 ML IV (06:27)
[2018-12-19] MEDS: hydroCHLOROthiazide 25 MG TABLET PO (09:00)
[2018-12-19] MEDS: METOPROLOL IR 25 MG TABLET PO ×2 (09:00→21:08)
[2018-12-19] MEDS: ENOXAPARIN 30 MG/0.3 ML SYRINGE SUBCUT (09:00)
[2018-12-19] MEDS: GABAPENTIN 600 MG TABLET PO ×2 (09:00→20:52)
[2018-12-19] MEDS: SODIUM BICARBONATE 650 MG TABLET 1300 MG PO ×2 (09:01→20:53)
[2018-12-19] MEDS: SODIUM CHLORIDE 0.9% 1,000 ML 100 ML IV ×2 (09:03→18:41)
[2018-12-19] MEDS: INSULIN REGULAR 100 UNIT/ML 3 ML VIAL 6 UNIT SUBCUT ×2 (11:51→18:40)
--- NOTE | 2018-12-19 13:30 | PT.IPTN ---
Current Diagnoses Nausea with vomiting, unspecified (12/18/18) Physical Therapy Treatment Note M2 PT-IP Current Condition Start: 12/18/18 14:54 Freq: NEEDED Status: Active Protocol: Document 12/18/18 14:20 [facility] (Rec: 12/18/18 15:13 [facility] [id number]) Physical Therapy Current Condition Current Condition Evaluation Date 12/18/18 Treatment Diagnosis nausea/vomiting, impaired activity tolerance Onset Date 1 wk ago M3 PT-IP Subjective Start: 12/18/18 14:54 Freq: NEEDED Status: Active Protocol: Document 12/19/18 13:30 RCC (Rec: 12/19/18 15:50 [facility] [id number]) Subjective Physical Therapy Visit Type Type Treatment Note Visit Start Time 13:30 Visit Stop Time 13:55 Total Visit Minutes 25 Number of PRESSURE CONTROLLER Visits 0 Physical Therapy Visit Comments Patient Comments pt reports that she is doing a little better. Admits to some nausea after gait M4 PT-IP Mobility and Gait Start: 12/18/18 14:54 Freq: NEEDED Status: Active Protocol: Document 12/19/18 13:30 [facility] (Rec: 12/19/18 15:50 [facility] [id number]) PT-Bed Mobility Assessment Supine to Sit Supine to Sit Independent Head of Bed Elevated Scooting Scooting to Edge of Bed Independent PT-Transfer Assessment Sit to and From Stand Sit to and from Stand Independent Equipment Transfer Assistive Device Gait Belt Straight Cane Transfers Transfer Destination Chair Transfer Technique Stand Step Pivot Transfer Ability Level of Assist Standby Assistance Gait Assessment Gait Gait Assistance Required: Standby Assistance Distance (Feet) 60 Assistive Devices Assistive Device Gait Belt Straight Cane Gait Deviations General Gait Pattern Decreased Feet Clearance Wide Based Gait Factors Limiting Gait Function Factors Limiting Gait Function Decreased Activity Tolerance Decreased Sensation Poor Balance Comments Gait Comments O2 saturation 98% on RA and TN 76 bpm after gait BP 145/75 after gait, nausea ( mild) Stair Climbing Assessment Comments Stair Climbing Comments did not attempt M5 PT-IP Objective Assessments Start: 12/18/18 14:54 Freq: NEEDED Status: Active Protocol: Document 12/18/18 14:20 [facility] (Rec: 12/18/18 15:13 [facility] [id number]) Orientation Orientation/Cognition Level of Alertness Alert Strength Lower Extremity Strength Hip flexion 4/5 B Knee flexion and extension 4/5 B Ankle DF 5/5 B Coordination Assessment Gross Coordination Gross Coordination WNL Sensation Assessment Sensation Gross Sensation WNL M6 PT-IP Treatment Start: 12/18/18 14:54 Freq: NEEDED Status: Active Protocol: Document 12/18/18 14:20 RCC (Rec: 12/18/18 15:13 [facility] [id number]) Physical Therapy Treatment Education Education Provided Safety M7 PT-IP Assessment and Plan Start: 12/18/18 14:54 Freq: NEEDED Status: Active Protocol: Document 12/19/18 13:30 RCC (Rec: 12/19/18 15:50 [facility] [id number]) PT Summary Assessment and Plan Summary Assessment Summary Pt was nauseated after 60 ft of ambulation, BP 145/75 and TN and O2 saturation WNL on RA . Pt fatigues quickly, not yet at her prior level of function and not able to tolerate stair training this session. She urinated in BR, RN aware and visualized amount . Pt will require further gait training at this time, and will need to tolerate stairs prior to d/c. Goals Bed Mobility Goal Independent Transfer Goal Independent Gait Goal Independent Cane Gait Distance 150 Other Goals up/down 12 steps with L rail and SBA Days to Meet Goals 5 Frequency of Treatment Frequency Of Treatment Once a Day Treatment Plan Other Recommendations and Next Treatment progress gait tolerance with Focus monitoring vitals, stair training when able. Recommendations To Nursing Amount of Assist Needed 1 Person Assist Discharge Recommendations PT Discharge Recommendations Home with 24/ Assist
[2018-12-19] MEDS: LORazepam 2 MG/ML INJ 0.5 MG IV (14:22)
--- NOTE | 2018-12-19 20:45 | PM.PN.1 ---
Subjective Date Patient Seen: 12/19/18 Interval history: Dena Borrego is a 68-year-old female with a past medical history significant for hypertension, hyperlipidemia, diabetes mellitus type 2, insulin using, with complication of peripheral neuropathy and CKD stage 4 and essential tremor who presented with intractable nausea, vomiting, and diarrhea. The patient is sitting up in bed comfortably. She reports she is doing significantly better than yesterday. She reports she had oatmeal without issue this morning. She has had nausea, vomiting and diarrhea for one week but now seems to be resolving. GI stool panel pending. Discussed gastroparesis due to diabetes in detail and the possibility thereof and plan to perfrom NM gastric emptying study tomorrow. NPO at midnight. Otherwise she has no complaints and denies headache, cough, shortness of breath, chest pain, abdominal pain, nausea, vomiting, fever, chills, dysuria, diarrhea or constipation. She is voiding and eliminating without difficulty. She is up ambulating with assistance. Exam Vital Signs (past 8 hours): - 12/19/18 16:34 Temperature 97.1 F L Pulse Rate 65 Respiratory Rate 16 Blood Pressure 126/95 H Pulse Oximetry 99 Oxygen Delivery Method Room Air Oxygen Flow Rate 0 Narrative Exam Narrative: General: Older female sitting in bed and in no acute distress, well-developed, well-nourished, appropriately interactive. HEENT: Normocephalic, atraumatic. External ears without defect. Pupils equal, round, and reactive to light. Anicteric sclerae, moist conjunctivae, and no lid lag. Oropharynx free of erythema and cobble stoning with moist mucosa. Neck: Supple with full range of motion. No lymphadenopathy or thyromegaly. Cardiovascular: Regular rate and rhythm without murmurs, rubs, or gallops appreciated. Pulmonary: Clear to auscultation bilaterally without crackles, wheezes, or rhonchi. Normal respiratory effort with no use of accessory muscles. Abdomen: Soft, bowel sounds present, nontender, nondistended. No hepatosplenomegaly or masses appreciated. Extremities: No clubbing, cyanosis, or edema. Skin: Normal temperature, turgor, and texture; no rash, ulcers, or subcutaneous nodules appreciated. Neurological: Cranial nerves grossly intact. Psychiatric: Normal mood and affect. Alert and oriented to person, place, and time. Objective Labs Result Diagrams: 12/19/18 05:20 12/19/18 05:20 Labs: Laboratory Results - last 24 hr 12/19/18 12/19/18 05:20 05:20 WBC 7.7 RBC 3.42 L Hgb 10.3 L Hct 29.8 L MCV 87.3 MCH 30.0 MCHC 34.4 RDW 13.7 Plt Count 200 Neut % (Auto) 64.1 Lymph % (Auto) 27.3 Branch % (Auto) 6.7 Eos % (Auto) 1.6 L Baso % (Auto) 0.3 Neut # (Auto) 4900 Lymph # (Auto) 2100 Branch # (Auto) 500 Eos # (Auto) 100 Baso # (Auto) 0 Sodium 136 L Potassium 3.4 Chloride 105 Carbon Dioxide 22 BUN 25 H Creatinine 1.40 H Estimated GFR 37.3 L BUN/Creatinine Ratio 17.9 Glucose 108 D Calcium 8.7 Assessment & Plan Assessment & Plan narrative: Dena Borrego is a 68-year-old female with a past medical history significant for hypertension, hyperlipidemia, diabetes mellitus type 2, insulin using, with complication of peripheral neuropathy and CKD stage 4 and essential tremor who presented with intractable nausea, vomiting, and diarrhea. 1. Intractable nausea and vomiting with associated diarrhea, present on admission. Resolving. -Etiology unclear but likely due to gastroparesis from chronically uncontrolled diabetes (up until more recently) and narcotics versus acute viral gastroenteritis. -Factors ruled out including: ACS with normal troponin and EKG, CHAIR INSPECTOR process with CT brain, marijuana use with UDS, excessive barbiturate use, urinary tract infection with UA, SBO with CT abdomen and pelvis, medication side effect, or C. diff infection. -Discontinued IV fluid hydration as patient is tolerating advancement of diet today and is adequately hydrated. -Ordered stool PCR, pending as patient has not had a bowel movement since yesterday. -Continue to advance diet slowly and as tolerated. 2. Recent right shoulder fracture status post ORIF, present on admission. Stable. -Appears to be healed well and no signs of infection. -continue physical and occupational therapies evaluation and treatment. 3. Hyperlipidemia, chronic, present on admission. Stable -Continue home aspirin 81 mg daily and atorvastatin 20 mg daily at bedtime. 4. Hypertension, chronic, present on admission. Stable. -Continue home HCTZ 25 mg daily. 5. Diabetes mellitus type 2, insulin using, with complication of peripheral neuropathy, chronic, present on admission. Presumed stable. -Ordered hemoglobin A1c, pending. -Continue home NPH 12 units daily in the morning and 15 units daily at bedtime. Continue regular insulin with meals. -Plan to slowly advance diet as tolerated and will place patient on a carbohydrate consistent/heart healthy diet. 6. Chronic kidney disease stage 4, present on admission. Stable. -Patient's baseline creatinine variable but between 1.7-2.0. Creatinine down to 1.4 with significant IV fluid hydration but still retention representative of CKD stage 4. -Avoid nephrotoxin agents. -Continue to assess renal function periodically. 7. Essential tremor, chronic, present on admission. Stable. -Continue primidone 250 mg daily at bedtime. 8. Small air locules within the urinary bladder. -Etiology unclear. Differential diagnosis includes infection with gas-forming organism, recent catheterization or fistulous connection with bowel. -UA is not consistent with a urinary tract infection. -Consider outpatient urology consultation Disposition: Patient likely to discharge home with home health in 1-2 days depending upon toleration of advancement of diet and NM gastric emptying study results.
--- NOTE | 2018-12-19 20:52 | P.PN_ITS ---
Subjective Date Patient Seen: 12/19/18 Interval history: Dena Borrego is a 68-year-old female with a past medical history significant for hypertension, hyperlipidemia, diabetes mellitus type 2, insulin using, with complication of peripheral neuropathy and CKD stage 4 and essential tremor who presented with intractable nausea, vomiting, and diarrhea. The patient is sitting up in bed comfortably. She reports she is doing significantly better than yesterday. She reports she had oatmeal without issue this morning. She has had nausea, vomiting and diarrhea for one week but now seems to be resolving. GI stool panel pending. Discussed gastroparesis due to diabetes in detail and the possibility thereof and plan to perfrom NM gastric emptying study tomorrow. NPO at midnight. Otherwise she has no complaints and denies headache, cough, shortness of breath, chest pain, abdominal pain, nausea, vomiting, fever, chills, dysuria, diarrhea or constipation. She is voiding and eliminating without difficulty. She is up ambulating with assistance. Exam Vital Signs (past 8 hours): - 12/19/18 16:34 Temperature 97.1 F L Pulse Rate 65 Respiratory Rate 16 Blood Pressure 126/95 H Pulse Oximetry 99 Oxygen Delivery Method Room Air Oxygen Flow Rate 0 Narrative Exam Narrative: General: Older female sitting in bed and in no acute distress, well-developed, well-nourished, appropriately interactive. HEENT: Normocephalic, atraumatic. External ears without defect. Pupils equal, round, and reactive to light. Anicteric sclerae, moist conjunctivae, and no lid lag. Oropharynx free of erythema and cobble stoning with moist mucosa. Neck: Supple with full range of motion. No lymphadenopathy or thyromegaly. Cardiovascular: Regular rate and rhythm without murmurs, rubs, or gallops appreciated. Pulmonary: Clear to auscultation bilaterally without crackles, wheezes, or rhonchi. Normal respiratory effort with no use of accessory muscles. Abdomen: Soft, bowel sounds present, nontender, nondistended. No hepato splenomegaly or masses appreciated. Extremities: No clubbing, cyanosis, or edema. Skin: Normal temperature, turgor, and texture; no rash, ulcers, or subcutaneous nodules appreciated. Neurological: Cranial nerves grossly intact. Psychiatric: Normal mood and affect. Alert and oriented to person, place, and time. Objective Labs Result Diagrams: 12/19/18 05:20 12/19/18 05:20 Labs: Laboratory Results - last 24 hr 12/19/18 12/19/18 05:20 05:20 WBC 7.7 RBC 3.42 L Hgb 10.3 L Hct 29.8 L MCV 87.3 MCH 30.0 MCHC 34.4 RDW 13.7 Plt Count 200 Neut % (Auto) 64.1 Lymph % (Auto) 27.3 [place] % (Auto) 6.7 Eos % (Auto) 1.6 L Baso % (Auto) 0.3 Neut # (Auto) 4900 Lymph # (Auto) 2100 [place] # (Auto) 500 Eos # (Auto) 100 Baso # (Auto) 0 Sodium 136 L Potassium 3.4 Chloride 105 Carbon Dioxide 22 BUN 25 H Creatinine 1.40 H Estimated GFR 37.3 L BUN/Creatinine Ratio 17.9 Glucose 108 D Calcium 8.7 Assessment & Plan Assessment & Plan narrative: Dena Borrego is a 68-year-old female with a past medical history significant for hypertension, hyperlipidemia, diabetes mellitus type 2, insulin using, with complication of peripheral neuropathy and CKD stage 4 and essential tremor who presented with intractable nausea, vomiting, and diarrhea. 1. Intractable nausea and vomiting with associated diarrhea, present on admission. Resolving. -Etiology unclear but likely due to gastroparesis from chronically uncontrolled diabetes (up until more recently) and narcotics versus acute viral gastroenteritis. -Factors ruled out including: ACS with normal troponin and EKG, FINISHING OPERATOR process with CT brain, marijuana use with UDS, excessive barbiturate use, urinary tract infection with UA, SBO with CT abdomen and pelvis, medication side effect, or C. diff infection. -Discontinued IV fluid hydration as patient is tolerating advancement of diet today and is adequately hydrated. -Ordered stool PCR, pending as patient has not had a bowel movement since yesterday. -Continue to advance diet slowly and as tolerated. 2. Recent right shoulder fracture status post ORIF, present on admission. Stable. -Appears to be healed well and no signs of infection. -continue physical and occupational therapies evaluation and treatment. 3. Hyperlipidemia, chronic, present on admission. Stable -Continue home aspirin 81 mg daily and atorvastatin 20 mg daily at bedtime. 4. Hypertension, chronic, present on admission. Stable. -Continue home HCTZ 25 mg daily. 5. Diabetes mellitus type 2, insulin using, with complication of peripheral neuropathy, chronic, present on admission. Presumed stable. -Ordered hemoglobin A1c, pending. -Continue home NPH 12 units daily in the morning and 15 units daily at bedtime. Continue regular insulin with meals. -Plan to slowly advance diet as tolerated and will place patient on a carbohydrate consistent/heart healthy diet. 6. Chronic kidney disease stage 4, present on admission. Stable. -Patient's baseline creatinine variable but between 1.7-2.0. Creatinine down to 1.4 with significant IV fluid hydration but still public health representative of CKD stage 4. -Avoid nephrotoxin agents. -Continue to assess renal function periodically. 7. Essential tremor, chronic, present on admission. Stable. -Continue primidone 250 mg daily at bedtime. 8. Small air locules within the urinary bladder. -Etiology unclear. Differential diagnosis includes infection with gas-forming organism, recent catheterization or fistulous connection with bowel. -UA is not consistent with a urinary tract infection. -Consider outpatient urology consultation Disposition: Patient likely to discharge home with home health in 1-2 days depending upon toleration of advancement of diet and NM gastric emptying study results.
[2018-12-19] MEDS: INSULIN NPH 100 UNIT/ML VIAL 15 UNIT SUBCUT (20:53)
[2018-12-20] VITALS (9 sets, daily range): BP systolic 129–154; BP diastolic 59–79; PULSE 67–77; RESP 16–17; TEMP 36.4–37.1; O2SAT 95–99
[2018-12-20 05:58] LABS: Hemoglobin A1C% w Est Avg Glu 6.2 % (4.0-6.0)
[2018-12-20 06:02] LABS: BUN Creatinine Ratio 16.9 (6-22); Blood Urea Nitrogen 22 mg/dL (7-17); Carbon Dioxide 25 mmol/L (22-32); Chloride 106 mmol/L (98-107); Estimated Glomerular Filt Rate 40.6 mL/min (>60); Glucose 66 mg/dL (80-110); HEMOLYSIS < 15 (0-50); Magnesium 1.8 mg/dL (1.6-2.3); Potassium 3.6 mmol/L (3.4-5.1); Sodium 137 mmol/L (137-145)
[2018-12-20] MEDS: DEXTROSE 5%-0.9% NS 1,000 ML 75 ML IV (06:38)
[2018-12-20 06:46] LABS: TSH w/ Reflex to FT4 0.49 uIU/mL (0.47-4.68)
[2018-12-20] MEDS: ENOXAPARIN 30 MG/0.3 ML SYRINGE SUBCUT (08:34)
--- NOTE | 2018-12-20 09:43 | PT.IPTN ---
Current Diagnoses Nausea with vomiting, unspecified (12/18/18) Physical Therapy Treatment Note M2 PT-IP Current Condition Start: 12/18/18 14:54 Freq: NEEDED Status: Active Protocol: Document 12/18/18 14:20 RCC (Rec: 12/18/18 15:13 RCC [id number]) Physical Therapy Current Condition Current Condition Evaluation Date 12/18/18 Treatment Diagnosis nausea/vomiting, impaired activity tolerance Onset Date 1 wk ago M3 PT-IP Subjective Start: 12/18/18 14:54 Freq: NEEDED Status: Active Protocol: Document 12/20/18 09:06 LJ (Rec: 12/20/18 09:43 LJ [id number]) Subjective Physical Therapy Visit Type Type Treatment Note Visit Start Time 09:06 Visit Stop Time 09:34 Total Visit Minutes 24 Physical Therapy Visit Comments Patient Comments Pt states she is feeling better but still gets slightly wobbly on her feeet M4 PT-IP Mobility and Gait Start: 12/18/18 14:54 Freq: NEEDED Status: Active Protocol: Document 12/20/18 09:06 LJ (Rec: 12/20/18 09:43 LJ [id number]) PT-Bed Mobility Assessment Supine to Sit Supine to Sit Independent Head of Bed Elevated Scooting Scooting to Edge of Bed Independent PT-Transfer Assessment Sit to and From Stand Sit to and from Stand Independent Equipment Transfer Assistive Device Gait Belt Straight Cane Transfers Transfer Destination Chair Transfer Technique Stand Step Pivot Transfer Ability Level of Assist Standby Assistance Gait Assessment Gait Gait Assistance Required: Standby Assistance Distance (Feet) 75 Assistive Devices Assistive Device Gait Belt Straight Cane Gait Deviations General Gait Pattern Decreased Feet Clearance Wide Based Gait Factors Limiting Gait Function Factors Limiting Gait Function Decreased Activity Tolerance Decreased Sensation Poor Balance Comments Gait Comments O2 sat 98% RA WI 68 BP 143/75 after gait. No nausea reported . Pt ambulates in hallway with decreased speed. Good posture and use of SPC. Able to ascertain when she is fatiguing. M5 PT-IP Objective Assessments Start: 12/18/18 14:54 Freq: NEEDED Status: Active Protocol: Document 12/18/18 14:20 RCC (Rec: 12/18/18 15:13 RCC [id number]) Orientation Orientation/Cognition Level of Alertness Alert Strength Lower Extremity Strength Hip flexion 4/5 B Knee flexion and extension 4/5 B Ankle DF 5/5 B Coordination Assessment Gross Coordination Gross Coordination WNL Sensation Assessment Sensation Gross Sensation WNL M6 PT-IP Treatment Start: 12/18/18 14:54 Freq: NEEDED Status: Active Protocol: Document 12/18/18 14:20 RCC (Rec: 12/18/18 15:13 RCC [id number]) Physical Therapy Treatment Education Education Provided Safety M7 PT-IP Assessment and Plan Start: 12/18/18 14:54 Freq: NEEDED Status: Active Protocol: Document 12/20/18 09:06 LJ (Rec: 12/20/18 09:43 LJ [id number]) PT Summary Assessment and Plan Summary Impairments Strength Balance Bed Mobility Transfers Gait Activity Tolerance Assessment Summary Pt with increased tolerance for gait distance. No LOB or report of nausea. Vitals remained steady. Pt requested to sit in chair rather than bed. Attempt stairs next PT session. Goals Bed Mobility Goal Independent Transfer Goal Independent Gait Goal Independent Cane Gait Distance 150 Other Goals up/down 12 steps with L rail and SBA Days to Meet Goals 5 Frequency of Treatment Frequency Of Treatment Once a Day Treatment Plan Other Recommendations and Next Treatment progress gait and stair Focus training. Recommendations To Nursing Amount of Assist Needed 1 Person Assist Discharge Recommendations PT Discharge Recommendations Home with / Assist
--- NOTE | 2018-12-20 12:58 | PC.NURSE ---
Day shift: Pt off unit for swallow eval at approx 1300. SL. No c/o nausea. Asked Dante myrtle kendall to send stool sample to lab if she has a BM during the eval.
--- NOTE | 2018-12-20 13:59 | CM.DPNOTE ---
DCP/continued: Reviewed chart. Received notification from MD in AM rounds that patient would benefit from HH at time of d/c. Met with patient and she agrees. Patient has been currently doing outpatient therapy at [facility]. However, due to hospitalization and increased weakness patient does qualify for HH. Patient provided with HH agency choices and has no preference. Therefore, WELD INSPECTOR placed call to [facility], spoke with Cari. She reports that they can accept. Clinical, order, F2F, and demographic sheet faxed to [facility]. Patient provided with brochure. CM team to continue to follow closely. [facility] will need to be notified on d/c date. P: Home with HH arranged through [facility]. ALEJANDRO Arce
--- NOTE | 2018-12-20 14:12 | PC.NURSE ---
Day shift: Pt remains off AC unit at this time.
--- NOTE | 2018-12-20 14:29 | PC.NURSE ---
Day shift: Pt back on AC unit at approx 1430. No c/o pain or discomfort. Pt will be taken back down for more swallow eval in approx 1 hour.
--- NOTE | 2018-12-20 15:20 | PM.PN.1 ---
Subjective Date Patient Seen: 12/20/18 Interval history: Dena Borrego is a 68-year-old female with a past medical history significant for hypertension, hyperlipidemia, diabetes mellitus type 2, insulin using, with complication of peripheral neuropathy and CKD stage 4 and essential tremor who presented with intractable nausea, vomiting, and diarrhea. The patient is sitting up in bed comfortably. She was NPO at midnight and had low normal blood glucose, therefore, D5 NS at 75 mL/hr was started. She has not had any return of nausea, vomiting, or diarrhea. She tolerated advancement of diet yesterday and is looking forward to dinner after her NM gastric emptying study today. She has no complaints and denies headache, cough, shortness of breath, chest pain, abdominal pain, nausea, vomiting, fever, chills, dysuria, diarrhea or constipation. She is voiding and eliminating without difficulty. She is up ambulating with assistance. Exam Vital Signs (past 8 hours): - 12/20/18 07:31 12/20/18 08:03 12/20/18 10:56 Temperature 97.7 F 97.8 F Pulse Rate 68 67 Respiratory Rate 16 16 Blood Pressure 131/66 140/68 Pulse Oximetry 97 95 99 Oxygen Delivery Method Room Air Oxygen Flow Rate 0 Narrative Exam Narrative: General: Older female sitting in bed and in no acute distress, well-developed, well-nourished, appropriately interactive. HEENT: Normocephalic, atraumatic. External ears without defect. Pupils equal, round, and reactive to light. Anicteric sclerae, moist conjunctivae, and no lid lag. Oropharynx free of erythema and cobble stoning with moist mucosa. Neck: Supple with full range of motion. No lymphadenopathy or thyromegaly. Cardiovascular: Regular rate and rhythm without murmurs, rubs, or gallops appreciated. Pulmonary: Clear to auscultation bilaterally without crackles, wheezes, or rhonchi. Normal respiratory effort with no use of accessory muscles. Abdomen: Soft, bowel sounds present, nontender, nondistended. No hepatosplenomegaly or masses appreciated. Extremities: No clubbing, cyanosis, or edema. Previous surgery on right shoulder with small scar that is well-healed. Skin: Normal temperature, turgor, and texture; no rash, ulcers, or subcutaneous nodules appreciated. Neurological: Cranial nerves grossly intact. Psychiatric: Normal mood and affect. Alert and oriented to person, place, and time. Objective Labs Result Diagrams: 12/19/18 05:20 12/20/18 05:30 Labs: Laboratory Results - last 24 hr 12/20/18 12/20/18 12/20/18 05:30 05:30 05:30 Sodium 137 Potassium 3.6 Chloride 106 Carbon Dioxide 25 BUN 22 H Creatinine 1.30 H Estimated GFR 40.6 L BUN/Creatinine Ratio 16.9 Glucose 66 L Hemoglobin A1c 6.2 H Calcium 9.0 Magnesium 1.8 TSH 0.49 Assessment & Plan Assessment & Plan narrative: Dena Borrego is a 68-year-old female with a past medical history significant for hypertension, hyperlipidemia, diabetes mellitus type 2, insulin using, with complication of peripheral neuropathy and CKD stage 4 and essential tremor who presented with intractable nausea, vomiting, and diarrhea. 1. Intractable nausea and vomiting with associated diarrhea, present on admission. Resolving. -Etiology unclear but likely due to gastroparesis from chronically uncontrolled diabetes (up until recently) now with addition of narcotics from recent shoulder surgery versus acute viral gastroenteritis. -Factors ruled out including: ACS with normal troponin and EKG, ADMINISTRATION PHYSICIAN process with CT brain, marijuana use with UDS, excessive barbiturate use, urinary tract infection with UA, SBO with CT abdomen and pelvis, medication side effect, or C. diff infection. -Discontinued IV fluid hydration as patient is tolerating advancement of diet today and is adequately hydrated. -Ordered stool PCR, pending as patient has not had a bowel movement now for several days. -Continue to advance diet slowly and as tolerated. -Ordered nuclear medicine gastric emptying study, pending. 2. Recent right shoulder fracture status post ORIF, present on admission. Stable. -Appears to be healed well and no signs of infection. -Continue physical and occupational therapies evaluation and treatment. 3. Hyperlipidemia, chronic, present on admission. Stable -Continue home aspirin 81 mg daily and atorvastatin 20 mg daily at bedtime. 4. Hypertension, chronic, present on admission. Stable. -Continue home HCTZ 25 mg daily. 5. Diabetes mellitus type 2, insulin using, with complication of peripheral neuropathy, chronic, present on admission. Presumed stable. -Hemoglobin A1c 6.2% 12/2018. -Continue home NPH 12 units daily in the morning and 15 units daily at bedtime. Continue regular insulin with meals. -Plan to slowly advance diet as tolerated and will place patient on a carbohydrate consistent/heart healthy diet. 6. Chronic kidney disease stage 4, present on admission. Stable. -Patient's baseline creatinine variable but between 1.7-2.0. 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 -Avoid nephrotoxic agents. -Continue to assess renal function periodically. 7. Essential tremor, chronic, present on admission. Stable. -Continue primidone 250 mg daily at bedtime. 8. Small air locules within the urinary bladder. -Etiology unclear. Differential diagnosis includes infection with gas-forming organism, recent catheterization or fistulous connection with bowel. -UA is not consistent with a urinary tract infection. -Consider outpatient urology consultation. Disposition: Patient likely to discharge home with home health tomorrow if she continues to r tolerate advancement of diet.
[2018-12-20] MEDS: INSULIN REGULAR 100 UNIT/ML 3 ML VIAL 6 UNIT SUBCUT (18:36)
--- NOTE | 2018-12-20 19:14 | PC.NURSE ---
Addendum entered by Leena Barrera R.N. 12/20/18 21:38: IV to LFA is leaking thin sero-sang fluid when flushed, pt reported pain with flush. IV removed per protocol. Original Note: Evening note: Dena back & forth to nuclear medicine for gastric emptying test. Back around 1740, central supply technician supervisor said that test was now complete. Dr Herrera ordered ADA/heart healthy diet, patient ate meal with no c/o nausea or abdomen pain. Reports hungry tonight. Prandial dose of regular insulin 6 units given. VS remain stable. IV is now saline locked, purple bruising around IV insertion site. She remains oriented x 3 & using call button appropriately. Fall precautions reinforced, pt reminded to call staff if she has any needs/concerns. Bed alarm active for safety.
[2018-12-20] MEDS: GABAPENTIN 600 MG TABLET PO (21:19)
[2018-12-20] MEDS: METOPROLOL IR 25 MG TABLET PO (21:19)
[2018-12-20] MEDS: ATORVASTATIN 20 MG TABLET PO (21:19)
[2018-12-20] MEDS: PRIMIDONE 50 MG TABLET 250 MG PO (21:19)
[2018-12-20] MEDS: INSULIN NPH 100 UNIT/ML VIAL 15 UNIT SUBCUT (21:20)
[2018-12-20] MEDS: SODIUM BICARBONATE 650 MG TABLET 1300 MG PO (21:23)
--- NOTE | 2018-12-21 00:01 | PC.NURSE ---
Addendum entered by Zahra Little R.N. 12/21/18 06:12: Slept most of night. Up to bathroom this morning and when she cleansed periarea found a firm area that hurt. Noted to have nickel size, red, firm spot on inner right buttock with pinhole size open area which, when touched, expressed small amount of blood. Original Note: Patient is alert and oriented. Breath sounds CTA with RA sat of 98%. Has runny nose but denies congestion, cough or SOB. HRR. BP slightly elevated at 154/76. Denies nausea. BT present and abdomen is soft. Dribbles urine due to chronic urgency so wearing pull-up but also gets up to bathroom to urinate. Able to turn self in bed and gets OOB with 1 assist + cane. Noted scabbed area on right TSA incision; no redness. Bruise on left forearm, pinhead open area on left lateral hip and brown, fragile skin on right buttock (not open). Chronic bilateral LE neuropathy. Denies pain. No RUPESH stockings on but patient refusing them. Had SCD's on at shift change but requested they be removed. Denies pain. Fall risk score is high and bed alarm is activated.
[2018-12-21 03:00] VITALS: BP 143/59; PULSE 66; RESP 17; TEMP 36.7; O2SAT 97
[2018-12-21 08:00] VITALS: BP 145/66; PULSE 66; RESP 18; TEMP 36.6; O2SAT 97
[2018-12-21 08:16] VITALS: O2SAT 98
[2018-12-21] MEDS: ENOXAPARIN 30 MG/0.3 ML SYRINGE SUBCUT (09:10)
[2018-12-21] MEDS: ASPIRIN EC 81 MG TABLET PO (09:10)
[2018-12-21] MEDS: METOPROLOL IR 25 MG TABLET PO (09:11)
[2018-12-21] MEDS: hydroCHLOROthiazide 25 MG TABLET PO (09:11)
[2018-12-21] MEDS: GABAPENTIN 600 MG TABLET PO (09:11)
[2018-12-21] MEDS: SODIUM BICARBONATE 650 MG TABLET 1300 MG PO (09:11)
[2018-12-21] MEDS: INSULIN REGULAR 100 UNIT/ML 3 ML VIAL 6 UNIT SUBCUT ×2 (09:14→12:23)
--- NOTE | 2018-12-21 10:04 | PM.DS.1 ---
History of Present Illness Date Patient Seen: 12/18/18 Chief complaint: N/V Narrative: Written by Dr. Ramos: This is a 68-year-old female who presents with intractable nausea/vomiting after initially beginning this sequence with severe diarrhea. Symptom onset was just over a week ago with nausea showing up a couple of days after the diarrhea. She went to urgent care last week and also to the Emergency Department. The vomiting started just 5 days ago. The vomiting has been intractable for several days and she is still having brown watery stools/diarrhea. At 1 point she was treated with an antibiotic for an infection in the right shoulder wound. She is not sure of the name but she recalls that subsequently she was given a 2nd antibiotic to counteract the effects of the 1st. This makes me wonder if she was treated with Flagyl at some point recently. (It looks like she was actually treated with doxycycline.) She does not recall ever hearing about any testing or diagnosis for C difficile. She continues to have abdominal bloating but no overt pain. She says she had a fever of 101? yesterday but there has been no other fevers, sweats, coughing, chest pain or blood in her stools or emesis. Head CT is normal. Urine drug screen is negative for marijuana. Abdominal CT shows no cause of the nausea. She does have some air in the bladder which is not fully explained. The CBC and metabolic panels do not explain the ongoing nausea and ABG done because of a ketone level of 2.7 is close to normal. The urine drug screen is positive for barbiturates (due to the primidone.) A dose this low would not be expected to cause this degree of nausea. The UA shows no urinary tract infection. Although the symptoms could be consistent with C diff colitis this was not seen on the CT scan and the C diff stool test was negative today. A norovirus is pending. Her illness sequence actually began 2 months ago when she fell at home apparently fracturing her shoulder. This right shoulder fracture was treated by Dr. Ramires with she says pins, a metal plate and cadaver bone. She subsequently did a rehab stay at [facility] and has been home now for several weeks. There was a wound which has now healed to a minor scab on the anterior right shoulder incision. Discharge Providers Date of admission: 12/18/18 00:39 Discharge Date: 12/21/18 Primary care physician: Vanessa Hirsch MD Consults: 12/18/18 00:22 Consult to Physician Routine Comment: Consulting Provider: Patricio Ramos Reason for consultation: admission Has provider been notified: Yes 12/18/18 13:07 Consult to Physical Therapy Evaluate & Treat Comment: Physician Instructions: Evaluate and Treat 12/20/18 10:35 Consult to Home Health Routine Comment: D/C expected 12-21-18 Reason For Exam: Arrange Home health for PT/OT Discharge provider: Jada Herrera DO Summary Discharge Diagnosis: 1. Intractable nausea and vomiting with associated diarrhea, secondary to gastroparesis, present on admission. Resolved. 2. Recent right shoulder fracture status post ORIF, present on admission. Stable. 3. Hyperlipidemia, chronic, present on admission. Stable 4. Hypertension, chronic, present on admission. Stable. 5. Diabetes mellitus type 2, insulin using, with complication of peripheral neuropathy, chronic, present on admission. Presumed stable. 6. Chronic kidney disease stage 4, present on admission. Stable. 7. Essential tremor, chronic, present on admission. Stable. 8. Incidental small air locules within the urinary bladder. Hospital Course: Dena Borrego is a 68-year-old female with a past medical history significant for hypertension, hyperlipidemia, diabetes mellitus type 2, insulin using, with complication of peripheral neuropathy and CKD stage 4 and essential tremor who presented with intractable nausea, vomiting, and diarrhea. 1. Intractable nausea and vomiting with associated diarrhea, secondary to gastroparesis, present on admission. Resolved. -Etiology likely due to gastroparesis from chronically uncontrolled diabetes (up until recently) now with addition of narcotics from recent shoulder surgery and possibly acute viral gastroenteritis. -Factors ruled out including: ACS with normal troponin and EKG, SHIPPING RECEIVING MANAGER process with CT brain, marijuana use with UDS, excessive barbiturate use, urinary tract infection with UA, SBO with CT abdomen and pelvis, medication side effect, or C. diff infection. -Discontinued IV fluid hydration as patient is tolerating advancement of diet today and is adequately hydrated. -Ordered stool PCR which was not collected as patient did not have any more diarrhea. -Continued to advance diet slowly to carbohydrate consistent/heart healthy diet which was well tolerated. -Nuclear medicine gastric emptying study demonstrated delayed gastric emptying consistent with gastroparesis or partial gastric outlet obstruction. Patient discharged with prescription for Reglan 5 mg t.i.d. as needed for nausea, vomiting or early satiety. Recommended she discuss this medication with her supervisor hot dip plating and only use this as needed as long-term side effects include tardive dyskinesia. 2. Recent right shoulder fracture status post ORIF, present on admission. Stable. -Appears to be healed well without signs of infection. -Continued physical and occupational therapies evaluation and treatment. 3. Hyperlipidemia, chronic, present on admission. Stable -Continued home aspirin 81 mg daily and atorvastatin 20 mg daily at bedtime. 4. Hypertension, chronic, present on admission. Stable. -Continued home HCTZ 25 mg daily. In addition patient was started on metoprolol tartrate 25 mg twice daily for better blood pressure control. 5. Diabetes mellitus type 2, insulin using, with complication of peripheral neuropathy, chronic, present on admission. Presumed stable. -Hemoglobin A1c 6.2% 12/2018. -Continued home NPH 12 units daily in the morning and 15 units daily at bedtime. Continued regular low-dose correctional scale insulin with meals. -Continued to advance diet slowly to carbohydrate consistent/heart healthy diet which was well tolerated. 6. Chronic kidney disease stage 4, present on admission. Stable. -Patient's baseline creatinine variable but between 1.7-2.0. Creatinine down to 1.4 with significant IV fluid hydration but still access representative of CKD stage 4. -Avoid nephrotoxic agents. -Continued to assess renal function periodically. 7. Essential tremor, chronic, present on admission. Stable. -Continued primidone 250 mg daily at bedtime. 8. Small air locules within the urinary bladder. -Etiology unclear. Differential diagnosis includes infection with gas-forming organism, recent catheterization or fistulous connection with bowel. -UA is not consistent with a urinary tract infection. -Consider outpatient urology consultation? Status at Discharge Functional status at discharge: uses cane/walker Overall status at discharge: patient is back to baseline Exam Vital Signs (past 8 hours): - 12/21/18 03:00 12/21/18 08:00 12/21/18 08:16 Temperature 98.1 F 97.8 F Pulse Rate 66 66 Respiratory Rate 17 18 Blood Pressure 143/59 H 145/66 H Pulse Oximetry 97 97 98 Oxygen Delivery Method Room Air Oxygen Flow Rate 0 Narrative Exam Narrative: General: Older pleasant female sitting in bed and in no acute distress, well-developed, well-nourished, appropriately interactive. HEENT: Normocephalic, atraumatic. External ears without defect. Pupils equal, round, and reactive to light. Anicteric sclerae, moist conjunctivae, and no lid lag. Oropharynx free of erythema and cobble stoning with moist mucosa. Neck: Supple with full range of motion. No lymphadenopathy or thyromegaly. Cardiovascular: Regular rate and rhythm without murmurs, rubs, or gallops appreciated. Pulmonary: Clear to auscultation bilaterally without crackles, wheezes, or rhonchi. Normal respiratory effort with no use of accessory muscles. Abdomen: Soft, bowel sounds present, nontender, nondistended. No hepatosplenomegaly or masses appreciated. Extremities: No clubbing, cyanosis, or edema. Previous surgery on right shoulder with small scar that is well-healed. Skin: Normal temperature, turgor, and texture; no rash, ulcers, or subcutaneous nodules appreciated. Neurological: Cranial nerves grossly intact. Psychiatric: Normal mood and affect. Alert and oriented to person, place, and time. Objective Labs Result Diagrams: 12/19/18 05:20 12/20/18 05:30 Discharge Plan Discharge Plan Patient Disposition: Home Health Service Transfer to: [facility] Discharge comment: Your being discharged home with home health PT/OT/Nursing. Please follow-up with your PCP, Dr. Hirsch, at your scheduled appointment. You have gastroparesis due to long-standing and previously uncontrolled diabetes. You have been prescribed Reglan 5 mg 2-3 times daily as needed for nausea, vomiting, and early satiety. Please follow-up with your supervisor hot dip plating Rios WING regarding your diabetes and gastroparesis treatment. You were also started on a blood pressure medication called metoprolol tartrate 25 mg twice daily. Discharge Med Rec/Prescriptions Prescriptions: New metoprolol tartrate 25 mg Tablet 25 mg PO BID Qty: 60 RF: 0 metoclopramide HCl [Reglan] 5 mg tablet 5 mg PO BID-TID PRN (Reason: nausea and vomiting) Qty: 30 RF: 0 Continued ondansetron 4 mg tablet,disintegrating 4 mg PO Q6-8H PRN (Reason: nausea and vomiting) Qty: 30 RF: 0 gabapentin [Neurontin] 300 MG capsule 600 mg PO BID Qty: 0 RF: 0 primidone 50 mg tablet 250 mg PO BEDTIME RF: 0 atorvastatin 20 mg tablet 20 mg PO QAM RF: 0 sodium bicarbonate 650 mg tablet 2 tab PO BID RF: 0 aspirin 81 mg Tablet,Delayed Release (Dr/Ec) 81 mg PO DAILY RF: 0 insulin NPH isoph U-100 human 100 unit/mL suspension 15 unit subcut BEDTIME RF: 0 hydrochlorothiazide 25 mg tablet 25 mg PO DAILY RF: 0 insulin regular human 100 unit/mL solution 3 - 6 unit subcut TID RF: 0 insulin NPH isoph U-100 human 100 unit/mL Suspension 12 unit SUBCUT QAM RF: 0 cholecalciferol (vitamin D3) [Vitamin D3] 2,000 unit Capsule 4,000 unit PO DAILY RF: 0 hydroxyzine pamoate [Vistaril] 25 mg capsule 25 mg PO TID-QID PRN (Reason: spasms) Qty: 60 RF: 0 ondansetron 4 mg tablet,disintegrating 4 mg PO Q6H PRN (Reason: nausea and vomiting) Qty: 10 RF: 0 Discontinued hydrocodone-acetaminophen [[place]] 5-325 mg tablet 1 tab PO Q4H PRN (Reason: shoulder fracture (acute)) Qty: 20 RF: 0 oxycodone-acetaminophen [Percocet] 5-325 mg tablet 2 tab PO Q4-6H PRN (Reason: pain) Qty: 60 RF: 0 Follow up/Referrals: Vanessa Hirsch MD [Primary Care Provider] - 12/28/18 2:05 pm (*appt:12/28 @ 2:[address] kumar @ [facility] [place] ) Provider Discharge Instructions Diet: Diet as Tolerated, Carb-consistent/Diabetic, Low-fat, Low-sodium and Low-cholesterol Activity: Activity as tolerated with cane/walker and PT/OT Visit Report/Discharge Packet Instructions: Low-Fiber/Low-Residue Diet, DI for Gastroparesis, Gastroenteritis Diet, Metoprolol, Metoclopramide Discharge Data Primary Care Provider: Vanessa Hirsch Attending Provider: Patricio Ramos Admit Date/Time: 12/18/18 00:39 Discharges patient from system. Discharge Date/Time: 12/21/18 13:30
--- NOTE | 2018-12-21 10:06 | PT.IPTN ---
Current Diagnoses Nausea with vomiting, unspecified (12/18/18) Physical Therapy Treatment Note M2 PT-IP Current Condition Start: 12/18/18 14:54 Freq: NEEDED Status: Active Protocol: Document 12/18/18 14:20 RCC (Rec: 12/18/18 15:13 RCC [id number]) Physical Therapy Current Condition Current Condition Evaluation Date 12/18/18 Treatment Diagnosis nausea/vomiting, impaired activity tolerance Onset Date 1 wk ago M3 PT-IP Subjective Start: 12/18/18 14:54 Freq: NEEDED Status: Active Protocol: Document 12/21/18 09:55 SA (Rec: 12/21/18 10:06 SA [id number]) Subjective Physical Therapy Visit Type Type Treatment Note Visit Start Time 08:00 Visit Stop Time 08:25 Total Visit Minutes 25 Number of TANDEM OPERATOR Visits 1 Physical Therapy Visit Comments Patient Comments Pt reports feeling better each day. Denies nausea or dizziness. Therapy Pain Assessment Pain When Pain Assessed During Mobility Pain Present Pain Present Denied Pain M4 PT-IP Mobility and Gait Start: 12/18/18 14:54 Freq: NEEDED Status: Active Protocol: Document 12/21/18 09:55 SA (Rec: 12/21/18 10:06 SA [id number]) PT-Bed Mobility Assessment Supine to Sit Supine to Sit Independent Head of Bed Elevated Sit to Supine Sit to Supine Independent Scooting Scooting to Edge of Bed Independent Scooting Up and Down in Bed Independent PT-Transfer Assessment Sit to and From Stand Sit to and from Stand Independent Equipment Transfer Assistive Device Gait Belt Straight Cane Transfers Transfer Destination Chair Toilet Transfer Technique Stand Step Pivot Transfer Ability Level of Assist Standby Assistance Comments Mobility Comments Pt mobilizes well with SPC, a little impulsive and needs cues for pacing and safety. Gait Assessment Gait Gait Assistance Required: Standby Assistance Distance (Feet) 85 Assistive Devices Assistive Device Gait Belt Straight Cane Gait Deviations General Gait Pattern Decreased Feet Clearance Wide Based Gait Factors Limiting Gait Function Factors Limiting Gait Function Decreased Activity Tolerance Decreased Sensation Poor Balance Comments Gait Comments 02 sats 97% and HR 80 BPM with ambulation. Pt uses SPC in LUE and demonstrates safe sequencing. Stair Climbing Assessment Comments Stair Climbing Comments did not attempt M5 PT-IP Objective Assessments Start: 12/18/18 14:54 Freq: NEEDED Status: Active Protocol: Document 12/18/18 14:20 RCC (Rec: 12/18/18 15:13 [facility] [id number]) Orientation Orientation/Cognition Level of Alertness Alert Strength Lower Extremity Strength Hip flexion 4/5 B Knee flexion and extension 4/5 B Ankle DF 5/5 B Coordination Assessment Gross Coordination Gross Coordination WNL Sensation Assessment Sensation Gross Sensation WNL M6 PT-IP Treatment Start: 12/18/18 14:54 Freq: NEEDED Status: Active Protocol: Document 12/21/18 09:55 (Rec: 12/21/18 10:06 [id number]) Physical Therapy Treatment Exercises Exercises Ankle Pumps Gluteal Sets Quad Sets Education Education Provided Safety M7 PT-IP Assessment and Plan Start: 12/18/18 14:54 Freq: NEEDED Status: Active Protocol: Document 12/21/18 09:55 (Rec: 12/21/18 10:06 [id number]) PT Summary Assessment and Plan Summary Impairments Strength Balance Bed Mobility Transfers Gait Activity Tolerance Assessment Summary Pt progressing well, a little unsteady with turning during gait but no LOB noted, uses SPC safely and tolerating increasing gait distance. Frequency of Treatment Frequency Of Treatment Once a Day Treatment Plan Other Recommendations and Next Treatment progress gait and stair Focus training. Recommendations To Nursing Amount of Assist Needed 1 Person Assist Discharge Recommendations PT Discharge Recommendations Home with 23/02 Assist
--- NOTE | 2018-12-21 10:10 | P.DS_ITS ---
History of Present Illness Date Patient Seen: 12/18/18 Chief complaint: N/V Narrative: Written by Dr. Ramos: This is a 68-year-old female who presents with intractable nausea/vomiting after initially beginning this sequence with severe diarrhea. Symptom onset was just over a week ago with nausea showing up a couple of days after the diarrhea. She went to urgent care last week and also to the Emergency Department. The vomiting started just 5 days ago. The vomiting has been intractable for several days and she is still having brown watery stools/diarrhea. At 1 point she was treated with an antibiotic for an infection in the right shoulder wound. She is not sure of the name but she recalls that subsequently she was given a 2nd antibiotic to counteract the effects of the 1st. This makes me wonder if she was treated with Flagyl at some point recently. (It looks like she was actually treated with doxycycline.) She does not recall ever hearing about any testing or diagnosis for C difficile. She continues to have abdominal bloating but no overt pain. She says she had a fever of 101? yesterday but there has been no other fevers, sweats, coughing, chest pain or blood in her stools or emesis. Head CT is normal. Urine drug screen is negative for marijuana. Abdominal CT shows no cause of the nausea. She does have some air in the bladder which is not fully explained. The CBC and metabolic panels do not explain the ongoing nausea and ABG done because of a ketone level of 2.7 is close to normal. The urine drug screen is positive for barbiturates (due to the primidone.) A dose this low would not be expected to cause this degree of nausea. The UA shows no urinary tract infection. Although the symptoms could be consistent with C diff colitis this was not seen on the CT scan and the C diff stool test was negative today. A norovirus is pending. Her illness sequence actually began 2 months ago when she fell at home apparently fracturing her shoulder. This right shoulder fracture was treated by Dr. Ramires with she says pins, a metal plate and cadaver bone. She subsequently did a rehab stay at [facility] [place] and has been home now for several weeks. There was a wound which has now healed to a minor scab on the anterior right shoulder incision. Discharge Providers Date of admission: 12/18/18 00:39 Discharge Date: 12/21/18 Primary care physician: Vanessa Hirsch MD Consults: 12/18/18 00:22 Consult to Physician Routine Comment: Consulting Provider: Patricio Ramos Reason for consultation: admission Has provider been notified: Yes 12/18/18 13:07 Consult to Physical Therapy Evaluate & Treat Comment: Physician Instructions: Evaluate and Treat 12/20/18 10:35 Consult to Home Health Routine Comment: D/C expected 12-21-18 Reason For Exam: Arrange Home health for PT/OT Discharge provider: Jada Herrera DO Summary Discharge Diagnosis: 1. Intractable nausea and vomiting with associated diarrhea, secondary to gastroparesis, present on admission. Resolved. 2. Recent right shoulder fracture status post ORIF, present on admission. Stable. 3. Hyperlipidemia, chronic, present on admission. Stable 4. Hypertension, chronic, present on admission. Stable. 5. Diabetes mellitus type 2, insulin using, with complication of peripheral neuropathy, chronic, present on admission. Presumed stable. 6. Chronic kidney disease stage 4, present on admission. Stable. 7. Essential tremor, chronic, present on admission. Stable. 8. Incidental small air locules within the urinary bladder. Hospital Course: Dena Borrego is a 68-year-old female with a past medical history significant for hypertension, hyperlipidemia, diabetes mellitus type 2, insulin using, with complication of peripheral neuropathy and CKD stage 4 and essential tremor who presented with intractable nausea, vomiting, and diarrhea. 1. Intractable nausea and vomiting with associated diarrhea, secondary to gastroparesis, present on admission. Resolved. -Etiology likely due to gastroparesis from chronically uncontrolled diabetes (up until recently) now with addition of narcotics from recent shoulder surgery and possibly acute viral gastroenteritis. -Factors ruled out including: ACS with normal troponin and EKG, RESIDENTIAL COORDINATOR process with CT brain, marijuana use with UDS, excessive barbiturate use, urinary tract infection with UA, SBO with CT abdomen and pelvis, medication side effect, or C. diff infection. -Discontinued IV fluid hydration as patient is tolerating advancement of diet today and is adequately hydrated. -Ordered stool PCR which was not collected as patient did not have any more diarrhea. -Continued to advance diet slowly to carbohydrate consistent/heart healthy diet which was well tolerated. -Nuclear medicine gastric emptying study demonstrated delayed gastric emptying consistent with gastroparesis or partial gastric outlet obstruction. Patient discharged with prescription for Reglan 5 mg t.i.d. as needed for nausea, vomi ting or early satiety. 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 2. Recent right shoulder fracture status post ORIF, present on admission. Stable. -Appears to be healed well without signs of infection. -Continued physical and occupational therapies evaluation and treatment. 3. Hyperlipidemia, chronic, present on admission. Stable -Continued home aspirin 81 mg daily and atorvastatin 20 mg daily at bedtime. 4. Hypertension, chronic, present on admission. Stable. -Continued home HCTZ 25 mg daily. In addition patient was started on metoprolol tartrate 25 mg twice daily for better blood pressure control. 5. Diabetes mellitus type 2, insulin using, with complication of peripheral edwin ropathy, chronic, present on admission. Presumed stable. -Hemoglobin A1c 6.2% 12/2018. -Continued home NPH 12 units daily in the morning and 15 units daily at bedtime. Continued regular low-dose correctional scale insulin with meals. -Continued to advance diet slowly to carbohydrate consistent/heart healthy diet which was well tolerated. 6. Chronic kidney disease stage 4, present on admission. Stable. -Patient's baseline creatinine variable but between 1.7-2.0. Creatinine down to 1.4 with significant IV fluid hydration but still airport representative of CKD stage 4. -Avoid nephrotoxic agents. -Continued to assess renal function periodically. 7. Essential tremor, chronic, present on admission. Stable. -Continued primidone 250 mg daily at bedtime. 8. Small air locules within the urinary bladder. -Etiology unclear. Differential diagnosis includes infection with gas-forming organism, recent catheterization or fistulous connection with bowel. -UA is not consistent with a urinary tract infection. -Consider outpatient urology consultation? Status at Discharge Functional status at discharge: uses cane/walker Overall status at discharge: patient is back to baseline Exam Vital Signs (past 8 hours): - 12/21/18 03:00 12/21/18 08:00 12/21/18 08:16 Temperature 98.1 F 97.8 F Pulse Rate 66 66 Respiratory Rate 17 18 Blood Pressure 143/59 H 145/66 H Pulse Oximetry 97 97 98 Oxygen Delivery Method Room Air Oxygen Flow Rate 0 Narrative Exam Narrative: General: Older pleasant female sitting in bed and in no acute distress, well- developed, well-nourished, appropriately interactive. HEENT: Normocephalic, atraumatic. External ears without defect. Pupils equal, round, and reactive to light. Anicteric sclerae, moist conjunctivae, and no lid lag. Oropharynx free of erythema and cobble stoning with moist mucosa. Neck: Supple with full range of motion. No lymphadenopathy or thyromegaly. Cardiovascular: Regular rate and rhythm without murmurs, rubs, or gallops appreciated. Pulmonary: Clear to auscultation bilaterally without crackles, wheezes, or rhonchi. Normal respiratory effort with no use of accessory muscles. Abdomen: Soft, bowel sounds present, nontender, nondistended. No hepatosplenomegaly or masses appreciated. Extremities: No clubbing, cyanosis, or edema. Previous surgery on right shoulder with small scar that is well-healed. Skin: Normal temperature, turgor, and texture; no rash, ulcers, or subcutaneous nodules appreciated. Neurological: Cranial nerves grossly intact. Psychiatric: Normal mood and affect. Alert and oriented to person, place, and time. Objective Labs Result Diagrams: 12/19/18 05:20 12/20/18 05:30 Discharge Plan Discharge Plan Patient Disposition: Home Health Service Transfer to: [facility] Discharge comment: Your being discharged home with home health PT/OT/Nursing. Please follow-up with your PCP, Dr. Hirsch, at your scheduled appointment. You have gastroparesis due to long-standing and previously uncontrolled diabetes. You have been prescribed Reglan 5 mg 2-3 times daily as needed for nausea, vomiting, and early satiety. Please follow-up with your soft metals engraver hand Rios WING regarding your diabetes and gastroparesis treatment. You were also started on a blood pressure medication called metoprolol tartrate 25 mg twice daily. Discharge Med Rec/Prescriptions Prescriptions: New metoprolol tartrate 25 mg Tablet 25 mg PO BID Qty: 60 RF: 0 metoclopramide HCl [Reglan] 5 mg tablet 5 mg PO BID-TID PRN (Reason: nausea and vomiting) Qty: 30 RF: 0 Continued ondansetron 4 mg tablet,disintegrating 4 mg PO Q6-8H PRN (Reason: nausea and vomiting) Qty: 30 RF: 0 gabapentin [Neurontin] 300 MG capsule 600 mg PO BID Qty: 0 RF: 0 primidone 50 mg tablet 250 mg PO BEDTIME RF: 0 atorvastatin 20 mg tablet 20 mg PO QAM RF: 0 sodium bicarbonate 650 mg tablet 2 tab PO BID RF: 0 aspirin 81 mg Tablet,Delayed Release (Dr/Ec) 81 mg PO DAILY RF: 0 insulin NPH isoph U-100 human 100 unit/mL suspension 15 unit subcut BEDTIME RF: 0 hydrochlorothiazide 25 mg tablet 25 mg PO DAILY RF: 0 insulin regular human 100 unit/mL solution 3 - 6 unit subcut TID RF: 0 insulin NPH isoph U-100 human 100 unit/mL Suspension 12 unit SUBCUT QAM RF: 0 cholecalciferol (vitamin D3) [Vitamin D3] 2,000 unit Capsule 4,000 unit PO DAILY RF: 0 hydroxyzine pamoate [Vistaril] 25 mg capsule 25 mg PO TID-QID PRN (Reason: spasms) Qty: 60 RF: 0 ondansetron 4 mg tablet,disintegrating 4 mg PO Q6H PRN (Reason: nausea and vomiting) Qty: 10 RF: 0 Discontinued hydrocodone-acetaminophen [[place]burn] 5-325 mg tablet 1 tab PO Q4H PRN (Reason: shoulder fracture (acute)) Qty: 20 RF: 0 oxycodone-acetaminophen [Percocet] 5-325 mg tablet 2 tab PO Q4-6H PRN (Reason: pain) Qty: 60 RF: 0 Follow up/Referrals: Vanessa Hirsch MD [Primary Care Provider] - 12/28/18 2:05 pm (*appt:12/28 @ 2:[address] kumar @ [facility] [place] ) Provider Discharge Instructions Diet: Diet as Tolerated, Carb-consistent/Diabetic, Low-fat, Low-sodium and Low- cholesterol Activity: Activity as tolerated with cane/walker and PT/OT Visit Report/Discharge Packet Instructions: Low-Fiber/Low-Residue Diet, DI for Gastroparesis, Gastroenteritis Diet, Metoprolol, Metoclopramide Discharge Data Primary Care Provider: Vanessa Hirsch Attending Provider: Patricio Ramos Admit Date/Time: 12/18/18 00:39 Discharges patient from system. Discharge Date/Time: 12/21/18 13:30
--- NOTE | 2018-12-21 10:38 | CM.DPNOTE ---
DCP/continued: Reviewed chart. Received orders for patient to d/c home today. Asked OFFICE SERVICES COORDINATOR/Sandra to notify [facility]. P: Home today with HH through [facility]. ALEJANDRO Arce
--- NOTE | 2018-12-21 13:27 | PC.NURSE ---
Day shift: Pt left unit at approx 1330. Went in WC with student RN and sister to private car. scrips electronic to Pt's pharmacy. Paperwork signed and all questions answered.
== END 2018-12-21 13:30 | disposition home health service (06) | DRG 74 ==
LOC: ED 12-18 00:22 → AC 12-18 13:21
PROVIDERS: Internal Medicine; Admitting Provider Family Medicine; Emergency Provider Emergency Medicine; Family Provider Internal Medicine; PCP Internal Medicine; Visit Provider Family Medicine
DX: E11.43 Type 2 diabetes mellitus with diabetic autonomic (poly)neuropathy (principal); N18.4 Chronic kidney disease, stage 4 (severe); K31.84 Gastroparesis; E11.65 Type 2 diabetes mellitus with hyperglycemia; Z79.4 Long term (current) use of insulin; E11.22 Type 2 diabetes mellitus with diabetic chronic kidney disease; I12.9 Hypertensive chronic kidney disease with stage 1 through stage 4 chronic kidney disease, or unspecified chronic kidney disease; E78.5 Hyperlipidemia, unspecified; G25.0 Essential tremor
CPT/HCPCS: 36415; 36600; 51798; 70450; 74177; 78264; 80048; 80053; 80305; 81003; 81015; 82009; 82805; 82962; 83036; 83690; 83735; 84443; 84484; 85025; 87493; 93005; 93010; 96361; 96374; 96375; 97116; 97162; 97530; 99285; A9541; J1650; J2060; J2270; J2405; J2765; J7050

== ENCOUNTER 2019-02-03 11:31 | Inpatient (IN) | payer MEDICARE, OTHER, SELFPAY ==
[2019-02-03] VITALS (8 sets, daily range): BP systolic 95–172; BP diastolic 46–88; PULSE 91–106; RESP 15–22; TEMP 36.7–39.2; O2SAT 93–99; BMI 42.3
--- NOTE | 2019-02-03 11:43 | ED.ABDPAIN ---
HPI - Abdominal Pain General Chief Complaint: Nausea/Vomiting/Diarrhea Stated Complaint: GLF X2 Time Seen by Provider: 02/03/19 11:34 Source: patient, EMS and old records reviewed Mode of arrival: EMS Limitations: no limitations History of Present Illness HPI narrative: The patient is a 68-year-old female presenting with vomiting weakness and falling. She has actually been admitted to the hospital last month for the same thing. She has a history of diabetes hypertension hyperlipidemia and peripheral neuropathy with essential tremor. She says this started yesterday she has been nauseous throughout at least 3 times throughout once this morning. No diarrhea some abdominal discomfort.. She denies any fever she is noted to have a resting tremor. She says that she fell twice but did not hit her head she is complaining of right shoulder pain which was previously injured. She can't remember exactly how she fell she says her legs or just gave out under her absolutely denies any head injury there is no sign of trauma. Pelvis is stable. MD complaint: abdominal pain Related Data Home Medications Medication Instructions Recorded Confirmed gabapentin [Neurontin] 600 mg PO BID #0 06/05/16 02/03/19 aspirin 81 mg PO DAILY 01/04/18 02/03/19 atorvastatin 20 mg PO QAM 01/04/18 02/03/19 primidone 250 mg PO BEDTIME 01/04/18 12/18/18 sodium bicarbonate 2 tab PO BID 01/04/18 12/18/18 hydrochlorothiazide 25 mg PO DAILY 09/27/18 12/18/18 insulin NPH isoph U-100 human 15 unit SUBCUT BEDTIME 09/27/18 12/18/18 insulin regular human 3 - 6 unit SUBCUT TID 09/27/18 12/18/18 cholecalciferol (vitamin D3) 4,000 unit PO DAILY 10/08/18 02/03/19 [Vitamin D3] insulin NPH isoph U-100 human 12 unit SUBCUT QAM 10/08/18 12/18/18 Previous Rx's Medication Instructions Recorded hydroxyzine pamoate [Vistaril] 25 mg PO TID-QID PRN #60 cap 10/12/18 ondansetron 4 mg disintegrating 4 mg PO Q6-8H PRN #30 tab 12/13/18 tablet ondansetron 4 mg PO Q6H PRN #10 tab 12/15/18 metoclopramide HCl [Reglan] 5 mg PO BID-TID PRN #30 tab 12/21/18 metoprolol tartrate 25 mg PO BID #60 tab 12/21/18 Allergies Allergy/AdvReac Type Severity Reaction Status Date / Time ceftriaxone Allergy Severe Anaphylaxis Verified 12/17/18 18:46 Review of Systems Review of Systems ROS Unobtainable: All systems reviewed & are unremarkable except as noted in HPI and below Constitutional Denies chills, Denies fever(s), Denies lethargy and Denies weakness Cardiovascular Denies chest pain, Denies irregular heart rhythm, Denies lightheadedness, Denies palpitations, Denies dyspnea, Denies dyspnea on exertion and Denies orthopnea Respiratory Denies cough, Denies dyspnea, Denies dyspnea on exertion and Denies wheezing Gastrointestinal Gastrointestinal: Reports as per HPI Genitourinary Denies hematuria, Denies flank pain, Denies urinary incontinence and Denies urinary urgency Musculoskeletal Denies back pain, Denies muscle weakness, Denies numbness and Denies tingling Integumentary/Breasts Denies pruritus, Denies erythema, Denies rash and Denies wounds Neurologic Denies numbness, Denies tingling and Denies weakness Endocrine Denies palpitations Allergic/Immunologic Denies wheezing [facility] Medical History Balance problem (Acute) CKD stage 4 due to type 2 diabetes mellitus (Acute) Neuropathy (Acute) Diabetes mellitus with neuropathy (Chronic) Essential tremor (Chronic) High cholesterol (Chronic) Hypertension (Chronic) Closed head injury (Resolved) Surgical History History of shoulder surgery (Acute) Hx of cataract surgery (Resolved) S/P cholecystectomy (Resolved) Family History Father Diabetes mellitus COPD (chronic obstructive pulmonary disease) Leukemia Mother Alzheimer disease Brother Diabetes mellitus Sister Hyperlipidemia Hypertension Social History household members: family Smoking Status: Never smoker alcohol intake: current Family History Father Diabetes mellitus COPD (chronic obstructive pulmonary disease) Leukemia Mother Alzheimer disease Brother Diabetes mellitus Sister Hyperlipidemia Hypertension Social History household members: family Smoking Status: Never smoker alcohol intake: current Exam Initial Vital Signs Initial Vital Signs: Vital Signs Temperature 98.1 F 02/03/19 11:28 Pulse Rate 106 H 02/03/19 11:28 Respiratory Rate 22 02/03/19 11:28 Blood Pressure 172/64 H 02/03/19 11:28 Pulse Oximetry 98 02/03/19 11:28 GENERAL: Alert overweight female obvious essential tremor actively vomiting HEENT: Head atraumatic,EOMI, pupils reactive, face symmetric, dry mucous membranes CARDIOVASCULAR: Regular rate and rhythm without murmurs, rubs or gallops. RESPIRATORY: Breath sounds equal bilaterally, no wheezes rales or rhonchi. ABDOMEN: Soft, mild diffuse tenderness some an upper quadrants and some in lower quadrants no localization no guarding rebound RECTAL: Guaiac-negative no gross blood EXTREMITIES: Normal range of motion, no clubbing or edema. Neurovascularly intact NEUROLOGICAL: Alert and oriented x4.Normal gait and speech. Cranial nerves II through XII grossly intact. Gross tremor SKIN: Warm, dry, no laceration, no petechiae, no rashes or lesions. Course Orders Ordered: ED Orders 02/04/19 06:13 Basic Metabolic Panel Routine Complete Blood Count AUTO DIFF Routine Hemoglobin A1C% w Est Avg Glu Routine Procalcitonin Routine Acetaminophen (Tylenol) 650 mg PO Q6HR PRN PRN Reason: As Needed for Fever/Mild Pain Last Admin: 02/04/19 03:14 Dose: 650 mg Aspirin (Aspirin Ec) 81 mg PO DAILY [facility] Atorvastatin Calcium (Lipitor) 20 mg PO DAILY [facility] Gabapentin (Neurontin) 600 mg PO BID [facility] Last Admin: 02/03/19 22:06 Dose: 600 mg Heparin Sodium (Porcine) (Heparin) 5,000 unit SUBCUT BID [facility] Last Admin: 02/03/19 22:06 Dose: 5,000 unit Hydroxyzine Pamoate (Vistaril) 25 mg PO QID PRN PRN Reason: Spasms Sodium Chloride (Normal Saline 0.9%) 1,000 mls @ 150 mls/hr IV CONT [facility] Last Infusion: 02/03/19 15:48 Dose: 0 mls/hr Infusion: 02/03/19 14:40 Dose: 150 mls/hr Infusion: 02/03/19 13:38 Dose: 0 mls/hr Admin: 02/03/19 12:16 Dose: 150 mls/hr Dextrose/Sodium Chloride (Dextrose 5%-0.45% Ns) 1,000 mls @ 80 mls/hr IV CONT [facility] Last Admin: 02/03/19 18:27 Dose: 80 mls/hr Levofloxacin (Levaquin) 750 mg in 150 mls @ 100 mls/hr IV Q24H [facility] Last Admin: 02/03/19 18:27 Dose: 100 mls/hr Insulin Human NPH (Humulin N) 15 unit SUBCUT BEDTIME [facility] Last Admin: 02/03/19 22:04 Dose: 15 unit Insulin Human NPH (Humulin N) 12 unit SUBCUT DAILY [facility] Insulin Human Regular (Humulin R) 3 unit SUBCUT TID [facility] Last Admin: 02/03/19 22:01 Dose: 3 unit Lactobacillus Acidophilus (Bacid Caplet) 1 each PO DAILY [facility] Metoclopramide HCl (Reglan) 5 mg PO TID PRN PRN Reason: Nausea And Vomiting Metoprolol Tartrate (Lopressor) 25 mg PO BID [facility] Last Admin: 02/03/19 22:07 Dose: 25 mg Ondansetron HCl (Zofran Odt) 4 mg PO Q6H PRN PRN Reason: nausea and vomiting Ondansetron HCl (Zofran) 4 mg IV Q8H PRN PRN Reason: Nausea And Vomiting Oxycodone HCl (Percolone) 5 mg PO Q6H PRN PRN Reason: Pain, Moderate (4-6) Primidone (Mysoline) 250 mg PO BEDTIME [facility] Last Admin: 02/03/19 22:05 Dose: 250 mg Sodium Bicarbonate (Sodium Bicarbonate) 1,300 mg PO BID [facility] Last Admin: 02/03/19 22:05 Dose: 1,300 mg Vitamin D (Vitamin D3) 4,000 unit PO DAILY [facility] Discontinued Medications Sodium Chloride (Normal Saline 0.9%) 1,000 mls @ 1,000 mls/hr IV BOLUS ONE Stop: 02/03/19 14:27 Last Infusion: 02/03/19 14:39 Dose: 0 mls/hr Admin: 02/03/19 13:38 Dose: 1,000 mls/hr Levofloxacin (Levaquin) 750 mg in 150 mls @ 100 mls/hr IV NOW ONE Stop: 02/03/19 15:46 Last Infusion: 02/03/19 15:55 Dose: 0 mls/hr Admin: 02/03/19 14:27 Dose: 100 mls/hr Sodium Chloride (Normal Saline 0.9%) 3,265.86 mls @ 1,088.62 mls/hr 30 ml/kg infuse over 3 hr (3265.86 ml) IV NOW ONE Stop: 02/03/19 17:41 Last Infusion: 02/03/19 16:00 Dose: 0 mls/hr Admin: 02/03/19 14:56 Dose: 1,088.62 mls/hr Metoclopramide HCl (Reglan) 10 mg IV NOW ONE Stop: 02/03/19 12:25 Last Admin: 02/03/19 12:45 Dose: 10 mg Pantoprazole Sodium (Protonix) 40 mg IV NOW ONE Stop: 02/03/19 13:16 Last Admin: 02/03/19 13:38 Dose: 40 mg Consultations Time: 13:23 Vital Signs - 8 hr 02/04/19 00:30 02/04/19 02:01 02/04/19 03:14 Temperature 101.2 F H 101.2 F H Pulse Rate Respiratory Rate Blood Pressure Pulse Oximetry 99 02/04/19 06:00 Temperature 98.8 F Pulse Rate 81 Respiratory Rate 18 Blood Pressure 105/53 L Pulse Oximetry 98 MDM - Abdominal Pain Lab Data Attestation: I reviewed the patient's lab results. Result diagrams: 02/04/19 06:13 02/04/19 06:13 Lab Results 02/03/19 02/03/19 02/03/19 Range/Units 12:10 12:10 12:10 WBC 8.1 (4.5-11.0) X10^3/uL RBC 2.73 L (4.0-5.2) X10^6/uL Hgb 8.2 L (12.0-16.0) g/dL Hct 24.9 L (36-46) % MCV 91.4 (80-100) fL MCH 30.2 (26-34) PG MCHC 33.1 (30-36) % RDW 13.9 (11.6-14.8) % Plt Count 199 (150-400) X10^3/uL Neut % (Auto) 92.7 H (50-75) % Lymph % (Auto) 6.6 L (25-40) % [place] % (Auto) 0.6 L (3-14) % Eos % (Auto) 0.0 L (2-4) % Baso % (Auto) 0.1 (0-2) % Neut # (Auto) 7500 H (8360-6472) /uL Lymph # (Auto) 500 L (0310-1495) /uL [place] # (Auto) 100 (0-900) /uL Eos # (Auto) 0 (0-450) /uL Baso # (Auto) 0 (0-100) /uL Sodium 137 (137-145) mmol/L Potassium 4.9 (3.4-5.1) mmol/L Chloride 102 (98-107) mmol/L Carbon Dioxide 21 L (22-32) mmol/L BUN 44 H (7-17) mg/dL Creatinine 2.50 H (0.52-1.04) mg/dL Estimated GFR 19.1 L (>60) mL/min BUN/Creatinine Ratio 17.6 (6-22) Glucose 249 H (80-110) mg/dL Hemoglobin A1c (4.0-6.0) % Lactate 3.9 H (0.7-2.1) mmol/L Calcium 9.4 (8.4-10.2) mg/dL Total Bilirubin 0.8 (0.2-1.3) mg/dL AST 31 (14-36) IU/L ALT 23 (9-52) IU/L Alkaline Phosphatase 144 H (38-126) U/L Total Protein 7.3 (6.3-8.2) g/dL Albumin 4.2 (3.5-5.0) g/dL Globulin 3.1 (1.7-4.1) g/dL Albumin/Globulin Ratio 1.4 (1.0-2.8) Lipase 30 (23-300) U/L Procalcitonin (<0.5) ng/mL Urine RBC (0-5/HPF) Urine WBC (0-5/HPF) Ur Squamous Epith Cells (0-5/HPF) Ur Transition Epith Cell (0-5/HPF) Ur Renal Epithelial Cell (0-1/HPF) Urine Bacteria (None) Ur Culture Indicated? A. baumannii (PCR) (Not Detect) Karishma albicans (PCR) (Not Detect) C. glabrata (PCR) (Not Detect) C. krusei (PCR) (Not Detect) C. parapsilosis (PCR) (Not Detect) C. tropicalis (PCR) (Not Detect) Enterobacteriac sp PCR (Not Detect) E. cloacae complex PCR (Not Detect) Enterococcus sp PCR (Not Detect) E. coli (PCR) (Not Detect) H. influenzae (PCR) (Not Detect) Klebsiella oxytoca PCR (Not Detect) Klebsiella pneumoniae (Not Detect) List. monocytogenes PCR (Not Detect) N. meningitidis (PCR) (Not Detect) Proteus species (PCR) (Not Detect) Serratia marcescens PCR (Not Detect) Staphylococcus sp PCR (Not Detect) Staph aureus (PCR) (Not Detect) mecA-Methicil Res Gene Streptococcus sp PCR (Not Detect) Group A Strep (PCR) (Not Detect) Strep agalactiae (PCR) (Not Detect) Strep pneumoniae (PCR) (Not Detect) P. aeruginosa (PCR) (Not Detect) Manda/B-Vanco Res Genes KPC-Carbap Res Gene PCR (Not Detect) 02/03/19 02/03/19 02/03/19 Range/Units 12:10 12:10 14:19 WBC (4.5-11.0) X10^3/uL RBC (4.0-5.2) X10^6/uL Hgb (12.0-16.0) g/dL Hct (36-46) % MCV (80-100) fL MCH (26-34) PG MCHC (30-36) % RDW (11.6-14.8) % Plt Count (150-400) X10^3/uL Neut % (Auto) (50-75) % Lymph % (Auto) (25-40) % [place] % (Auto) (3-14) % Eos % (Auto) (2-4) % Baso % (Auto) (0-2) % Neut # (Auto) (8562-5282) /uL Lymph # (Auto) (1648-8344) /uL [place] # (Auto) (0-900) /uL Eos # (Auto) (0-450) /uL Baso # (Auto) (0-100) /uL Sodium (137-145) mmol/L Potassium (3.4-5.1) mmol/L Chloride (98-107) mmol/L Carbon Dioxide (22-32) mmol/L BUN (7-17) mg/dL Creatinine (0.52-1.04) mg/dL Estimated GFR (>60) mL/min BUN/Creatinine Ratio (6-22) Glucose (80-110) mg/dL Hemoglobin A1c (4.0-6.0) % Lactate (0.7-2.1) mmol/L Calcium (8.4-10.2) mg/dL Total Bilirubin (0.2-1.3) mg/dL AST (14-36) IU/L ALT (9-52) IU/L Alkaline Phosphatase (38-126) U/L Total Protein (6.3-8.2) g/dL Albumin (3.5-5.0) g/dL Globulin (1.7-4.1) g/dL Albumin/Globulin Ratio (1.0-2.8) Lipase (23-300) U/L Procalcitonin 21.45 H (<0.5) ng/mL Urine RBC 5-10/hpf H (0-5/HPF) Urine WBC >100/hpf H (0-5/HPF) Ur Squamous Epith Cells 1-5 /hpf (0-5/HPF) Ur Transition Epith Cell 10-30/hpf H (0-5/HPF) Ur Renal Epithelial Cell 0-1/hpf (0-1/HPF) Urine Bacteria Many (>30) H (None) Ur Culture Indicated? Specimen cultured A. baumannii (PCR) Not detected (Not Detect) Karishma albicans (PCR) Not detected (Not Detect) C. glabrata (PCR) Not detected (Not Detect) C. krusei (PCR) Not detected (Not Detect) C. parapsilosis (PCR) Not detected (Not Detect) C. tropicalis (PCR) Not detected (Not Detect) Enterobacteriac sp PCR Detected H (Not Detect) E. cloacae complex PCR Not detected (Not Detect) Enterococcus sp PCR Not detected (Not Detect) E. coli (PCR) Detected H (Not Detect) H. influenzae (PCR) Not detected (Not Detect) Klebsiella oxytoca PCR Not detected (Not Detect) Klebsiella pneumoniae Not detected (Not Detect) List. monocytogenes PCR Not detected (Not Detect) N. meningitidis (PCR) Not detected (Not Detect) Proteus species (PCR) Not detected (Not Detect) Serratia marcescens PCR Not detected (Not Detect) Staphylococcus sp PCR Not detected (Not Detect) Staph aureus (PCR) Not detected (Not Detect) mecA-Methicil Res Gene Not Reportable Streptococcus sp PCR Not detected (Not Detect) Group A Strep (PCR) Not detected (Not Detect) Strep agalactiae (PCR) Not detected (Not Detect) Strep pneumoniae (PCR) Not detected (Not Detect) P. aeruginosa (PCR) Not detected (Not Detect) Manda/B-Vanco Res Genes Not Reportable KPC-Carbap Res Gene PCR Not detected (Not Detect) 02/03/19 02/04/19 02/04/19 Range/Units 14:35 06:13 06:13 WBC 12.9 H D (4.5-11.0) X10^3/uL RBC 2.56 L (4.0-5.2) X10^6/uL Hgb 7.6 L (12.0-16.0) g/dL Hct 23.1 L (36-46) % MCV 90.3 (80-100) fL MCH 29.7 (26-34) PG MCHC 32.9 (30-36) % RDW 13.9 (11.6-14.8) % Plt Count 139 L (150-400) X10^3/uL Neut % (Auto) 83.9 H (50-75) % Lymph % (Auto) 8.8 L (25-40) % [place] % (Auto) 7.1 (3-14) % Eos % (Auto) 0.0 L (2-4) % Baso % (Auto) 0.2 (0-2) % Neut # (Auto) 10268 H (3880-9549) /uL Lymph # (Auto) 1100 (5793-8183) /uL [place] # (Auto) 900 (0-900) /uL Eos # (Auto) 0 (0-450) /uL Baso # (Auto) 0 (0-100) /uL Sodium (137-145) mmol/L Potassium (3.4-5.1) mmol/L Chloride (98-107) mmol/L Carbon Dioxide (22-32) mmol/L BUN (7-17) mg/dL Creatinine (0.52-1.04) mg/dL Estimated GFR (>60) mL/min BUN/Creatinine Ratio (6-22) Glucose (80-110) mg/dL Hemoglobin A1c (4.0-6.0) % Lactate 1.7 (0.7-2.1) mmol/L Calcium (8.4-10.2) mg/dL Total Bilirubin (0.2-1.3) mg/dL AST (14-36) IU/L ALT (9-52) IU/L Alkaline Phosphatase (38-126) U/L Total Protein (6.3-8.2) g/dL Albumin (3.5-5.0) g/dL Globulin (1.7-4.1) g/dL Albumin/Globulin Ratio (1.0-2.8) Lipase (23-300) U/L Procalcitonin 51.91 H (<0.5) ng/mL Urine RBC (0-5/HPF) Urine WBC (0-5/HPF) Ur Squamous Epith Cells (0-5/HPF) Ur Transition Epith Cell (0-5/HPF) Ur Renal Epithelial Cell (0-1/HPF) Urine Bacteria (None) Ur Culture Indicated? A. baumannii (PCR) (Not Detect) Karishma albicans (PCR) (Not Detect) C. glabrata (PCR) (Not Detect) C. krusei (PCR) (Not Detect) C. parapsilosis (PCR) (Not Detect) C. tropicalis (PCR) (Not Detect) Enterobacteriac sp PCR (Not Detect) E. cloacae complex PCR (Not Detect) Enterococcus sp PCR (Not Detect) E. coli (PCR) (Not Detect) H. influenzae (PCR) (Not Detect) Klebsiella oxytoca PCR (Not Detect) Klebsiella pneumoniae (Not Detect) List. monocytogenes PCR (Not Detect) N. meningitidis (PCR) (Not Detect) Proteus species (PCR) (Not Detect) Serratia marcescens PCR (Not Detect) Staphylococcus sp PCR (Not Detect) Staph aureus (PCR) (Not Detect) mecA-Methicil Res Gene Streptococcus sp PCR (Not Detect) Group A Strep (PCR) (Not Detect) Strep agalactiae (PCR) (Not Detect) Strep pneumoniae (PCR) (Not Detect) P. aeruginosa (PCR) (Not Detect) Manda/B-Vanco Res Genes KPC-Carbap Res Gene PCR (Not Detect) 02/04/19 02/04/19 Range/Units 06:13 06:13 WBC (4.5-11.0) X10^3/uL RBC (4.0-5.2) X10^6/uL Hgb (12.0-16.0) g/dL Hct (36-46) % MCV (80-100) fL MCH (26-34) PG MCHC (30-36) % RDW (11.6-14.8) % Plt Count (150-400) X10^3/uL Neut % (Auto) (50-75) % Lymph % (Auto) (25-40) % [place] % (Auto) (3-14) % Eos % (Auto) (2-4) % Baso % (Auto) (0-2) % Neut # (Auto) (9427-3534) /uL Lymph # (Auto) (6022-5243) /uL [place] # (Auto) (0-900) /uL Eos # (Auto) (0-450) /uL Baso # (Auto) (0-100) /uL Sodium 131 L (137-145) mmol/L Potassium 4.5 (3.4-5.1) mmol/L Chloride 102 (98-107) mmol/L Carbon Dioxide 21 L (22-32) mmol/L BUN 49 H (7-17) mg/dL Creatinine 2.80 H (0.52-1.04) mg/dL Estimated GFR 16.8 L (>60) mL/min BUN/Creatinine Ratio 17.5 (6-22) Glucose 256 H (80-110) mg/dL Hemoglobin A1c 6.8 H (4.0-6.0) % Lactate (0.7-2.1) mmol/L Calcium 7.8 L (8.4-10.2) mg/dL Total Bilirubin (0.2-1.3) mg/dL AST (14-36) IU/L ALT (9-52) IU/L Alkaline Phosphatase (38-126) U/L Total Protein (6.3-8.2) g/dL Albumin (3.5-5.0) g/dL Globulin (1.7-4.1) g/dL Albumin/Globulin Ratio (1.0-2.8) Lipase (23-300) U/L Procalcitonin (<0.5) ng/mL Urine RBC (0-5/HPF) Urine WBC (0-5/HPF) Ur Squamous Epith Cells (0-5/HPF) Ur Transition Epith Cell (0-5/HPF) Ur Renal Epithelial Cell (0-1/HPF) Urine Bacteria (None) Ur Culture Indicated? A. baumannii (PCR) (Not Detect) Karishma albicans (PCR) (Not Detect) C. glabrata (PCR) (Not Detect) C. krusei (PCR) (Not Detect) C. parapsilosis (PCR) (Not Detect) C. tropicalis (PCR) (Not Detect) Enterobacteriac sp PCR (Not Detect) E. cloacae complex PCR (Not Detect) Enterococcus sp PCR (Not Detect) E. coli (PCR) (Not Detect) H. influenzae (PCR) (Not Detect) Klebsiella oxytoca PCR (Not Detect) Klebsiella pneumoniae (Not Detect) List. monocytogenes PCR (Not Detect) N. meningitidis (PCR) (Not Detect) Proteus species (PCR) (Not Detect) Serratia marcescens PCR (Not Detect) Staphylococcus sp PCR (Not Detect) Staph aureus (PCR) (Not Detect) mecA-Methicil Res Gene Streptococcus sp PCR (Not Detect) Group A Strep (PCR) (Not Detect) Strep agalactiae (PCR) (Not Detect) Strep pneumoniae (PCR) (Not Detect) P. aeruginosa (PCR) (Not Detect) Manda/B-Vanco Res Genes KPC-Carbap Res Gene PCR (Not Detect) Point of care testing: Point of Care Testing Glucose POC 256 Urine Dip Bedside Urine Glucose Negative Bedside Urine Bilirubin - Negative Bedside Urine Ketone - Negative Urine Specific [place] 1.015 Bedside Urine Occult Blood ++ Bedside Urine pH 6.0 Bedside Urine Protein ++ 100 Bedside Urine Urobilinogen - Negative Bedside Urine Nitrite - Negative Bedside Urine Leukocytes +++ [address] scan - abdomen: Radiologist's impression: PROCEDURE: CT ABDOMEN PELVIS WO CON INDICATIONS: vomiting,nausea TECHNIQUE: Noncontrast 5 mm thick sections acquired from the diaphragms to the symphysis. 5 mm coronal and sagittal reformats were then performed. For radiation dose reduction, the following was used: automated exposure control, adjustment of mA and/or kV according to patient size. COMPARISON: None. FINDINGS: Image quality: Excellent. ABDOMEN: Lung bases: Bibasilar scarring/atelectasis are seen. Heart size is normal. Solid organs: Liver is normal in size. Gallbladder is surgically absent. Pancreas is normal in contours. Spleen is normal in size. No adrenal nodules. Kidneys are normal in size. Mild bilateral perinephric fat stranding is seen no prominent on the left side. Mild prominence of bilateral renal pelvis and bilateral ureters are noted also more prominent on the left side extending to the level of bilateral UVJs. No definite obstructing renal stone or ureteral stone is identified. Although numerous vascular calcifications are seen scattered in the region of mid to distal bilateral ureters. Peritoneum and bowel: Unenhanced bowel loops demonstrate normal wall thickness and caliber. No free fluid or air. Fecal stasis in the colon is seen. Mild sigmoid diverticulosis is noted, and no CT evidence of acute diverticulitis. No evidence of acute appendicitis. Nodes and vessels: No retroperitoneal or mesenteric adenopathy by size criteria. Aorta and inferior vena cava are normal in caliber. Miscellaneous: No ventral hernias. PELVIS: Genitourinary: Bladder wall thickness is normal. No calcified bladder stone is seen. Miscellaneous: No inguinal hernias or adenopathy. Bones: No suspicious bony lesions. No vertebral body compression fractures. Mild degenerative disc disease in lower lumbar spine is seen. IMPRESSION: #1. Left worse than right bilateral perinephric fat stranding and mild prominence of bilateral renal pelvis and bilateral ureters worse on the left side. No definite obstructing renal stone or ureteral stone is seen. No calcified bladder stone. No gross bladder wall abnormality. Finding could represent infectious process such as pyelonephritis, suggest clinical correlation. #2. No bowel obstruction. Mild constipation. No evidence of acute appendicitis or diverticulitis. No free fluid or free air. Dictated by: Donis Gilman M.D. on 02/03/2019 at 13:00 Discharge Plan Departure Patient Disposition: Admitted As Inpatient Clinical Impression: Acute pyelonephritis Discharge Date/Time: 02/03/19 16:01 Interventions: ED Discharge Assessment Last Done: 02/03/19 16:01 Admit Date/Time: 02/03/19 14:18 Admit Provider: Mikaela Dorman ED Cosign/Signout Cosign ED Attending Cosignature Attestation: This case was done by myself independently, Annette Resendiz not involved
[2019-02-03] MEDS: SODIUM CHLORIDE 0.9% 1,000 ML 150 ML IV (12:16)
--- NOTE | 2019-02-03 12:18 | ED_ITS ---
HPI - Abdominal Pain General Chief Complaint: Nausea/Vomiting/Diarrhea Stated Complaint: GLF X2 Time Seen by Provider: 02/03/19 11:34 Source: patient, EMS and old records reviewed Mode of arrival: EMS Limitations: no limitations History of Present Illness HPI narrative: The patient is a 68-year-old female presenting with vomiting weakness and falling. She has actually been admitted to the hospital last month for the same thing. She has a history of diabetes hypertension hyperlipidemia and peripheral neuropathy with essential tremor. She says this started yesterday she has been nauseous throughout at least 3 times throughout once this morning. No diarrhea some abdominal discomfort.. She denies any fever she is noted to have a resting tremor. She says that she fell twice but did not hit her head she is complaining of right shoulder pain which was previously injured. She can't remember exactly how she fell she says her legs or just gave out under her absolutely denies any head injury there is no sign of trauma. Pelvis is stable. MD complaint: abdominal pain Related Data Home Medications Medication Instructions Recorded Confirmed gabapentin [Neurontin] 600 mg PO BID #0 06/05/16 02/03/19 aspirin 81 mg PO DAILY 01/04/18 02/03/19 atorvastatin 20 mg PO QAM 01/04/18 02/03/19 primidone 250 mg PO BEDTIME 01/04/18 12/18/18 sodium bicarbonate 2 tab PO BID 01/04/18 12/18/18 hydrochlorothiazide 25 mg PO DAILY 09/27/18 12/18/18 insulin NPH isoph U-100 human 15 unit SUBCUT BEDTIME 09/27/18 12/18/18 insulin regular human 3 - 6 unit SUBCUT TID 09/27/18 12/18/18 cholecalciferol (vitamin D3) 4,000 unit PO DAILY 10/08/18 02/03/19 [Vitamin D3] insulin NPH isoph U-100 human 12 unit SUBCUT QAM 10/08/18 12/18/18 Previous Rx's Medication Instructions Recorded hydroxyzine pamoate [Vistaril] 25 mg PO TID-QID PRN #60 cap 10/12/18 ondansetron 4 mg disintegrating 4 mg PO Q6-8H PRN #30 tab 12/13/18 tablet ondansetron 4 mg PO Q6H PRN #10 tab 12/15/18 metoclopramide HCl [Reglan] 5 mg PO BID-TID PRN #30 tab 12/21/18 metoprolol tartrate 25 mg PO BID #60 tab 12/21/18 Allergies Allergy/AdvReac Type Severity Reaction Status Date / Time ceftriaxone Allergy Severe Anaphylaxis Verified 12/17/18 18:46 Review of Systems Review of Systems ROS Unobtainable: All systems reviewed & are unremarkable except as noted in HPI and below Constitutional Denies chills, Denies fever(s), Denies lethargy and Denies weakness Cardiovascular Denies chest pain, Denies irregular heart rhythm, Denies lightheadedness, Denies palpitations, Denies dyspnea, Denies dyspnea on exertion and Denies orthopnea Respiratory Denies cough, Denies dyspnea, Denies dyspnea on exertion and Denies wheezing Gastrointestinal Gastrointestinal: Reports as per HPI Genitourinary Denies hematuria, Denies flank pain, Denies urinary incontinence and Denies urinary urgency Musculoskeletal Denies back pain, Denies muscle weakness, Denies numbness and Denies tingling Integumentary/Breasts Denies pruritus, Denies erythema, Denies rash and Denies wounds Neurologic Denies numbness, Denies tingling and Denies weakness Endocrine Denies palpitations Allergic/Immunologic Denies wheezing [facility] Medical History Balance problem (Acute) CKD stage 4 due to type 2 diabetes mellitus (Acute) Neuropathy (Acute) Diabetes mellitus with neuropathy (Chronic) Essential tremor (Chronic) High cholesterol (Chronic) Hypertension (Chronic) Closed head injury (Resolved) Surgical History History of shoulder surgery (Acute) Hx of cataract surgery (Resolved) S/P cholecystectomy (Resolved) Family History Father Diabetes mellitus COPD (chronic obstructive pulmonary disease) Leukemia Mother Alzheimer disease Brother Diabetes mellitus Sister Hyperlipidemia Hypertension Social History household members: family Smoking Status: Never smoker alcohol intake: current Family History Father Diabetes mellitus COPD (chronic obstructive pulmonary disease) Leukemia Mother Alzheimer disease Brother Diabetes mellitus Sister Hyperlipidemia Hypertension Social History household members: family Smoking Status: Never smoker alcohol intake: current Exam Initial Vital Signs Initial Vital Signs: Vital Signs Temperature 98.1 F 02/03/19 11:28 Pulse Rate 106 H 02/03/19 11:28 Respiratory Rate 22 02/03/19 11:28 Blood Pressure 172/64 H 02/03/19 11:28 Pulse Oximetry 98 02/03/19 11:28 GENERAL: Alert overweight female obvious essential tremor actively vomiting HEENT: Head atraumatic,EOMI, pupils reactive, face symmetric, dry mucous membranes CARDIOVASCULAR: Regular rate and rhythm without murmurs, rubs or gallops. RESPIRATORY: Breath sounds equal bilaterally, no wheezes rales or rhonchi. ABDOMEN: Soft, mild diffuse tenderness some an upper quadrants and some in lower quadrants no localization no guarding rebound RECTAL: Guaiac-negative no gross blood EXTREMITIES: Normal range of motion, no clubbing or edema. Neurovascularly intact NEUROLOGICAL: Alert and oriented x4.Normal gait and speech. Cranial nerves II through XII grossly intact. Gross tremor SKIN: Warm, dry, no laceration, no petechiae, no rashes or lesions. Course Orders Ordered: ED Orders 02/04/19 06:13 Basic Metabolic Panel Routine Complete Blood Count AUTO DIFF Routine Hemoglobin A1C% w Est Avg Glu Routine Procalcitonin Routine Acetaminophen (Tylenol) 650 mg PO Q6HR PRN PRN Reason: As Needed for Fever/Mild Pain Last Admin: 02/04/19 03:14 Dose: 650 mg Aspirin (Aspirin Ec) 81 mg PO DAILY [facility] Atorvastatin Calcium (Lipitor) 20 mg PO DAILY [facility] Gabapentin (Neurontin) 600 mg PO BID [facility] Last Admin: 02/03/19 22:06 Dose: 600 mg Heparin Sodium (Porcine) (Heparin) 5,000 unit SUBCUT BID [facility] Last Admin: 02/03/19 22:06 Dose: 5,000 unit Hydroxyzine Pamoate (Vistaril) 25 mg PO QID PRN PRN Reason: Spasms Sodium Chloride (Normal Saline 0.9%) 1,000 mls @ 150 mls/hr IV CONT [facility] Last Infusion: 02/03/19 15:48 Dose: 0 mls/hr Infusion: 02/03/19 14:40 Dose: 150 mls/hr Infusion: 02/03/19 13:38 Dose: 0 mls/hr Admin: 02/03/19 12:16 Dose: 150 mls/hr Dextrose/Sodium Chloride (Dextrose 5%-0.45% Ns) 1,000 mls @ 80 mls/hr IV CONT [facility] Last Admin: 02/03/19 18:27 Dose: 80 mls/hr Levofloxacin (Levaquin) 750 mg in 150 mls @ 100 mls/hr IV Q24H [facility] Last Admin: 02/03/19 18:27 Dose: 100 mls/hr Insulin Human NPH (Humulin N) 15 unit SUBCUT BEDTIME [facility] Last Admin: 02/03/19 22:04 Dose: 15 unit Insulin Human NPH (Humulin N) 12 unit SUBCUT DAILY [facility] Insulin Human Regular (Humulin R) 3 unit SUBCUT TID [facility] Last Admin: 02/03/19 22:01 Dose: 3 unit Lactobacillus Acidophilus (Bacid Caplet) 1 each PO DAILY [facility] Metoclopramide HCl (Reglan) 5 mg PO TID PRN PRN Reason: Nausea And Vomiting Metoprolol Tartrate (Lopressor) 25 mg PO BID [facility] Last Admin: 02/03/19 22:07 Dose: 25 mg Ondansetron HCl (Zofran Odt) 4 mg PO Q6H PRN PRN Reason: nausea and vomiting Ondansetron HCl (Zofran) 4 mg IV Q8H PRN PRN Reason: Nausea And Vomiting Oxycodone HCl (Percolone) 5 mg PO Q6H PRN PRN Reason: Pain, Moderate (4-6) Primidone (Mysoline) 250 mg PO BEDTIME [facility] Last Admin: 02/03/19 22:05 Dose: 250 mg Sodium Bicarbonate (Sodium Bicarbonate) 1,300 mg PO BID [facility] Last Admin: 02/03/19 22:05 Dose: 1,300 mg Vitamin D (Vitamin D3) 4,000 unit PO DAILY [facility] Discontinued Medications Sodium Chloride (Normal Saline 0.9%) 1,000 mls @ 1,000 mls/hr IV BOLUS ONE Stop: 02/03/19 14:27 Last Infusion: 02/03/19 14:39 Dose: 0 mls/hr Admin: 02/03/19 13:38 Dose: 1,000 mls/hr Levofloxacin (Levaquin) 750 mg in 150 mls @ 100 mls/hr IV NOW ONE Stop: 02/03/19 15:46 Last Infusion: 02/03/19 15:55 Dose: 0 mls/hr Admin: 02/03/19 14:27 Dose: 100 mls/hr Sodium Chloride (Normal Saline 0.9%) 3,265.86 mls @ 1,088.62 mls/hr 30 ml/kg infuse over 3 hr (3265.86 ml) IV NOW ONE Stop: 02/03/19 17:41 Last Infusion: 02/03/19 16:00 Dose: 0 mls/hr Admin: 02/03/19 14:56 Dose: 1,088.62 mls/hr Metoclopramide HCl (Reglan) 10 mg IV NOW ONE Stop: 02/03/19 12:25 Last Admin: 02/03/19 12:45 Dose: 10 mg Pantoprazole Sodium (Protonix) 40 mg IV NOW ONE Stop: 02/03/19 13:16 Last Admin: 02/03/19 13:38 Dose: 40 mg Consultations Time: 13:23 Vital Signs - 8 hr 02/04/19 00:30 02/04/19 02:01 02/04/19 03:14 Temperature 101.2 F H 101.2 F H Pulse Rate Respiratory Rate Blood Pressure Pulse Oximetry 99 02/04/19 06:00 Temperature 98.8 F Pulse Rate 81 Respiratory Rate 18 Blood Pressure 105/53 L Pulse Oximetry 98 MDM - Abdominal Pain Lab Data Attestation: I reviewed the patient's lab results. Result diagrams: 02/04/19 06:13 02/04/19 06:13 Lab Results 02/03/19 02/03/19 02/03/19 Range/Units 12:10 12:10 12:10 WBC 8.1 (4.5-11.0) X10^3/uL RBC 2.73 L (4.0-5.2) X10^6/uL Hgb 8.2 L (12.0-16.0) g/dL Hct 24.9 L (36-46) % MCV 91.4 (80-100) fL MCH 30.2 (26-34) PG MCHC 33.1 (30-36) % RDW 13.9 (11.6-14.8) % Plt Count 199 (150-400) X10^3/uL Neut % (Auto) 92.7 H (50-75) % Lymph % (Auto) 6.6 L (25-40) % [place] % (Auto) 0.6 L (3-14) % Eos % (Auto) 0.0 L (2-4) % Baso % (Auto) 0.1 (0-2) % Neut # (Auto) 7500 H (1499-6444) /uL Lymph # (Auto) 500 L (1822-2050) /uL [place] # (Auto) 100 (0-900) /uL Eos # (Auto) 0 (0-450) /uL Baso # (Auto) 0 (0-100) /uL Sodium 137 (137-145) mmol/L Potassium 4.9 (3.4-5.1) mmol/L Chloride 102 (98-107) mmol/L Carbon Dioxide 21 L (22-32) mmol/L BUN 44 H (7-17) mg/dL Creatinine 2.50 H (0.52-1.04) mg/dL Estimated GFR 19.1 L (>60) mL/min BUN/Creatinine Ratio 17.6 (6-22) Glucose 249 H (80-110) mg/dL Hemoglobin A1c (4.0-6.0) % Lactate 3.9 H (0.7-2.1) mmol/L Calcium 9.4 (8.4-10.2) mg/dL Total Bilirubin 0.8 (0.2-1.3) mg/dL AST 31 (14-36) IU/L ALT 23 (9-52) IU/L Alkaline Phosphatase 144 H (38-126) U/L Total Protein 7.3 (6.3-8.2) g/dL Albumin 4.2 (3.5-5.0) g/dL Globulin 3.1 (1.7-4.1) g/dL Albumin/Globulin Ratio 1.4 (1.0-2.8) Lipase 30 (23-300) U/L Procalcitonin (<0.5) ng/mL Urine RBC (0-5/HPF) Urine WBC (0-5/HPF) Ur Squamous Epith Cells (0-5/HPF) Ur Transition Epith Cell (0-5/HPF) Ur Renal Epithelial Cell (0-1/HPF) Urine Bacteria (None) Ur Culture Indicated? A. baumannii (PCR) (Not Detect) Karishma albicans (PCR) (Not Detect) C. glabrata (PCR) (Not Detect) C. krusei (PCR) (Not Detect) C. parapsilosis (PCR) (Not Detect) C. tropicalis (PCR) (Not Detect) Enterobacteriac sp PCR (Not Detect) E. cloacae complex PCR (Not Detect) Enterococcus sp PCR (Not Detect) E. coli (PCR) (Not Detect) H. influenzae (PCR) (Not Detect) Klebsiella oxytoca PCR (Not Detect) Klebsiella pneumoniae (Not Detect) List. monocytogenes PCR (Not Detect) N. meningitidis (PCR) (Not Detect) Proteus species (PCR) (Not Detect) Serratia marcescens PCR (Not Detect) Staphylococcus sp PCR (Not Detect) Staph aureus (PCR) (Not Detect) mecA-Methicil Res Gene Streptococcus sp PCR (Not Detect) Group A Strep (PCR) (Not Detect) Strep agalactiae (PCR) (Not Detect) Strep pneumoniae (PCR) (Not Detect) P. aeruginosa (PCR) (Not Detect) Manda/B-Vanco Res Genes KPC-Carbap Res Gene PCR (Not Detect) 02/03/19 02/03/19 02/03/19 Range/Units 12:10 12:10 14:19 WBC (4.5-11.0) X10^3/uL RBC (4.0-5.2) X10^6/uL Hgb (12.0-16.0) g/dL Hct (36-46) % MCV (80-100) fL MCH (26-34) PG MCHC (30-36) % RDW (11.6-14.8) % Plt Count (150-400) X10^3/uL Neut % (Auto) (50-75) % Lymph % (Auto) (25-40) % S[place]y % (Auto) (3-14) % Eos % (Auto) (2-4) % Baso % (Auto) (0-2) % Neut # (Auto) (8097-5694) /uL Lymph # (Auto) (6913-7855) /uL [place]y # (Auto) (0-900) /uL Eos # (Auto) (0-450) /uL Baso # (Auto) (0-100) /uL Sodium (137-145) mmol/L Potassium (3.4-5.1) mmol/L Chloride (98-107) mmol/L Carbon Dioxide (22-32) mmol/L BUN (7-17) mg/dL Creatinine (0.52-1.04) mg/dL Estimated GFR (>60) mL/min BUN/Creatinine Ratio (6-22) Glucose (80-110) mg/dL Hemoglobin A1c (4.0-6.0) % Lactate (0.7-2.1) mmol/L Calcium (8.4-10.2) mg/dL Total Bilirubin (0.2-1.3) mg/dL AST (14-36) IU/L ALT (9-52) IU/L Alkaline Phosphatase (38-126) U/L Total Protein (6.3-8.2) g/dL Albumin (3.5-5.0) g/dL Globulin (1.7-4.1) g/dL Albumin/Globulin Ratio (1.0-2.8) Lipase (23-300) U/L Procalcitonin 21.45 H (<0.5) ng/mL Urine RBC 5-10/hpf H (0-5/HPF) Urine WBC >100/hpf H (0-5/HPF) Ur Squamous Epith Cells 1-5 /hpf (0-5/HPF) Ur Transition Epith Cell 10-30/hpf H (0-5/HPF) Ur Renal Epithelial Cell 0-1/hpf (0-1/HPF) Urine Bacteria Many (>30) H (None) Ur Culture Indicated? Specimen cultured A. baumannii (PCR) Not detected (Not Detect) Karishma albicans (PCR) Not detected (Not Detect) C. glabrata (PCR) Not detected (Not Detect) C. krusei (PCR) Not detected (Not Detect) C. parapsilosis (PCR) Not detected (Not Detect) C. tropicalis (PCR) Not detected (Not Detect) Enterobacteriac sp PCR Detected H (Not Detect) E. cloacae complex PCR Not detected (Not Detect) Enterococcus sp PCR Not detected (Not Detect) E. coli (PCR) Detected H (Not Detect) H. influenzae (PCR) Not detected (Not Detect) Klebsiella oxytoca PCR Not detected (Not Detect) Klebsiella pneumoniae Not detected (Not Detect) List. monocytogenes PCR Not detected (Not Detect) N. meningitidis (PCR) Not detected (Not Detect) Proteus species (PCR) Not detected (Not Detect) Serratia marcescens PCR Not detected (Not Detect) Staphylococcus sp PCR Not detected (Not Detect) Staph aureus (PCR) Not detected (Not Detect) mecA-Methicil Res Gene Not Reportable Streptococcus sp PCR Not detected (Not Detect) Group A Strep (PCR) Not detected (Not Detect) Strep agalactiae (PCR) Not detected (Not Detect) Strep pneumoniae (PCR) Not detected (Not Detect) P. aeruginosa (PCR) Not detected (Not Detect) Manda/B-Vanco Res Genes Not Reportable KPC-Carbap Res Gene PCR Not detected (Not Detect) 02/03/19 02/04/19 02/04/19 Range/Units 14:35 06:13 06:13 WBC 12.9 H D (4.5-11.0) X10^3/uL RBC 2.56 L (4.0-5.2) X10^6/uL Hgb 7.6 L (12.0-16.0) g/dL Hct 23.1 L (36-46) % MCV 90.3 (80-100) fL MCH 29.7 (26-34) PG MCHC 32.9 (30-36) % RDW 13.9 (11.6-14.8) % Plt Count 139 L (150-400) X10^3/uL Neut % (Auto) 83.9 H (50-75) % Lymph % (Auto) 8.8 L (25-40) % S[place]y % (Auto) 7.1 (3-14) % Eos % (Auto) 0.0 L (2-4) % Baso % (Auto) 0.2 (0-2) % Neut # (Auto) 44396 H (8706-8528) /uL Lymph # (Auto) 1100 (6261-8483) /uL [place]y # (Auto) 900 (0-900) /uL Eos # (Auto) 0 (0-450) /uL Baso # (Auto) 0 (0-100) /uL Sodium (137-145) mmol/L Potassium (3.4-5.1) mmol/L Chloride (98-107) mmol/L Carbon Dioxide (22-32) mmol/L BUN (7-17) mg/dL Creatinine (0.52-1.04) mg/dL Estimated GFR (>60) mL/min BUN/Creatinine Ratio (6-22) Glucose (80-110) mg/dL Hemoglobin A1c (4.0-6.0) % Lactate 1.7 (0.7-2.1) mmol/L Calcium (8.4-10.2) mg/dL Total Bilirubin (0.2-1.3) mg/dL AST (14-36) IU/L ALT (9-52) IU/L Alkaline Phosphatase (38-126) U/L Total Protein (6.3-8.2) g/dL Albumin (3.5-5.0) g/dL Globulin (1.7-4.1) g/dL Albumin/Globulin Ratio (1.0-2.8) Lipase (23-300) U/L Procalcitonin 51.91 H (<0.5) ng/mL Urine RBC (0-5/HPF) Urine WBC (0-5/HPF) Ur Squamous Epith Cells (0-5/HPF) Ur Transition Epith Cell (0-5/HPF) Ur Renal Epithelial Cell (0-1/HPF) Urine Bacteria (None) Ur Culture Indicated? A. baumannii (PCR) (Not Detect) Karishma albicans (PCR) (Not Detect) C. glabrata (PCR) (Not Detect) C. krusei (PCR) (Not Detect) C. parapsilosis (PCR) (Not Detect) C. tropicalis (PCR) (Not Detect) Enterobacteriac sp PCR (Not Detect) E. cloacae complex PCR (Not Detect) Enterococcus sp PCR (Not Detect) E. coli (PCR) (Not Detect) H. influenzae (PCR) (Not Detect) Klebsiella oxytoca PCR (Not Detect) Klebsiella pneumoniae (Not Detect) List. monocytogenes PCR (Not Detect) N. meningitidis (PCR) (Not Detect) Proteus species (PCR) (Not Detect) Serratia marcescens PCR (Not Detect) Staphylococcus sp PCR (Not Detect) Staph aureus (PCR) (Not Detect) mecA-Methicil Res Gene Streptococcus sp PCR (Not Detect) Group A Strep (PCR) (Not Detect) Strep agalactiae (PCR) (Not Detect) Strep pneumoniae (PCR) (Not Detect) P. aeruginosa (PCR) (Not Detect) Manda/B-Vanco Res Genes KPC-Carbap Res Gene PCR (Not Detect) 02/04/19 02/04/19 Range/Units 06:13 06:13 WBC (4.5-11.0) X10^3/uL RBC (4.0-5.2) X10^6/uL Hgb (12.0-16.0) g/dL Hct (36-46) % MCV (80-100) fL MCH (26-34) PG MCHC (30-36) % RDW (11.6-14.8) % Plt Count (150-400) X10^3/uL Neut % (Auto) (50-75) % Lymph % (Auto) (25-40) % Sibley % (Auto) (3-14) % Eos % (Auto) (2-4) % Baso % (Auto) (0-2) % Neut # (Auto) (3704-0068) /uL Lymph # (Auto) (8694-8696) /uL Sibley # (Auto) (0-900) /uL Eos # (Auto) (0-450) /uL Baso # (Auto) (0-100) /uL Sodium 131 L (137-145) mmol/L Potassium 4.5 (3.4-5.1) mmol/L Chloride 102 (98-107) mmol/L Carbon Dioxide 21 L (22-32) mmol/L BUN 49 H (7-17) mg/dL Creatinine 2.80 H (0.52-1.04) mg/dL Estimated GFR 16.8 L (>60) mL/min BUN/Creatinine Ratio 17.5 (6-22) Glucose 256 H (80-110) mg/dL Hemoglobin A1c 6.8 H (4.0-6.0) % Lactate (0.7-2.1) mmol/L Calcium 7.8 L (8.4-10.2) mg/dL Total Bilirubin (0.2-1.3) mg/dL AST (14-36) IU/L ALT (9-52) IU/L Alkaline Phosphatase (38-126) U/L Total Protein (6.3-8.2) g/dL Albumin (3.5-5.0) g/dL Globulin (1.7-4.1) g/dL Albumin/Globulin Ratio (1.0-2.8) Lipase (23-300) U/L Procalcitonin (<0.5) ng/mL Urine RBC (0-5/HPF) Urine WBC (0-5/HPF) Ur Squamous Epith Cells (0-5/HPF) Ur Transition Epith Cell (0-5/HPF) Ur Renal Epithelial Cell (0-1/HPF) Urine Bacteria (None) Ur Culture Indicated? A. baumannii (PCR) (Not Detect) Karishma albicans (PCR) (Not Detect) C. glabrata (PCR) (Not Detect) C. krusei (PCR) (Not Detect) C. parapsilosis (PCR) (Not Detect) C. tropicalis (PCR) (Not Detect) Enterobacteriac sp PCR (Not Detect) E. cloacae complex PCR (Not Detect) Enterococcus sp PCR (Not Detect) E. coli (PCR) (Not Detect) H. influenzae (PCR) (Not Detect) Klebsiella oxytoca PCR (Not Detect) Klebsiella pneumoniae (Not Detect) List. monocytogenes PCR (Not Detect) N. meningitidis (PCR) (Not Detect) Proteus species (PCR) (Not Detect) Serratia marcescens PCR (Not Detect) Staphylococcus sp PCR (Not Detect) Staph aureus (PCR) (Not Detect) mecA-Methicil Res Gene Streptococcus sp PCR (Not Detect) Group A Strep (PCR) (Not Detect) Strep agalactiae (PCR) (Not Detect) Strep pneumoniae (PCR) (Not Detect) P. aeruginosa (PCR) (Not Detect) Manda/B-Vanco Res Genes KPC-Carbap Res Gene PCR (Not Detect) Point of care testing: Point of Care Testing Glucose POC 256 Urine Dip Bedside Urine Glucose Negative Bedside Urine Bilirubin - Negative Bedside Urine Ketone - Negative Urine Specific [place] 1.015 Bedside Urine Occult Blood ++ Bedside Urine pH 6.0 Bedside Urine Protein ++ 100 Bedside Urine Urobilinogen - Negative Bedside Urine Nitrite - Negative Bedside Urine Leukocytes +++ [address] scan - abdomen: Radiologist's impression: PROCEDURE: CT ABDOMEN PELVIS WO CON INDICATIONS: vomiting,nausea TECHNIQUE: Noncontrast 5 mm thick sections acquired from the diaphragms to the symphysis. 5 mm coronal and sagittal reformats were then performed. For radiation dose reduction, the following was used: automated exposure control, adjustment of mA and/or kV according to patient size. COMPARISON: None. FINDINGS: Image quality: Excellent. ABDOMEN: Lung bases: Bibasilar scarring/atelectasis are seen. Heart size is normal. Solid organs: Liver is normal in size. Gallbladder is surgically absent. Pancreas is normal in contours. Spleen is normal in size. No adrenal nodules. Kidneys are normal in size. Mild bilateral perinephric fat stranding is seen no prominent on the left side. Mild prominence of bilateral renal pelvis and bilateral ureters are noted also more prominent on the left side extending to the level of bilateral UVJs. No definite obstructing renal stone or ureteral stone is identified. Although numerous vascular calcifications are seen scattered in the region of mid to distal bilateral ureters. Peritoneum and bowel: Unenhanced bowel loops demonstrate normal wall thickness and caliber. No free fluid or air. Fecal stasis in the colon is seen. Mild sigmoid diverticulosis is noted, and no CT evidence of acute diverticulitis. No evidence of acute appendicitis. Nodes and vessels: No retroperitoneal or mesenteric adenopathy by size criteria. Aorta and inferior vena cava are normal in caliber. Miscellaneous: No ventral hernias. PELVIS: Genitourinary: Bladder wall thickness is normal. No calcified bladder stone is seen. Miscellaneous: No inguinal hernias or adenopathy. Bones: No suspicious bony lesions. No vertebral body compression fractures. Mild degenerative disc disease in lower lumbar spine is seen. IMPRESSION: #1. Left worse than right bilateral perinephric fat stranding and mild prominence of bilateral renal pelvis and bilateral ureters worse on the left side. No definite obstructing renal stone or ureteral stone is seen. No calcified bladder stone. No gross bladder wall abnormality. Finding could represent infectious process such as pyelonephritis, suggest clinical correlation. #2. No bowel obstruction. Mild constipation. No evidence of acute appendicitis or diverticulitis. No free fluid or free air. Dictated by: Donis Gilman M.D. on 02/03/2019 at 13:00 Discharge Plan Departure Patient Disposition: Admitted As Inpatient Clinical Impression: Acute pyelonephritis Discharge Date/Time: 02/03/19 16:01 Interventions: ED Discharge Assessment Last Done: 02/03/19 16:01 Admit Date/Time: 02/03/19 14:18 Admit Provider: Mikaeal Dorman ED Cosign/Signout Cosign ED Attending Cosignature Attestation: This case was done by myself independently, Annette Resendiz not involved
[2019-02-03 12:30] LABS: Add Manual Diff / Slide Review NO; Basophils Absolute Auto 0 /uL (0-100); Basophils Percent Auto 0.1 % (0-2); Eosinophils Absolute Auto 0 /uL (0-450); Hemoglobin 8.2 g/dL (12.0-16.0); Lymphocytes Absolute Auto 500 /uL (1100-4500); Lymphocytes Percent Auto 6.6 % (25-40); Mean Corpuscular HGB Conc 33.1 % (30-36); Mean Corpuscular Hemoglobin 30.2 PG (26-34); Mean Corpuscular Volume 91.4 fL (80-100); Monocytes Absolute Auto 100 /uL (0-900); Monocytes Percent Auto 0.6 % (3-14); Neutrophils Absolute Auto 7500 /uL (1500-7000); Neutrophils Percent Auto 92.7 % (50-75); Platelet Count 199 X10^3/uL (150-400); Red Blood Cell Count 2.73 X10^6/uL (4.0-5.2); Red Cell Distribution Width 13.9 % (11.6-14.8); White Blood Cell Count 8.1 X10^3/uL (4.5-11.0)
[2019-02-03 12:31] LABS: Hematocrit 24.9 % (36-46)
[2019-02-03 12:37] LABS: Alanine Aminotransferase 23 IU/L (9-52); Albumin 4.2 g/dL (3.5-5.0); Albumin Globulin Ratio 1.4 (1.0-2.8); Alkaline Phosphatase 144 U/L (38-126); Aspartate Aminotransferase 31 IU/L (14-36); BUN Creatinine Ratio 17.6 (6-22); Bilirubin Total 0.8 mg/dL (0.2-1.3); Blood Urea Nitrogen 44 mg/dL (7-17); Calcium 9.4 mg/dL (8.4-10.2); Carbon Dioxide 21 mmol/L (22-32); Chloride 102 mmol/L (98-107); Estimated Glomerular Filt Rate 19.1 mL/min (>60); Globulin 3.1 g/dL (1.7-4.1); Glucose 249 mg/dL (80-110); HEMOLYSIS < 15 (0-50); Lipase 30 U/L (23-300); Potassium 4.9 mmol/L (3.4-5.1); Sodium 137 mmol/L (137-145); Total Protein 7.3 g/dL (6.3-8.2)
[2019-02-03] MEDS: METOCLOPRAMIDE 10 MG/2 ML INJ IV (12:45)
[2019-02-03 12:58] LABS: Lactate (Lactic Acid) 3.9 mmol/L (0.7-2.1)
[2019-02-03] MEDS: SODIUM CHLORIDE 0.9% 1,000 ML 1000 ML IV (13:38)
[2019-02-03] MEDS: PANTOPRAZOLE 40 MG VIAL IV (13:38)
--- NOTE | 2019-02-03 13:42 | DI.CT.S_ITS ---
PROCEDURE: CT ABDOMEN PELVIS WO CON INDICATIONS: vomiting,nausea TECHNIQUE: Noncontrast 5 mm thick sections acquired from the diaphragms to the symphysis. 5 mm coronal and sagittal reformats were then performed. For radiation dose reduction, the following was used: automated exposure control, adjustment of mA and/or kV according to patient size. COMPARISON: None. FINDINGS: Image quality: Excellent. ABDOMEN: Lung bases: Bibasilar scarring/atelectasis are seen. Heart size is normal. Solid organs: Liver is normal in size. Gallbladder is surgically absent. Pancreas is normal in contours. Spleen is normal in size. No adrenal nodules. Kidneys are normal in size. Mild bilateral perinephric fat stranding is seen no prominent on the left side. Mild prominence of bilateral renal pelvis and bilateral ureters are noted also more prominent on the left side extending to the level of bilateral UVJs. No definite obstructing renal stone or ureteral stone is identified. Although numerous vascular calcifications are seen scattered in the region of mid to distal bilateral ureters. Peritoneum and bowel: Unenhanced bowel loops demonstrate normal wall thickness and caliber. No free fluid or air. Fecal stasis in the colon is seen. Mild sigmoid diverticulosis is noted, and no CT evidence of acute diverticulitis. No evidence of acute appendicitis. Nodes and vessels: No retroperitoneal or mesenteric adenopathy by size criteria. Aorta and inferior vena cava are normal in caliber. Miscellaneous: No ventral hernias. PELVIS: Genitourinary: Bladder wall thickness is normal. No calcified bladder stone is seen. Miscellaneous: No inguinal hernias or adenopathy. Bones: No suspicious bony lesions. No vertebral body compression fractures. Mild degenerative disc disease in lower lumbar spine is seen. IMPRESSION: #1. Left worse than right bilateral perinephric fat stranding and mild prominence of bilateral renal pelvis and bilateral ureters worse on the left side. No definite obstructing renal stone or ureteral stone is seen. No calcified bladder stone. No gross bladder wall abnormality. Finding could represent infectious process such as pyelonephritis, suggest clinical correlation. #2. No bowel obstruction. Mild constipation. No evidence of acute appendicitis or diverticulitis. No free fluid or free air. Dictated by: Donis Gilman M.D. on 02/03/2019 at 13:00 Approved by: Donis Gilman M.D. on 02/03/2019 at 13:05
[2019-02-03 13:49] LABS: Procalcitonin 21.45 ng/mL (<0.5)
[2019-02-03 14:19] LABS: Reflexed Lactate in 2 Hours Y
[2019-02-03] MEDS: levoFLOXacin 750 MG/150 ML PIGGYBACK 100 MG IV ×2 (14:27→18:27)
[2019-02-03 14:36] LABS: Bacteria Urine Many (>30); Culture Indicated Urine Specimen Cultured; RBC Urine 5-10/HPF (0-5/HPF); Renal Epithelial Cells Urine 0-1/HPF (0-1/HPF); Squamous Epithelial Cell Urine 1-5 /HPF (0-5/HPF); Transitional Epi Cells Urine 10-30/HPF (0-5/HPF); WBC Urine >100/HPF (0-5/HPF)
[2019-02-03 14:51] LABS: Lactate 2HR (Lactic Acid Rflx) 1.7 mmol/L (0.7-2.1)
[2019-02-03] MEDS: SODIUM CHLORIDE 0.9% 3,265.86 ML 1088.62 ML IV (14:56)
--- NOTE | 2019-02-03 16:06 | P.HP_ITS ---
History of Present Illness Date Patient Seen: 02/03/19 Time Patient Seen: 15:46 Chief complaint: GLF X2 Narrative: 68-year-old female with past medical history of diabetes with complications of peripheral neuropathy, gastroparesis, and CKD stage 4, hyperlipidemia, hypertension, essential tremors, chronic lower extremity edema presented to ED status post falls and with nausea/vomiting. Patient states that 1 day ago, around 7:00 p.m., she started shivering and her teeth were closed during. Patient put on the heat and wrapped herself up with blankets, but did not feel any relief. Around 10:00 p.m. patient became extremely weak and when she attempted to walk she fell down and vomited all over herself. Patient's nephew came and helped patient up to chair, where she spent most of her evening. Later on the nephew helped patient to bedroom where patient fell asleep. In the middle of the night patient's sister came to get her to take her to the bathroom. When patient got to the bathroom she again collapsed and vomited all over herself. She was helped up and brought back to bed during the night. Earlier this morning patient's sister was going to take patient to a [facility]. She was helping patient to get to the car, who again collapsed few feet shy of the car door. That is when patient's sister brought her to emergency department. Patient denies any fever, loss of consciousness, headache, blurry vision, dizziness. Patient denies any shortness of breath, chest pain, sore throat. Patient denies any abdominal pain. She did have 1 episode of diarrhea during the night when she collapsed and vomited. Patient does complain of lower back pain, which is chronic. She is also complaining of inguinal pain that is acute, 1 day duration. Patient does have trouble urinating chronically, and states that she needs to wipe herself prior to urinating to induce urination. Denies any dysuria, hematuria, mucus in the urine. Patient's lower extremities are chronically edematous, for which patient takes hydrochlorothiazide. In ED, patient's vitals revealed blood pressure 172/64, pulse 106, respirations 22, temperature 98.1? F. Lab work revealed WBCs 8.1, hemoglobin 8.2, hematocrit 24.9, platelets 199. 137, potassium 4.9, chloride 102, carbon dioxide 21, BUN 44, creatinine 2.5 (baseline BUN and creatinine is 42 and 1.9). Blood glucose 249. Lactate 3.9, procalcitonin 21.45. UA revealed over 100 WBCs, with many bacteria . CT abdomen pelvis without contrast was then performed which revealed: #1. Left worse than right bilateral perinephric fat stranding and mild prominence of bilateral renal pelvis and bilateral ureters worse on the left side. No definite obstructing renal stone or ureteral stone is seen. No calcified bladder stone. No gross bladder wall abnormality. Finding could represent infectious process such as pyelonephritis, suggest clinical correlation. #2. No bowel obstruction. Mild constipation. No evidence of acute appendicitis or diverticulitis. No free fluid or free air. Patient was given IV fluid resuscitation with 30 mL/kg, with subsequent repeat an lactic acid at 1.7. Heart rate normalized to 93 beats per minute and r espiratory rate came down to 15. Patient was given Levaquin IV I and admitted for further management of sepsis due to acute pyelonephritis. Patient History Medical History Balance problem (Acute) CKD stage 4 due to type 2 diabetes mellitus (Acute) Neuropathy (Acute) Diabetes mellitus with neuropathy (Chronic) Essential tremor (Chronic) High cholesterol (Chronic) Hypertension (Chronic) Closed head injury (Resolved) Surgical History History of shoulder surgery (Acute) Hx of cataract surgery (Resolved) S/P cholecystectomy (Resolved) Family History Father Diabetes mellitus COPD (chronic obstructive pulmonary disease) Leukemia Mother Alzheimer disease Brother Diabetes mellitus Sister Hyperlipidemia Hypertension Social History household members: family Smoking Status: Never smoker alcohol intake: current Family & Social History Family History Father Diabetes mellitus COPD (chronic obstructive pulmonary disease) Leukemia Mother Alzheimer disease Brother Diabetes mellitus Sister Hyperlipidemia Hypertension Social History: household members family Safety & Behavioral: Feels Safe in Current Yes Environment Been Physically Hurt or No Threatened By a Person Tobacco & Substance use: Smoking Status Never smoker alcohol intake current alcohol intake frequency holiday/special occasion Substance Use Type marijuana Meds Home Medications Medication Instructions Recorded Confirmed Type gabapentin [Neurontin] 600 mg PO BID #0 06/05/16 12/18/18 History aspirin 81 mg PO DAILY 01/04/18 12/18/18 History atorvastatin 20 mg PO QAM 01/04/18 12/18/18 History primidone 250 mg PO BEDTIME 01/04/18 12/18/18 History sodium bicarbonate 2 tab PO BID 01/04/18 12/18/18 History hydrochlorothiazide 25 mg PO DAILY 09/27/18 12/18/18 History insulin NPH isoph U-100 human 15 unit SUBCUT BEDTIME 09/27/18 12/18/18 History insulin regular human 3 - 6 unit SUBCUT TID 09/27/18 12/18/18 History cholecalciferol (vitamin D3) 4,000 unit PO DAILY 10/08/18 12/18/18 History [Vitamin D3] insulin NPH isoph U-100 human 12 unit SUBCUT QAM 10/08/18 12/18/18 History hydroxyzine pamoate [Vistaril] 25 mg PO TID-QID PRN #60 cap 10/12/18 12/18/18 Rx ondansetron 4 mg disintegrating 4 mg PO Q6-8H PRN #30 tab 12/13/18 12/18/18 Rx tablet ondansetron 4 mg PO Q6H PRN #10 tab 12/15/18 12/18/18 Rx metoclopramide HCl [Reglan] 5 mg PO BID-TID PRN #30 tab 12/21/18 Rx metoprolol tartrate 25 mg PO BID #60 tab 12/21/18 Rx Allergies Allergy/AdvReac Type Severity Reaction Status Date / Time ceftriaxone Allergy Severe Anaphylaxis Verified 12/17/18 18:46 Review of Systems Review of Systems All systems reviewed & are unremarkable except as noted in HPI and below Exam Vital Signs (past 8 hours): - 02/03/19 11:28 02/03/19 13:28 02/03/19 13:56 Temperature 98.1 F Pulse Rate 106 H 96 H Respiratory Rate 22 17 Blood Pressure 172/64 H Blood Pressure [Left Arm] 172/88 H 151/46 H Pulse Oximetry 98 95 02/03/19 14:45 02/03/19 15:43 Temperature 98.6 F 98.0 F Pulse Rate 94 H 93 H Respiratory Rate 17 15 Blood Pressure Blood Pressure [Left Arm] 130/54 L 118/53 L Pulse Oximetry 96 93 Oxygen Delivery Method Room Air Narrative Exam Narrative: General: No acute distress, A/O x3. Good historian, although speech is slightly slurred-patient seems to be sleepy HEENT: PERRLA and EOMI bilaterally. Atraumatic, normocephalic. Dry mucous membranes CV: Regular rate rhythm, no murmurs or gallops Respiratory: Clear to auscultation bilaterally, no crackles or wheezes GI: Positive bowel sounds in all 4 quadrants, nontender, nondistended. No organomegaly Back: Tenderness to deep palpation in the paraspinal lumbar region. No CVA tenderness Musculoskeletal: Normal range of motion in all 4 extremities Skin: Diaphoretic, clammy Extremities: 3+ pitting edema in lower extremities up to mid thighs bilaterally Neuro: No focal deficits Psych: Appropriate mood and behavior, although slightly somnolent. Able to make her own decisions. Objective Labs Result Diagrams: 02/03/19 12:10 02/03/19 12:10 Labs: Laboratory Results - last 24 hr 02/03/19 02/03/19 02/03/19 12:10 12:10 12:10 WBC 8.1 RBC 2.73 L Hgb 8.2 L Hct 24.9 L MCV 91.4 MCH 30.2 MCHC 33.1 RDW 13.9 Plt Count 199 Neut % (Auto) 92.7 H Lymph % (Auto) 6.6 L Glades % (Auto) 0.6 L Eos % (Auto) 0.0 L Baso % (Auto) 0.1 Neut # (Auto) 7500 H Lymph # (Auto) 500 L Glades # (Auto) 100 Eos # (Auto) 0 Baso # (Auto) 0 Sodium 137 Potassium 4.9 Chloride 102 Carbon Dioxide 21 L BUN 44 H Creatinine 2.50 H Estimated GFR 19.1 L BUN/Creatinine Ratio 17.6 Glucose 249 H Lactate 3.9 H Calcium 9.4 Total Bilirubin 0.8 AST 31 ALT 23 Alkaline Phosphatase 144 H Total Protein 7.3 Albumin 4.2 Globulin 3.1 Albumin/Globulin Ratio 1.4 Lipase 30 Procalcitonin Urine RBC Urine WBC Ur Squamous Epith Cells Ur Transition Epith Cell Ur Renal Epithelial Cell Urine Bacteria Ur Culture Indicated? 02/03/19 02/03/19 02/03/19 12:10 14:19 14:35 WBC RBC Hgb Hct MCV MCH MCHC RDW Plt Count Neut % (Auto) Lymph % (Auto) Glades % (Auto) Eos % (Auto) Baso % (Auto) Neut # (Auto) Lymph # (Auto) Glades # (Auto) Eos # (Auto) Baso # (Auto) Sodium Potassium Chloride Carbon Dioxide BUN Creatinine Estimated GFR BUN/Creatinine Ratio Glucose Lactate 1.7 Calcium Total Bilirubin AST ALT Alkaline Phosphatase Total Protein Albumin Globulin Albumin/Globulin Ratio Lipase Procalcitonin 21.45 H Urine RBC 5-10/hpf H Urine WBC >100/hpf H Ur Squamous Epith Cells 1-5 /hpf Ur Transition Epith Cell 10-30/hpf H Ur Renal Epithelial Cell 0-1/hpf Urine Bacteria Many (>30) H Ur Culture Indicated? Specimen cultured Assessment & Plan Assessment & Plan narrative: 68-year-old female with past medical history of diabetes with complications of peripheral neuropathy, gastroparesis, and CKD stage 4, hyperlipidemia, hypertension, essential tremors, chronic lower extremity edema presented to ED status post falls and with nausea/vomiting. She was found to be septic likely due to pyelonephritis and admitted for further managment. 1. Sepsis, acute, present on admission -likely due to acute pyelonephritis -patient is now hemodynamically stable -lactate 3.9->1.7 status post 30 mL/kg IV fluid resuscitation -procalcitonin 21.45 -UA positive for WBCs and bacteria -patient started on Levaquin IV in ED... Will continue Levaquin 750 mg IV Q 24 hours -continue light hydration 0.9 NS at 80 cc/hour -blood/urine cultures pending -monitor for hemodynamic stability on telemetry 2. Acute pyelonephritis, present on admission -patient is hemodynamically stable -CT abdomen and pelvis without contrast revealed Left worse than right bilateral perinephric fat stranding and mild prominence of bilateral renal pelvis and bilateral ureters worse on the left side. No definite obstructing renal stone or ureteral stone is seen. No calcified bladder stone. No gross bladder wall abnormality. Finding could represent infectious process such as pyelonephritis, suggest clinical correlation. -UA positive for WBCs and bacteria -patient is afebrile with no leukocytosis however elevated lactate on admission and procalcitonin -started on Levaquin IV... Will continue (patient is allergic to ceftriaxone) -pending blood and urine cultures 3. Acute kidney injury on chronic kidney disease stage 4, present on admission -likely due to dehydration in light of vomiting and diarrhea from acute infection -patient received IV fluid resuscitation with 30 mL/kg... Will continue her light hydration 0.9 NS at 80 cc/hour -monitor renal function 4. Acute on chronic Normocytic normochromic anemia, present on admission -unclear etiology of the acute component however chronic is likely due to CKD -patient's hemoglobin is lab I will between 9.4-10.3. This admission hemoglobin is 8.2 -guaiac negative in ED -continue to monitor H&H, transfuse as needed 5. Insulin-dependent diabetes mellitus with acute hyperglycemia, present on admission -with complications of CKD, peripheral neuropathy, and gastroparesis -blood glucose on admission 249 -resume patient's home insulin regimen of NPH 12 units q.a.m., NPH 15 units q.h.s., and regular insulin 3-6 units subcutaneous t.i.d. -monitor blood glucose with frequent Accu-Cheks, hypoglycemia protocol -will get hemoglobin A1c in the morning -continue metoclopramide 5 mg p.o. b.i.d.-t.i.d. as needed, Zofran 4 mg p.o. q.6 hours as needed, and gabapentin 600 mg p.o. b.i.d. 6. Hyperlipidemia, chronic, present on admission -resume atorvastatin 20 mg p.o. q.a.m. 7. Essential hypertension, chronic, present on admission -blood pressure initially elevated however now stable -resume metoprolol tartrate 25 mg p.o. b.i.d.. Will hold hydrochlorothiazide at this time because patient is being rehydrated -monitor blood pressure 8. Essential tremor, chronic, present on admission -resume primidone 250 mg p.o. bedtime 9. Chronic lower extremity edema, present on admission -physical exam revealed 3+ pitting edema lower extremities bilaterally up to mid thighs -patient does not have diagnosis of CHF -consider echocardiogram prior to discharge -hydrochlorothiazide is on hold due to rehydration/sepsis. Will need to be restarted in the near future (may need to even give Lasix IV) DVT prophylaxis with heparin subcu Patient is DNR/DNI Disposition: Patient is here being treated for sepsis due to acute pyeloneph ritis. Total admission time > 30 minutes. In ED, patient's vitals revealed blood pressure 172/64, pulse 106, respirations 22, temperature 98.1? F. Lab work revealed WBCs 8.1, hemoglobin 8.2, hematocrit 24.9, platelets 199. 137, potassium 4.9, chloride 102, carbon dioxide 21, BUN 44, creatinine 2.5 (baseline BUN and creatinine is 42 and 1.9). Blood glucose 249. Lactate 3.9, procalcitonin 21.45. UA revealed over 100 WBCs, with many bacteria . CT abdomen pelvis without contrast was then performed which revealed: #1. Left worse than right bilateral perinephric fat stranding and mild prominen ce of bilateral renal pelvis and bilateral ureters worse on the left side. No definite obstructing renal stone or ureteral stone is seen. No calcified bladder stone. No gross bladder wall abnormality. Finding could represent infectious process such as pyelonephritis, suggest clinical correlation. #2. No bowel obstruction. Mild constipation. No evidence of acute appendicitis or diverticulitis. No free fluid or free air. Patient was given IV fluid resuscitation with 30 mL/kg, with subsequent repeat an lactic acid at 1.7. Heart rate normalized to 93 beats per minute and respiratory rate came down to 15. Patient was given Levaquin IV I and admitted for further management of sepsis due to acute pyelonephritis.
[2019-02-03] MEDS: DEXTROSE 5%-0.45% NS 1,000 ML 80 ML IV (18:27)
--- NOTE | 2019-02-03 20:49 | PC.NURSE ---
Admission/Evening Shift Note- Patient arrived to room via stretcher from ER at 1620. Patient alert and oriented and able to make needs known to staff. Patient pleasent, calm, and cooperative with care. Admission questions completed, home medications reviewed, and physical assessment dobne. patient oriented to bed and bed controls, room, bathroom, lights, phone, menu, and call osborne/tv remote. Patient agrees to call for assistance. Safety measures in place. call osborne and phone within reach. Will continue to monitor.
[2019-02-03] MEDS: INSULIN REGULAR 100 UNIT/ML 3 ML VIAL SUBCUT (22:01)
[2019-02-03] MEDS: INSULIN NPH 100 UNIT/ML VIAL 15 UNIT SUBCUT (22:04)
[2019-02-03] MEDS: SODIUM BICARBONATE 650 MG TABLET 1300 MG PO (22:05)
[2019-02-03] MEDS: PRIMIDONE 50 MG TABLET 250 MG PO (22:05)
[2019-02-03] MEDS: HEPARIN 5,000 UNIT/ML VIAL 5000 UNIT SUBCUT (22:06)
[2019-02-03] MEDS: GABAPENTIN 300 MG CAPSULE 600 MG PO (22:06)
[2019-02-03] MEDS: METOPROLOL IR 25 MG TABLET PO (22:07)
[2019-02-04] VITALS (10 sets, daily range): BP systolic 105–140; BP diastolic 52–68; PULSE 76–84; RESP 16–18; TEMP 36.6–38.4; O2SAT 94–99
[2019-02-04 03:06] LABS: Acinetobacter baumannii Not Detected (Not Detect); Enterobacteriaceae species Detected (Not Detect); Enterococcus species Not Detected (Not Detect); KPC (carbapenem-resist gene) Not Detected (Not Detect); Listeria monocytogenes Not Detected (Not Detect); Staphylococcus species Not Detected (Not Detect); Streptococcus agalactiae (Gr B Not Detected (Not Detect); Streptococcus pneumonia Not Detected (Not Detect); Streptococcus pyogenes (Gr A) Not Detected (Not Detect); Streptococcus species Not Detected (Not Detect)
[2019-02-04 03:07] LABS: E. coli Detected (Not Detect); Enterobacter cloacae complex Not Detected (Not Detect); Haemophilus influenzae Not Detected (Not Detect); Neisseria meningitidis Not Detected (Not Detect); Proteus species Not Detected (Not Detect); Serratia marcescens Not Detected (Not Detect)
[2019-02-04 03:08] LABS: Candida albicans Not Detected (Not Detect); Candida glabrata Not Detected (Not Detect); Candida krusei Not Detected (Not Detect); Candida parapsilosis Not Detected (Not Detect); Candida tropicalis Not Detected (Not Detect); Pseudomonas aeruginosa Not Detected (Not Detect)
[2019-02-04] MEDS: ACETAMINOPHEN 325 MG TABLET 650 MG PO ×2 (03:14→09:38)
[2019-02-04 06:37] LABS: Add Manual Diff / Slide Review NO; Basophils Absolute Auto 0 /uL (0-100); Basophils Percent Auto 0.2 % (0-2); Eosinophils Absolute Auto 0 /uL (0-450); Hematocrit 23.1 % (36-46); Hemoglobin 7.6 g/dL (12.0-16.0); Lymphocytes Absolute Auto 1100 /uL (1100-4500); Lymphocytes Percent Auto 8.8 % (25-40); Mean Corpuscular HGB Conc 32.9 % (30-36); Mean Corpuscular Hemoglobin 29.7 PG (26-34); Mean Corpuscular Volume 90.3 fL (80-100); Monocytes Absolute Auto 900 /uL (0-900); Monocytes Percent Auto 7.1 % (3-14); Neutrophils Absolute Auto 10800 /uL (1500-7000); Neutrophils Percent Auto 83.9 % (50-75); Platelet Count 139 X10^3/uL (150-400); Red Blood Cell Count 2.56 X10^6/uL (4.0-5.2); Red Cell Distribution Width 13.9 % (11.6-14.8); White Blood Cell Count 12.9 X10^3/uL (4.5-11.0)
[2019-02-04 06:44] LABS: BUN Creatinine Ratio 17.5 (6-22); Blood Urea Nitrogen 49 mg/dL (7-17); Calcium 7.8 mg/dL (8.4-10.2); Carbon Dioxide 21 mmol/L (22-32); Chloride 102 mmol/L (98-107); Estimated Glomerular Filt Rate 16.8 mL/min (>60); Glucose 256 mg/dL (80-110); HEMOLYSIS < 15 (0-50); Potassium 4.5 mmol/L (3.4-5.1); Sodium 131 mmol/L (137-145)
[2019-02-04 06:48] LABS: Hemoglobin A1C% w Est Avg Glu 6.8 % (4.0-6.0)
[2019-02-04 07:02] LABS: Procalcitonin 51.91 ng/mL (<0.5)
[2019-02-04] MEDS: DEXTROSE 5%-0.45% NS 1,000 ML 80 ML IV (07:49)
[2019-02-04] MEDS: LACTOBACILLUS ACIDOPHILUS TABLET 1 EACH PO (09:30)
[2019-02-04] MEDS: ASPIRIN EC 81 MG TABLET PO (09:30)
[2019-02-04] MEDS: CHOLECALCIFEROL (VITAMIN D3) 1,000 UNIT TABLET 4000 UNIT PO (09:31)
[2019-02-04] MEDS: ATORVASTATIN 20 MG TABLET PO (09:31)
[2019-02-04] MEDS: HEPARIN 5,000 UNIT/ML VIAL 5000 UNIT SUBCUT ×2 (09:33→20:42)
[2019-02-04] MEDS: METOPROLOL IR 25 MG TABLET PO ×2 (09:33→20:43)
[2019-02-04] MEDS: INSULIN REGULAR 100 UNIT/ML 3 ML VIAL SUBCUT ×3 (09:34→20:44)
[2019-02-04] MEDS: INSULIN NPH 100 UNIT/ML VIAL 15 UNIT SUBCUT (09:34)
[2019-02-04] MEDS: SODIUM BICARBONATE 650 MG TABLET 1300 MG PO ×2 (09:35→20:44)
[2019-02-04] MEDS: INSULIN NPH 100 UNIT/ML VIAL 12 UNIT SUBCUT (09:48)
[2019-02-04] MEDS: ONDANSETRON 4 MG ODT PO (12:35)
--- NOTE | 2019-02-04 12:36 | CM.DANOTE ---
Patient is a 68 year old female who was admitted on 02/03/19 for GLF x2. Pt has M[employer] and REG PPO for insurance and her PCP is Dr. Vanessa Hirsch. EMR was reviewed. Per MD, pt may have sepsis, pyelonephitis, diabetes with fevers and currently DNR/DNI. Likely here a couple of days before stable for discharge. PT eval could be beneficial towards identifying d/c planning needs due to pt's multiple GLF's leading to admission. SW met bedside with pt and best friend and explained role and updated white board and pt confirms that she continues to live out at [facility] which her family owns and is nearby for assist when needed. Pt uses a cane at baseline for ambulation and is Independent with ADL's. Pt works but mostly relies on others for transport. Pt states her Dtr Radha is her DPOA and her local family is still very supportive and helpful. Pt was admitted in October and in December of this year and this is her 3rd admission in 2019. Pt was previously discharged home with [facility] referral but pt states that [facility] determined that she did not meet Homebound criteria as she began working outside of the home right after discharge. Pt states she started outpt PT and has found it helpful but she is worried about her d/c needs since she had multiple GLFs the day she admitted to the hospital. SW needs unclear at this time. Plan: SW to follow for likely PT eval towards determining d/c planning needs and confirm if pt will be safe for return home at d/c. Pt currently OBS Status which could be a barrier if SNF recommended. ALEJANDRO German Discharge Planning/Care Management CM Discharge Assessment Start: 02/04/19 12:31 Freq: Status: Active Protocol: Document 02/04/19 12:33 BF (Rec: 02/04/19 12:36 BF [id number]) Discharge Planning Assessment Assigned Wheel Cleaner ALEJANDRO Copeland DPOA/Assigned Designee Name Dtr Radha Deterding Advance Directives? No: Declines further information History Provided By Patient Family Member Medical Record Has Patient been admitted in last 30 No days? Comment Pt has been admitted to [facility] in October and December of this year 2019 already and this is her 3rd admit this year. Prior Living Arrangements Apartment/Condo Household Members family Type of transporation used prior to Relies on Others admit Independent with ADL's Yes Is patient alert and oriented? Yes Needs Assistance With Home Chores / Shopping Caregiver for Another No Comment To be determined pending progress and PT eval Comment Currently OBS Status Discharge Plan Home Transportation Arrangement Family to provide transport if pt safe for home Additional Comment Patient may benefit from therapy evalauton prior to d/c to assist in determing d/c planning needs. Whiteboard Updated in Patient Room with Yes name and ext. # of Wheel Cleaner Review Status In Process Please Provide Date Initial DC 02/04/19 Assessment Was Performed Next Review Type Continued Stay Review
--- NOTE | 2019-02-04 13:48 | P.PN_ITS ---
Subjective Date Patient Seen: 02/04/19 Interval history: Chart reviewed patient seen and examined. Patient reports she still has a poor appetite. She was unable to eat any food today. She has had no more vomiting. She still feels poorly. The patient was admitted to the hospital yesterday with shaking rigors. She was found to have sepsis, secondary to acute pyelonephritis. She is currently on IV levofloxacin. Despite making some improvement she continues to be not at her baseline. Exam Vital Signs (past 8 hours): - 02/04/19 06:00 02/04/19 08:00 02/04/19 11:10 Temperature 98.8 F 97.9 F Pulse Rate 81 76 Respiratory Rate 18 16 Blood Pressure 105/53 L 124/52 L Pulse Oximetry 98 95 96 Oxygen Delivery Method Room Air Oxygen Flow Rate 0 Narrative Exam Narrative: Pleasant obese female ill-appearing Lungs: Clear to auscultation Cardiac exam: Regular rate rhythm normal S1-S2 Abdomen: Soft nontender nondistended Lower extremity: 2+ pitting edema bilaterally Objective Labs Result Diagrams: 02/04/19 06:13 02/04/19 06:13 Labs: Laboratory Results - last 24 hr 02/03/19 02/03/19 02/03/19 12:10 12:10 14:19 WBC RBC Hgb Hct MCV MCH MCHC RDW Plt Count Neut % (Auto) Lymph % (Auto) [place] % (Auto) Eos % (Auto) Baso % (Auto) Neut # (Auto) Lymph # (Auto) [place] # (Auto) Eos # (Auto) Baso # (Auto) Sodium Potassium Chloride Carbon Dioxide BUN Creatinine Estimated GFR BUN/Creatinine Ratio Glucose Hemoglobin A1c Lactate Calcium Procalcitonin 21.45 H Urine RBC 5-10/hpf H Urine WBC >100/hpf H Ur Squamous Epith Cells 1-5 /hpf Ur Transition Epith Cell 10-30/hpf H Ur Renal Epithelial Cell 0-1/hpf Urine Bacteria Many (>30) H Ur Culture Indicated? Specimen cultured A. baumannii (PCR) Not detected Karishma albicans (PCR) Not detected C. glabrata (PCR) Not detected C. krusei (PCR) Not detected C. parapsilosis (PCR) Not detected C. tropicalis (PCR) Not detected Enterobacteriac sp PCR Detected H E. cloacae complex PCR Not detected Enterococcus sp PCR Not detected E. coli (PCR) Detected H H. influenzae (PCR) Not detected Klebsiella oxytoca PCR Not detected Klebsiella pneumoniae Not detected List. monocytogenes PCR Not detected N. meningitidis (PCR) Not detected Proteus species (PCR) Not detected Serratia marcescens PCR Not detected Staphylococcus sp PCR Not detected Staph aureus (PCR) Not detected mecA-Methicil Res Gene Not Reportable Streptococcus sp PCR Not detected Group A Strep (PCR) Not detected Strep agalactiae (PCR) Not detected Strep pneumoniae (PCR) Not detected P. aeruginosa (PCR) Not detected Manda/B-Vanco Res Genes Not Reportable KPC-Carbap Res Gene PCR Not detected 02/03/19 02/04/19 02/04/19 14:35 06:13 06:13 WBC 12.9 H D RBC 2.56 L Hgb 7.6 L Hct 23.1 L MCV 90.3 MCH 29.7 MCHC 32.9 RDW 13.9 Plt Count 139 L Neut % (Auto) 83.9 H Lymph % (Auto) 8.8 L [place] % (Auto) 7.1 Eos % (Auto) 0.0 L Baso % (Auto) 0.2 Neut # (Auto) 29681 H Lymph # (Auto) 1100 [place] # (Auto) 900 Eos # (Auto) 0 Baso # (Auto) 0 Sodium Potassium Chloride Carbon Dioxide BUN Creatinine Estimated GFR BUN/Creatinine Ratio Glucose Hemoglobin A1c Lactate 1.7 Calcium Procalcitonin 51.91 H Urine RBC Urine WBC Ur Squamous Epith Cells Ur Transition Epith Cell Ur Renal Epithelial Cell Urine Bacteria Ur Culture Indicated? A. baumannii (PCR) Karishma albicans (PCR) C. glabrata (PCR) C. krusei (PCR) C. parapsilosis (PCR) C. tropicalis (PCR) Enterobacteriac sp PCR E. cloacae complex PCR Enterococcus sp PCR E. coli (PCR) H. influenzae (PCR) Klebsiella oxytoca PCR Klebsiella pneumoniae List. monocytogenes PCR N. meningitidis (PCR) Proteus species (PCR) Serratia marcescens PCR Staphylococcus sp PCR Staph aureus (PCR) mecA-Methicil Res Gene Streptococcus sp PCR Group A Strep (PCR) Strep agalactiae (PCR) Strep pneumoniae (PCR) P. aeruginosa (PCR) Manda/B-Vanco Res Genes KPC-Carbap Res Gene PCR 02/04/19 02/04/19 06:13 06:13 WBC RBC Hgb Hct MCV MCH MCHC RDW Plt Count Neut % (Auto) Lymph % (Auto) [place] % (Auto) Eos % (Auto) Baso % (Auto) Neut # (Auto) Lymph # (Auto) [place] # (Auto) Eos # (Auto) Baso # (Auto) Sodium 131 L Potassium 4.5 Chloride 102 Carbon Dioxide 21 L BUN 49 H Creatinine 2.80 H Estimated GFR 16.8 L BUN/Creatinine Ratio 17.5 Glucose 256 H Hemoglobin A1c 6.8 H Lactate Calcium 7.8 L Procalcitonin Urine RBC Urine WBC Ur Squamous Epith Cells Ur Transition Epith Cell Ur Renal Epithelial Cell Urine Bacteria Ur Culture Indicated? A. baumannii (PCR) Karishma albicans (PCR) C. glabrata (PCR) C. krusei (PCR) C. parapsilosis (PCR) C. tropicalis (PCR) Enterobacteriac sp PCR E. cloacae complex PCR Enterococcus sp PCR E. coli (PCR) H. influenzae (PCR) Klebsiella oxytoca PCR Klebsiella pneumoniae List. monocytogenes PCR N. meningitidis (PCR) Proteus species (PCR) Serratia marcescens PCR Staphylococcus sp PCR Staph aureus (PCR) mecA-Methicil Res Gene Streptococcus sp PCR Group A Strep (PCR) Strep agalactiae (PCR) Strep pneumoniae (PCR) P. aeruginosa (PCR) Manda/B-Vanco Res Genes KPC-Carbap Res Gene PCR Assessment & Plan Assessment & Plan narrative: Sepsis, acute, present on admission -likely due to acute pyelonephritis -patient is now hemodynamically stable -lactate 3.9->1.7 status post 30 mL/kg IV fluid resuscitation -procalcitonin 21.45 -UA positive for WBCs and bacteria -patient started on Levaquin IV in ED... Will continue Levaquin 750 mg IV Q 24 hours -continue light hydration 0.9 NS at 80 cc/hour -blood/urine cultures pending -monitor for hemodynamic stability on telemetry 2. Acute pyelonephritis, present on admission -patient is hemodynamically stable -CT abdomen and pelvis without contrast revealed Left worse than right bilateral perinephric fat stranding and mild prominence of bilateral renal pelvis and bilateral ureters worse on the left side. No definite obstructing renal stone or ureteral stone is seen. No calcified bladder stone. No gross bladder wall abnormality. Finding could represent infectious process such as pyelonephritis, suggest clinical correlation. -UA positive for WBCs and bacteria -patient is afebrile with no leukocytosis however elevated lactate on admission and procalcitonin -started on Levaquin IV... Will continue (patient is allergic to ceftriaxone) -pending blood and urine cultures 3. Acute kidney injury on chronic kidney disease stage 4, present on admission -likely due to dehydration in light of vomiting and diarrhea from acute infection -patient received IV fluid resuscitation with 30 mL/kg... Will continue her light hydration 0.9 NS at 80 cc/hour -monitor renal function 4. Acute on chronic Normocytic normochromic anemia, present on admission -unclear etiology of the acute component however chronic is likely due to CKD -patient's hemoglobin is lab I will between 9.4-10.3. This admission hemoglobin is 8.2 -guaiac negative in ED -continue to monitor H&H, transfuse as needed no transfusion at this time, will decrease IV fluids and follow accordingly 5. Insulin-dependent diabetes mellitus with acute hyperglycemia, present on admission -with complications of CKD, peripheral neuropathy, and gastroparesis -blood glucose on admission 249 -resume patient's home insulin regimen of NPH 12 units q.a.m., NPH 15 units q.h.s., and regular insulin 3-6 units subcutaneous t.i.d. -monitor blood glucose with frequent Accu-Cheks, hypoglycemia protocol -will get hemoglobin A1c in the morning -continue metoclopramide 5 mg p.o. b.i.d.-t.i.d. as needed, Zofran 4 mg p.o. q.6 hours as needed, and gabapentin 600 mg p.o. b.i.d. 6. Hyperlipidemia, chronic, present on admission -resume atorvastatin 20 mg p.o. q.a.m. 7. Essential hypertension, chronic, present on admission -blood pressure initially elevated however now stable -resume metoprolol tartrate 25 mg p.o. b.i.d.. Will hold hydrochlorothiazide at this time because patient is being rehydrated -monitor blood pressure 8. Essential tremor, chronic, present on admission -resume primidone 250 mg p.o. bedtime 9. Chronic lower extremity edema, present on admission -physical exam revealed 3+ pitting edema lower extremities bilaterally up to mid thighs -patient does not have diagnosis of CHF -consider echocardiogram prior to discharge -hydrochlorothiazide is on hold due to rehydration/sepsis. Will need to be restarted in the near future (may need to even give Lasix IV) DVT prophylaxis with heparin subcu Patient is DNR/DNI Disposition: Patient is here being treated for sepsis due to acute pyelonephritis. Total admission time > 30 minutes. In ED, patient's vitals revealed blood pressure 172/64, pulse 106, respirations 22, temperature 98.1? F. Lab work revealed WBCs 8.1, hemoglobin 8.2, hematocrit 24.9, platelets 199. 137, potassium 4.9, chloride 102, carbon dioxide 21, BUN 44, creatinine 2.5 (baseline BUN and creatinine is 42 and 1.9). Blood glucose 249. Lactate 3.9, procalcitonin 21.45. UA revealed over 100 WBCs, with many bacteria . CT abdomen pelvis without contrast was then performed which revealed: #1. Left worse than right bilateral perinephric fat stranding and mild prominence of bilateral renal pelvis and bilateral ureters worse on the left side. No definite obstructing renal stone or ureteral stone is seen. No calcified bladder stone. No gross bladder wall abnormality. Finding could represent infectious process such as pyelonephritis, suggest clinical correlation. #2. No bowel obstruction. Mild constipation. No evidence of acute appendicitis or diverticulitis. No free fluid or free air. Patient was given IV fluid resuscitation with 30 mL/kg, with subsequent repeat an lactic acid at 1.7. Heart rate normalized to 93 beats per minute and respiratory rate came down to 15. Patient was given Levaquin IV I and admitted for further management of sepsis due to acute pyelonephritis. Quality VTE Deep Vein Thrombosis/Pulmonary Embolism Present on Admission: No
[2019-02-04] MEDS: SODIUM CHLORIDE 0.9% 1,000 ML 100 ML IV (14:09)
[2019-02-04] MEDS: levoFLOXacin 750 MG/150 ML PIGGYBACK 100 MG IV (18:40)
[2019-02-04] MEDS: GABAPENTIN 600 MG TABLET PO (20:42)
[2019-02-04] MEDS: PRIMIDONE 50 MG TABLET 250 MG PO (20:43)
[2019-02-05] VITALS (9 sets, daily range): BP systolic 108–158; BP diastolic 54–70; PULSE 76–88; RESP 16–18; TEMP 36.7–37.5; O2SAT 94–98
[2019-02-05] MEDS: ACETAMINOPHEN 325 MG TABLET 650 MG PO ×2 (02:04→13:05)
[2019-02-05] MEDS: SODIUM CHLORIDE 0.9% 1,000 ML 100 ML IV (03:57)
[2019-02-05 05:31] LABS: Add Manual Diff / Slide Review NO; Basophils Absolute Auto 0 /uL (0-100); Basophils Percent Auto 0.1 % (0-2); Eosinophils Absolute Auto 100 /uL (0-450); Eosinophils Percent Auto 1.2 % (2-4); Hemoglobin 7.8 g/dL (12.0-16.0); Lymphocytes Absolute Auto 800 /uL (1100-4500); Lymphocytes Percent Auto 8.7 % (25-40); Mean Corpuscular HGB Conc 33.9 % (30-36); Mean Corpuscular Hemoglobin 30.5 PG (26-34); Monocytes Absolute Auto 500 /uL (0-900); Monocytes Percent Auto 5.1 % (3-14); Neutrophils Absolute Auto 7500 /uL (1500-7000); Neutrophils Percent Auto 84.9 % (50-75); Platelet Count 123 X10^3/uL (150-400); Red Blood Cell Count 2.55 X10^6/uL (4.0-5.2); Red Cell Distribution Width 13.9 % (11.6-14.8); White Blood Cell Count 8.8 X10^3/uL (4.5-11.0)
[2019-02-05 05:39] LABS: Blood Urea Nitrogen 54 mg/dL (7-17); Calcium 8.2 mg/dL (8.4-10.2); Carbon Dioxide 21 mmol/L (22-32); Chloride 105 mmol/L (98-107); Estimated Glomerular Filt Rate 15.5 mL/min (>60); Glucose 121 mg/dL (80-110); HEMOLYSIS < 15 (0-50); Potassium 4.3 mmol/L (3.4-5.1); Sodium 134 mmol/L (137-145)
--- NOTE | 2019-02-05 07:05 | PC.NURSE ---
Patient had 10 ml void this shift, and large incontinence. Bladder scanned 675. Straight cath 1225ml.
[2019-02-05] MEDS: ONDANSETRON 4 MG/2 ML INJ IV ×2 (08:35→20:08)
[2019-02-05] MEDS: HEPARIN 5,000 UNIT/ML VIAL 5000 UNIT SUBCUT ×2 (10:32→20:38)
[2019-02-05] MEDS: INSULIN NPH 100 UNIT/ML VIAL 12 UNIT SUBCUT (10:33)
[2019-02-05] MEDS: CHOLECALCIFEROL (VITAMIN D3) 1,000 UNIT TABLET 4000 UNIT PO (10:34)
[2019-02-05] MEDS: ASPIRIN EC 81 MG TABLET PO (10:35)
[2019-02-05] MEDS: LACTOBACILLUS ACIDOPHILUS TABLET 1 EACH PO (10:35)
[2019-02-05] MEDS: SODIUM BICARBONATE 650 MG TABLET 1300 MG PO ×2 (10:35→20:38)
[2019-02-05] MEDS: GABAPENTIN 600 MG TABLET PO ×2 (10:36→20:38)
[2019-02-05] MEDS: METOPROLOL IR 25 MG TABLET PO ×2 (10:36→20:38)
--- NOTE | 2019-02-05 11:19 | PM.PN.1 ---
Subjective Date Patient Seen: 02/05/19 Interval history: Patient is a 68-year-old female who was admitted to the hospital for sepsis secondary to acute pyelonephritis from E coli urinary tract infection. She reports a headache today. She has a poor appetite. She overall feels poorly. She has had no vomiting but does report nausea. She continues to have lower extremity edema. Exam Vital Signs (past 8 hours): - 02/05/19 06:00 02/05/19 07:57 Temperature 98.4 F 98.9 F Pulse Rate 79 88 Respiratory Rate 18 18 Blood Pressure 108/54 L 114/56 L Pulse Oximetry 98 94 Oxygen Delivery Method Room Air Oxygen Flow Rate 0 Narrative Exam Narrative: Ill-appearing female lying in bed Lungs: Clear to auscultation Cardiac exam: Regular rate and rhythm normal S1-S2 Abdomen: Obese soft and nontender, no palpable mass Extremities: 3+ pitting edema bilateral Objective Labs Result Diagrams: 02/05/19 05:09 02/05/19 05:09 Labs: Laboratory Results - last 24 hr 02/05/19 02/05/19 05:09 05:09 WBC 8.8 RBC 2.55 L Hgb 7.8 L Hct 23.0 L MCV 90.0 MCH 30.5 MCHC 33.9 RDW 13.9 Plt Count 123 L Neut % (Auto) 84.9 H Lymph % (Auto) 8.7 L [place] % (Auto) 5.1 Eos % (Auto) 1.2 L Baso % (Auto) 0.1 Neut # (Auto) 7500 H Lymph # (Auto) 800 L [place] # (Auto) 500 Eos # (Auto) 100 Baso # (Auto) 0 Sodium 134 L Potassium 4.3 Chloride 105 Carbon Dioxide 21 L BUN 54 H Creatinine 3.00 H Estimated GFR 15.5 L BUN/Creatinine Ratio 18.0 Glucose 121 H D Calcium 8.2 L Assessment & Plan Assessment & Plan narrative: 1. Acute pyelonephritis, secondary to E coli, continue IV levofloxacin adjusted for creatinine clearance 2. Sepsis, present on admission, improving 3. Anemia, normocytic, may require transfusion during this admission 4. Acute on chronic renal failure, creatinine up to 3.0, last creatinine was 1.3 in December. Will continue aggressive IV hydration with lactated Ringer's. Will recheck labs tomorrow. Transfuse for hemoglobin less than 7. 5. Type 2 diabetes, blood sugars remain elevated, despite port appetite, will adjust insulin accordingly 6. Hyperlipidemia, the patient reports her blocker and sewer took her off the atorvastatin Will discontinue 7. Hypertension will continue antihypertensive therapy 8.Chronic lower extremity edema 9. Hyponatremia will continue to manage and follow 10. Morbid obesity Quality VTE Deep Vein Thrombosis/Pulmonary Embolism Present on Admission: No
--- NOTE | 2019-02-05 11:23 | P.PN_ITS ---
Subjective Date Patient Seen: 02/05/19 Interval history: Patient is a 68-year-old female who was admitted to the [facility] for sepsis secondary to acute pyelonephritis from E coli urinary tract infection. She reports a headache today. She has a poor appetite. She overall feels poorly. She has had no vomiting but does report nausea. She continues to have lower extremity edema. Exam Vital Signs (past 8 hours): - 02/05/19 06:00 02/05/19 07:57 Temperature 98.4 F 98.9 F Pulse Rate 79 88 Respiratory Rate 18 18 Blood Pressure 108/54 L 114/56 L Pulse Oximetry 98 94 Oxygen Delivery Method Room Air Oxygen Flow Rate 0 Narrative Exam Narrative: Ill-appearing female lying in bed Lungs: Clear to auscultation Cardiac exam: Regular rate and rhythm normal S1-S2 Abdomen: Obese soft and nontender, no palpable mass Extremities: 3+ pitting edema bilateral Objective Labs Result Diagrams: 02/05/19 05:09 02/05/19 05:09 Labs: Laboratory Results - last 24 hr 02/05/19 02/05/19 05:09 05:09 WBC 8.8 RBC 2.55 L Hgb 7.8 L Hct 23.0 L MCV 90.0 MCH 30.5 MCHC 33.9 RDW 13.9 Plt Count 123 L Neut % (Auto) 84.9 H Lymph % (Auto) 8.7 L [place] % (Auto) 5.1 Eos % (Auto) 1.2 L Baso % (Auto) 0.1 Neut # (Auto) 7500 H Lymph # (Auto) 800 L [place] # (Auto) 500 Eos # (Auto) 100 Baso # (Auto) 0 Sodium 134 L Potassium 4.3 Chloride 105 Carbon Dioxide 21 L BUN 54 H Creatinine 3.00 H Estimated GFR 15.5 L BUN/Creatinine Ratio 18.0 Glucose 121 H D Calcium 8.2 L Assessment & Plan Assessment & Plan narrative: 1. Acute pyelonephritis, secondary to E coli, continue IV levofloxacin adjusted for creatinine clearance 2. Sepsis, present on admission, improving 3. Anemia, normocytic, may require transfusion during this admission 4. Acute on chronic renal failure, creatinine up to 3.0, last creatinine was 1.3 in December. Will continue aggressive IV hydration with lactated Ringer's. Will recheck labs tomorrow. Transfuse for hemoglobin less than 7. 5. Type 2 diabetes, blood sugars remain elevated, despite port appetite, will adjust insulin accordingly 6. Hyperlipidemia, the patient reports her pharmacy technician instructor took her off the atorvastatin Will discontinue 7. Hypertension will continue antihypertensive therapy 8.Chronic lower extremity edema 9. Hyponatremia will continue to manage and follow 10. Morbid obesity Quality VTE Deep Vein Thrombosis/Pulmonary Embolism Present on Admission: No
[2019-02-05] MEDS: LACTATED RINGERS 1,000 ML 150 ML IV ×2 (11:45→21:26)
--- NOTE | 2019-02-05 12:17 | PT.IIE ---
Current Diagnoses Sepsis, unspecified organism (02/05/19) Surgical History (Last Reviewed 02/03/19 @ 12:23 by Frances Strickland DO) History of shoulder surgery (Acute) Hx of cataract surgery (Resolved) S/P cholecystectomy (Resolved) Medical History (Last Reviewed 02/03/19 @ 12:23 by Frances Strickland DO) Balance problem (Acute) CKD stage 4 due to type 2 diabetes mellitus (Acute) Neuropathy (Acute) Diabetes mellitus with neuropathy (Chronic) Essential tremor (Chronic) High cholesterol (Chronic) Hypertension (Chronic) Closed head injury (Resolved) Physical Therapy Inpatient Evaluation/Re-Eval M1 PT/OT-IP Prior Functional Status Start: 02/05/19 13:40 Freq: NEEDED Status: Active Protocol: Document 02/05/19 12:17 AB (Rec: 02/05/19 14:09 AB [id number]) Medical Review Prior Functional Status Medical History Reviewed Yes Diet/Fluid Consistency Regular Communication able to make needs known Mobility and Gait pt stated that she is modified independent with all mobilities and ambulation using SPC Prior Functional Level (Other details) pt stated that she goes to PT on mondays for her R shoulder Social History Household Members family Living Arrangements Apartment/Condo Number of Floors (Floors) One Floor Number of Stairs To Enter/Railing? 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[employer] pt has a tub shower but uses a walk in shower in a different apartment unit with 14 steps down to get in with bilateral rails M2 PT-IP Current Condition Start: 02/05/19 13:40 Freq: NEEDED Status: Active Protocol: Document 02/05/19 12:17 AB (Rec: 02/05/19 14:09 AB [id number]) Physical Therapy Current Condition Current Condition Evaluation Date 02/05/19 Treatment Diagnosis sepsis; difficulty in walking Onset Date 02/05/19 Precautions Other Precautions falls M3 PT-IP Subjective Start: 02/05/19 13:40 Freq: NEEDED Status: Active Protocol: Document 02/05/19 12:17 AB (Rec: 02/05/19 14:09 AB [id number]) Subjective Physical Therapy Visit Type Type Initial Evaluation Visit Start Time 12:17 Visit Stop Time 13:08 Total Visit Minutes 39 Number of VENEER SORTER Visits 0 Physical Therapy Visit Comments Patient Comments pt agreeable to do PT M4 PT-IP Mobility and Gait Start: 02/05/19 13:40 Freq: NEEDED Status: Active Protocol: Document 02/05/19 12:17 AB (Rec: 02/05/19 14:09 AB [id number]) PT-Bed Mobility Assessment Supine to Sit Supine to Sit Maximum Assistance 1 Person Assistance Head of Bed Elevated Bedrails Scooting Scooting to Edge of Bed Moderate Assistance PT-Transfer Assessment Sit to and From Stand Sit to and from Stand Moderate Assistance 1 Person Assistance Equipment Transfer Assistive Device Gait Belt Front Wheeled Walker Orthotic/Prosthetic Devices or Brace: No Transfers Transfer Destination Toilet Transfer Technique pt ambulated using FWW Transfer Ability Level of Assist Moderate Assistance 1 Person Assistance Use of Upper Extremities Comments Mobility Comments pt ambulated using FWW mod A and cues towards the toilet. NAC informed that pt needs assist with hygiene care and gown change. pt completed sit to stand from the toilet using grab bars min to mod A and cues. pt ambulated towards the sink using FWW mod A but requiring max A to maintain standing by the sink with increase leaning forward. pt cued for upright posture but pt unable to sustain. pt stated that her back is sore. pt ambulated towards the chair max A and max cues with increase forward leaning. Pt with (+) SOB and O2 checked: 84%. O2 increased to 90% after a few seconds of seated rest break. informed nurse. positioned pt in chair. call light and table placed within reach. Left pt with nurse. Gait Assessment Gait Distance (Feet) 12 Able to Maintain Weight Bearing Status Yes During Gait Assistive Devices Assistive Device Gait Belt Front Wheeled Walker Gait Deviations General Gait Pattern Ataxic Decreased Stride Length Decreased Feet Clearance Factors Limiting Gait Function Factors Limiting Gait Function Decreased Activity Tolerance Decreased Strength Pain Poor Balance Poor Safety Awareness Respiratory Distress PT-Balance Assessment Sitting Balance and Reactions Static Sitting Balance Ability Good Dynamic Sitting Balance Ability Good Standing Balance and Reactions Static Standing Balance Ability Fair Dynamic Standing Balance Ability Poor Device Used FWW M5 PT-IP Objective Assessments Start: 02/05/19 13:40 Freq: NEEDED Status: Active Protocol: Document 02/05/19 12:17 AB (Rec: 02/05/19 14:09 AB [id number]) Orientation Orientation/Cognition Level of Alertness Alert Orientation Name Age Birthday Month Date Year Day of Week Place Situation Language Function Ability No Deficits Noted Safety Awareness Decreased Safety Awareness Gross Range of Motion Lower Extremity ROM Assessment Bilaterally Impaired Impairments decrease bilateral knee flexion Strength Lower Extremity Strength Assessment Bilaterally Impaired Hip 3+/5 Knee 3+/5 Sensation Assessment Comments Sensation Comments pt did not c/o numbness/ tingling Muscle Tone Comments Muscle Tone Comments has on/off tremors on UE/trunk ; 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 M6 PT-IP Treatment Start: 02/05/19 13:40 Freq: NEEDED Status: Active Protocol: Document 02/05/19 12:17 AB (Rec: 02/05/19 14:09 AB [id number]) Physical Therapy Treatment Education Education Provided Precautions Safety M7 PT-IP Assessment and Plan Start: 02/05/19 13:40 Freq: NEEDED Status: Active Protocol: Document 02/05/19 12:17 AB (Rec: 02/05/19 14:09 AB [id number]) PT Summary Assessment and Plan Potential Rehabilitation Potential Fair Status of Condition at Evaluation Evolving Summary Impairments Pain ROM Strength Balance Coordination Sensation Tone Cognition Bed Mobility Transfers Gait Activity Tolerance Assessment Summary pt requiring mod A and max cues with mobility and has decrearse activity tolerance with decrease in O2 sat with activity requiring increase assistance to max A towards end of PT session. pt will benefit from SNF rehab to improve strength and mobility. Goals Bed Mobility Goal Standby Assistance Transfer Goal Standby Assistance Front Wheeled Walker Gait Goal Standby Assistance Front Wheel Walker Gait Distance 150 Other Goals up/down 14 steps B rails SBA Days to Meet Goals 10 Frequency of Treatment Frequency Of Treatment Once a Day Treatment Plan Physical Therapy Treatment Plan Bed Mobility Training Transfer Training Gait Training Therapeutic Exercise Balance Retraining Discharge Planning Neuromuscular Re-ed Coordination Retraining Manual Therapy Recommendations To Nursing Amount of Assist Needed 1 Person Assist Discharge Recommendations PT Discharge Recommendations SNF Rehab Equipment Needed for Home Before FWW if pt is going home Discharge
--- NOTE | 2019-02-05 15:19 | CM.DPC ---
Addendum entered by Anh Styles 02/06/19 12:50: Received call from [facility] admission department today. They report that they can accept patient when medically stable if SNF continued to be needed. Patient inpatient status beginning 02-05-19 soonest that she could d/c to SNF is 02-08-19. notified in AM rounds. KJFrederick Original Note: DCP SNF Planning Per UR RN, pt changed from OBS Status to Inpt as of today 02/05/19. Per MD, pt not medically stable for d/c yet. PT ordered and per evnikhil recommending SNF prior to safe return home as pt is 1PA but really low activity tolerance and unsteady gait. SW met bedside with pt and explained role again and discussed PT recommendations and pt is agreeable that she needs SNF prior to d/c home. Pt states she has hx at [facility] when she broke her shoulder a couple years ago and preference is to d/c to their facility as it is close to where her Dtr lives. SW faxed clinicals and called [facility] admissions and left msg requesting review. PASRR completed. Plan: SW to follow for [facility] review for possible SNF placement at d/c prior to return home alone. Dinorah De Los Santos, VIDEO SOFTWARE ENGINEER
--- NOTE | 2019-02-05 16:17 | PC.NURSE ---
Just hasn't felt well today, started with retching and dry heaves, given zofran and improved but didn't eat bkft. At lunch still felt queasy but declined anything for nausea, thinks it will go away on own and wants to take as few meds as possible, she did not eat lunch. Meal time insulin was held, did give nph, MD made aware and see med adjustments. feeling a little better this afternoon. Pt did come and see pt, and she was able to get up easily for them to a chair and has had no diff voiding since she has been allowed up. Also has some decreased sats when up and moving and some tachy heart rates to 120's brief. Returns to base line in several mins, Dr. osborne made aware of this as well.
[2019-02-05] MEDS: INSULIN REGULAR 100 UNIT/ML 3 ML VIAL SUBCUT (17:15)
[2019-02-05] MEDS: PRIMIDONE 50 MG TABLET 250 MG PO (20:36)
[2019-02-05] MEDS: INSULIN NPH 100 UNIT/ML VIAL 20 UNIT SUBCUT (20:36)
[2019-02-06] VITALS (10 sets, daily range): BP systolic 134–162; BP diastolic 59–80; PULSE 77–90; RESP 16–19; TEMP 36.9–37.5; O2SAT 91–96
[2019-02-06] MEDS: LACTATED RINGERS 1,000 ML 150 ML IV (04:06)
[2019-02-06 06:08] LABS: Add Manual Diff / Slide Review NO; Basophils Absolute Auto 0 /uL (0-100); Basophils Percent Auto 0.2 % (0-2); Eosinophils Absolute Auto 100 /uL (0-450); Eosinophils Percent Auto 0.8 % (2-4); Hematocrit 22.8 % (36-46); Hemoglobin 7.7 g/dL (12.0-16.0); Lymphocytes Absolute Auto 800 /uL (1100-4500); Lymphocytes Percent Auto 10.2 % (25-40); Mean Corpuscular HGB Conc 33.6 % (30-36); Mean Corpuscular Hemoglobin 30.3 PG (26-34); Mean Corpuscular Volume 90.3 fL (80-100); Monocytes Absolute Auto 500 /uL (0-900); Monocytes Percent Auto 6.5 % (3-14); Neutrophils Absolute Auto 6500 /uL (1500-7000); Neutrophils Percent Auto 82.3 % (50-75); Platelet Count 138 X10^3/uL (150-400); Red Blood Cell Count 2.53 X10^6/uL (4.0-5.2); Red Cell Distribution Width 13.5 % (11.6-14.8); White Blood Cell Count 7.8 X10^3/uL (4.5-11.0)
[2019-02-06 06:22] LABS: BUN Creatinine Ratio 17.2 (6-22); Blood Urea Nitrogen 43 mg/dL (7-17); Calcium 8.6 mg/dL (8.4-10.2); Carbon Dioxide 22 mmol/L (22-32); Chloride 105 mmol/L (98-107); Estimated Glomerular Filt Rate 19.1 mL/min (>60); Glucose 174 mg/dL (80-110); HEMOLYSIS < 15 (0-50); Potassium 4.3 mmol/L (3.4-5.1); Sodium 136 mmol/L (137-145)
--- NOTE | 2019-02-06 06:25 | PC.NURSE ---
2300- Pt admit for UTI w/ positive blood cultures; moving 1PA to BSC; tele in place reading SR. LR running as ordered; 2+ edema in bilat extremities. 0300- BG 119 and stable 0445- Pt up to BSC w/ good output noted. Denies any needs at this time.
[2019-02-06] MEDS: GABAPENTIN 600 MG TABLET PO ×2 (09:22→22:05)
[2019-02-06] MEDS: SODIUM BICARBONATE 650 MG TABLET 1300 MG PO ×2 (09:22→22:05)
[2019-02-06] MEDS: LACTOBACILLUS ACIDOPHILUS TABLET 1 EACH PO (09:22)
[2019-02-06] MEDS: ASPIRIN EC 81 MG TABLET PO (09:22)
[2019-02-06] MEDS: INSULIN REGULAR 100 UNIT/ML 3 ML VIAL SUBCUT ×3 (09:22→16:55)
[2019-02-06] MEDS: CHOLECALCIFEROL (VITAMIN D3) 1,000 UNIT TABLET 4000 UNIT PO (09:22)
[2019-02-06] MEDS: INSULIN NPH 100 UNIT/ML VIAL 15 UNIT SUBCUT (09:24)
[2019-02-06] MEDS: HEPARIN 5,000 UNIT/ML VIAL 5000 UNIT SUBCUT ×2 (09:24→22:05)
[2019-02-06] MEDS: METOPROLOL IR 25 MG TABLET PO ×2 (09:25→22:05)
[2019-02-06] MEDS: LACTATED RINGERS 1,000 ML 100 ML IV ×2 (09:42→18:56)
--- NOTE | 2019-02-06 12:14 | PT.IPTN ---
Current Diagnoses Sepsis, unspecified organism (02/05/19) Physical Therapy Treatment Note M2 PT-IP Current Condition Start: 02/05/19 13:40 Freq: NEEDED Status: Active Protocol: Document 02/05/19 12:17 AB (Rec: 02/05/19 14:09 AB [id number]) Physical Therapy Current Condition Current Condition Evaluation Date 02/05/19 Treatment Diagnosis sepsis; difficulty in walking Onset Date 02/05/19 Precautions Other Precautions falls M3 PT-IP Subjective Start: 02/05/19 13:40 Freq: NEEDED Status: Active Protocol: Document 02/06/19 12:05 CLB (Rec: 02/06/19 12:14 CLB [id number]) Subjective Physical Therapy Visit Type Type Patient Unavailable Notes Pt unavailable due to low hgb/ hct. Pt stated she doesn't feel well enough to participate with therapy. M4 PT-IP Mobility and Gait Start: 02/05/19 13:40 Freq: NEEDED Status: Active Protocol: Document 02/05/19 12:17 AB (Rec: 02/05/19 14:09 AB [id number]) PT-Bed Mobility Assessment Supine to Sit Supine to Sit Maximum Assistance 1 Person Assistance Head of Bed Elevated Bedrails Scooting Scooting to Edge of Bed Moderate Assistance PT-Transfer Assessment Sit to and From Stand Sit to and from Stand Moderate Assistance 1 Person Assistance Equipment Transfer Assistive Device Gait Belt Front Wheeled Walker Orthotic/Prosthetic Devices or Brace: No Transfers Transfer Destination Toilet Transfer Technique pt ambulated using FWW Transfer Ability Level of Assist Moderate Assistance 1 Person Assistance Use of Upper Extremities Comments Mobility Comments pt ambulated using FWW mod A and cues towards the toilet. NAC informed that pt needs assist with hygiene care and gown change. pt completed sit to stand from the toilet using grab bars min to mod A and cues. pt ambulated towards the sink using FWW mod A but requiring max A to maintain standing by the sink with increase leaning forward. pt cued for upright posture but pt unable to sustain. pt stated that her back is sore. pt ambulated towards the chair max A and max cues with increase forward leaning. Pt with (+) SOB and O2 checked: 84%. O2 increased to 90% after a few seconds of seated rest break. informed nurse. positioned pt in chair. call light and table placed within reach. Left pt with nurse. Gait Assessment Gait Distance (Feet) 12 Able to Maintain Weight Bearing Status Yes During Gait Assistive Devices Assistive Device Gait Belt Front Wheeled Walker Gait Deviations General Gait Pattern Ataxic Decreased Stride Length Decreased Feet Clearance Factors Limiting Gait Function Factors Limiting Gait Function Decreased Activity Tolerance Decreased Strength Pain Poor Balance Poor Safety Awareness Respiratory Distress PT-Balance Assessment Sitting Balance and Reactions Static Sitting Balance Ability Good Dynamic Sitting Balance Ability Good Standing Balance and Reactions Static Standing Balance Ability Fair Dynamic Standing Balance Ability Poor Device Used FWW M5 PT-IP Objective Assessments Start: 02/05/19 13:40 Freq: NEEDED Status: Active Protocol: Document 02/05/19 12:17 AB (Rec: 02/05/19 14:09 AB [id number]) Orientation Orientation/Cognition Level of Alertness Alert Orientation Name Age Birthday Month Date Year Day of Week Place Situation Language Function Ability No Deficits Noted Safety Awareness Decreased Safety Awareness Gross Range of Motion Lower Extremity ROM Assessment Bilaterally Impaired Impairments decrease bilateral knee flexion Strength Lower Extremity Strength Assessment Bilaterally Impaired Hip 3+/5 Knee 3+/5 Sensation Assessment Comments Sensation Comments pt did not c/o numbness/ tingling Muscle Tone Comments Muscle Tone Comments has on/off tremors on UE/trunk ; 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 M6 PT-IP Treatment Start: 02/05/19 13:40 Freq: NEEDED Status: Active Protocol: Document 02/05/19 12:17 AB (Rec: 02/05/19 14:09 AB [id number]) Physical Therapy Treatment Education Education Provided Precautions Safety M7 PT-IP Assessment and Plan Start: 02/05/19 13:40 Freq: NEEDED Status: Active Protocol: Document 02/05/19 12:17 AB (Rec: 02/05/19 14:09 AB [id number]) PT Summary Assessment and Plan Potential Rehabilitation Potential Fair Status of Condition at Evaluation Evolving Summary Impairments Pain ROM Strength Balance Coordination Sensation Tone Cognition Bed Mobility Transfers Gait Activity Tolerance Assessment Summary pt requiring mod A and max cues with mobility and has decrearse activity tolerance with decrease in O2 sat with activity requiring increase assistance to max A towards end of PT session. pt will benefit from SNF rehab to improve strength and mobility. Goals Bed Mobility Goal Standby Assistance Transfer Goal Standby Assistance Front Wheeled Walker Gait Goal Standby Assistance Front Wheel Walker Gait Distance 150 Other Goals up/down 14 steps B rails SBA Days to Meet Goals 10 Frequency of Treatment Frequency Of Treatment Once a Day Treatment Plan Physical Therapy Treatment Plan Bed Mobility Training Transfer Training Gait Training Therapeutic Exercise Balance Retraining Discharge Planning Neuromuscular Re-ed Coordination Retraining Manual Therapy Recommendations To Nursing Amount of Assist Needed 1 Person Assist Discharge Recommendations PT Discharge Recommendations SNF Rehab Equipment Needed for Home Before FWW if pt is going home Discharge
--- NOTE | 2019-02-06 13:17 | PM.PN.1 ---
Subjective Date Patient Seen: 02/06/19 Interval history: Patient reports significant improvement. She is still with a very poor appetite but is trying to eat. She reports some low back pain. She denies shortness of breath or nausea. Exam Vital Signs (past 8 hours): - 02/06/19 05:43 02/06/19 08:00 02/06/19 12:00 Temperature 98.7 F 98.4 F 99.2 F Pulse Rate 85 86 77 Respiratory Rate 16 17 19 Blood Pressure 150/67 H 146/80 H 162/78 H Pulse Oximetry 95 93 91 Oxygen Delivery Method Room Air Oxygen Flow Rate 0 Narrative Exam Narrative: Pleasant female in no acute distress Lungs: Clear to auscultation CV: RRR nl Sl S2 2/6 VIKAS Abd: obese, soft/ non tender, no CVAT Ext 3+pitting edema bilaterally Objective Labs Result Diagrams: 02/06/19 05:40 02/06/19 05:40 Labs: Laboratory Results - last 24 hr 02/06/19 02/06/19 05:40 05:40 WBC 7.8 RBC 2.53 L Hgb 7.7 L Hct 22.8 L MCV 90.3 MCH 30.3 MCHC 33.6 RDW 13.5 Plt Count 138 L Neut % (Auto) 82.3 H Lymph % (Auto) 10.2 L [place] % (Auto) 6.5 Eos % (Auto) 0.8 L Baso % (Auto) 0.2 Neut # (Auto) 6500 Lymph # (Auto) 800 L [place] # (Auto) 500 Eos # (Auto) 100 Baso # (Auto) 0 Sodium 136 L Potassium 4.3 Chloride 105 Carbon Dioxide 22 BUN 43 H Creatinine 2.50 H Estimated GFR 19.1 L BUN/Creatinine Ratio 17.2 Glucose 174 H Calcium 8.6 Assessment & Plan Assessment & Plan narrative: 1. Sepsis secondary to Gram Negative Bacteremia ( EColi)- Improving, will continue fluids and antibiotics 2. Acute Pyelonephritis- Continue Levofloxacin, adjusted for creatinine clearance 3. Acute on Chronic Renal Failure-improving, will continue IV hydration 4. Type 2 Diabetes- continue basal bolus insulin 5. Hyperlipidemia-continue statin 6. Hypertension-will continue Betablocker, hold HCTZ for now Quality VTE Deep Vein Thrombosis/Pulmonary Embolism Present on Admission: No
[2019-02-06 14:01] LABS: Procalcitonin 18.71 ng/mL (<0.5)
[2019-02-06] MEDS: levoFLOXacin 500 MG/100 ML PIGGYBACK 100 MG IV (18:55)
[2019-02-06] MEDS: PRIMIDONE 50 MG TABLET 250 MG PO (22:05)
[2019-02-06] MEDS: INSULIN NPH 100 UNIT/ML VIAL 20 UNIT SUBCUT (22:06)
[2019-02-07] VITALS (10 sets, daily range): BP systolic 129–180; BP diastolic 65–81; PULSE 71–85; RESP 15–18; TEMP 36.6–37.4; O2SAT 93–99
[2019-02-07 06:23] LABS: Add Manual Diff / Slide Review NO; Basophils Absolute Auto 0 /uL (0-100); Basophils Percent Auto 0.2 % (0-2); Eosinophils Absolute Auto 100 /uL (0-450); Eosinophils Percent Auto 1.5 % (2-4); Hematocrit 22.9 % (36-46); Hemoglobin 7.6 g/dL (12.0-16.0); Lymphocytes Absolute Auto 1200 /uL (1100-4500); Lymphocytes Percent Auto 16.2 % (25-40); Mean Corpuscular HGB Conc 33.3 % (30-36); Mean Corpuscular Hemoglobin 29.8 PG (26-34); Mean Corpuscular Volume 89.6 fL (80-100); Monocytes Absolute Auto 600 /uL (0-900); Monocytes Percent Auto 8.3 % (3-14); Neutrophils Absolute Auto 5500 /uL (1500-7000); Neutrophils Percent Auto 73.8 % (50-75); Platelet Count 160 X10^3/uL (150-400); Red Blood Cell Count 2.56 X10^6/uL (4.0-5.2); Red Cell Distribution Width 13.6 % (11.6-14.8); White Blood Cell Count 7.4 X10^3/uL (4.5-11.0)
[2019-02-07 06:34] LABS: BUN Creatinine Ratio 15.9 (6-22); Blood Urea Nitrogen 35 mg/dL (7-17); Calcium 8.5 mg/dL (8.4-10.2); Carbon Dioxide 25 mmol/L (22-32); Chloride 106 mmol/L (98-107); Estimated Glomerular Filt Rate 22.1 mL/min (>60); Glucose 105 mg/dL (80-110); HEMOLYSIS < 15 (0-50); Potassium 4.5 mmol/L (3.4-5.1); Sodium 137 mmol/L (137-145)
[2019-02-07] MEDS: SODIUM BICARBONATE 650 MG TABLET 1300 MG PO ×2 (08:41→21:16)
[2019-02-07] MEDS: HEPARIN 5,000 UNIT/ML VIAL 5000 UNIT SUBCUT ×2 (08:44→21:14)
[2019-02-07] MEDS: GABAPENTIN 600 MG TABLET PO ×2 (08:44→21:14)
[2019-02-07] MEDS: METOPROLOL IR 25 MG TABLET PO ×2 (08:44→21:15)
[2019-02-07] MEDS: ASPIRIN EC 81 MG TABLET PO (08:44)
[2019-02-07] MEDS: LACTOBACILLUS ACIDOPHILUS TABLET 1 EACH PO (08:44)
[2019-02-07] MEDS: CHOLECALCIFEROL (VITAMIN D3) 1,000 UNIT TABLET 4000 UNIT PO (08:44)
[2019-02-07] MEDS: INSULIN NPH 100 UNIT/ML VIAL 15 UNIT SUBCUT (08:51)
--- NOTE | 2019-02-07 10:56 | PT.IPTN ---
Current Diagnoses Sepsis, unspecified organism (02/05/19) Physical Therapy Treatment Note M2 PT-IP Current Condition Start: 02/05/19 13:40 Freq: NEEDED Status: Active Protocol: Document 02/05/19 12:17 AB (Rec: 02/05/19 14:09 AB [id number]) Physical Therapy Current Condition Current Condition Evaluation Date 02/05/19 Treatment Diagnosis sepsis; difficulty in walking Onset Date 02/05/19 Precautions Other Precautions falls M3 PT-IP Subjective Start: 02/05/19 13:40 Freq: NEEDED Status: Active Protocol: Document 02/07/19 10:10 CLB (Rec: 02/07/19 10:56 CLB [id number]) Subjective Physical Therapy Visit Type Type Treatment Note Visit Start Time 10:10 Visit Stop Time 10:33 Number of HOSPICE PHYSICIAN Visits 1 Physical Therapy Visit Comments Patient Comments pt agreeable to do PT M4 PT-IP Mobility and Gait Start: 02/05/19 13:40 Freq: NEEDED Status: Active Protocol: Document 02/07/19 10:10 CLB (Rec: 02/07/19 10:56 CLB [id number]) PT-Transfer Assessment Sit to and From Stand Sit to and from Stand Contact Guard Assistance Use of Upper Extremities Equipment Transfer Assistive Device Gait Belt Front Wheeled Walker Orthotic/Prosthetic Devices or Brace: No Transfers Transfer Destination Chair Transfer Technique pt ambulated using FWW Transfer Ability Level of Assist Contact Guard Assistance Use of Upper Extremities Comments Mobility Comments Pt is CGA for sit<>stand with verbal cues for hand placement for safety and to slow descent. Gait Assessment Gait Gait Assistance Required: Contact Guard Assist Minimum Assistance 1 Person Assist Distance (Feet) 40 Able to Maintain Weight Bearing Status Yes During Gait Assistive Devices Assistive Device Gait Belt Front Wheeled Walker Gait Deviations General Gait Pattern Ataxic Decreased Stride Length Decreased Feet Clearance Factors Limiting Gait Function Factors Limiting Gait Function Decreased Activity Tolerance Decreased Strength Pain Poor Balance Poor Safety Awareness Respiratory Distress Comments Gait Comments Pt O2 on RA 88% after 20ft. Pt required a seated rest break and cues for PLB. O2 93% on RA after 60 seconds. Pt then ambulated another 20ft with same O2 results as above. Pt required assist with IV pole. M5 PT-IP Objective Assessments Start: 02/05/19 13:40 Freq: NEEDED Status: Active Protocol: Document 07/06/19 12:17 AB (Rec: 02/05/19 14:09 AB [id number]) Orientation Orientation/Cognition Level of Alertness Alert Orientation Name Age Birthday Month Date Year Day of Week Place Situation Language Function Ability No Deficits Noted Safety Awareness Decreased Safety Awareness Gross Range of Motion Lower Extremity ROM Assessment Bilaterally Impaired Impairments decrease bilateral knee flexion Strength Lower Extremity Strength Assessment Bilaterally Impaired Hip 3+/5 Knee 3+/5 Sensation Assessment Comments Sensation Comments pt did not c/o numbness/ tingling Muscle Tone Comments Muscle Tone Comments has on/off tremors on UE/trunk ; 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 M6 PT-IP Treatment Start: 02/05/19 13:40 Freq: NEEDED Status: Active Protocol: Document 02/07/19 10:10 CLB (Rec: 02/07/19 10:56 CLB [id number]) Physical Therapy Treatment Exercises Exercises Ankle Pumps Gluteal Sets Quad Sets Education Education Provided Precautions Safety Other Treatments Other Treatment Performed educated pt on importance of AP due to her decreased activity tolerance. M7 PT-IP Assessment and Plan Start: 02/05/19 13:40 Freq: NEEDED Status: Active Protocol: Document 02/07/19 10:10 CLB (Rec: 02/07/19 10:56 CLB [id number]) PT Summary Assessment and Plan Summary Impairments Pain ROM Strength Balance Coordination Sensation Tone Cognition Bed Mobility Transfers Gait Activity Tolerance Assessment Summary Pt has improved with transfer ability as well as gait distance. Pt with SOB after 20ft of ambulation requiring cues for PLB. Bed mobility was not assessed today. Left pt in chair with all needs within reach and 1/2 L O2. Goals Bed Mobility Goal Standby Assistance Transfer Goal Standby Assistance Front Wheeled Walker Gait Goal Standby Assistance Front Wheel Walker Gait Distance 150 Other Goals up/down 14 steps B rails SBA Days to Meet Goals 10 Frequency of Treatment Frequency Of Treatment Once a Day Treatment Plan Physical Therapy Treatment Plan Bed Mobility Training Transfer Training Gait Training Therapeutic Exercise Balance Retraining Discharge Planning Neuromuscular Re-ed Coordination Retraining Manual Therapy Other Recommendations and Next Treatment Bed mobility, gait (monitor O2 Focus ) Recommendations To Nursing Amount of Assist Needed 1 Person Assist Discharge Recommendations PT Discharge Recommendations SNF Rehab Equipment Needed for Home Before FWW if pt is going home Discharge
[2019-02-07] MEDS: INSULIN REGULAR 100 UNIT/ML 3 ML VIAL SUBCUT (11:45)
--- NOTE | 2019-02-07 12:19 | PM.PN.1 ---
Subjective Date Patient Seen: 02/07/19 Interval history: The patient is a 68-year-old female who was admitted to the hospital for sepsis secondary to acute pyelonephritis. Urine cultures positive for E coli which is pansensitive. Patient is feeling much better today. She is up to a chair. Her appetite is improving. She continues to have swelling in her lower extremity but overall her kidney function is improving as well. She denies any shortness of breath. She was found to be hypoxic when sleeping last evening and oxygen was placed this morning she is saturating at 95% on room air. Exam Vital Signs (past 8 hours): - 02/07/19 06:19 02/07/19 08:00 02/07/19 08:12 Temperature 98.6 F 98.3 F Pulse Rate 75 75 Respiratory Rate 17 15 Blood Pressure 156/72 H 165/69 H Pulse Oximetry 98 99 94 02/07/19 11:35 Temperature 97.9 F Pulse Rate 71 Respiratory Rate 16 Blood Pressure 161/68 H Pulse Oximetry 94 Oxygen Delivery Method Room Air Oxygen Flow Rate 0 Narrative Exam Narrative: Pleasant female resting comfortably in no obvious distress Lungs: Decreased breath sounds but clear to auscultation Cardiac exam: Regular rate and rhythm normal S1-S2 with a 2/6 systolic ejection murmur Abdomen: Soft nontender nondistended Extremity: 2+ pitting edema Psychiatric exam: Patient is awake alert and appropriate. Objective Labs Result Diagrams: 02/07/19 05:55 02/07/19 05:55 Labs: Laboratory Results - last 24 hr 02/06/19 02/07/19 02/07/19 05:40 05:55 05:55 WBC 7.4 RBC 2.56 L Hgb 7.6 L Hct 22.9 L MCV 89.6 MCH 29.8 MCHC 33.3 RDW 13.6 Plt Count 160 Neut % (Auto) 73.8 Lymph % (Auto) 16.2 L [place] % (Auto) 8.3 Eos % (Auto) 1.5 L Baso % (Auto) 0.2 Neut # (Auto) 5500 Lymph # (Auto) 1200 [place] # (Auto) 600 Eos # (Auto) 100 Baso # (Auto) 0 Sodium 137 Potassium 4.5 Chloride 106 Carbon Dioxide 25 BUN 35 H Creatinine 2.20 H Estimated GFR 22.1 L BUN/Creatinine Ratio 15.9 Glucose 105 Calcium 8.5 Procalcitonin 18.71 H Assessment & Plan Assessment & Plan narrative: 1. Sepsis secondary to acute pyelonephritis now resolved 2. Acute pyelonephritis secondary to E coli cystitis and E coli bacteremia 3. Acute on chronic renal failure 4. Probable obstructive sleep apnea 5. Morbid obesity 6. Hyperlipidemia 7. Hypertension 8. Type 2 diabetes 9. Anemia, likely secondary to chronic kidney disease and delusion Plan will Hep-Lock IV fluids. Will continue levofloxacin but switched to p.o.. Will continue insulin as ordered. Continue her usual home medications. The patient will continue with physical therapy and occupational with plan for nursing home home visit for rehabilitation at discharge. Anticipate discharge home in 1-2 days. Quality VTE Deep Vein Thrombosis/Pulmonary Embolism Present on Admission: No
--- NOTE | 2019-02-07 14:37 | CM.DPC ---
DCP/continued: Reviewed chart. Patient inpatient status as of 02-05-19. Current therapy recommendation is SNF. Met with patient explained CM/SW role. Patient alert and oriented sitting in recliner at time of visit. Patient confirms that first SNF choice is [facility]. CLASSIFIER TENDER placed call to Guido at [facility], he reports that they have patient on there list for acceptance. Notified Guido that d/c date unknown. Notified patient that CM team would continue to follow. [facility] when medically stable. ALEJANDRO Arce
[2019-02-07] MEDS: levoFLOXacin 250 MG TABLET PO (19:22)
[2019-02-07] MEDS: PRIMIDONE 50 MG TABLET 250 MG PO (21:15)
[2019-02-07] MEDS: INSULIN NPH 100 UNIT/ML VIAL 20 UNIT SUBCUT (21:15)
[2019-02-08] VITALS (8 sets, daily range): BP systolic 127–174; BP diastolic 60–73; PULSE 70–77; RESP 14–19; TEMP 36.8–37.2; O2SAT 84–98
--- NOTE | 2019-02-08 04:17 | PC.NURSE ---
Pt desatting during sleep to 84% on Room air. Same thing happened last night as well and patient was placed on 2L NC. Upon hearing the O2 sat alarms, pt wakes up and her oxygen saturation will go back up immediately. Appears to have some shallow breathing during sleep, along with grunting and some belly breathing. She reports no real SOB for the most part; she does however sounds a little junky in the bases of her lungs. Will continue to monitor.
[2019-02-08 05:52] LABS: Add Manual Diff / Slide Review NO; Basophils Absolute Auto 0 /uL (0-100); Basophils Percent Auto 0.3 % (0-2); Eosinophils Absolute Auto 100 /uL (0-450); Eosinophils Percent Auto 1.7 % (2-4); Hematocrit 24.3 % (36-46); Hemoglobin 8.4 g/dL (12.0-16.0); Lymphocytes Absolute Auto 1200 /uL (1100-4500); Lymphocytes Percent Auto 17.2 % (25-40); Mean Corpuscular HGB Conc 34.4 % (30-36); Mean Corpuscular Hemoglobin 30.4 PG (26-34); Mean Corpuscular Volume 88.5 fL (80-100); Monocytes Absolute Auto 700 /uL (0-900); Monocytes Percent Auto 9.9 % (3-14); Neutrophils Absolute Auto 5000 /uL (1500-7000); Neutrophils Percent Auto 70.9 % (50-75); Platelet Count 202 X10^3/uL (150-400); Red Blood Cell Count 2.75 X10^6/uL (4.0-5.2); Red Cell Distribution Width 13.5 % (11.6-14.8)
[2019-02-08 06:06] LABS: Blood Urea Nitrogen 32 mg/dL (7-17); Calcium 8.6 mg/dL (8.4-10.2); Carbon Dioxide 26 mmol/L (22-32); Chloride 105 mmol/L (98-107); Estimated Glomerular Filt Rate 24.7 mL/min (>60); Glucose 83 mg/dL (80-110); HEMOLYSIS < 15 (0-50); Potassium 4.5 mmol/L (3.4-5.1); Sodium 137 mmol/L (137-145)
[2019-02-08 06:17] LABS: B Type Natriuretic Peptide 675 (<100)
[2019-02-08] MEDS: HEPARIN 5,000 UNIT/ML VIAL 5000 UNIT SUBCUT (08:05)
[2019-02-08] MEDS: METOPROLOL IR 25 MG TABLET PO (08:05)
[2019-02-08] MEDS: SODIUM BICARBONATE 650 MG TABLET 1300 MG PO (08:05)
[2019-02-08] MEDS: GABAPENTIN 600 MG TABLET PO (08:05)
[2019-02-08] MEDS: ASPIRIN EC 81 MG TABLET PO (08:06)
[2019-02-08] MEDS: CHOLECALCIFEROL (VITAMIN D3) 1,000 UNIT TABLET 4000 UNIT PO (08:06)
[2019-02-08] MEDS: LACTOBACILLUS ACIDOPHILUS TABLET 1 EACH PO (08:06)
[2019-02-08] MEDS: INSULIN NPH 100 UNIT/ML VIAL 15 UNIT SUBCUT (08:10)
--- NOTE | 2019-02-08 08:50 | PT.IPTN ---
Current Diagnoses Sepsis, unspecified organism (02/05/19) Physical Therapy Treatment Note M2 PT-IP Current Condition Start: 02/05/19 13:40 Freq: NEEDED Status: Active Protocol: Document 02/05/19 12:17 AB (Rec: 02/05/19 14:09 AB [id number]) Physical Therapy Current Condition Current Condition Evaluation Date 02/05/19 Treatment Diagnosis sepsis; difficulty in walking Onset Date 02/05/19 Precautions Other Precautions falls M3 PT-IP Subjective Start: 02/05/19 13:40 Freq: NEEDED Status: Active Protocol: Document 02/08/19 08:25 CLB (Rec: 02/08/19 09:42 CLB [id number]) Subjective Physical Therapy Visit Type Type Treatment Note Visit Start Time 08:25 Visit Stop Time 08:50 Total Visit Minutes 25 Number of DECORATING SUPERVISOR Visits 2 Physical Therapy Visit Comments Patient Comments pt agreeable to do PT M4 PT-IP Mobility and Gait Start: 02/05/19 13:40 Freq: NEEDED Status: Active Protocol: Document 02/08/19 08:25 CLB (Rec: 02/08/19 09:42 CLB [id number]) PT-Bed Mobility Assessment Supine to Sit Supine to Sit Minimal Assistance 1 Person Assistance Bedrails Sit to Supine Sit to Supine Minimal Assistance 1 Person Assistance Bedrails PT-Transfer Assessment Sit to and From Stand Sit to and from Stand Contact Guard Assistance Use of Upper Extremities Equipment Transfer Assistive Device Gait Belt Front Wheeled Walker Orthotic/Prosthetic Devices or Brace: No Transfers Transfer Destination Bed Chair Transfer Ability Level of Assist Contact Guard Assistance Use of Upper Extremities Comments Mobility Comments Pt improved with bed mobility but continues to require Min A of LE in and out of bed. Gait Assessment Gait Gait Assistance Required: Contact Guard Assist 1 Person Assist Distance (Feet) 60 Able to Maintain Weight Bearing Status Yes During Gait Assistive Devices Assistive Device Gait Belt Front Wheeled Walker Gait Deviations General Gait Pattern Ataxic Decreased Stride Length Decreased Feet Clearance Factors Limiting Gait Function Factors Limiting Gait Function Decreased Activity Tolerance Decreased Strength Pain Poor Balance Poor Safety Awareness Respiratory Distress Comments Gait Comments Pt O2 on RA remained WNL during ambulation. Pt increased gait distance walking in [place] ~60ft. Pt required 2 standing rest breaks. M5 PT-IP Objective Assessments Start: 02/05/19 13:40 Freq: NEEDED Status: Active Protocol: Document 02/05/19 12:17 AB (Rec: 02/05/19 14:09 AB [id number]) Orientation Orientation/Cognition Level of Alertness Alert Orientation Name Age Birthday Month Date Year Day of Week Place Situation Language Function Ability No Deficits Noted Safety Awareness Decreased Safety Awareness Gross Range of Motion Lower Extremity ROM Assessment Bilaterally Impaired Impairments decrease bilateral knee flexion Strength Lower Extremity Strength Assessment Bilaterally Impaired Hip 3+/5 Knee 3+/5 Sensation Assessment Comments Sensation Comments pt did not c/o numbness/ tingling Muscle Tone Comments Muscle Tone Comments has on/off tremors on UE/trunk ; 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 M6 PT-IP Treatment Start: 02/05/19 13:40 Freq: NEEDED Status: Active Protocol: Document 02/08/19 08:25 CLB (Rec: 02/08/19 09:42 CLB [id number]) Physical Therapy Treatment Exercises Exercises Ankle Pumps Quad Sets M7 PT-IP Assessment and Plan Start: 02/05/19 13:40 Freq: NEEDED Status: Active Protocol: Document 02/08/19 08:25 CLB (Rec: 02/08/19 09:42 CLB [id number]) PT Summary Assessment and Plan Summary Impairments Pain ROM Strength Balance Coordination Sensation Tone Cognition Bed Mobility Transfers Gait Activity Tolerance Assessment Summary Pt improving with transfers and gait distance. Pt O2 on RA remained WNL. Goals Bed Mobility Goal Standby Assistance Transfer Goal Standby Assistance Front Wheeled Walker Gait Goal Standby Assistance Front Wheel Walker Days to Meet Goals 10 Frequency of Treatment Frequency Of Treatment Once a Day Treatment Plan Physical Therapy Treatment Plan Bed Mobility Training Transfer Training Gait Training Therapeutic Exercise Balance Retraining Discharge Planning Neuromuscular Re-ed Coordination Retraining Manual Therapy Other Recommendations and Next Treatment Bed mobility, gait w/4WW. Focus Recommendations To Nursing Amount of Assist Needed 1 Person Assist Discharge Recommendations PT Discharge Recommendations SNF Rehab Equipment Needed for Home Before FWW if pt is going home Discharge
--- NOTE | 2019-02-08 09:48 | PM.DS.1 ---
History of Present Illness Date Patient Seen: 02/08/19 Chief complaint: GLF X2 Narrative: 68-year-old female with past medical history of diabetes with complications of peripheral neuropathy, gastroparesis, and CKD stage 4, hyperlipidemia, hypertension, essential tremors, chronic lower extremity edema presented to ED status post falls and with nausea/vomiting. Patient states that 1 day ago, around 7:00 p.m., she started shivering and her teeth were closed during. Patient put on the heat and wrapped herself up with blankets, but did not feel any relief. Around 10:00 p.m. patient became extremely weak and when she attempted to walk she fell down and vomited all over herself. Patient's nephew came and helped patient up to chair, where she spent most of her evening. Later on the nephew helped patient to bedroom where patient fell asleep. In the middle of the night patient's sister came to get her to take her to the bathroom. When patient got to the bathroom she again collapsed and vomited all over herself. She was helped up and brought back to bed during the night. Earlier this morning patient's sister was going to take patient to a reunion picnic. She was helping patient to get to the car, who again collapsed few feet shy of the car door. That is when patient's sister brought her to emergency department. Patient denies any fever, loss of consciousness, headache, blurry vision, dizziness. Patient denies any shortness of breath, chest pain, sore throat. Patient denies any abdominal pain. She did have 1 episode of diarrhea during the night when she collapsed and vomited. Patient does complain of lower back pain, which is chronic. She is also complaining of inguinal pain that is acute, 1 day duration. Patient does have trouble urinating chronically, and states that she needs to wipe herself prior to urinating to induce urination. Denies any dysuria, hematuria, mucus in the urine. Patient's lower extremities are chronically edematous, for which patient takes hydrochlorothiazide. In ED, patient's vitals revealed blood pressure 172/64, pulse 106, respirations 22, temperature 98.1? F. Lab work revealed WBCs 8.1, hemoglobin 8.2, hematocrit 24.9, platelets 199. 137, potassium 4.9, chloride 102, carbon dioxide 21, BUN 44, creatinine 2.5 (baseline BUN and creatinine is 42 and 1.9). Blood glucose 249. Lactate 3.9, procalcitonin 21.45. UA revealed over 100 WBCs, with many bacteria . CT abdomen pelvis without contrast was then performed which revealed: #1. Left worse than right bilateral perinephric fat stranding and mild prominence of bilateral renal pelvis and bilateral ureters worse on the left side. No definite obstructing renal stone or ureteral stone is seen. No calcified bladder stone. No gross bladder wall abnormality. Finding could represent infectious process such as pyelonephritis, suggest clinical correlation. #2. No bowel obstruction. Mild constipation. No evidence of acute appendicitis or diverticulitis. No free fluid or free air. Discharge Providers Date of admission: 02/05/19 07:57 Discharge Date: 02/08/19 Primary care physician: Vanessa Hirsch MD Consults: 02/05/19 09:37 Consult to Physical Therapy Evaluate & Treat Comment: Physician Instructions: Evaluate and Treat Discharge provider: Janay Segura MD Summary Discharge Diagnosis: 1. Sepsis secondary to pyelonephritis 2. Acute pyelonephritis secondary to E coli 3. Gram-negative mirza bacteremia secondary to E: 4. Type 2 diabetes 5. Hyperlipidemia 6. Hypertension 7. Essential tremor 8. Chronic lower extremity edema 9. Morbid obesity 10. Chronic kidney disease stage 4 11. Anemia, chronic Hospital Course: The patient is a 68-year-old female who was admitted to the hospital for acute pyelonephritis. He was found to have sepsis at admission secondary to E coli bacteremia. Patient was treated with IV levofloxacin. Patient made slow improved in terms of her nausea and improved appetite. She did develop acute renal failure with her creatinine going up to 3.0. She was given IV hydration with improvement of her creatinine which is down to 2.0 today. The patient was able to get up and ambulate with PT and OT. She is still a maximum assistance. She has 12 stairs to go up. She is felt to need some rehabilitation prior to returning home. The patient feels significantly improved and was deemed appropriate for discharge to [facility] today. Status at Discharge Cognitive/behavioral status at discharge: oriented Functional status at discharge: independent ambulation Overall status at discharge: patient is not back to baseline Time Spent with Patient Less than 30 minutes Exam Vital Signs (past 8 hours): - 02/08/19 02:00 02/08/19 03:56 02/08/19 03:57 Temperature 98.7 F Pulse Rate 77 Respiratory Rate 19 18 17 Blood Pressure 137/71 Pulse Oximetry 96 84 L 95 02/08/19 04:47 02/08/19 07:44 02/08/19 07:45 Temperature 99 F 98.6 F Pulse Rate 75 75 Respiratory Rate 18 14 Blood Pressure 141/63 H 144/67 H Pulse Oximetry 97 93 96 Oxygen Delivery Method Room Air Oxygen Flow Rate 0 Narrative Exam Narrative: Pleasant female in no obvious distress Lungs: Clear to auscultation Cardiac: Regular rate rhythm normal S1-S2 with a 2/6 systolic ejection Abdomen: Soft nontender nondistended Lower extremities: 2+ pitting edema bilateral Objective Labs Result Diagrams: 02/08/19 05:40 02/08/19 05:40 Labs: Laboratory Results - last 24 hr 02/08/19 02/08/19 05:40 05:40 WBC 7.0 RBC 2.75 L Hgb 8.4 L Hct 24.3 L MCV 88.5 MCH 30.4 MCHC 34.4 RDW 13.5 Plt Count 202 Neut % (Auto) 70.9 Lymph % (Auto) 17.2 L [place] % (Auto) 9.9 Eos % (Auto) 1.7 L Baso % (Auto) 0.3 Neut # (Auto) 5000 Lymph # (Auto) 1200 [place] # (Auto) 700 Eos # (Auto) 100 Baso # (Auto) 0 Sodium 137 Potassium 4.5 Chloride 105 Carbon Dioxide 26 BUN 32 H Creatinine 2.00 H Estimated GFR 24.7 L BUN/Creatinine Ratio 16.0 Glucose 83 Calcium 8.6 B-Natriuretic Peptide 675 H Discharge Plan Discharge Plan Discharge Problem: Acute pyelonephritis Patient Disposition: SNF Transfer to: [facility] Transportation: Cabulance Consult as needed: Dental and Hearing I certify the postop hospital custodial care is medically necessary on a continuing basis for any conditions for which he/ she received care during this hospitalization.: Yes The receiving facility has agreed to accept transfer and provide medical treatment.: Yes Discharge Med Rec/Prescriptions Prescriptions: New levofloxacin 250 mg Tablet 250 mg PO Q24H Qty: 10 RF: 0 Continued ondansetron 4 mg tablet,disintegrating 4 mg PO Q6-8H PRN (Reason: nausea and vomiting) Qty: 30 RF: 0 gabapentin [Neurontin] 300 MG capsule 600 mg PO BID Qty: 0 RF: 0 primidone 50 mg tablet 25 mg PO BEDTIME RF: 0 atorvastatin 20 mg tablet 20 mg PO QAM RF: 0 sodium bicarbonate 650 mg tablet 2 tab PO BID RF: 0 aspirin 81 mg Tablet,Delayed Release (Dr/Ec) 81 mg PO DAILY RF: 0 insulin NPH isoph U-100 human 100 unit/mL suspension 15 unit subcut BEDTIME RF: 0 hydrochlorothiazide 25 mg tablet 25 mg PO DAILY RF: 0 insulin regular human 100 unit/mL solution 3 - 6 unit subcut TID RF: 0 insulin NPH isoph U-100 human 100 unit/mL Suspension 12 unit SUBCUT QAM RF: 0 cholecalciferol (vitamin D3) [Vitamin D3] 2,000 unit Capsule 4,000 unit PO DAILY RF: 0 hydroxyzine pamoate [Vistaril] 25 mg capsule 25 mg PO TID-QID PRN (Reason: spasms) Qty: 60 RF: 0 metoprolol tartrate 25 mg Tablet 25 mg PO BID Qty: 60 RF: 0 metoclopramide HCl [Reglan] 5 mg tablet 5 mg PO BID-TID PRN (Reason: nausea and vomiting) Qty: 30 RF: 0 Follow up/Referrals: Vanessa Hirsch MD [Primary Care Provider] - Provider Discharge Instructions Diet: Carb-consistent/Diabetic, Low-sodium and Low-cholesterol Liquid consistency: Normal/Thin Food texture: Regular Activity: as tolerated Oxygen: not indicated Skin/Wound/Dressing Care Report to your healthcare provider any signs of infection, such as:: chills, fever Special Rehabilitation Services Reason for rehabilitation: Recovery r/t decondition Rehab type: Physical therapy and Occupational therapy Discharge Data Primary Care Provider: Vanessa Hirsch Attending Provider: Mikaela Dorman Admit Date/Time: 02/05/19 07:57 Quality VTE Deep Vein Thrombosis/Pulmonary Embolism Present on Admission: No
[2019-02-08] MEDS: INSULIN REGULAR 100 UNIT/ML 3 ML VIAL SUBCUT (11:57)
--- NOTE | 2019-02-08 12:44 | PC.NURSE ---
Day shift: Report called to [facility] today at approx 1245. Talked with admit RN.
--- NOTE | 2019-02-08 13:14 | CM.DPNOTE ---
DCP/continued: Reviewed chart. Per Dr. Segura, patient okay to d/c to SNF today. Asked SOCIAL AND HUMAN SERVICES ASSISTANT/Sandra to coordinate with [facility]. PASRR completed and faxed to facility. Met with patient to confirm plan. Patient's daughter at bedside. Patient aware and agreeable to go [facility] today. No additional needs identified. P: [facility] today. ALEJANDRO Arce
--- NOTE | 2019-02-08 16:29 | CM.DANOTE ---
Pt sat in chair until transportation arrived. Had previously had HL removed. Transportation to [facility] arrived at 1620 Pt discharged in stable condition.
== END 2019-02-08 16:25 | DRG 872 ==
LOC: ED 12:22 → AC 14:19
PROVIDERS: Internal Medicine; Nurse Practitioner; Admitting Provider Internal Medicine; Emergency Provider Emergency Medicine; Family Provider Internal Medicine; PCP Internal Medicine; Visit Provider Internal Medicine
DX: A41.51 Sepsis due to Escherichia coli [E. coli] (principal); N10 Acute pyelonephritis; N17.9 Acute kidney failure, unspecified; N18.4 Chronic kidney disease, stage 4 (severe); E87.1 Hypo-osmolality and hyponatremia; Z68.41 Body mass index [BMI] 40.0-44.9, adult; R65.20 Severe sepsis without septic shock; E11.22 Type 2 diabetes mellitus with diabetic chronic kidney disease; D63.1 Anemia in chronic kidney disease; E66.01 Morbid (severe) obesity due to excess calories; E11.42 Type 2 diabetes mellitus with diabetic polyneuropathy; I12.9 Hypertensive chronic kidney disease with stage 1 through stage 4 chronic kidney disease, or unspecified chronic kidney disease; E78.5 Hyperlipidemia, unspecified; G25.0 Essential tremor; Z79.4 Long term (current) use of insulin; E11.65 Type 2 diabetes mellitus with hyperglycemia; R60.0 Localized edema
CPT/HCPCS: 36415; 36591; 74176; 80048; 80053; 81003; 81015; 82962; 83036; 83605; 83690; 83880; 84145; 85025; 87040; 87077; 87086; 87150; 87186; 87205; 93005; 94760; 94762; 96365; 96375; 97116; 97162; 97530; 99284; 99285; G0378; C9113; J1644; J1956; J2405; J2765

== ENCOUNTER → 2019-03-28 09:26 | Outpatient (CLI) | payer MEDICARE, OTHER, SELFPAY ==
[2019-02-03 16:36] VITALS: BMI 42.3
[2019-03-28 10:30] LABS: Hematocrit 28.1 % (36-46); Hemoglobin 9.5 g/dL (12.0-16.0)
[2019-03-28 10:38] LABS: Blood Urea Nitrogen 40 mg/dL (7-17); Calcium 9.9 mg/dL (8.4-10.2); Carbon Dioxide 23 mmol/L (22-32); Chloride 107 mmol/L (98-107); Estimated Glomerular Filt Rate 24.7 mL/min (>60); Glucose 103 mg/dL (80-110); HEMOLYSIS < 15 (0-50); Sodium 139 mmol/L (137-145)
[2019-03-28 10:55] LABS: Potassium 5.6 mmol/L (3.4-5.1)
== END ==
PROVIDERS: PCP Internal Medicine; Visit Provider Student in an Organized Health Care Education/Training Program
DX: N05.9 Unspecified nephritic syndrome with unspecified morphologic changes (principal); D64.9 Anemia, unspecified; N25.81 Secondary hyperparathyroidism of renal origin
CPT/HCPCS: 36415; 80048; 83970; 85014; 85018

== ENCOUNTER → 2019-03-30 07:16 | Outpatient (CLI) | payer MEDICARE, OTHER, SELFPAY ==
[2019-02-03 16:36] VITALS: BMI 42.3
[2019-03-30 09:09] LABS: BUN Creatinine Ratio 19.5 (6-22); Blood Urea Nitrogen 39 mg/dL (7-17); Calcium 9.6 mg/dL (8.4-10.2); Carbon Dioxide 24 mmol/L (22-32); Chloride 108 mmol/L (98-107); Estimated Glomerular Filt Rate 24.7 mL/min (>60); Glucose 106 mg/dL (80-110); HEMOLYSIS < 15 (0-50); Potassium 4.5 mmol/L (3.4-5.1); Sodium 141 mmol/L (137-145)
== END ==
PROVIDERS: Family Provider Internal Medicine; PCP Internal Medicine; Visit Provider Student in an Organized Health Care Education/Training Program
DX: N05.9 Unspecified nephritic syndrome with unspecified morphologic changes (principal)
CPT/HCPCS: 36415; 80048

== ENCOUNTER → 2019-04-25 09:01 | Outpatient (CLI) | payer MEDICARE, OTHER, SELFPAY ==
[2019-02-03 16:36] VITALS: BMI 42.3
[2019-04-25 09:58] LABS: Hematocrit 28.3 % (36-46); Hemoglobin 9.5 g/dL (12.0-16.0)
[2019-04-25 10:21] LABS: B Type Natriuretic Peptide < 100 (<100)
[2019-04-25 10:53] LABS: BUN Creatinine Ratio 18.6 (6-22); Blood Urea Nitrogen 41 mg/dL (7-17); Calcium 9.5 mg/dL (8.4-10.2); Carbon Dioxide 28 mmol/L (22-32); Chloride 102 mmol/L (98-107); Estimated Glomerular Filt Rate 22.1 mL/min (>60); Glucose 185 mg/dL (80-110); HEMOLYSIS < 15 (0-50); Potassium 4.7 mmol/L (3.4-5.1); Sodium 141 mmol/L (137-145)
[2019-04-25 10:57] LABS: Iron 58 ug/dL (37-170)
[2019-04-25 11:27] LABS: Ferritin 66.6 ng/mL (11.1-264)
[2019-04-28 16:03] LABS: Parathyroid Hormone Int 47 pg/mL (14-64)
== END ==
PROVIDERS: PCP Internal Medicine; Visit Provider Student in an Organized Health Care Education/Training Program
DX: N05.9 Unspecified nephritic syndrome with unspecified morphologic changes (principal); I50.32 Chronic diastolic (congestive) heart failure; D50.0 Iron deficiency anemia secondary to blood loss (chronic); D64.9 Anemia, unspecified; N25.81 Secondary hyperparathyroidism of renal origin
CPT/HCPCS: 36415; 80048; 82728; 83540; 83880; 83970; 85014; 85018

== ENCOUNTER → 2019-07-04 09:11 | Outpatient (CLI) | payer MEDICARE, OTHER, SELFPAY ==
[2019-02-03 16:36] VITALS: BMI 42.3
[2019-07-04 10:45] LABS: Iron 87 ug/dL (37-170)
[2019-07-04 10:48] LABS: BUN Creatinine Ratio 21.8 (6-22); Blood Urea Nitrogen 48 mg/dL (7-17); Calcium 9.8 mg/dL (8.4-10.2); Carbon Dioxide 23 mmol/L (22-32); Chloride 105 mmol/L (98-107); Estimated Glomerular Filt Rate 22.1 mL/min (>60); Glucose 121 mg/dL (80-110); HEMOLYSIS 30 (0-50); Potassium 4.9 mmol/L (3.4-5.1); Sodium 142 mmol/L (137-145)
[2019-07-04 10:53] LABS: Total Iron Binding Capacity 235 ug/dL (265-497)
[2019-07-04 11:07] LABS: Hematocrit 30.6 % (36-46); Hemoglobin 10.3 g/dL (12.0-16.0)
[2019-07-04 11:19] LABS: Ferritin 86.4 ng/mL (11.1-264)
[2019-07-04 21:09] LABS: HEMOLYSIS 21 (0-50); Transferrin 196 mg/dL (206-381)
[2019-07-04 21:26] LABS: Percent Iron Saturation 37 % (15-50)
== END ==
PROVIDERS: PCP Internal Medicine; Visit Provider Student in an Organized Health Care Education/Training Program
DX: N05.9 Unspecified nephritic syndrome with unspecified morphologic changes (principal); D50.0 Iron deficiency anemia secondary to blood loss (chronic); D64.9 Anemia, unspecified
CPT/HCPCS: 36415; 80048; 82728; 83540; 83550; 85014; 85018

== ENCOUNTER → 2019-10-11 07:21 | Outpatient (CLI) | payer MEDICARE, OTHER, SELFPAY ==
[2019-02-03 16:36] VITALS: BMI 42.3
[2019-10-11 08:24] LABS: Hematocrit 30.2 % (36-46); Hemoglobin 10.2 g/dL (12.0-16.0)
[2019-10-11 08:32] LABS: HEMOLYSIS < 15 (0-50); Iron 81 ug/dL (37-170)
[2019-10-11 08:35] LABS: BUN Creatinine Ratio 19.6 (6-22); Blood Urea Nitrogen 38 mg/dL (7-17); Calcium 9.7 mg/dL (8.4-10.2); Carbon Dioxide 26 mmol/L (22-32); Chloride 104 mmol/L (98-107); Estimated Glomerular Filt Rate 25.6 mL/min (>60); Glucose 252 mg/dL (80-110); HEMOLYSIS < 15 (0-50); Potassium 4.7 mmol/L (3.4-5.1); Sodium 139 mmol/L (137-145)
[2019-10-11 08:39] LABS: Creatinine Urine Random 59.5 mg/dL; Protein (Total) Urine Random 48 mg/dL (0-12)
[2019-10-11 08:43] LABS: Percent Iron Saturation 35 % (15-50); Total Iron Binding Capacity 231 ug/dL (265-497); Transferrin 190 mg/dL (206-381)
[2019-10-11 08:44] LABS: NT-proBNP (BNP-Adult 18+) 303 pg/mL (<125)
[2019-10-11 09:10] LABS: Ferritin 59 ng/mL (11-264)
== END ==
PROVIDERS: PCP Internal Medicine; Referring Provider Student in an Organized Health Care Education/Training Program; Visit Provider Student in an Organized Health Care Education/Training Program
DX: R80.9 Proteinuria, unspecified (principal); N05.9 Unspecified nephritic syndrome with unspecified morphologic changes; I50.32 Chronic diastolic (congestive) heart failure; D50.0 Iron deficiency anemia secondary to blood loss (chronic); D64.9 Anemia, unspecified; N25.81 Secondary hyperparathyroidism of renal origin
CPT/HCPCS: 36415; 80048; 82570; 82728; 83540; 83550; 83880; 83970; 84156; 85014; 85018

== ENCOUNTER → 2020-01-30 10:54 | Outpatient (CLI) | payer MEDICARE, OTHER, SELFPAY ==
[2019-02-03 16:36] VITALS: BMI 42.3
[2020-01-30 12:53] LABS: Hematocrit 32.1 % (36-46); Hemoglobin 10.8 g/dL (12.0-16.0)
[2020-01-30 13:16] LABS: HEMOLYSIS < 15 (0-50); Iron 82 ug/dL (37-170)
[2020-01-30 13:22] LABS: BUN Creatinine Ratio 18.7 (6-22); Blood Urea Nitrogen 35 mg/dL (7-17); Calcium 9.4 mg/dL (8.4-10.2); Carbon Dioxide 21 mmol/L (22-32); Chloride 107 mmol/L (98-107); Estimated Glomerular Filt Rate 26.6 mL/min (>60); Glucose 145 mg/dL (80-110); HEMOLYSIS < 15 (0-50); Potassium 5.1 mmol/L (3.4-5.1); Sodium 139 mmol/L (137-145)
[2020-01-30 13:27] LABS: Percent Iron Saturation 34 % (15-50); Total Iron Binding Capacity 243 ug/dL (265-497); Transferrin 184 mg/dL (206-381)
[2020-01-30 13:52] LABS: Ferritin 62 ng/mL (11-264)
[2020-01-30 15:34] LABS: Creatinine Urine Random 64.7 mg/dL; Protein (Total) Urine Random 50 mg/dL (0-12); Protein Creatinine Ratio Urine 0.77 GRAM/24H
[2020-01-31 08:41] LABS: Parathyroid Hormone Int 126 pg/mL (15-65)
== END ==
PROVIDERS: PCP Internal Medicine; Referring Provider Student in an Organized Health Care Education/Training Program; Visit Provider Student in an Organized Health Care Education/Training Program
DX: N05.9 Unspecified nephritic syndrome with unspecified morphologic changes (principal); D50.0 Iron deficiency anemia secondary to blood loss (chronic); D64.9 Anemia, unspecified; N25.81 Secondary hyperparathyroidism of renal origin; R80.9 Proteinuria, unspecified
CPT/HCPCS: 36415; 80048; 82570; 82728; 83540; 83550; 83970; 84156; 85014; 85018

== ENCOUNTER → 2020-05-24 06:48 | Outpatient (CLI) | payer MEDICARE, OTHER, SELFPAY ==
[2019-02-03 16:36] VITALS: BMI 42.3
[2020-05-24 08:53] LABS: Hemoglobin 10.4 g/dL (12.0-16.0)
[2020-05-24 09:28] LABS: Creatinine Urine Random 74.2 mg/dL; Protein (Total) Urine Random 102 mg/dL (0-12); Protein Creatinine Ratio Urine 1.37 GRAM/24H
[2020-05-24 09:33] LABS: HEMOLYSIS < 15 (0-50); Iron 67 ug/dL (37-170)
[2020-05-24 09:43] LABS: BUN Creatinine Ratio 22.6 (6-22); Blood Urea Nitrogen 47 mg/dL (7-17); Calcium 10.2 mg/dL (8.4-10.2); Carbon Dioxide 29 mmol/L (22-32); Chloride 104 mmol/L (98-107); Estimated Glomerular Filt Rate 23.5 mL/min (>60); Glucose 156 mg/dL (80-110); HEMOLYSIS < 15 (0-50); Potassium 4.7 mmol/L (3.4-5.1); Sodium 141 mmol/L (137-145)
[2020-05-24 09:45] LABS: Percent Iron Saturation 27 % (15-50); Total Iron Binding Capacity 251 ug/dL (265-497); Transferrin 195 mg/dL (206-381)
[2020-05-24 10:04] LABS: Ferritin 47 ng/mL (11-264)
[2020-05-25 06:13] LABS: Parathyroid Hormone Int 34 pg/mL (15-65)
== END ==
PROVIDERS: PCP Internal Medicine; Referring Provider Internal Medicine; Visit Provider Student in an Organized Health Care Education/Training Program
DX: N05.9 Unspecified nephritic syndrome with unspecified morphologic changes (principal); D50.0 Iron deficiency anemia secondary to blood loss (chronic); D64.9 Anemia, unspecified; N25.81 Secondary hyperparathyroidism of renal origin; R80.9 Proteinuria, unspecified
CPT/HCPCS: 36415; 80048; 82570; 82728; 83540; 83550; 83970; 84156; 85014; 85018

== ENCOUNTER → 2020-06-25 09:47 | Outpatient (CLI) | payer MEDICARE, OTHER, SELFPAY ==
[2019-02-03 16:36] VITALS: BMI 42.3
[2020-06-25 11:27] LABS: BUN Creatinine Ratio 23.4 (6-22); Blood Urea Nitrogen 55 mg/dL (7-17); Calcium 10.5 mg/dL (8.4-10.2); Carbon Dioxide 29 mmol/L (22-32); Chloride 100 mmol/L (98-107); Estimated Glomerular Filt Rate 20.4 mL/min (>60); Glucose 147 mg/dL (80-110); HEMOLYSIS < 15 (0-50); Sodium 139 mmol/L (137-145)
[2020-06-25 11:36] LABS: NT-proBNP (BNP-Adult 18+) 362 pg/mL (<125)
== END ==
PROVIDERS: PCP Internal Medicine; Referring Provider Student in an Organized Health Care Education/Training Program; Visit Provider Student in an Organized Health Care Education/Training Program
DX: N05.9 Unspecified nephritic syndrome with unspecified morphologic changes (principal); I50.32 Chronic diastolic (congestive) heart failure
CPT/HCPCS: 36415; 80048; 83880

== ENCOUNTER → 2020-08-07 19:07 | Outpatient (ROUT) | payer MEDICARE, OTHER, SELFPAY ==
[2019-02-03 16:36] VITALS: BMI 42.3
[2020-08-07 19:28] LABS: Alanine Aminotransferase 10 IU/L (<35); Albumin 4.1 g/dL (3.5-5.0); Albumin Globulin Ratio 1.3 (1.0-2.8); Alkaline Phosphatase 89 U/L (38-126); Aspartate Aminotransferase 20 IU/L (14-36); BUN Creatinine Ratio 19.9 (6-22); Bilirubin Total 0.3 mg/dL (0.2-1.3); Blood Urea Nitrogen 41 mg/dL (7-17); Calcium 8.9 mg/dL (8.4-10.2); Carbon Dioxide 25 mmol/L (22-32); Chloride 108 mmol/L (98-107); Cholesterol 211 mg/dL (140-199); Estimated Glomerular Filt Rate 23.8 mL/min (>60); Globulin 3.2 g/dL (1.7-4.1); Glucose 104 mg/dL (80-110); HDL Cholesterol 58 mg/dL (40-60); HEMOLYSIS < 15 (0-50); LDL Cholesterol Calculated 126 mg/dL (<100); Sodium 140 mmol/L (137-145); Total Protein 7.3 g/dL (6.3-8.2); Triglycerides 136 mg/dL (35-150)
[2020-08-07 19:59] LABS: TSH w/ Reflex to FT4 1.91 uIU/mL (0.47-4.68)
[2020-08-08 13:35] LABS: Vitamin B12 225 pg/mL (239-931)
== END ==
PROVIDERS: PCP Internal Medicine; Visit Provider Internal Medicine
DX: I10 Essential (primary) hypertension (principal); E78.5 Hyperlipidemia, unspecified
CPT/HCPCS: 80053; 80061; 82607; 84443

== ENCOUNTER → 2020-09-17 12:49 | Outpatient (CLI) | payer MEDICARE, OTHER, SELFPAY ==
[2019-02-03 16:36] VITALS: BMI 42.3
[2020-09-17 13:37] LABS: Hemoglobin 9.6 g/dL (12.0-16.0)
[2020-09-17 13:53] LABS: Blood Urea Nitrogen 51 mg/dL (7-17); Calcium 9.1 mg/dL (8.4-10.2); Carbon Dioxide 25 mmol/L (22-32); Chloride 107 mmol/L (98-107); Estimated Glomerular Filt Rate 21.8 mL/min (>60); Glucose 207 mg/dL (80-110); HEMOLYSIS < 15 (0-50); Sodium 139 mmol/L (137-145)
[2020-09-17 14:00] LABS: Potassium 5.5 mmol/L (3.4-5.1)
[2020-09-18 06:07] LABS: Parathyroid Hormone Int 165 pg/mL (15-65)
== END ==
PROVIDERS: PCP Internal Medicine; Referring Provider Student in an Organized Health Care Education/Training Program; Visit Provider Student in an Organized Health Care Education/Training Program
DX: N05.9 Unspecified nephritic syndrome with unspecified morphologic changes (principal); D64.9 Anemia, unspecified; N25.81 Secondary hyperparathyroidism of renal origin
CPT/HCPCS: 36415; 80048; 83970; 85014; 85018

== ENCOUNTER → 2020-09-21 07:05 | Outpatient (CLI) | payer MEDICARE, OTHER, SELFPAY ==
[2019-02-03 16:36] VITALS: BMI 42.3
[2020-09-21 07:33] LABS: HEMOLYSIS < 15 (0-50); Potassium 4.1 mmol/L (3.4-5.1)
== END ==
PROVIDERS: PCP Internal Medicine; Referring Provider Student in an Organized Health Care Education/Training Program; Visit Provider Student in an Organized Health Care Education/Training Program
DX: E87.5 Hyperkalemia (principal)
CPT/HCPCS: 36415; 84132

== ENCOUNTER → 2020-11-05 07:50 | Outpatient (CLI) | payer MEDICARE, OTHER, SELFPAY ==
[2019-02-03 16:36] VITALS: BMI 42.3
[2020-11-05 09:41] LABS: Hematocrit 29.9 % (36-46); Hemoglobin 10.1 g/dL (12.0-16.0)
[2020-11-05 10:21] LABS: HEMOLYSIS < 15 (0-50); Iron 56 ug/dL (37-170)
[2020-11-05 10:30] LABS: BUN Creatinine Ratio 15.5 (6-22); Blood Urea Nitrogen 33 mg/dL (7-17); Calcium 9.5 mg/dL (8.4-10.2); Carbon Dioxide 26 mmol/L (22-32); Chloride 105 mmol/L (98-107); Estimated Glomerular Filt Rate 22.9 mL/min (>60); Glucose 187 mg/dL (80-110); HEMOLYSIS < 15 (0-50); Potassium 4.3 mmol/L (3.4-5.1); Sodium 141 mmol/L (137-145)
[2020-11-05 10:33] LABS: Percent Iron Saturation 23 % (15-50); Total Iron Binding Capacity 248 ug/dL (265-497); Transferrin 202 mg/dL (206-381)
[2020-11-05 10:59] LABS: Ferritin 51 ng/mL (11-264)
[2020-11-06 07:31] LABS: Parathyroid Hormone Int 103 pg/mL (15-65)
== END ==
PROVIDERS: PCP Internal Medicine; Referring Provider Student in an Organized Health Care Education/Training Program; Visit Provider Student in an Organized Health Care Education/Training Program
DX: N05.9 Unspecified nephritic syndrome with unspecified morphologic changes (principal); D50.0 Iron deficiency anemia secondary to blood loss (chronic); D64.9 Anemia, unspecified; N25.81 Secondary hyperparathyroidism of renal origin
CPT/HCPCS: 36415; 80048; 82728; 83540; 83550; 83970; 85014; 85018

== ENCOUNTER → 2021-03-25 06:52 | Outpatient (CLI) | payer MEDICARE, OTHER, SELFPAY ==
[2019-02-03 16:36] VITALS: BMI 42.3
[2021-03-25 07:55] LABS: Hematocrit 30.3 % (36-46); Hemoglobin 10.2 g/dL (12.0-16.0)
[2021-03-25 07:57] LABS: BUN Creatinine Ratio 19.2 (6-22); Blood Urea Nitrogen 37 mg/dL (7-17); Calcium 9.1 mg/dL (8.4-10.2); Carbon Dioxide 23 mmol/L (22-32); Chloride 110 mmol/L (98-107); Estimated Glomerular Filt Rate 25.6 mL/min (>60); Glucose 122 mg/dL (80-110); HEMOLYSIS < 15 (0-50); Potassium 4.7 mmol/L (3.4-5.1); Sodium 140 mmol/L (137-145)
[2021-03-25 08:26] LABS: HEMOLYSIS < 15 (0-50); Iron 57 ug/dL (37-170)
[2021-03-25 08:31] LABS: Ferritin 38 ng/mL (11-264)
[2021-03-25 08:37] LABS: Percent Iron Saturation 24 % (15-50); Total Iron Binding Capacity 233 ug/dL (265-497); Transferrin 203 mg/dL (206-381)
[2021-03-26 07:07] LABS: Parathyroid Hormone Int 235 pg/mL (15-65)
== END ==
PROVIDERS: PCP Internal Medicine; Referring Provider Student in an Organized Health Care Education/Training Program; Visit Provider Student in an Organized Health Care Education/Training Program
DX: N05.9 Unspecified nephritic syndrome with unspecified morphologic changes (principal); D64.9 Anemia, unspecified; D50.0 Iron deficiency anemia secondary to blood loss (chronic); N25.81 Secondary hyperparathyroidism of renal origin
CPT/HCPCS: 36415; 80048; 82728; 83540; 83550; 83970; 85014; 85018

== ENCOUNTER → 2021-05-20 07:11 | Outpatient (CLI) | payer MEDICARE, OTHER, SELFPAY ==
[2019-02-03 16:36] VITALS: BMI 42.3
[2021-05-20 08:15] LABS: BUN Creatinine Ratio 20.4 (6-22); Blood Urea Nitrogen 40 mg/dL (7-17); Calcium 9.4 mg/dL (8.4-10.2); Carbon Dioxide 23 mmol/L (22-32); Chloride 107 mmol/L (98-107); Estimated Glomerular Filt Rate 25.1 mL/min (>60); Glucose 127 mg/dL (80-110); HEMOLYSIS < 15 (0-50); Potassium 5.3 mmol/L (3.4-5.1); Sodium 139 mmol/L (137-145)
== END ==
PROVIDERS: PCP Internal Medicine; Referring Provider Student in an Organized Health Care Education/Training Program; Visit Provider Student in an Organized Health Care Education/Training Program
DX: N05.9 Unspecified nephritic syndrome with unspecified morphologic changes (principal)
CPT/HCPCS: 36415; 80048

== ENCOUNTER → 2021-05-29 07:52 | Outpatient (CLI) | payer MEDICARE, OTHER, SELFPAY ==
[2019-02-03 16:36] VITALS: BMI 42.3
[2021-05-29 09:40] LABS: HEMOLYSIS < 15 (0-50); Potassium 4.4 mmol/L (3.4-5.1)
== END ==
PROVIDERS: PCP Internal Medicine; Referring Provider Student in an Organized Health Care Education/Training Program; Visit Provider Student in an Organized Health Care Education/Training Program
DX: E87.5 Hyperkalemia (principal)
CPT/HCPCS: 36415; 84132

== ENCOUNTER → 2021-07-16 06:45 | Outpatient (CLI) | payer MEDICARE, OTHER, SELFPAY ==
[2019-02-03 16:36] VITALS: BMI 42.3
[2021-07-16 10:05] LABS: BUN Creatinine Ratio 14.5 (6-22); Blood Urea Nitrogen 27 mg/dL (7-17); Calcium 7.5 mg/dL (8.4-10.2); Carbon Dioxide 24 mmol/L (22-32); Chloride 111 mmol/L (98-107); Estimated Glomerular Filt Rate 26.7 mL/min (>60); Glucose 106 mg/dL (80-110); HEMOLYSIS < 15 (0-50); Potassium 4.9 mmol/L (3.4-5.1); Sodium 144 mmol/L (137-145)
[2021-07-17 04:27] LABS: Fructosamine 324 umol/L (0-285)
== END ==
PROVIDERS: PCP Internal Medicine; Referring Provider Internal Medicine Endocrinology, Diabetes & Metabolism; Visit Provider Internal Medicine Endocrinology, Diabetes & Metabolism
DX: Z79.4 Long term (current) use of insulin (principal); N05.9 Unspecified nephritic syndrome with unspecified morphologic changes; E11.22 Type 2 diabetes mellitus with diabetic chronic kidney disease
CPT/HCPCS: 36415; 80048; 82985

== ENCOUNTER → 2021-08-02 10:09 | Outpatient (CLI) | payer MEDICARE, OTHER, SELFPAY ==
[2019-02-03 16:36] VITALS: BMI 42.3
[2021-08-02 10:43] LABS: Hematocrit 30.1 % (36-46)
[2021-08-02 10:59] LABS: HEMOLYSIS < 15 (0-50); Iron 51 ug/dL (37-170)
[2021-08-02 11:10] LABS: Percent Iron Saturation 19 % (15-50); Total Iron Binding Capacity 270 ug/dL (265-497); Transferrin 202 mg/dL (206-381)
[2021-08-02 12:17] LABS: Ferritin 41 ng/mL (11-264); HEMOLYSIS < 15 (0-50)
[2021-08-02 13:16] LABS: Blood Urea Nitrogen 45 mg/dL (7-17); Calcium 9.7 mg/dL (8.4-10.2); Carbon Dioxide 25 mmol/L (22-32); Chloride 107 mmol/L (98-107); Estimated Glomerular Filt Rate 20.2 mL/min (>60); Glucose 123 mg/dL (80-110); Potassium 5.1 mmol/L (3.4-5.1); Sodium 143 mmol/L (137-145)
[2021-08-03 06:23] LABS: Parathyroid Hormone Int 86 pg/mL (15-65)
== END ==
PROVIDERS: PCP Internal Medicine; Referring Provider Student in an Organized Health Care Education/Training Program; Visit Provider Student in an Organized Health Care Education/Training Program
DX: D64.9 Anemia, unspecified (principal); N05.9 Unspecified nephritic syndrome with unspecified morphologic changes; D60.0 Chronic acquired pure red cell aplasia; D50.0 Iron deficiency anemia secondary to blood loss (chronic); N25.81 Secondary hyperparathyroidism of renal origin
CPT/HCPCS: 36415; 80048; 82728; 83540; 83550; 83970; 85014; 85018

== ENCOUNTER 2021-10-11 14:55 | Emergency (ER) | payer MEDICARE, OTHER, SELFPAY ==
[2019-02-03 16:36] VITALS: BMI 42.3
[2021-10-11] VITALS (8 sets, daily range): BP systolic 148–237; BP diastolic 84–100; PULSE 60–76; RESP 17–18; TEMP 36.6; O2SAT 98–100; BMI 44.7
--- NOTE | 2021-10-11 17:39 | PC.NURSE ---
Patient reports that she accidentally took too much insulin and took her lunch time insulin of 4U with a CBG of 91 and then did not eat lunch. Was evaluated by medics, given d50 and ate. Daughter brought patient in for evaluation, patient reports that she feels fine now.
--- NOTE | 2021-10-11 18:57 | ED_ITS ---
HPI - General Adult General Chief complaint: Diabetic Problem Stated complaint: Diabetic Coma, Bld Sugar 23, High BP Time Seen by Provider: 10/11/21 18:07 Source: patient and family Mode of arrival: Wheelchair History of Present Illness HPI narrative: 70-year-old female nonsmoker with history of hypertension and diabetes presents by EMS for evaluation of altered mental status and low blood sugar. She had been in her normal state of health until mid day. She had been taking her medications as prescribed and was planning on going to lunch with a family member and took insulin accordingly. Their plans changed and they did not eat and soon thereafter she started getting confused and a bit lightheaded. She became unresponsive and EMS was activated, she she was found to have a blood sugar in the low 20s. She had been given dextrose EN route and blood sugar was in the 170s on her arrival and she felt asymptomatic. She denies any headache or blurred vision or chest pain or shortness of breath. She has no nausea, vomiting or diarrhea. She has not dizzy nor weak or lightheaded. She has no fever. She denies any dysuria, frequency or urgency Related Data Home Medications Medication Instructions Recorded Confirmed gabapentin 300 mg capsule 600 mg PO BID #0 06/05/16 02/03/19 (Neurontin) aspirin 81 mg tablet,delayed 81 mg PO DAILY 01/04/18 02/03/19 release atorvastatin 20 mg tablet 20 mg PO QAM 01/04/18 02/03/19 primidone 50 mg tablet 25 mg PO BEDTIME 01/04/18 02/05/19 sodium bicarbonate 650 mg tablet 2 tab PO BID 01/04/18 02/05/19 hydrochlorothiazide 25 mg tablet 25 mg PO DAILY 09/27/18 02/06/19 insulin NPH isoph U-100 human 100 15 unit SUBCUT BEDTIME 09/27/18 02/06/19 unit/mL subcutaneous suspension insulin regular human 100 unit/mL 3 - 6 unit SUBCUT TID 09/27/18 02/06/19 injection solution cholecalciferol (vitamin D3) 50 4,000 unit PO DAILY 10/08/18 02/03/19 mcg (2,000 unit) capsule (Vitamin D3) insulin NPH isoph U-100 human 100 12 unit SUBCUT QAM 10/08/18 02/06/19 unit/mL subcutaneous suspension carvedilol 12.5 mg tablet 12.5 mg PO BID 10/11/21 10/11/21 Previous Rx's Medication Instructions Recorded hydroxyzine pamoate 25 mg capsule 25 mg PO TID-QID PRN #60 cap 10/12/18 (Vistaril) ondansetron 4 mg disintegrating 4 mg PO Q6-8H PRN #30 tab 12/13/18 tablet metoclopramide HCl 5 mg tablet 5 mg PO BID-TID PRN #30 tab 12/21/18 (Reglan) metoprolol tartrate 25 mg tablet 25 mg PO BID #60 tab 12/21/18 levofloxacin 250 mg tablet 250 mg PO Q24H #10 tab 02/08/19 Allergies Allergy/AdvReac Type Severity Reaction Status Date / Time ceftriaxone Allergy Severe Anaphylaxis Verified 10/11/21 18:53 Review of Systems Review of Systems Narrative: GENERAL: See HPI HEENT: Denies sinus pain, ear pain, sore throat, difficulty swallowing, dizziness. RESPIRATORY: Denies dyspnea, cough, wheezing, hemoptysis, sputum. CARDIOVASCULAR: Denies chest pain, palpitations, orthopnea, edema, GASTROINTESTINAL: Denies nausea, vomiting, abdominal pain, diarrhea, constipation, melena. : Denies dysuria, frequency, incontinence, hematuria, urinary retention. MUSCULOSKELETAL: denies weakness, joint pain, or bony pain SKIN: Denies rash, skin lesions, or other NEUROLOGIC: Denies weakness, headache, numbness, change in speech, confusion, seizures, incoordination. PSYCHIATRIC: No concerning psychosocial issues. 12 point review of systems is negative except for those stated above Patient History Medical History Balance problem CKD stage 4 due to type 2 diabetes mellitus Closed head injury Diabetes mellitus with neuropathy Essential tremor High cholesterol Hypertension Neuropathy Surgical History History of shoulder surgery Hx of cataract surgery S/P cholecystectomy Family History Father Diabetes mellitus COPD (chronic obstructive pulmonary disease) Leukemia Mother Alzheimer disease Brother Diabetes mellitus Sister Hyperlipidemia Hypertension Social History household members: family Smoking Status: Never smoker alcohol intake: current Smoking Status: Never smoker alcohol intake frequency: holidays/special occasions only Substance Use Type: does not use Exam Narrative Exam Narrative: GENERAL: [70 year old patient appears stated age. Well-developed patient, in mild distress. HEAD: Atraumatic. Normocephalic. EYES: Pupils equal round and reactive. Extraocular motions intact. No scleral icterus. No injection or drainage. ENT: Nose without bleeding, purulent drainage. Throat without erythema, tonsillar hypertrophy or exudate. Airway patent. NECK: Trachea midline. Non tender CARDIOVASCULAR: Regular rate and rhythm without murmurs, gallops, or rubs. RESPIRATORY: Clear to auscultation. Breath sounds equal bilaterally. No wheezes, rales, or rhonchi. GASTROINTESTINAL: Abdomen soft, non-tender, nondistended. EXTREMITIES: No edema or joint tenderness. BACK: Nontender without deformity or crepitance. No flank tenderness. NEURO: AOx3. SKIN: No rash or erythema of visible areas Initial Vital Signs Initial Vital Signs: Vital Signs Temperature 97.8 F 10/11/21 15:07 Pulse Rate 60 10/11/21 15:07 Respiratory Rate 17 10/11/21 15:07 Blood Pressure 148/85 H 10/11/21 15:07 Pulse Oximetry 99 10/11/21 15:07 Course Orders Ordered: Discontinued Medications Carvedilol (Carvedilol 12.5 Mg Tablet) 12.5 mg PO NOW ONE Stop: 10/11/21 18:57 Last Admin: 10/11/21 19:14 Dose: 12.5 mg Documented by: WINIFRED Reevaluation(s) Reevaluation #1: Patient essentially asymptomatic for the duration of her visit, blood sugars remain normalized Vital Signs Vital signs: Vital Signs - 8 hr 10/11/21 15:07 10/11/21 17:42 Temperature 97.8 F Pulse Rate 60 66 Respiratory Rate 17 18 Blood Pressure 148/85 H 199/93 H Pulse Oximetry 99 98 Medical Decision Making Lab Data Labs: Lab Results 10/11/21 Range/Units 18:40 Urine RBC None seen (0-5/HPF) Urine WBC 5-10/hpf H (0-5/HPF) Urine Bacteria Many (>30) H (None) Ur Culture Indicated? Specimen cultured Point of Care Testing Glucose POC 176 Urine Dip Bedside Urine Glucose Negative Bedside Urine Bilirubin - Negative Bedside Urine Ketone - Negative Urine Specific [place] 1.010 Bedside Urine Occult Blood - Negative Bedside Urine pH 7.0 Bedside Urine Protein ++ 100 Bedside Urine Urobilinogen - Negative Bedside Urine Nitrite - Negative Bedside Urine Leukocytes + 70 Esterase Point of care testing: Point of Care Testing Glucose POC 176 Urine Dip Bedside Urine Glucose Negative Bedside Urine Bilirubin - Negative Bedside Urine Ketone - Negative Urine Specific [place] 1.010 Bedside Urine Occult Blood - Negative Bedside Urine pH 7.0 Bedside Urine Protein ++ 100 Bedside Urine Urobilinogen - Negative Bedside Urine Nitrite - Negative Bedside Urine Leukocytes + 70 Esterase MDM Narrative Medical decision making narrative: Patient presents after a confused or unresponsive episode related to hypoglycemia. She had been taking her medications as directed, however perhaps took insulin prior to lunch and had a delayed meal. She had complete resolution of symptoms after fixing her sugar. Labs are otherwise unremarkable. She does have some leukocytes in her urine but denies any dysuria, frequency, urgency, back pain or fever. We will await culture to determine if antibiotics might be indicated. Her blood pressure had been creeping up over the course of her visit but she did not take any of her medications this evening. She was given a dose of carvedilol and blood pressure began to improve. Again, she had no symptoms thought to be related to blood pressure and prefer to go home and take the remainder of her medications. She was given extensive return precautions and questions have been answered to her apparent satisfaction Discharge Plan Departure Patient Disposition: Home Clinical Impression: Hypoglycemia Instructions: DI for Hypoglycemia Activity Restrictions/Additional Instructions: *You have been diagnosed with [low blood sugar]. As we discussed her history, physical exam, and response to therapies are very reassuring. Also, we discussed your blood pressure being elevated due to lack of taking your routine medications, likely an element of white coat syndrome as well. Please go home and take your routine medications as prescribed *What to do: *Please continue to take your regular medications as directed. *Please follow up with your primary care provider in 2-3 days, call for an appointment. Let them know you were seen in the Emergency Department and that we ask that you be seen in follow up. We will electronically transmit a record of today's note if your PCP is in our system *If you do not have a primary care provider please contact the [facility] Resource line at [phone]. They will ask some questions about your medical history and help get you set up with a doctor in the community. *Return to Emergency Department if you should have any new, worsening or concerning symptoms, such as [fever greater than 101 F, shaking chills, worsening pain, persistent vomiting or other bothersome symptoms] Prescriptions: No Action ondansetron 4 mg tablet,disintegrating 4 mg PO Q6-8H PRN (Reason: nausea and vomiting) Qty: 30 0RF gabapentin [Neurontin] 300 MG capsule 600 mg PO BID Qty: 0 0RF primidone 50 mg tablet 25 mg PO BEDTIME 0RF Rx Instructions: can increase does to 250mg (5 tabs) weekly prn atorvastatin 20 mg tablet 20 mg PO QAM 0RF sodium bicarbonate 650 mg tablet 2 tab PO BID 0RF aspirin 81 mg Tablet,Delayed Release (Dr/Ec) 81 mg PO DAILY 0RF insulin NPH isoph U-100 human 100 unit/mL suspension 15 unit subcut BEDTIME 0RF hydrochlorothiazide 25 mg tablet 25 mg PO DAILY 0RF insulin regular human 100 unit/mL solution 3 - 6 unit subcut TID 0RF Rx Instructions: 3units breakfast, 4units noon, 6units dinner insulin NPH isoph U-100 human 100 unit/mL Suspension 12 unit SUBCUT QAM 0RF cholecalciferol (vitamin D3) [Vitamin D3] 2,000 unit Capsule 4,000 unit PO DAILY 0RF hydroxyzine pamoate [Vistaril] 25 mg capsule 25 mg PO TID-QID PRN (Reason: spasms) Qty: 60 0RF metoprolol tartrate 25 mg Tablet 25 mg PO BID Qty: 60 0RF metoclopramide HCl [Reglan] 5 mg tablet 5 mg PO BID-TID PRN (Reason: nausea and vomiting) Qty: 30 0RF Rx Instructions: May take as needed for nausea, vomiting or early satiety levofloxacin 250 mg Tablet 250 mg PO Q24H Qty: 10 0RF carvedilol 12.5 mg tablet 12.5 mg PO BID 0RF Label Comments: TAKE 1 TABLET BY MOUTH TWICE DAILY WITH MEALS Referrals: Vanessa Hirsch MD [Primary Care Provider] -
[2021-10-11 19:08] LABS: Bacteria Urine Many (>30); Culture Indicated Urine Specimen Cultured; RBC Urine None Seen (0-5/HPF); WBC Urine 5-10/HPF (0-5/HPF)
[2021-10-11] MEDS: carvediloL 12.5 MG TABLET PO (19:14)
== END 2021-10-11 20:19 | disposition home or self-care (01) ==
PROVIDERS: Emergency Provider Emergency Medicine; PCP Internal Medicine
DX: E11.649 Type 2 diabetes mellitus with hypoglycemia without coma (principal); N39.0 Urinary tract infection, site not specified; B96.1 Klebsiella pneumoniae [K. pneumoniae] as the cause of diseases classified elsewhere; Z88.1 Allergy status to other antibiotic agents; Z79.4 Long term (current) use of insulin
CPT/HCPCS: 81003; 81015; 82962; 87077; 87086; 87186; 99283

== ENCOUNTER → 2021-11-06 06:51 | Outpatient (CLI) | payer MEDICARE, OTHER, SELFPAY ==
[2019-02-03 16:36] VITALS: BMI 42.3
[2021-11-06 08:45] LABS: Hematocrit 29.6 % (36-46); Hemoglobin 10.1 g/dL (12.0-16.0)
[2021-11-06 09:08] LABS: BUN Creatinine Ratio 16.2 (6-22); Blood Urea Nitrogen 35 mg/dL (7-17); Calcium 9.1 mg/dL (8.4-10.2); Carbon Dioxide 22 mmol/L (22-32); Chloride 106 mmol/L (98-107); Estimated Glomerular Filt Rate 22.5 mL/min (>60); Glucose 109 mg/dL (80-110); HEMOLYSIS < 15 (0-50); Potassium 4.8 mmol/L (3.4-5.1); Sodium 141 mmol/L (137-145)
[2021-11-06 09:10] LABS: HEMOLYSIS < 15 (0-50); Iron 69 ug/dL (37-170)
[2021-11-06 09:20] LABS: Percent Iron Saturation 29 % (15-50); Total Iron Binding Capacity 239 ug/dL (265-497); Transferrin 186 mg/dL (206-381)
[2021-11-06 09:37] LABS: Ferritin 57 ng/mL (11-264)
[2021-11-07 08:58] LABS: Parathyroid Hormone Int 189 pg/mL (15-65)
== END ==
PROVIDERS: PCP Internal Medicine; Referring Provider Student in an Organized Health Care Education/Training Program; Visit Provider Student in an Organized Health Care Education/Training Program
DX: D50.0 Iron deficiency anemia secondary to blood loss (chronic) (principal); N05.9 Unspecified nephritic syndrome with unspecified morphologic changes; D64.9 Anemia, unspecified; N25.81 Secondary hyperparathyroidism of renal origin
CPT/HCPCS: 36415; 80048; 82728; 83540; 83550; 83970; 85014; 85018

== ENCOUNTER → 2021-12-13 06:56 | Outpatient (CLI) | payer MEDICARE, OTHER, SELFPAY ==
[2019-02-03 16:36] VITALS: BMI 42.3
[2021-12-13 09:06] LABS: BUN Creatinine Ratio 19.1 (6-22); Blood Urea Nitrogen 43 mg/dL (7-17); Calcium 9.9 mg/dL (8.4-10.2); Carbon Dioxide 25 mmol/L (22-32); Chloride 108 mmol/L (98-107); Estimated Glomerular Filt Rate 23 mL/min (>60); Glucose 95 mg/dL (80-110); HEMOLYSIS < 15 (0-50); Sodium 141 mmol/L (137-145)
[2021-12-13 09:10] LABS: Potassium 5.5 mmol/L (3.4-5.1)
[2021-12-14 07:36] LABS: Parathyroid Hormone Int 73 pg/mL (15-65)
== END ==
PROVIDERS: PCP Internal Medicine; Referring Provider Student in an Organized Health Care Education/Training Program; Visit Provider Student in an Organized Health Care Education/Training Program
DX: N05.9 Unspecified nephritic syndrome with unspecified morphologic changes (principal); N25.81 Secondary hyperparathyroidism of renal origin
CPT/HCPCS: 36415; 80048; 83970

== ENCOUNTER → 2021-12-21 07:38 | Outpatient (CLI) | payer MEDICARE, OTHER, SELFPAY ==
[2019-02-03 16:36] VITALS: BMI 42.3
[2021-12-21 09:06] LABS: HEMOLYSIS < 15 (0-50); Potassium 4.4 mmol/L (3.4-5.1)
== END ==
PROVIDERS: PCP Internal Medicine; Referring Provider Student in an Organized Health Care Education/Training Program; Visit Provider Student in an Organized Health Care Education/Training Program
DX: E87.5 Hyperkalemia (principal)
CPT/HCPCS: 36415; 84132

== ENCOUNTER → 2022-01-04 08:01 | Outpatient (CLI) | payer MEDICARE, OTHER, SELFPAY ==
[2019-02-03 16:36] VITALS: BMI 42.3
[2022-01-04 09:20] LABS: Hematocrit 31.2 % (36-46); Hemoglobin 10.5 g/dL (12.0-16.0)
[2022-01-04 09:33] LABS: HEMOLYSIS < 15 (0-50); Iron 58 ug/dL (37-170)
[2022-01-04 09:44] LABS: Percent Iron Saturation 22 % (15-50); Total Iron Binding Capacity 261 ug/dL (265-497); Transferrin 190 mg/dL (206-381)
[2022-01-04 09:51] LABS: BUN Creatinine Ratio 16.9 (6-22); Blood Urea Nitrogen 41 mg/dL (7-17); Calcium 9.6 mg/dL (8.4-10.2); Carbon Dioxide 24 mmol/L (22-32); Chloride 103 mmol/L (98-107); Estimated Glomerular Filt Rate 21 mL/min (>60); Glucose 188 mg/dL (80-110); HEMOLYSIS < 15 (0-50); Potassium 4.1 mmol/L (3.4-5.1); Sodium 140 mmol/L (137-145)
[2022-01-04 10:21] LABS: Ferritin 41 ng/mL (11-264)
[2022-01-23 10:26] LABS: Parathyroid Hormone Int 92
== END ==
PROVIDERS: PCP Internal Medicine; Referring Provider Student in an Organized Health Care Education/Training Program; Visit Provider Student in an Organized Health Care Education/Training Program
DX: D50.0 Iron deficiency anemia secondary to blood loss (chronic) (principal); N05.9 Unspecified nephritic syndrome with unspecified morphologic changes; D64.9 Anemia, unspecified; N25.81 Secondary hyperparathyroidism of renal origin
CPT/HCPCS: 36415; 80048; 82728; 83540; 83550; 83970; 85014; 85018

== ENCOUNTER → 2022-03-29 08:41 | Outpatient (CLI) | payer MEDICARE, OTHER, SELFPAY ==
[2019-02-03 16:36] VITALS: BMI 42.3
[2022-03-29 09:28] LABS: Hematocrit 31.4 % (36-46); Hemoglobin 10.6 g/dL (12.0-16.0)
[2022-03-29 09:36] LABS: BUN Creatinine Ratio 15.9 (6-22); Blood Urea Nitrogen 35 mg/dL (7-17); Calcium 9.2 mg/dL (8.4-10.2); Carbon Dioxide 22 mmol/L (22-32); Chloride 109 mmol/L (98-107); Estimated Glomerular Filt Rate 23 mL/min (>60); Glucose 106 mg/dL (80-110); HEMOLYSIS < 15 (0-50); Potassium 4.1 mmol/L (3.4-5.1); Sodium 140 mmol/L (137-145)
[2022-03-29 09:48] LABS: Hemoglobin A1C% w Est Avg Glu 6.5 % (4.0-6.0)
[2022-03-29 09:53] LABS: Vitamin D 25 Hydroxy (D3) 31.9 ng/mL (30.0-100.0)
[2022-03-30 10:38] LABS: Parathyroid Hormone Int 119 pg/mL (15-65)
== END ==
PROVIDERS: PCP Internal Medicine; Referring Provider Student in an Organized Health Care Education/Training Program; Visit Provider Student in an Organized Health Care Education/Training Program
DX: E11.9 Type 2 diabetes mellitus without complications (principal); N25.81 Secondary hyperparathyroidism of renal origin; D64.9 Anemia, unspecified; N05.9 Unspecified nephritic syndrome with unspecified morphologic changes
CPT/HCPCS: 36415; 80048; 82306; 83036; 83970; 85014; 85018

== ENCOUNTER → 2022-06-30 06:59 | Outpatient (CLI) | payer MEDICARE, OTHER, SELFPAY ==
[2019-02-03 16:36] VITALS: BMI 42.3
[2022-06-30 08:29] LABS: Hematocrit 32.7 % (36-46); Hemoglobin 10.9 g/dL (12.0-16.0)
[2022-06-30 09:48] LABS: BUN Creatinine Ratio 15.6 (6-22); Blood Urea Nitrogen 40 mg/dL (7-17); Calcium 9.3 mg/dL (8.4-10.2); Carbon Dioxide 23 mmol/L (22-32); Chloride 105 mmol/L (98-107); Estimated Glomerular Filt Rate 19 mL/min (>60); Glucose 140 mg/dL (80-110); HEMOLYSIS < 15 (0-50); Potassium 4.7 mmol/L (3.4-5.1); Sodium 142 mmol/L (137-145)
[2022-07-02 07:53] LABS: Parathyroid Hormone Int 86 pg/mL (15-65)
== END ==
PROVIDERS: PCP Internal Medicine; Referring Provider Student in an Organized Health Care Education/Training Program; Visit Provider Student in an Organized Health Care Education/Training Program
DX: N05.9 Unspecified nephritic syndrome with unspecified morphologic changes (principal); R80.9 Proteinuria, unspecified; D64.9 Anemia, unspecified; N25.81 Secondary hyperparathyroidism of renal origin
CPT/HCPCS: 36415; 80048; 83970; 85014; 85018

== ENCOUNTER → 2022-08-06 06:57 | Outpatient (CLI) | payer MEDICARE, OTHER, SELFPAY ==
[2019-02-03 16:36] VITALS: BMI 42.3
[2022-08-06 08:04] LABS: Hematocrit 31.6 % (36-46); Hemoglobin 10.3 g/dL (12.0-16.0)
[2022-08-06 08:33] LABS: BUN Creatinine Ratio 13.8 (6-22); Blood Urea Nitrogen 30 mg/dL (7-17); Calcium 8.7 mg/dL (8.4-10.2); Carbon Dioxide 23 mmol/L (22-32); Chloride 101 mmol/L (98-107); Estimated Glomerular Filt Rate 23 mL/min (>60); Glucose 112 mg/dL (80-110); HEMOLYSIS < 15 (0-50); Potassium 3.9 mmol/L (3.4-5.1); Sodium 139 mmol/L (137-145)
== END ==
PROVIDERS: PCP Internal Medicine; Referring Provider Student in an Organized Health Care Education/Training Program; Visit Provider Student in an Organized Health Care Education/Training Program
DX: N05.9 Unspecified nephritic syndrome with unspecified morphologic changes (principal); D64.9 Anemia, unspecified
CPT/HCPCS: 36415; 80048; 85014; 85018

== ENCOUNTER 2022-09-25 09:06 | Inpatient (IN) | payer MEDICARE, OTHER, SELFPAY ==
[2019-02-03 16:36] VITALS: BMI 42.3
[2022-09-25] VITALS (24 sets, daily range): BP systolic 92–161; BP diastolic 38–95; PULSE 74–83; RESP 12–16; TEMP 36.6–37.1; O2SAT 93–100; BMI 47.8; BMI 22.8
--- NOTE | 2022-09-25 | DI.RAD.S_ITS ---
PROCEDURE: XR TIBIA FUBULA RT 2V INDICATIONS: Intra-op TECHNIQUE: 2 views of the tibia and fibula were acquired. COMPARISON: [facility], CR, XR TIBIA FIBULA RT 2V, 09/25/2022, 9:18. FINDINGS: 4 intraoperative fluoroscopic views demonstrate postsurgical changes consistent with open reduction internal fixation of the previously visualized spiral fracture of the tibial shaft. There is improved bony alignment. IMPRESSION: 1. Intraoperative fluoroscopic images demonstrate improved alignment status post ORIF of right tibial shaft fracture. Dictated by: Stevie Humphrey M.D. on 09/25/2022 at 20:27 Approved by: Stevie Humphrey M.D. on 09/25/2022 at 20:29
--- NOTE | 2022-09-25 09:13 | DI.RAD.S_ITS ---
PROCEDURE: XR CHEST 1V INDICATIONS: trauma TECHNIQUE: One view of the chest was acquired. COMPARISON: [facility], CR, XR CHEST 1V, 08/22/2018, 22:36. FINDINGS: Surgical changes and devices: Orthopedic fixation of fracture of right humeral head neck.. Lungs and pleura: Submaximal inspiration resulting in vascular crowding. Cannot exclude infiltrate. No pleural effusions or pneumothorax. Mediastinum: Mediastinal contours appear normal. Cardiomegaly. Bones and chest wall: No suspicious bony lesions. Overlying soft tissues appear unremarkable. IMPRESSION: Submaximal inspiration. Cannot exclude infiltrates. Dictated by: Manuel Isaacs M.D. on 09/25/2022 at 9:43 Approved by: Manuel Isaacs M.D. on 09/25/2022 at 9:44
--- NOTE | 2022-09-25 09:13 | DI.RAD.S_ITS ---
PROCEDURE: XR TIBIA FUBULA RT 2V INDICATIONS: fall with pain TECHNIQUE: 2 views of the tibia and fibula were acquired. COMPARISON: None. FINDINGS: Bones: Spiral fracture of the distal shaft of the tibia, mildly displaced, mildly comminuted. Comminuted, angulated, mildly displaced proximal shaft fracture of the fibula. No suspicious bony lesions. Soft tissues: No suspicious soft tissue calcifications or masses. IMPRESSION: Comminuted fractures of the distal tibial shaft and proximal fibular shaft, as described above. Dictated by: Manuel Isaacs M.D. on 09/25/2022 at 9:52 Approved by: Manuel Isaacs M.D. on 09/25/2022 at 9:53
--- NOTE | 2022-09-25 09:13 | DI.RAD.S_ITS ---
PROCEDURE: XR PELVIS 1-2V INDICATIONS: fall with pain TECHNIQUE: 1 view(s) of the pelvis acquired. COMPARISON: None. FINDINGS: Bones: No fractures or dislocations. No suspicious bony lesions. Soft tissues: Visualized bowel gas pattern is normal. No suspicious soft tissue calcifications. IMPRESSION: No evidence acute bony abnormality of the pelvis. If clinical suspicion and/or symptoms persist, further assessment with repeat plain films, or advanced imaging (e.g., CT, MRI, or bone scan) may be helpful for further assessment. Dictated by: Manuel Isaacs M.D. on 09/25/2022 at 9:53 Approved by: Manuel Isaacs M.D. on 09/25/2022 at 9:54
--- NOTE | 2022-09-25 09:14 | DI.CT.S_ITS ---
PROCEDURE: CT HEAD/BRAIN WO CON INDICATIONS: multiple falls, head injury TECHNIQUE: Noncontrast 4.5 mm thick angled axial sections acquired from the foramen magnum to the vertex, with coronal and sagittal reformats. For radiation dose reduction, the following was used: automated exposure control, adjustment of mA and/or kV according to patient size. COMPARISON: [facility], CT, CT HEAD/BRAIN WO CON, 12/17/2018, 23:18. FINDINGS: Image quality: Excellent. CSF spaces: Basal cisterns are patent. No extra-axial fluid collections. The ventricles are symmetric in size and shape. Brain: No intracranial bleeds or masses. There is cerebral volume loss for age, with resultant ventricular and sulcal prominence. There are periventricular and deep white matter chronic small vessel ischemic changes. There is intracranial internal carotid artery atherosclerosis. Skull and face: Calvarium and visualized facial bones appear intact, without suspicious lesions. Sinuses: Visualized sinuses and mastoids are clear. IMPRESSION: No evidence acute intracranial process. Dictated by: Manuel Isaacs M.D. on 09/25/2022 at 9:46 Approved by: Manuel Isaacs M.D. on 09/25/2022 at 9:49
--- NOTE | 2022-09-25 09:15 | DI.CT.S_ITS ---
PROCEDURE: CT CERVICAL SPINE WO CON INDICATIONS: multiple falls, head injury, obvious leg deformity TECHNIQUE: Noncontrast 3 mm thick sections acquired from the skull base to the T4 level. Sagittal and coronal reformats were then constructed. For radiation dose reduction, the following was used: automated exposure control, adjustment of mA and/or kV according to patient size. COMPARISON: None. FINDINGS: Image quality: Excellent. Bones: No fractures or dislocations. Visualized superior ribs are intact. Cervical spondylosis with multilevel uncovertebral joint osteophytes resulting in multilevel bilateral bony foraminal narrowing. Soft tissues: Prevertebral soft tissues are normal in thickness. No paravertebral hematomas. No apical pneumothoraces. IMPRESSION: 1. No evidence acute cervical fracture or dislocation. 2. Cervical spondylosis. Dictated by: Manuel Isaacs M.D. on 09/25/2022 at 9:49 Approved by: Manuel Isaacs M.D. on 09/25/2022 at 9:50
--- NOTE | 2022-09-25 09:17 | ED.FALL ---
HPI - Fall General Chief Complaint: Fall Stated Complaint: GLF,right knee and hip pain Time Seen by Provider: 09/25/22 09:13 History of Present Illness HPI Narrative: 71F non-smoker with history of diabetes, hypertension, hyperlipidemia, chronic balance problems presents by EMS for evaluation of multiple falls in the past 24 hours and subsequent injuries suffered as a consequence. She states that she frequently falls as she has a balance problem and fell sometime yesterday, struck her head on the toilet but was able to get herself up and go about her business. She denies any significant injury as a consequence of that fall and has full recall. Last evening at some point she was getting up and attempt to use the restroom when she fell again and suffered injuries to her right lower extremity. She denies any further head neck or back pain. She has full recall of both of her falls. She denies any loss of consciousness, nausea, vomiting, blurred vision. She has no neck or back pain. She has no chest pain or shortness of breath. She has no pain or injury and upper extremities. She has no abdominal pain. She states that she has severe pain in her entire right lower extremity and is unable to weightbear. She laid on the ground for upwards of 3-4 hours before she could get herself to her medical alert button. She is activated as a modified trauma given her fall and suspected injury Related Data Home Medications Medication Instructions Recorded Confirmed gabapentin 300 mg capsule 600 mg PO BID ##0 06/05/16 02/03/19 (Neurontin) aspirin 81 mg tablet,delayed 81 mg PO DAILY 01/04/18 02/03/19 release atorvastatin 20 mg tablet 20 mg PO QAM 01/04/18 02/03/19 primidone 50 mg tablet 25 mg PO BEDTIME Bilater hand 01/04/18 02/05/19 tremors sodium bicarbonate 650 mg tablet 2 tab PO BID 01/04/18 02/05/19 hydrochlorothiazide 25 mg tablet 25 mg PO DAILY 09/27/18 02/06/19 insulin NPH isoph U-100 human 100 15 unit SUBCUT BEDTIME 09/27/18 02/06/19 unit/mL subcutaneous suspension insulin regular human 100 unit/mL 3 - 6 unit SUBCUT TID 09/27/18 02/06/19 injection solution cholecalciferol (vitamin D3) 50 4,000 unit PO DAILY 10/08/18 02/03/19 mcg (2,000 unit) capsule (Vitamin D3) insulin NPH isoph U-100 human 100 12 unit SUBCUT QAM 10/08/18 02/06/19 unit/mL subcutaneous suspension carvedilol 12.5 mg tablet 12.5 mg PO BID 10/11/21 10/11/21 Previous Rx's Medication Instructions Recorded hydroxyzine pamoate 25 mg capsule 25 mg PO TID-QID PRN spasms #60 10/12/18 (Vistaril) caps ondansetron 4 mg disintegrating 4 mg PO Q6-8H PRN nausea and 12/13/18 tablet vomiting #30 tabs metoclopramide HCl 5 mg tablet 5 mg PO BID-TID PRN nausea and 12/21/18 (Reglan) vomiting #30 tabs metoprolol tartrate 25 mg tablet 25 mg PO BID #60 tabs 12/21/18 levofloxacin 250 mg tablet 250 mg PO Q24H #10 tabs 02/08/19 Allergies Allergy/AdvReac Type Severity Reaction Status Date / Time ceftriaxone Allergy Intermediate Rash Verified 09/25/22 15:27 Review of Systems Review of Systems Narrative: GENERAL: Denies chills, fatigue, malaise, fever, sweats. HEENT: Denies sinus pain, ear pain, sore throat, difficulty swallowing, dizziness. RESPIRATORY: Denies dyspnea, cough, wheezing, hemoptysis, sputum. CARDIOVASCULAR: Denies chest pain, palpitations, orthopnea, edema, GASTROINTESTINAL: Denies nausea, vomiting, abdominal pain, diarrhea, constipation, melena. : Denies dysuria, frequency, incontinence, hematuria, urinary retention. MUSCULOSKELETAL: See HPI SKIN: Denies rash, skin lesions, or other NEUROLOGIC: Denies weakness, headache, numbness, change in speech, confusion, seizures, incoordination. PSYCHIATRIC: No concerning psychosocial issues. 12 point review of systems is negative except for those stated above Patient History Medical History (Updated 09/25/22 @ 19:04 by Iván Marsh DO) Balance problem CKD stage 4 due to type 2 diabetes mellitus Closed head injury Diabetes mellitus with neuropathy Essential tremor High cholesterol Hypertension Neuropathy Surgical History History of shoulder surgery Hx of cataract surgery S/P cholecystectomy Family History Father Diabetes mellitus COPD (chronic obstructive pulmonary disease) Leukemia Mother Alzheimer disease Brother Diabetes mellitus Sister Hyperlipidemia Hypertension Social History household members: family Smoking Status: Never smoker alcohol intake: current Smoking Status: Never smoker alcohol intake frequency: holidays/special occasions only Substance Use Type: does not use Exam Narrative Exam Narrative: GENERAL: [71] year old patient appears stated age. Well-developed patient, in mild distress. GCS 15 HEAD: Atraumatic. Normocephalic. No hematoma, abrasion or laceration, no evidence of depressed skull fracture EYES: Pupils equal round and reactive. No hyphema Extraocular motions intact. No scleral icterus. No injection or drainage. ENT: Nose without bleeding, purulent drainage. Nasal septal hematoma Throat without erythema, tonsillar hypertrophy or exudate. Airway patent. NECK: Trachea midline. Non tender, step-offs or crepitance CARDIOVASCULAR: Regular rate and rhythm without murmurs, gallops, or rubs. RESPIRATORY: Clear to auscultation. Breath sounds equal bilaterally. No wheezes, rales, or rhonchi. GASTROINTESTINAL: Abdomen soft, non-tender, nondistended. EXTREMITIES: No pain and full range of motion of bilateral shoulders, elbows and wrists. No pain in left hip, knee, ankle. Patient has significant pain in right hip and thigh. Compartments are soft. She has pain and bruising at her right ankle, there is external rotation. This lower extremity injury is closed, isolated and neurovascularly intact. BACK: Nontender without deformity or crepitance. No flank tenderness. NEURO: AOx3. SKIN: No rash or erythema of visible areas Initial Vital Signs Initial Vital Signs: Vital Signs Pulse Oximetry 98 09/25/22 09:10 Course Orders Ordered: ED Orders 09/25/22 11:11 UA Complete [Urinalysis and Microscopic] Stat 09/25/22 12:04 Comprehensive Metabolic Panel Stat Magnesium Stat NT-proBNP (BNP-Adult 18+) Stat Troponin & CK Cardiac Panel Stat 09/25/22 14:19 COVID19 -Nasal RAPID/Pre-Proc Stat Lactated Ringer's (Lactated Ringers) 1,000 mls @ 42 mls/hr IV CONT MELY Last Admin: 09/25/22 19:19 Dose: 42 mls/hr Documented By: Infusion: 09/25/22 19:19 Dose: 42 mls/hr Documented By: Admin: 09/25/22 17:20 Dose: 42 mls/hr Documented By: JOAQUIM Discontinued Medications Hydromorphone HCl (Hydromorphone 0.5 Mg Inj) 0.5 mg IV NOW ONE Stop: 09/25/22 09:14 Last Admin: 09/25/22 10:20 Dose: 0.5 mg Documented By: PHYLLIS Hydromorphone HCl (Hydromorphone 0.5 Mg Inj) 0.5 mg IV NOW ONE Stop: 09/25/22 12:12 Last Admin: 09/25/22 12:23 Dose: 0.5 mg Documented By: PHYLLIS Sodium Chloride (Normal Saline 0.9%) 500 mls @ 1,000 mls/hr IV BOLUS ONE Stop: 09/25/22 09:42 Last Infusion: 09/25/22 11:53 Dose: 0 mls/hr Documented By: Admin: 09/25/22 10:20 Dose: 1,000 mls/hr Documented By: PHYLLIS Cefazolin Sodium/Dextrose (Ancef) 100 mls @ 200 mls/hr IV NOW ONE Stop: 09/25/22 18:48 Last Admin: 09/25/22 17:49 Dose: 200 mls/hr Documented By: LIGIA Lidocaine HCl (Lidocaine 2% (Glydo) 6 Ml Gel) 6 ml TOP NOW ONE Stop: 09/25/22 09:14 Last Admin: 09/25/22 10:19 Dose: 6 ml Documented By: PHYLLIS Ondansetron HCl (Ondansetron 4 Mg/2 Ml Inj) 4 mg IV NOW ONE Stop: 09/25/22 09:14 Last Admin: 09/25/22 10:19 Dose: 4 mg Documented By: PHYLLIS Consultations Consultation #1: Discussed with on-call orthopedist (Dr. Ramires) request she remain NPO will need surgical intervention, admit to hospitalist Consultation #2: Hospitalist happy to accept Vital Signs Vital signs: Vital Signs - 8 hr 09/25/22 11:30 09/25/22 11:31 09/25/22 11:31 Pulse Rate 75 75 Blood Pressure 146/90 H Pulse Oximetry 96 98 09/25/22 12:00 09/25/22 12:01 09/25/22 12:01 Pulse Rate 77 77 Blood Pressure 161/67 H Pulse Oximetry 97 98 09/25/22 12:27 09/25/22 12:27 09/25/22 12:30 Pulse Rate 78 75 Blood Pressure 144/65 H Pulse Oximetry 97 98 09/25/22 12:31 09/25/22 12:31 09/25/22 13:00 Pulse Rate 74 Blood Pressure 143/63 H 136/95 H Pulse Oximetry 98 09/25/22 13:00 Pulse Rate 77 Blood Pressure Pulse Oximetry 97 MDM - Fall Lab Data 09/25/22 10:20 Labs: Lab Results 09/25/22 09/25/22 09/25/22 Range/Units 10:20 10:20 11:11 WBC 11.7 H (4.5-11.0) X10^3/uL RBC 3.45 L (4.0-5.2) X10^6/uL Hgb 10.0 L (12.0-16.0) g/dL Hct 30.7 L (36-46) % MCV 89.0 (80-100) fL MCH 28.9 (26-34) PG MCHC 32.5 (30-36) % RDW 14.2 (11.6-14.8) % Plt Count 244 (150-400) X10^3/uL Neut % (Auto) 82.9 H (50-75) % Lymph % (Auto) 10.5 L (25-40) % [place] % (Auto) 6.0 (3-14) % Eos % (Auto) 0.3 L (2-4) % Baso % (Auto) 0.3 (0-2) % Neut # (Auto) 9700 H (5040-2739) /uL Lymph # (Auto) 1200 (8970-3297) /uL [place] # (Auto) 700 (0-900) /uL Eos # (Auto) 0 (0-450) /uL Baso # (Auto) 0 (0-100) /uL PT 11.9 (10.1-12.7) SECONDS INR 1.0 (0.9-1.3) Sodium (137-145) mmol/L Potassium (3.4-5.1) mmol/L Chloride (98-107) mmol/L Carbon Dioxide (22-32) mmol/L BUN (7-17) mg/dL Creatinine (0.52-1.04) mg/dL Estimated GFR (>60) mL/min BUN/Creatinine Ratio (6-22) Glucose (80-110) mg/dL Calcium (8.4-10.2) mg/dL Magnesium (1.6-2.3) mg/dL Total Bilirubin (0.2-1.3) mg/dL AST (14-36) IU/L ALT (<35) IU/L Alkaline Phosphatase (38-126) U/L Total Creatine Kinase (30-135) U/L CK-MB (CK-2) (<2.37) ng/mL CK-MB (CK-2) Rel Index (1.5-5.0) % Troponin I (0.01-0.034) ng/mL NT-Pro-B Natriuret Pep (<125) pg/mL Total Protein (6.3-8.2) g/dL Albumin (3.5-5.0) g/dL Globulin (1.7-4.1) g/dL Albumin/Globulin Ratio (1.0-2.8) Urine Color Straw Urine Appearance Cloudy Urine pH 5.5 (4.5-8.0) Ur Specific [place] 1.010 (1.000-1.035) Urine Protein Negative (Negative) Urine Glucose (UA) Negative (Negative) g/dL Urine Ketones Negative (NEGATIVE) Urine Occult Blood Trace-intact (Negative) Urine Nitrate Positive H (Negative) Urine Bilirubin Negative (NEGATIVE) Urine Urobilinogen 0.2 (0.2) E.U./dL Ur Leukocyte Esterase Trace H (NEGATIVE) Urine RBC 0-1/hpf (0-5/HPF) Urine WBC 5-10/hpf H (0-5/HPF) Urine Bacteria Many (>30) H (None) Ur Culture Indicated? Specimen cultured 09/25/22 Range/Units 12:04 WBC (4.5-11.0) X10^3/uL RBC (4.0-5.2) X10^6/uL Hgb (12.0-16.0) g/dL Hct (36-46) % MCV (80-100) fL MCH (26-34) PG MCHC (30-36) % RDW (11.6-14.8) % Plt Count (150-400) X10^3/uL Neut % (Auto) (50-75) % Lymph % (Auto) (25-40) % [place] % (Auto) (3-14) % Eos % (Auto) (2-4) % Baso % (Auto) (0-2) % Neut # (Auto) (5993-8940) /uL Lymph # (Auto) (2249-2161) /uL [place] # (Auto) (0-900) /uL Eos # (Auto) (0-450) /uL Baso # (Auto) (0-100) /uL PT (10.1-12.7) SECONDS INR (0.9-1.3) Sodium 135 L (137-145) mmol/L Potassium 4.8 (3.4-5.1) mmol/L Chloride 100 (98-107) mmol/L Carbon Dioxide 23 (22-32) mmol/L BUN 51 H (7-17) mg/dL Creatinine 2.81 H (0.52-1.04) mg/dL Estimated GFR 17 L (>60) mL/min BUN/Creatinine Ratio 18.1 (6-22) Glucose 204 H (80-110) mg/dL Calcium 10.2 (8.4-10.2) mg/dL Magnesium 2.1 (1.6-2.3) mg/dL Total Bilirubin 0.4 (0.2-1.3) mg/dL AST 24 (14-36) IU/L ALT 15 (<35) IU/L Alkaline Phosphatase 108 (38-126) U/L Total Creatine Kinase 501 H (30-135) U/L CK-MB (CK-2) 3.39 H (<2.37) ng/mL CK-MB (CK-2) Rel Index 0.7 L (1.5-5.0) % Troponin I < 0.012 (0.01-0.034) ng/mL NT-Pro-B Natriuret Pep 193 H (<125) pg/mL Total Protein 7.9 (6.3-8.2) g/dL Albumin 4.3 (3.5-5.0) g/dL Globulin 3.6 (1.7-4.1) g/dL Albumin/Globulin Ratio 1.2 (1.0-2.8) Urine Color Urine Appearance Urine pH (4.5-8.0) Ur Specific [place] (1.000-1.035) Urine Protein (Negative) Urine Glucose (UA) (Negative) g/dL Urine Ketones (NEGATIVE) Urine Occult Blood (Negative) Urine Nitrate (Negative) Urine Bilirubin (NEGATIVE) Urine Urobilinogen (0.2) E.U./dL Ur Leukocyte Esterase (NEGATIVE) Urine RBC (0-5/HPF) Urine WBC (0-5/HPF) Urine Bacteria (None) Ur Culture Indicated? Point of Care Testing Glucose POC 180 MDM Narrative Medical decision making narrative: [71-year-old female with multiple comorbidities has 2 ground level falls in the past 24 hours a 2nd resulting in a significant injury to her right lower extremity including comminuted fracture to right tib-fib, closed, isolated and neurovascularly intact] Discharge Plan Departure Patient Disposition: Admitted As Inpatient Clinical Impression: Comminuted fracture of shaft of tibia Admit Date/Time: 09/25/22 13:06 Admit Provider: Alfie Parker
[2022-09-25] MEDS: LIDOCAINE 2% (GLYDO) 6 ML GEL TOP (10:19)
[2022-09-25] MEDS: ONDANSETRON 4 MG/2 ML INJ IV (10:19)
[2022-09-25] MEDS: HYDROMORPHONE 0.5 MG INJ IV ×2 (10:20→12:23)
[2022-09-25] MEDS: SODIUM CHLORIDE 0.9% 500 ML 1000 ML IV (10:20)
[2022-09-25 10:46] LABS: Add Manual Diff / Slide Review NO; Basophils Absolute Auto 0 /uL (0-100); Basophils Percent Auto 0.3 % (0-2); Eosinophils Absolute Auto 0 /uL (0-450); Eosinophils Percent Auto 0.3 % (2-4); Hematocrit 30.7 % (36-46); Lymphocytes Absolute Auto 1200 /uL (1100-4500); Lymphocytes Percent Auto 10.5 % (25-40); Mean Corpuscular HGB Conc 32.5 % (30-36); Mean Corpuscular Hemoglobin 28.9 PG (26-34); Monocytes Absolute Auto 700 /uL (0-900); Neutrophils Absolute Auto 9700 /uL (1500-7000); Neutrophils Percent Auto 82.9 % (50-75); Platelet Count 244 X10^3/uL (150-400); Red Blood Cell Count 3.45 X10^6/uL (4.0-5.2); Red Cell Distribution Width 14.2 % (11.6-14.8); White Blood Cell Count 11.7 X10^3/uL (4.5-11.0)
[2022-09-25 10:48] LABS: Prothrombin Time 11.9 SECONDS (10.1-12.7)
[2022-09-25 12:27] LABS: Alanine Aminotransferase 15 IU/L (<35); Albumin 4.3 g/dL (3.5-5.0); Albumin Globulin Ratio 1.2 (1.0-2.8); Alkaline Phosphatase 108 U/L (38-126); Aspartate Aminotransferase 24 IU/L (14-36); BUN Creatinine Ratio 18.1 (6-22); Bilirubin Total 0.4 mg/dL (0.2-1.3); Blood Urea Nitrogen 51 mg/dL (7-17); Calcium 10.2 mg/dL (8.4-10.2); Carbon Dioxide 23 mmol/L (22-32); Chloride 100 mmol/L (98-107); Creatine Kinase 501 U/L (30-135); Estimated Glomerular Filt Rate 17 mL/min (>60); Globulin 3.6 g/dL (1.7-4.1); Glucose 204 mg/dL (80-110); HEMOLYSIS < 15 (0-50); Magnesium 2.1 mg/dL (1.6-2.3); Potassium 4.8 mmol/L (3.4-5.1); Sodium 135 mmol/L (137-145); Total Protein 7.9 g/dL (6.3-8.2)
[2022-09-25 12:39] LABS: NT-proBNP (BNP-Adult 18+) 193 pg/mL (<125); Troponin I < 0.012 ng/mL (0.01-0.034)
[2022-09-25 12:42] LABS: CKMB % Relative Index 0.7 % (1.5-5.0); Creatine Kinase MB 3.39 ng/mL (<2.37)
--- NOTE | 2022-09-25 14:12 | PM.HP.1 ---
History of Present Illness History of Present Illness Date Patient Seen: 09/25/22 Time Patient Seen: 15:00 Chief complaint: GLF,right knee and hip pain Narrative: Ms. Borrego is a 71W with PMH type 2 diabetes on insulin with neuropathy, htn, hl who presents to the hospital after a fall causing right leg pain. She states she uses a cane at baseline. She has poor sensation in her lower extremities secondary to progressing neuropathy from diabetes. She has poor balance problems secondary to this. She was attempting to go to the bathroom when she slipped and fell. She had no head strike, no loss of consciousness. She was unable to bear weight and she was on the ground for 3-4 hours. In the ED workup was done, vitals notable for afebrile, heart rate in the 80s, blood pressure 140s/60s. Labs notable for WBC 11.7, hgb 10, plts 244. Creatinine 2.81. Imaging noted for right distal tibial fracture and proximal fibular fracture. She was given pain medications. Orthopedic surgery was consulted and she was admitted for further treatment. Patient History Medical History Balance problem CKD stage 4 due to type 2 diabetes mellitus Closed head injury Diabetes mellitus with neuropathy Essential tremor High cholesterol Hypertension Neuropathy Surgical History History of shoulder surgery Hx of cataract surgery S/P cholecystectomy Family & Social History Family History Father Diabetes mellitus COPD (chronic obstructive pulmonary disease) Leukemia Mother Alzheimer disease Brother Diabetes mellitus Sister Hyperlipidemia Hypertension Social History: household members family Safety & Behavioral: Feels Safe in Current Yes Environment Been Physically Hurt or No Threatened By a Person Tobacco & Substance use: Smoking Status Never smoker alcohol intake current alcohol intake frequency holiday/special occasion Substance Use Type does not use Meds Home Medications and Allergies Home Medications Medication Instructions Recorded Confirmed Type gabapentin 300 mg capsule 600 mg PO BID ##0 06/05/16 02/03/19 History (Neurontin) aspirin 81 mg tablet,delayed 81 mg PO DAILY 01/04/18 02/03/19 History release atorvastatin 20 mg tablet 20 mg PO QAM 01/04/18 02/03/19 History primidone 50 mg tablet 25 mg PO BEDTIME Bilater hand 01/04/18 02/05/19 History tremors sodium bicarbonate 650 mg tablet 2 tab PO BID 01/04/18 02/05/19 History hydrochlorothiazide 25 mg tablet 25 mg PO DAILY 09/27/18 02/06/19 History insulin NPH isoph U-100 human 100 15 unit SUBCUT BEDTIME 09/27/18 02/06/19 History unit/mL subcutaneous suspension insulin regular human 100 unit/mL 3 - 6 unit SUBCUT TID 09/27/18 02/06/19 History injection solution cholecalciferol (vitamin D3) 50 4,000 unit PO DAILY 10/08/18 02/03/19 History mcg (2,000 unit) capsule (Vitamin D3) insulin NPH isoph U-100 human 100 12 unit SUBCUT QAM 10/08/18 02/06/19 History unit/mL subcutaneous suspension hydroxyzine pamoate 25 mg capsule 25 mg PO TID-QID PRN spasms #60 10/12/18 02/06/19 Rx (Vistaril) caps ondansetron 4 mg disintegrating 4 mg PO Q6-8H PRN nausea and 12/13/18 02/05/19 Rx tablet vomiting #30 tabs metoclopramide HCl 5 mg tablet 5 mg PO BID-TID PRN nausea and 12/21/18 02/05/19 Rx (Reglan) vomiting #30 tabs metoprolol tartrate 25 mg tablet 25 mg PO BID #60 tabs 12/21/18 02/05/19 Rx levofloxacin 250 mg tablet 250 mg PO Q24H #10 tabs 02/08/19 Rx carvedilol 12.5 mg tablet 12.5 mg PO BID 10/11/21 10/11/21 History Allergies Allergy/AdvReac Type Severity Reaction Status Date / Time ceftriaxone Allergy Severe Anaphylaxis Verified 10/11/21 18:53 Review of Systems Review of Systems Narrative: 14 systems reviewed and negative aside from what is noted in HPI Exam Vital Signs (past 8 hours): - 09/25/22 09:12 Temperature 97.9 F Pulse Rate 83 Respiratory Rate 16 Blood Pressure 148/66 H Pulse Oximetry 99 Oxygen Delivery Method Room Air Oxygen Delivery Method Room Air Narrative Exam Narrative: GEN: no acute distress HEENT: moist mucous membranes, PERRL NECK: trachea midline, no JVD PULM: clear bilaterally, no wheezes, rhonchi, rales CV: regular rate and rhythm, no murmurs ABD: soft, nontender, nondistended, no organomegaly, normal bowel sounds EXT: warm and well perfused with no edema, right leg with notable for deformity, resting tremors noted NEURO: awake, alert, oriented with no focal deficits Objective Labs 09/25/22 10:20 09/25/22 12:04 Labs: Laboratory Results - last 24 hr 09/25/22 09/25/22 09/25/22 10:20 10:20 12:04 WBC 11.7 H RBC 3.45 L Hgb 10.0 L Hct 30.7 L MCV 89.0 MCH 28.9 MCHC 32.5 RDW 14.2 Plt Count 244 Neut % (Auto) 82.9 H Lymph % (Auto) 10.5 L [place] % (Auto) 6.0 Eos % (Auto) 0.3 L Baso % (Auto) 0.3 Neut # (Auto) 9700 H Lymph # (Auto) 1200 [place] # (Auto) 700 Eos # (Auto) 0 Baso # (Auto) 0 PT 11.9 INR 1.0 Sodium 135 L Potassium 4.8 Chloride 100 Carbon Dioxide 23 BUN 51 H Creatinine 2.81 H Estimated GFR 17 L BUN/Creatinine Ratio 18.1 Glucose 204 H Calcium 10.2 Magnesium 2.1 Total Bilirubin 0.4 AST 24 ALT 15 Alkaline Phosphatase 108 Total Creatine Kinase 501 H CK-MB (CK-2) 3.39 H CK-MB (CK-2) Rel Index 0.7 L Troponin I < 0.012 NT-Pro-B Natriuret Pep 193 H Total Protein 7.9 Albumin 4.3 Globulin 3.6 Albumin/Globulin Ratio 1.2 Assessment & Plan Assessment & Plan narrative: 1. Right distal tibula and proximal fibula fracture\ -keep npo for now -plan for OR today -orthopedic surgery consulted -plan for dvt ppx after surgery 2. JESSY on CKD stage 4 -creatinine baseline appears in low 2-2.2, on arrival over 2.81 -ck is 501 on admission, did receive some fluids in ED, doubt this is cause of jessy -suspect jessy secondary to hypovolemia, possibly secondary to hctz -check creatinine daily 3. Type 2 Diabetes -ordered for insulin sliding scale -continue insulin in am and pm -check glucose achs 4. Hypertension -hold home meds for surgery -hold hctz for now due to jessy 5. Hyperlipidemia -continue statin 6. Essential tremor -stable 7. Morbid obesity -bmi 47.8 8. Anemia -hgb 10, appears at baseline -trend daily I have discussed the plan of care with patient. I have discussed her care with the ED physician bedside nurse. I have reviewed the patient's labs and independently reviewed the chest xray and tibula/fibula xray. CODE: DNR/DNI Proxy: Radha Contreras, daughter Time Spent With Patient Critical Care time: I spent a total of [] minutes of critical care time on this patient's care today; this time is exclusive of procedural time. Quality MIPS - Meds 'Current medications' to include all prescriptions, [id number] products, herbals, cannabis/cannabidiol products, and vitamin/mineral/dietary (nutritional) supplements. I have utilized all available resources to obtain, update, or review the patient?s current medications. [If Yes, STOP here]: Yes
--- NOTE | 2022-09-25 14:38 | PC.NURSE ---
BG 192, Dr Lozoya advised. Pt scheduled for OR at 1630.
--- NOTE | 2022-09-25 14:53 | PC.NURSE ---
Spoke to Pre-op RN, advised her that pt's recent BG is 192, OR-RN states the OR will administer the necessary insulin for surgery. Dr. Lozoya was advised. No insulin administered in the ED for this pt. Surgery will arrive @ 1515 to take pt for 1600 surgery.
--- NOTE | 2022-09-25 14:58 | CM.IDA ---
Addendum entered by Natividad Wu 09/25/22 15:15: CLINICAL APPLICATION CONSULTANT provides patient and daughter with list of DME resources, Medicare choice list and Senior resource guide. Natividad Wu, [facility] Original Note: Initial DCP Assessment Note Patient is 71 y/o female who presents to ED after recent GLF due to loss of balance, was on ground for few hours. Patient has life alert but it was not nearby. Patient's PCP is Dr. Vanessa Hirsch, patient endorses she would like to establish care with Dr. Milligan as she has not seen Dr. Hirsch in quite some time. Patient has [facility] and Medicare insurance. Patient has hx of Diabetes, Acute Pyelonephritis, Hypertension, hyperlipidemia. It is reported by daughter that patient has Neuropathy in both legs and often loses feeling in her legs. 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 CLINICAL APPLICATION CONSULTANT enters room to meet with patient. Present in room is patient's daughter Radha who resides in [place]. Patient presents as A/Ox4. 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 Patient endorses she has 12-14 stairs to get to her apartment. Patient endorses she uses a cane for ambulation, but may be open to a FWW or getting another cane. Patient endorses independence at baseline with most ADLS. Patient endorses her sister resides downstairs and assists with making meals and her grandson takes patient shopping. Patient endorses she can drive but often lets her grandson drive her. Patient endorses she has great family supports near by. Per RN and EMR, patient is going to surgery this afternoon. Per Xray patient has spiral fracture of distal shaft of the tibia. Patient has been accepted by hospitalist to acute care. CLINICAL APPLICATION CONSULTANT discusses HH and SNF rehab as options if it is recommended upon d/c, patient endorses preference for [facility] as it is closer to her daughter, she knows the staff and she has been there twice before. If this SNF is not available patient may be open to other options. Patient does not endorse preference for HH. Plan: Patient to go to orthopedic surgery this afternoon, patient to admit to acute care, likely PT/OT evaluation post surgery to determine POC. JOSE ARMANDO Martel Discharge Planning/Care Management CM Discharge Assessment Start: 09/25/22 14:53 Freq: Status: Active Protocol: Document 09/25/22 14:54 LN (Rec: 09/25/22 14:58 LN [id number]) Discharge Planning Assessment Assigned Property Caretaker JOSE ARMANDO Henson DPOA/Assigned Designee Name Radha Contreras, daughter Contact Information Ph. # [phone] Advance Directives? No History Provided By Patient,Family Member,Medical Record Has Patient been admitted in last 30 No days? Prior Living Arrangements Apartment/Condo Comment Patient has 12-14 stairs to get to apartment Household Members family Comment Patient's sister Jh lives downstairs Type of transporation used prior to Drives own vehicle admit Comment Patient endorses she doesn't drive often but she can drive. Patient endorses her grandson drives her as well. Independent with ADL's Yes Is patient alert and oriented? Yes Needs Assistance With Meal Prep,Home Chores / Shopping Caregiver for Another No DME Already Rented / Owned Cane Comment Patient is open to recommendations after surgery per PT/OT Medicare Choice List Provided Yes Medicare choice list reviewed on patient,family electronic tablet with SNF/HH Preference SNF preference: [facility] No HH preference reported Has Agency SNF been contacted No Please Provide Date Initial DC 09/25/22 Assessment Was Performed
[2022-09-25 15:28] LABS: Appearance Urine UA CLOUDY; Bilirubin Urine UA NEGATIVE (NEGATIVE); Glucose Urine UA NEGATIVE (Negative); Ketones Urine UA NEGATIVE (NEGATIVE); Leukocyte Esterase Urine UA TRACE (NEGATIVE); Nitrite Urine UA POSITIVE (Negative); Occult Blood Urine UA TRACE-INTACT (Negative); Protein Urine UA NEGATIVE (Negative); Urobilinogen Urine UA 0.2 E.U./dL (0.2)
[2022-09-25 15:37] LABS: COVID19 -Nasal RAPID Negative (Negative)
--- NOTE | 2022-09-25 15:51 | SUR.HOLD ---
Patient to Pre-op holding area for surgery; GCS 15; daughter at bedside.
[2022-09-25 15:58] LABS: pH Urine UA 5.5 (4.5-8.0)
[2022-09-25 15:59] LABS: Bacteria Urine Many (>30); Color Urine UA Straw; Culture Indicated Urine Specimen Cultured; RBC Urine 0-1/HPF (0-5/HPF); WBC Urine 5-10/HPF (0-5/HPF)
--- NOTE | 2022-09-25 16:40 | PM.CN ---
History of Present Illness Consult details Date Patient Seen: 09/25/22 Time Patient Seen: 16:15 Chief complaint: GLF,right knee and hip pain Narrative: 71-year-old female with a history of gait and ambulation issues sustained a fall last night resulting in a fracture of her right lower leg. Patient was on the floor for quite some time before she was able to reach her mid alert button and call for help. Patient denies any other injuries from the fall. States that she falls quite often and fell the day before this most recent injury. She uses a cane for ambulation. Meds Home Medications and Allergies Home Medications Medication Instructions Recorded Confirmed Type gabapentin 300 mg capsule 600 mg PO BID ##0 06/05/16 02/03/19 History (Neurontin) aspirin 81 mg tablet,delayed 81 mg PO DAILY 01/04/18 02/03/19 History release atorvastatin 20 mg tablet 20 mg PO QAM 01/04/18 02/03/19 History primidone 50 mg tablet 25 mg PO BEDTIME Bilater hand 01/04/18 02/05/19 History tremors sodium bicarbonate 650 mg tablet 2 tab PO BID 01/04/18 02/05/19 History hydrochlorothiazide 25 mg tablet 25 mg PO DAILY 09/27/18 02/06/19 History insulin NPH isoph U-100 human 100 15 unit SUBCUT BEDTIME 09/27/18 02/06/19 History unit/mL subcutaneous suspension insulin regular human 100 unit/mL 3 - 6 unit SUBCUT TID 09/27/18 02/06/19 History injection solution cholecalciferol (vitamin D3) 50 4,000 unit PO DAILY 10/08/18 02/03/19 History mcg (2,000 unit) capsule (Vitamin D3) insulin NPH isoph U-100 human 100 12 unit SUBCUT QAM 10/08/18 02/06/19 History unit/mL subcutaneous suspension hydroxyzine pamoate 25 mg capsule 25 mg PO TID-QID PRN spasms #60 10/12/18 02/06/19 Rx (Vistaril) caps ondansetron 4 mg disintegrating 4 mg PO Q6-8H PRN nausea and 12/13/18 02/05/19 Rx tablet vomiting #30 tabs metoclopramide HCl 5 mg tablet 5 mg PO BID-TID PRN nausea and 12/21/18 02/05/19 Rx (Reglan) vomiting #30 tabs metoprolol tartrate 25 mg tablet 25 mg PO BID #60 tabs 12/21/18 02/05/19 Rx levofloxacin 250 mg tablet 250 mg PO Q24H #10 tabs 02/08/19 Rx carvedilol 12.5 mg tablet 12.5 mg PO BID 10/11/21 10/11/21 History Allergies Allergy/AdvReac Type Severity Reaction Status Date / Time ceftriaxone Allergy Intermediate Rash Verified 09/25/22 15:27 Exam Vital Signs (past 8 hours): - 09/25/22 09:12 09/25/22 09:10 09/25/22 09:11 Temperature 97.9 F Pulse Rate 83 Respiratory Rate 16 Blood Pressure 148/66 H 148/66 H Pulse Oximetry 99 98 Oxygen Delivery Method Room Air 09/25/22 09:11 09/25/22 11:17 09/25/22 11:18 Temperature Pulse Rate 81 80 Respiratory Rate Blood Pressure 145/66 H Pulse Oximetry 98 98 Oxygen Delivery Method 09/25/22 11:18 09/25/22 11:30 09/25/22 11:31 Temperature Pulse Rate 77 75 75 Respiratory Rate Blood Pressure Pulse Oximetry 99 96 98 Oxygen Delivery Method 09/25/22 11:31 09/25/22 12:00 09/25/22 12:01 Temperature Pulse Rate 77 Respiratory Rate Blood Pressure 146/90 H 161/67 H Pulse Oximetry 97 Oxygen Delivery Method 09/25/22 12:01 09/25/22 12:27 09/25/22 12:27 Temperature Pulse Rate 77 78 Respiratory Rate Blood Pressure 144/65 H Pulse Oximetry 98 97 Oxygen Delivery Method 09/25/22 12:30 09/25/22 12:31 09/25/22 12:31 Temperature Pulse Rate 75 74 Respiratory Rate Blood Pressure 143/63 H Pulse Oximetry 98 98 Oxygen Delivery Method 09/25/22 13:00 09/25/22 13:00 09/25/22 13:30 Temperature Pulse Rate 77 Respiratory Rate Blood Pressure 136/95 H 120/58 L Pulse Oximetry 97 Oxygen Delivery Method 09/25/22 13:30 09/25/22 14:00 09/25/22 14:01 Temperature Pulse Rate 76 83 Respiratory Rate Blood Pressure 158/67 H Pulse Oximetry 93 97 Oxygen Delivery Method 09/25/22 14:01 09/25/22 14:30 09/25/22 14:31 Temperature Pulse Rate 79 79 Respiratory Rate Blood Pressure 152/63 H Pulse Oximetry 96 97 Oxygen Delivery Method 09/25/22 14:31 09/25/22 15:35 Temperature 98.7 F Pulse Rate 79 80 Respiratory Rate 16 Blood Pressure 135/49 L Pulse Oximetry 96 98 Oxygen Delivery Method Room Air Oxygen Delivery Method Room Air Narrative Exam Narrative: On physical exam, patient is alert oriented x3 in no apparent distress. Right lower leg does have some rotation to it but no significant angular deformity. Compartments are soft. Palpable pedal pulses. Able to dorsiflex and plantar flex her toes as well as her ankle. No sign of any swelling to the knee. No pain with movement of the. Left lower extremity free of any abnormalities. Bilateral upper extremities free of any abnormalities full range of motion to bilateral shoulders elbows wrist and fingers. No pain with palpation to the upper extremities. Objective Labs 09/25/22 10:20 09/25/22 12:04 Labs: Laboratory Results - last 24 hr 09/25/22 09/25/22 09/25/22 10:20 10:20 11:11 WBC 11.7 H RBC 3.45 L Hgb 10.0 L Hct 30.7 L MCV 89.0 MCH 28.9 MCHC 32.5 RDW 14.2 Plt Count 244 Neut % (Auto) 82.9 H Lymph % (Auto) 10.5 L Dickenson % (Auto) 6.0 Eos % (Auto) 0.3 L Baso % (Auto) 0.3 Neut # (Auto) 9700 H Lymph # (Auto) 1200 Dickenson # (Auto) 700 Eos # (Auto) 0 Baso # (Auto) 0 PT 11.9 INR 1.0 Sodium Potassium Chloride Carbon Dioxide BUN Creatinine Estimated GFR BUN/Creatinine Ratio Glucose Calcium Magnesium Total Bilirubin AST ALT Alkaline Phosphatase Total Creatine Kinase CK-MB (CK-2) CK-MB (CK-2) Rel Index Troponin I NT-Pro-B Natriuret Pep Total Protein Albumin Globulin Albumin/Globulin Ratio Urine Color Straw Urine Appearance Cloudy Urine pH 5.5 Ur Specific Valier 1.010 Urine Protein Negative Urine Glucose (UA) Negative Urine Ketones Negative Urine Occult Blood Trace-intact Urine Nitrate Positive H Urine Bilirubin Negative Urine Urobilinogen 0.2 Ur Leukocyte Esterase Trace H Urine RBC 0-1/hpf Urine WBC 5-10/hpf H Urine Bacteria Many (>30) H Ur Culture Indicated? Specimen cultured SARS-CoV-2 (PCR) 09/25/22 09/25/22 12:04 14:19 WBC RBC Hgb Hct MCV MCH MCHC RDW Plt Count Neut % (Auto) Lymph % (Auto) Dickenson % (Auto) Eos % (Auto) Baso % (Auto) Neut # (Auto) Lymph # (Auto) Dickenson # (Auto) Eos # (Auto) Baso # (Auto) PT INR Sodium 135 L Potassium 4.8 Chloride 100 Carbon Dioxide 23 BUN 51 H Creatinine 2.81 H Estimated GFR 17 L BUN/Creatinine Ratio 18.1 Glucose 204 H Calcium 10.2 Magnesium 2.1 Total Bilirubin 0.4 AST 24 ALT 15 Alkaline Phosphatase 108 Total Creatine Kinase 501 H CK-MB (CK-2) 3.39 H CK-MB (CK-2) Rel Index 0.7 L Troponin I < 0.012 NT-Pro-B Natriuret Pep 193 H Total Protein 7.9 Albumin 4.3 Globulin 3.6 Albumin/Globulin Ratio 1.2 Urine Color Urine Appearance Urine pH Ur Specific Valier Urine Protein Urine Glucose (UA) Urine Ketones Urine Occult Blood Urine Nitrate Urine Bilirubin Urine Urobilinogen Ur Leukocyte Esterase Urine RBC Urine WBC Urine Bacteria Ur Culture Indicated? SARS-CoV-2 (PCR) Negative PFSH Medical History Balance problem CKD stage 4 due to type 2 diabetes mellitus Closed head injury Diabetes mellitus with neuropathy Essential tremor High cholesterol Hypertension Neuropathy Surgical History History of shoulder surgery Hx of cataract surgery S/P cholecystectomy Family History Father Diabetes mellitus COPD (chronic obstructive pulmonary disease) Leukemia Mother Alzheimer disease Brother Diabetes mellitus Sister Hyperlipidemia Hypertension Social History household members: family Tobacco & Substance Use Smoking Status: Never smoker alcohol intake: current Assessment & Plan Assessment & Plan narrative: Patient with a distal tibial fracture as well as a fibula fracture. Based on the injury I would recommend surgical fixation of the tibia fracture. The plan will do an intramedullary fixation of the right tibia. Went over the surgery as well as the risks and limitations associated with the procedure. Discussed possible surgical complications. This was discussed with the patient as well as her daughter. All other questions and concerns were answered to their full satisfaction and consent form was freely obtained. The risk, benefits, alternatives, possible complications, operative course, and postop outcomes were discussed. Complications including but not limiting to bleeding, infection, fracture, nerve injury, continued pain postoperatively or instability postoperatively were discussed in detail. Medical complications including but not limited to deep venous thrombosis event, anesthesia complications with excessive bleeding, vascular events or cardiac events and other possible complications were discussed in detail. Need for postoperative rehabilitation and anticipated hospital stay and clinical course were discussed in detail. Patient acknowledges understanding and elects to proceed with surgery. Time Spent With Patient Critical Care time: I spent a total of [] minutes of critical care time on this patient's care today; this time is exclusive of procedural time.
--- NOTE | 2022-09-25 16:44 | PM.PREOP ---
Pre-operative Note Interval Note History & Physical reviewed/Exam performed by Physician: Yes Changes to H&P: No
[2022-09-25] MEDS: LACTATED RINGERS 1,000 ML 42 ML IV ×2 (17:20→19:19)
[2022-09-25] MEDS: CEFAZOLIN 2 GM/100 ML PREMIX 100 ML IV (17:49)
--- NOTE | 2022-09-25 18:09 | SUR.OPER ---
Supine on padded OR bed, head on pillow, arms secured on padded arm boards at <90 degrees abduction, legs uncrossed, safety belt at thigh, tape over blanket over lower legs. Bump under right leg. pt positioned per direction and supervision of Dr Ramires.
--- NOTE | 2022-09-25 20:08 | PM.OP.1 ---
Operative Date/Time/Diagnoses Date of procedure: 09/25/22 Time of procedure: 18:00 Pre-op diagnosis: Right distal tibial shaft fracture Post-op diagnosis: same Procedure & Clinicians Procedure: Intramedullary fixation of right distal tibia shaft fracture Closed reduction and splinting of proximal fibula fracture Same procedure as scheduled: Yes Indications: Distal tibia shaft fracture as well as fibula fracture Surgeon: Quincy Ramires Click Yes if Unassisted: Yes Anesthesia Type: Spinal Operative Notes Findings: Spiral distal tibia fracture with no extension into the tibiotalar joint Closure Type: primary Applied: implant(s) (Styles and nephew 32 x 11.5 tibial nail 2 locking screws proximally and 2 locking screws distally) Estimated Blood Loss (mL): 100 Tourniquet time (min): 100 Procedure in detail: On date of service, patient was met in the holding area where the operative site was signed and witnessed by the OR staff. The surgery was once again discussed with the patient and any remaining questions or concerns she had were answered fully. Patient was taken back to the operating theater and placed on the operating table in a supine position. Great care was taken to ensure that all bony prominences were appropriately padded. Well-padded tourniquet was placed along the upper leg. Additional time-out was performed verifying patient's name, procedure, and operative site. The right leg was prepped and draped in the normal sterile fashion. Esmarch was used to exsanguinate the limb the tourniquet was turned up to 250 mmHg. X-ray was brought in and AP and lateral views of the fracture were obtained. Close reduction was performed reducing the distal tibia shaft fracture. Next, radiolucent triangle was brought into flexed the knee. Incision was made starting at the distal tip of the patella going down to the tuberosity. Ten blade was used incise the skin and fascial tissue. Electrocautery used to achieve hemostasis. Deep knife was used to continue sharp dissection until the patellar tendon was visualized. We went medial to the patellar tendon giving us good visualization of the proximal anterior tibia. Under C-arm visualization a guidewire was placed just medial to the lateral tibial spine. Its position was verified both AP and laterally. Once we were satisfied a entry Reamer was then used. Ball-tip guide was placed and x-rays were obtained verifying passage across the fracture site as well as the ending at the distal tibial physeal scar. This was measured and a 32 mm nail was the appropriate length. Next, the tibia was reamed to a 13 mm and then a 32 x 11.5 mm nail was placed. While placing the nail AP and lateral views were obtained verifying that there was no loss at the fracture site. Also making sure that we had the appropriate distal placement as well as proximally. Once we were satisfied with the position of the nail and the overall reduction, 2 distal screws were placed. These were also verified with AP and lateral views. Next 2 proximal screws were placed securing the nail both distally and proximally to the fracture. Final x-rays were obtained once we were happy with the placement of the nail the maintenance of the alignment and the screw lengths, the wounds were then copiously irrigated and then closed in a layered fashion. The leg was then cleaned dried and dressed. Patient was placed into a posterior splint immobilizing the ankle and going across the fracture site. Patient was then extubated and taken to the PACU in stable condition. Complications: none Post-operative Condition: stable Disposition: PACU Plan for aftercare: Patient can be partial weight-bearing to the right lower extremity. No restrictions to range of motion of the knee or ankle.
[2022-09-25] MEDS: ACETAMINOPHEN 325 MG TABLET 650 MG PO (20:17)
[2022-09-25] MEDS: OXYCODONE IR 5 MG TABLET PO ×2 (20:17→23:00)
[2022-09-25] MEDS: LACTATED RINGERS 1,000 ML 125 ML IV (21:38)
[2022-09-25] MEDS: INSULIN LISPRO 100 UNIT/ML 3ML VIAL SUBCUT ×2 (21:56→22:03)
[2022-09-25] MEDS: INSULIN NPH 100 UNIT/ML VIAL 15 UNIT SUBCUT (22:03)
[2022-09-25] MEDS: diphenhydrAMINE 50 MG/ML VIAL 25 MG IV (22:56)
[2022-09-25] MEDS: GABAPENTIN 300 MG CAPSULE 600 MG PO (22:59)
[2022-09-25] MEDS: cefTRIAXone 2,000 MG in SODIUM CHLORIDE 0.9% 100 ML 200 MG IV (23:16)
[2022-09-26] VITALS (12 sets, daily range): BP systolic 96–139; BP diastolic 39–52; PULSE 73–79; RESP 16–17; TEMP 36.7–37.4; O2SAT 93–98
[2022-09-26] MEDS: CEFAZOLIN 2 GM/100 ML PREMIX 100 ML IV (05:47)
[2022-09-26 08:32] LABS: Basophils Absolute Auto 0 /uL (0-100); Basophils Percent Auto 0.2 % (0-2); Eosinophils Absolute Auto 0 /uL (0-450); Eosinophils Percent Auto 0.2 % (2-4); Hematocrit 27.1 % (36-46); Hemoglobin 8.8 g/dL (12.0-16.0); Lymphocytes Absolute Auto 1300 /uL (1100-4500); Lymphocytes Percent Auto 10.5 % (25-40); Mean Corpuscular HGB Conc 32.4 % (30-36); Mean Corpuscular Hemoglobin 28.8 PG (26-34); Mean Corpuscular Volume 88.8 fL (80-100); Monocytes Absolute Auto 600 /uL (0-900); Monocytes Percent Auto 4.8 % (3-14); Neutrophils Absolute Auto 10200 /uL (1500-7000); Neutrophils Percent Auto 84.3 % (50-75); Red Blood Cell Count 3.05 X10^6/uL (4.0-5.2); Red Cell Distribution Width 14.1 % (11.6-14.8); White Blood Cell Count 12.1 X10^3/uL (4.5-11.0)
--- NOTE | 2022-09-26 08:34 | PT-IP ANOTE ---
PT NOTE: Attempted evaluation. Per nursing, BP has been low and requested hold until BP improves.
[2022-09-26 08:39] LABS: Add Manual Diff / Slide Review SLIDE REVIEW
[2022-09-26 08:50] LABS: BUN Creatinine Ratio 15.3 (6-22); Blood Urea Nitrogen 56 mg/dL (7-17); Calcium 8.8 mg/dL (8.4-10.2); Carbon Dioxide 21 mmol/L (22-32); Chloride 103 mmol/L (98-107); Estimated Glomerular Filt Rate 13 mL/min (>60); Glucose 205 mg/dL (80-110); HEMOLYSIS < 15 (0-50); Potassium 4.3 mmol/L (3.4-5.1); Sodium 133 mmol/L (137-145)
[2022-09-26] MEDS: INSULIN LISPRO 100 UNIT/ML 3ML VIAL SUBCUT ×3 (08:57→21:09)
[2022-09-26] MEDS: INSULIN NPH 100 UNIT/ML VIAL 12 UNIT SUBCUT (09:08)
[2022-09-26 09:10] LABS: RBC Morphology Normal Morphology
[2022-09-26 09:11] LABS: Platelet Count 254 X10^3/uL (150-400)
[2022-09-26] MEDS: DOCUSATE 100 MG CAPSULE PO ×2 (09:12→21:09)
[2022-09-26] MEDS: ENOXAPARIN 30 MG/0.3 ML SYRINGE SUBCUT (09:12)
[2022-09-26] MEDS: GABAPENTIN 300 MG CAPSULE 600 MG PO ×2 (09:12→21:09)
[2022-09-26] MEDS: diphenhydrAMINE 50 MG/ML VIAL 25 MG IV ×2 (10:26→22:27)
--- NOTE | 2022-09-26 10:55 | PT.IIE ---
Current Diagnoses Unspecified fracture of lower end of right tibia, initial encounter for closed fracture (09/25/22) Surgery Performed Operation Date: 09/25/22 16:30 Actual Procedures p Intramedullary Nailing Tibia(Right) - Quincy Ramires MD Surgical History (Last Reviewed 09/25/22 @ 16:41 by Quincy Ramires MD) History of shoulder surgery Hx of cataract surgery S/P cholecystectomy Medical History (Last Reviewed 09/25/22 @ 16:41 by Quincy Ramires MD) Balance problem CKD stage 4 due to type 2 diabetes mellitus Closed head injury Diabetes mellitus with neuropathy Essential tremor High cholesterol Hypertension Neuropathy Physical Therapy Inpatient Evaluation/Re-Eval M1 PT/OT-IP Prior Functional Status Start: 09/26/22 08:25 Freq: NEEDED Status: Active Protocol: Document 09/26/22 10:42 SAK (Rec: 09/26/22 10:55 [facility] [id number]) Medical Review Prior Functional Status Medical History Reviewed Yes Diet/Fluid Consistency Regular Communication A & O x 4 Mobility and Gait used cane at home Activities of Daily Living and IADL's modified independent Prior Functional Level (Other details) Lives in hotel rm 1 level owned by sister Sleeps in lift chair Social History Household Members family Living Arrangements Apartment/Condo Number of Floors (Floors) One Floor Number of Stairs To Enter/Railing? 0 Home Environment Standard Height Toilet Home Equipment Straight Cane,Lift Recliner M3 PT-IP Subjective Start: 09/26/22 08:25 Freq: NEEDED Status: Active Protocol: Document 09/26/22 10:42 SAK (Rec: 09/26/22 10:55 [facility] [id number]) Subjective Physical Therapy Visit Type Type Initial Evaluation Visit Start Time 10:15 Visit Stop Time 10:40 Total Visit Minutes 25 Physical Therapy Visit Comments Patient Comments Willing to try to sit up on EOB with PT. Daughter reports patient fractured right shoulder a few years ago and couldn't walk for first week due to weakness. Sleeps in lift chair and at times still has difficulty getting out of chair despite lift function. Patient Goals be able to walk Therapy Pain Assessment Pain When Pain Assessed During Mobility Pain Present Pain Present Pain Reported Location back Intensity 5 Scale Used Numeric (0 - 10) Description Aching,Burning,Throbbing Pain Behaviors Calling Out,Facial Grimacing, Guarding,Wincing Pain Management Techniques Apply Cold M4 PT-IP Mobility and Gait Start: 09/26/22 08:25 Freq: NEEDED Status: Active Protocol: Document 09/26/22 10:42 SAK (Rec: 09/26/22 10:55 [facility] [id number]) PT-Bed Mobility Assessment Rolling Type of Rolling Roll to Right,Roll to Left Level of Assist Moderate Assistance,2 Person Assistance Supine to Sit Supine to Sit Maximum Assistance,2 Person Assistance Sit to Supine Sit to Supine Moderate Assistance,Maximum Assistance Scooting Scooting to Edge of Bed Maximum Assistance Scooting Up and Down in Bed Maximum Assistance PT-Transfer Assessment Comments Mobility Comments Assisted patient partially to EOB, requiring max assist of 2 , helped back supine as dressing and pillow under was noted to be soiled with blood. Awaiting clarification of weight-bearing orders (partial ). Gait Assessment Comments Gait Comments unable PT-Balance Assessment Sitting Balance and Reactions Static Sitting Balance Ability Fair Dynamic Sitting Balance Ability Poor M5 PT-IP Objective Assessments Start: 09/26/22 08:25 Freq: NEEDED Status: Active Protocol: Document 09/26/22 10:42 SAK (Rec: 09/26/22 10:55 [facility] [id number]) Orientation Orientation/Cognition Level of Alertness Lethargic Orientation Name,Day of Week,Place, Situation Language Function Ability No Deficits Noted Safety Awareness Understands Safety Issues Memory Description No Deficits Noted Gross Range of Motion Upper Extremity ROM Assessment Right Impaired Impairments right: elevation to 80 left WFL Lower Extremity ROM Impairments right: bandaged below knee to toes, no ROM foot or ankle. Knee and hip grossly WFL left WFL Strength Upper Extremity Strength Assessment Right Impaired Shoulder 3-/5 right 4/5 left Elbow 4-/5 right 5/5 left Hand 4-/5 right 5/5 left Lower Extremity Strength Assessment Right Impaired Hip left 3+ Knee left 4 Ankle left 4 Comments Strength Comments right NT due to surgery Sensation Assessment Sensation Gross Sensation WNL M6 PT-IP Treatment Start: 09/26/22 08:25 Freq: NEEDED Status: Active Protocol: Document 09/26/22 10:42 SAK (Rec: 09/26/22 10:55 [facility] [id number]) Physical Therapy Treatment Education Education Provided Precautions,Weight Bearing Status,Safety M7 PT-IP Assessment and Plan Start: 09/26/22 08:25 Freq: NEEDED Status: Active Protocol: Document 09/26/22 10:42 RATNA (Rec: 09/26/22 10:55 RATNA [id number]) PT Summary Assessment and Plan Potential Rehabilitation Potential Good Status of Condition at Evaluation Evolving Summary Impairments Pain,Strength,Bed Mobility, Transfers,Gait,Activity Tolerance Assessment Summary Patient s/p GLF with distal tib/fib fracture, s/p ORIF . Prior to admission strength and activity level was limited. We were only able to get her partially to EOB today requiring max assist 2, helped back to bed to deal with LE dressing issues. Awaiting clarification of partial weight-bearing orders. Will need SNF rehab at discharge and patient is in agreementn. Goals Bed Mobility Goal Standby Assistance Transfer Goal Minimal Assistance Gait Goal Minimal Assistance Gait Distance 100 Other Goals Able to maintain wb status Days to Meet Goals 5 Frequency of Treatment Frequency Of Treatment Twice a Day Treatment Plan Physical Therapy Treatment Plan Bed Mobility Training, Therapeutic Exercise,Balance Retraining,Post Op Education, Discharge Planning,Hot or Cold Pack Weight Bearing Status Weight Bearing Status Partial Weight Bearing Recommendations To Nursing Amount of Assist Needed 2 Person Assist,Mechanical Lift Discharge Recommendations PT Discharge Recommendations SNF Rehab Transportation Needs at Discharge Wheelchair/Cabulance,Stretcher /Ambulance
--- NOTE | 2022-09-26 11:44 | P.PN_ITS ---
Subjective Subjective Date Patient Seen: 09/26/22 Time Patient Seen: 11:45 Interval history: Patient is sleeping comfortably this morning with daughter at bedside. Daughter says the patient just received Benadryl for itchiness. Daughter also relays that there has been some drainage through the patient's bandage and Aubrey wrap at the right ankle. Exam Vital Signs (past 8 hours): - 09/26/22 04:00 09/26/22 05:00 09/26/22 08:00 Temperature 98.5 F 99.3 F Pulse Rate 77 78 Respiratory Rate 16 17 Blood Pressure 101/40 L 96/39 L Pulse Oximetry 95 95 96 Oxygen Delivery Method Room Air Oxygen Flow Rate 0 0 Oxygen Delivery Method Room Air Oxygen Flow Rate 0 Narrative Exam Narrative: Awake, alert, and oriented. Sensation intact to bilateral lower extremities. Strength 4/5 to right lower extremity, strength inhibited by pain. Strength 5/5 to left lower extremity. Bilateral calves soft, compressible, extremely tender to palpation though no palpable cords or masses. Intraoperative dressing and Aubrey bandage completely soaked through with serosanguineous fluid. Dressing and Aubrey bandage changed tonight at 1930. Objective Labs 09/26/22 06:55 09/26/22 06:55 Labs: Laboratory Results - last 24 hr 09/25/22 09/25/22 09/25/22 11:11 12:04 14:19 WBC RBC Hgb Hct MCV MCH MCHC RDW Plt Count Neut % (Auto) Lymph % (Auto) [place] % (Auto) Eos % (Auto) Baso % (Auto) Neut # (Auto) Lymph # (Auto) [place] # (Auto) Eos # (Auto) Baso # (Auto) RBC Morphology Sodium 135 L Potassium 4.8 Chloride 100 Carbon Dioxide 23 BUN 51 H Creatinine 2.81 H Estimated GFR 17 L BUN/Creatinine Ratio 18.1 Glucose 204 H Calcium 10.2 Magnesium 2.1 Total Bilirubin 0.4 AST 24 ALT 15 Alkaline Phosphatase 108 Total Creatine Kinase 501 H CK-MB (CK-2) 3.39 H CK-MB (CK-2) Rel Index 0.7 L Troponin I < 0.012 NT-Pro-B Natriuret Pep 193 H Total Protein 7.9 Albumin 4.3 Globulin 3.6 Albumin/Globulin Ratio 1.2 Urine Color Straw Urine Appearance Cloudy Urine pH 5.5 Ur Specific [place] 1.010 Urine Protein Negative Urine Glucose (UA) Negative Urine Ketones Negative Urine Occult Blood Trace-intact Urine Nitrate Positive H Urine Bilirubin Negative Urine Urobilinogen 0.2 Ur Leukocyte Esterase Trace H Urine RBC 0-1/hpf Urine WBC 5-10/hpf H Urine Bacteria Many (>30) H Ur Culture Indicated? Specimen cultured SARS-CoV-2 (PCR) Negative 09/26/22 09/26/22 06:55 06:55 WBC 12.1 H RBC 3.05 L Hgb 8.8 L Hct 27.1 L MCV 88.8 MCH 28.8 MCHC 32.4 RDW 14.1 Plt Count 254 Neut % (Auto) 84.3 H Lymph % (Auto) 10.5 L [place] % (Auto) 4.8 Eos % (Auto) 0.2 L Baso % (Auto) 0.2 Neut # (Auto) 40339 H Lymph # (Auto) 1300 [place] # (Auto) 600 Eos # (Auto) 0 Baso # (Auto) 0 RBC Morphology Normal morphology Sodium 133 L Potassium 4.3 Chloride 103 Carbon Dioxide 21 L BUN 56 H Creatinine 3.66 H Estimated GFR 13 L BUN/Creatinine Ratio 15.3 Glucose 205 H Calcium 8.8 Magnesium Total Bilirubin AST ALT Alkaline Phosphatase Total Creatine Kinase CK-MB (CK-2) CK-MB (CK-2) Rel Index Troponin I NT-Pro-B Natriuret Pep Total Protein Albumin Globulin Albumin/Globulin Ratio Urine Color Urine Appearance Urine pH Ur Specific [place] Urine Protein Urine Glucose (UA) Urine Ketones Urine Occult Blood Urine Nitrate Urine Bilirubin Urine Urobilinogen Ur Leukocyte Esterase Urine RBC Urine WBC Urine Bacteria Ur Culture Indicated? SARS-CoV-2 (PCR) [facility] Medical History Balance problem CKD stage 4 due to type 2 diabetes mellitus Closed head injury Diabetes mellitus with neuropathy Essential tremor High cholesterol Hypertension Neuropathy Surgical History History of shoulder surgery Hx of cataract surgery S/P cholecystectomy Family History Father Diabetes mellitus COPD (chronic obstructive pulmonary disease) Leukemia Mother Alzheimer disease Brother Diabetes mellitus Sister Hyperlipidemia Hypertension Social History household members: family Smoking Status: Never smoker alcohol intake: current Assessment & Plan Post-op Postoperative Procedures: Procedures Operation Date: 09/25/22 16:30 Actual Procedure Side Surgeon p Intramedullary Nailing Tibia Right Quincy Ramires MD Postoperative day: 1 Postoperative status: doing well Postoperative plan: see orders Postoperative plan narrative: Patient to be 25% weight-bearing on right lower extremity. She will continue to work with physical therapy as able. Will continue to monitor dressing change as needed. Patient's daughter notes that falls quite frequently and has had previous fractures requiring surgery and lengthy stays in rehab before returning home. She anticipates that this incident will be no different. Patient has 15 stairs to enter her residence. Quality VTE Deep Vein Thrombosis/Pulmonary Embolism Present on Admission: No
[2022-09-26] MEDS: ACETAMINOPHEN 325 MG TABLET 650 MG PO (12:52)
[2022-09-26] MEDS: LACTATED RINGERS 1,000 ML 100 ML IV (14:30)
[2022-09-26] MEDS: LACTATED RINGERS 1,000 ML 125 ML IV (14:45)
--- NOTE | 2022-09-26 16:22 | PT.IPTN ---
Current Diagnoses Unspecified fracture of lower end of right tibia, initial encounter for closed fracture (09/25/22) Surgery Performed Operation Date: 09/25/22 16:30 Actual Procedures p Intramedullary Nailing Tibia(Right) - Quincy Ramires MD Physical Therapy Treatment Note M2 PT-IP Current Condition Start: 09/26/22 08:25 Freq: NEEDED Status: Active Protocol: Document 09/26/22 10:42 SAK (Rec: 09/26/22 13:52 SAK [id number]) Physical Therapy Current Condition Current Condition Evaluation Date 09/26/22 Treatment Diagnosis weakness, distal R tib/fib fx s/p ORIF M3 PT-IP Subjective Start: 09/26/22 08:25 Freq: NEEDED Status: Active Protocol: Document 09/26/22 16:04 LJ (Rec: 09/26/22 16:17 LJ [id number]) Subjective Physical Therapy Visit Type Type Treatment Note Visit Start Time 15:46 Visit Stop Time 16:01 Total Visit Minutes 15 Notes Pt's dtr in room. Therapy Pain Assessment Pain When Pain Assessed During Mobility Pain Present Pain Present Pain Reported M4 PT-IP Mobility and Gait Start: 09/26/22 08:25 Freq: NEEDED Status: Active Protocol: Document 09/26/22 16:04 LJ (Rec: 09/26/22 16:17 LJ [id number]) PT-Transfer Assessment Comments Mobility Comments Pt unable to tolerate RLE movement. Willing to complete bed exercises instead of attempt to sit on SOB Gait Assessment Comments Gait Comments unable M5 PT-IP Objective Assessments Start: 09/26/22 08:25 Freq: NEEDED Status: Active Protocol: Document 09/26/22 10:42 SAK (Rec: 09/26/22 10:55 SAK [id number]) Orientation Orientation/Cognition Level of Alertness Lethargic Orientation Name,Day of Week,Place, Situation Language Function Ability No Deficits Noted Safety Awareness Understands Safety Issues Memory Description No Deficits Noted Gross Range of Motion Upper Extremity ROM Assessment Right Impaired Impairments right: elevation to 80 left WFL Lower Extremity ROM Impairments right: bandaged below knee to toes, no ROM foot or ankle. Knee and hip grossly WFL left WFL Strength Upper Extremity Strength Assessment Right Impaired Shoulder 3-/5 right 4/5 left Elbow 4-/5 right 5/5 left Hand 4-/5 right 5/5 left Lower Extremity Strength Assessment Right Impaired Hip left 3+ Knee left 4 Ankle left 4 Comments Strength Comments right NT due to surgery Sensation Assessment Sensation Gross Sensation WNL M6 PT-IP Treatment Start: 09/26/22 08:25 Freq: NEEDED Status: Active Protocol: Document 09/26/22 16:04 PAUL (Rec: 09/26/22 16:17 [id number]) Physical Therapy Treatment Exercises Exercises Gluteal Sets,Quad Sets,Heel Slides,Straight Leg Raises, Supine Hip Abduction,Shoulder Flexion,Elbow Flexion/ Extension Education Education Provided Weight Bearing Status Other Treatments Other Treatment Performed supine abdominal activation x 12 RLE-AAROM SLR, isometric supine hip abduction, x 8 ea LLe independent quad sets, heel slides, SLR, supine hip abduction, x10 ea glute sets x10 UEs: flex/ext x8L, x4R, Ab/Ad x8L, x4R M7 PT-IP Assessment and Plan Start: 09/26/22 08:25 Freq: NEEDED Status: Active Protocol: Document 09/26/22 16:19 PAUL (Rec: 09/26/22 16:22 [id number]) PT Summary Assessment and Plan Potential Rehabilitation Potential Good Status of Condition at Evaluation Evolving Summary Impairments Pain,Strength,Bed Mobility, Transfers,Gait,Activity Tolerance Assessment Summary Pt able to complete bed exercises only. Will require SNF to regain mobility. Will continue to assess. Goals Bed Mobility Goal Standby Assistance Transfer Goal Minimal Assistance Gait Goal Minimal Assistance Gait Distance 100 Other Goals Able to maintain wb status 25% Days to Meet Goals 5 Frequency of Treatment Frequency Of Treatment Twice a Day Treatment Plan Physical Therapy Treatment Plan Bed Mobility Training, Therapeutic Exercise,Balance Retraining,Post Op Education, Discharge Planning,Hot or Cold Pack Weight Bearing Status Weight Bearing Status Partial Weight Bearing Allowed Weight Bearing Amount (enter % 25% or #) (%) Recommendations To Nursing Amount of Assist Needed 2 Person Assist,Mechanical Lift Discharge Recommendations PT Discharge Recommendations SNF Rehab Transportation Needs at Discharge Wheelchair/Cabulance,Stretcher /Ambulance
--- NOTE | 2022-09-26 16:28 | PT.IPTN ---
Current Diagnoses Unspecified fracture of lower end of right tibia, initial encounter for closed fracture (09/25/22) Surgery Performed Operation Date: 09/25/22 16:30 Actual Procedures p Intramedullary Nailing Tibia(Right) - Quincy Ramires MD Physical Therapy Treatment Note M2 PT-IP Current Condition Start: 09/26/22 08:25 Freq: NEEDED Status: Active Protocol: Document 09/26/22 10:42 SAK (Rec: 09/26/22 13:52 SAK [id number]) Physical Therapy Current Condition Current Condition Evaluation Date 09/26/22 Treatment Diagnosis weakness, distal R tib/fib fx s/p ORIF M3 PT-IP Subjective Start: 09/26/22 08:25 Freq: NEEDED Status: Active Protocol: Document 09/26/22 16:04 LJ (Rec: 09/26/22 16:17 LJ [id number]) Subjective Physical Therapy Visit Type Type Treatment Note Visit Start Time 15:46 Visit Stop Time 16:01 Total Visit Minutes 15 Notes Pt's dtr in room. Therapy Pain Assessment Pain When Pain Assessed During Mobility Pain Present Pain Present Pain Reported M4 PT-IP Mobility and Gait Start: 09/26/22 08:25 Freq: NEEDED Status: Active Protocol: Document 09/26/22 16:04 LJ (Rec: 09/26/22 16:17 LJ [id number]) PT-Transfer Assessment Comments Mobility Comments Pt unable to tolerate RLE movement. Willing to complete bed exercises instead of attempt to sit on SOB Gait Assessment Comments Gait Comments unable M5 PT-IP Objective Assessments Start: 09/26/22 08:25 Freq: NEEDED Status: Active Protocol: Document 09/26/22 10:42 SAK (Rec: 09/26/22 10:55 SAK [id number]) Orientation Orientation/Cognition Level of Alertness Lethargic Orientation Name,Day of Week,Place, Situation Language Function Ability No Deficits Noted Safety Awareness Understands Safety Issues Memory Description No Deficits Noted Gross Range of Motion Upper Extremity ROM Assessment Right Impaired Impairments right: elevation to 80 left WFL Lower Extremity ROM Impairments right: bandaged below knee to toes, no ROM foot or ankle. Knee and hip grossly WFL left WFL Strength Upper Extremity Strength Assessment Right Impaired Shoulder 3-/5 right 4/5 left Elbow 4-/5 right 5/5 left Hand 4-/5 right 5/5 left Lower Extremity Strength Assessment Right Impaired Hip left 3+ Knee left 4 Ankle left 4 Comments Strength Comments right NT due to surgery Sensation Assessment Sensation Gross Sensation WNL M6 PT-IP Treatment Start: 09/26/22 08:25 Freq: NEEDED Status: Active Protocol: Document 09/26/22 16:04 PAUL (Rec: 09/26/22 16:17 [id number]) Physical Therapy Treatment Exercises Exercises Gluteal Sets,Quad Sets,Heel Slides,Straight Leg Raises, Supine Hip Abduction,Shoulder Flexion,Elbow Flexion/ Extension Education Education Provided Weight Bearing Status Other Treatments Other Treatment Performed supine abdominal activation x 12 RLE-AAROM SLR, isometric supine hip abduction, x 8 ea LLe independent quad sets, heel slides, SLR, supine hip abduction, x10 ea glute sets x10 UEs: flex/ext x8L, x4R, Ab/Ad x8L, x4R M7 PT-IP Assessment and Plan Start: 09/26/22 08:25 Freq: NEEDED Status: Active Protocol: Document 09/26/22 16:04 PAUL (Rec: 09/26/22 16:22 [id number]) PT Summary Assessment and Plan Potential Rehabilitation Potential Good Status of Condition at Evaluation Evolving Summary Impairments Pain,Strength,Bed Mobility, Transfers,Gait,Activity Tolerance Assessment Summary Pt able to complete bed exercises only. Will require SNF to regain mobility. Will continue to assess. Goals Bed Mobility Goal Standby Assistance Transfer Goal Minimal Assistance Gait Goal Minimal Assistance Gait Distance 100 Other Goals Able to maintain wb status 25% Days to Meet Goals 5 Frequency of Treatment Frequency Of Treatment Twice a Day Treatment Plan Physical Therapy Treatment Plan Bed Mobility Training, Therapeutic Exercise,Balance Retraining,Post Op Education, Discharge Planning,Hot or Cold Pack Weight Bearing Status Weight Bearing Status Partial Weight Bearing Allowed Weight Bearing Amount (enter % 25% or #) (%) Recommendations To Nursing Amount of Assist Needed 2 Person Assist,Mechanical Lift Discharge Recommendations PT Discharge Recommendations SNF Rehab Transportation Needs at Discharge Wheelchair/Cabulance,Stretcher /Ambulance
--- NOTE | 2022-09-26 16:40 | CM.DPC ---
DCP Continued: Patient and patients daughter requesting SNF placement following surgery. First choice from [facility] choice list on Ipad was [facility]- CM called [facility] who stated she can accept the patient but needs CLinicals sent to her and they can accept most likely thursday. but if patient is ready tomorrow for DC [facility] willing to do covid waiver since she will not be at her 3 Midnights. CM sent clinicals to [facility] and Cm team will follow up in the morning to determine if DC will happen tomorrow or on Thursday. PASSR complete. Vanessa tSyles [facility]
--- NOTE | 2022-09-26 18:02 | P.PN_ITS ---
Subjective Subjective Interval history: 71-year-old female with diabetes mellitus type 2 with associated neuropathy, hypertension, hyperlipidemia who was admitted last night after a mechanical fall with right distal tib-proximal fib fracture. She is postoperative day 1 from ORIF. Patient reports she is overall doing reasonably well today. She is been having some back pain and received Tylenol short while before my arrival. She states she is having some difficulty repositioning herself in bed. She denies any chest pain, shortness breast, or abdominal pain. She did have some mild hypotension this morning for which she received a 250 cc IV fluid bolus x1. Her hypotension resolved. Her daughters meds notes that patient has a history of losing strength quickly when she sustained an injury. She references a previous fracture/shoulder surgery that resulted in her mom needing a rehab stay a few years ago. Exam Vital Signs (past 8 hours): - 09/26/22 12:00 Temperature 98.7 F Pulse Rate 79 Respiratory Rate 17 Blood Pressure 120/52 L Pulse Oximetry 95 Oxygen Flow Rate 0 Oxygen Delivery Method Room Air Oxygen Flow Rate 0 Narrative Exam Narrative: GEN: Pleasant elderly female, Alert and oriented x 3, NAD HEENT:NC, Face symmetric CHEST: Respiratory excursions symmetric, CTAB CV: RRR, no M/R/G ABD: Soft, NT/ND, BT present in all 4 quadrants, no organomegaly or masses EXTR: warm, well perfused, no C/C/E some oozing noted from the posterior aspect of her Aubrey wrap (I am told orthopedic surgery is aware of this) SKIN: warm and dry, no rash NEURO: Alert and oriented x 3, nonfocal Objective Labs 09/26/22 06:55 09/26/22 06:55 Labs: Laboratory Results - last 24 hr 09/26/22 09/26/22 06:55 06:55 WBC 12.1 H RBC 3.05 L Hgb 8.8 L Hct 27.1 L MCV 88.8 MCH 28.8 MCHC 32.4 RDW 14.1 Plt Count 254 Neut % (Auto) 84.3 H Lymph % (Auto) 10.5 L [place] % (Auto) 4.8 Eos % (Auto) 0.2 L Baso % (Auto) 0.2 Neut # (Auto) 94827 H Lymph # (Auto) 1300 [place] # (Auto) 600 Eos # (Auto) 0 Baso # (Auto) 0 RBC Morphology Normal morphology Sodium 133 L Potassium 4.3 Chloride 103 Carbon Dioxide 21 L BUN 56 H Creatinine 3.66 H Estimated GFR 13 L BUN/Creatinine Ratio 15.3 Glucose 205 H Calcium 8.8 PFS Medical History (Updated 09/25/22 @ 19:04 by Iván Marsh DO) Balance problem CKD stage 4 due to type 2 diabetes mellitus Closed head injury Diabetes mellitus with neuropathy Essential tremor High cholesterol Hypertension Neuropathy Surgical History History of shoulder surgery Hx of cataract surgery S/P cholecystectomy Family History Father Diabetes mellitus COPD (chronic obstructive pulmonary disease) Leukemia Mother Alzheimer disease Brother Diabetes mellitus Sister Hyperlipidemia Hypertension Social History household members: family Smoking Status: Never smoker alcohol intake: current Assessment & Plan Assessment & Plan narrative: 1. Right distal tibia and proximal fibular fractures, status post mechanical fall, now postoperative day 1 from ORIF Overall, patient reports she is doing reasonably well. She states her pain has been fairly well controlled. Therapy evaluated today and has recommended SNF for rehab. Patient and daughter are receptive. Ongoing postoperative care per Orthopedic surgery. 2. JESSY in CKD 4 Her baseline appears to be a creatinine of 2-2.2. On admission her creatinine was 2.8. It is now up today to 3.66. BUN is also up to 56. She is had low urine output overall. Will initiate IV fluids. She will be on hydrochlorothiazide on an outpatient basis. This has been held. She is not on any diuretics. We will continue to follow her renal function closely. Overall, she is not had any significant hypotension to raise concern for ATN. She does have a Lara catheter in place. Will obtain a renal ultrasound to rule out other obstructive process. UA done yesterday revealed positive nitrites and trace leukocyte esterase. Culture is pending. She is empirically on Rocephin. She is followed by Nephrology in [place]. If her creatinine continues to rise, I will make contact with them for further recommendations. 3. Diabetes mellitus type 2 Continue insulin dosing. Continue fingersticks and sliding scale. Blood sugars have ranged from 180-225. She remains on a controlled carb diet. 4. Hypertension Holding hydrochlorothiazide as noted. Medications have not been reconciled and she has both metoprolol and carvedilol listed on her home medications. Await reconciliation. 5. Hyperlipidemia Continue usual statin therapy 6. Essential tremor Restarting primidone 7. Documentation of morbid obesity Patient's BMI is 22.9. It was mistakenly documented at 47.8. She has no indication for morbid obesity. 8. Anemia Hemoglobin was 10.0 on admission which is consistent with her baseline. This morning it is down to 8.8, consistent with expected intraoperative losses and fracture losses. Code status DNR Prophylaxis On Lovenox Disposition Likely will require [facility] Surrogate decisionmaker: Radha Contreras dtr Time Spent With Patient Critical Care time: I spent a total of [] minutes of critical care time on this patient's care today; this time is exclusive of procedural time. Quality VTE Deep Vein Thrombosis/Pulmonary Embolism Present on Admission: No
--- NOTE | 2022-09-26 18:09 | DI.US.S_ITS ---
PROCEDURE: US RENAL COMPLETE INDICATIONS: JESSY in CKD4, eval for obstruction TECHNIQUE: Real-time scanning was performed of the kidneys and bladder, with image documentation. COMPARISON: None. FINDINGS: Kidneys: Kidneys are normal in size. Right kidney measures 10.5 cm long; left kidney measures 10.8 cm long. Right renal cortical thickness is 0.7 cm; left renal cortical thickness is 1.0 by cm. Renal cortical echotexture is normal. No hydronephrosis or nephrolithiasis. No suspicious solid mass lesions. Bladder: A Lara catheter decompresses the bladder. No ureteral jets are noted with color Doppler interrogation. (Of note, ureteral jets may not be detectable in up to 25% of cases due to insufficient differences in specific gravity between ureteral and bladder urine). Miscellaneous: No free pelvic fluid. IMPRESSION: Normal size kidneys with no evidence of hydronephrosis. Dictated by: Manuel Isaacs M.D. on 09/26/2022 at 18:57 Approved by: Manuel Isaacs M.D. on 09/26/2022 at 18:58
[2022-09-26] MEDS: INSULIN NPH 100 UNIT/ML VIAL 15 UNIT SUBCUT (21:07)
[2022-09-26] MEDS: PRIMIDONE 50 MG TABLET 250 MG PO (21:10)
[2022-09-26] MEDS: cefTRIAXone 2,000 MG in SODIUM CHLORIDE 0.9% 100 ML 200 MG IV (22:53)
[2022-09-27] VITALS (13 sets, daily range): BP systolic 103–136; BP diastolic 37–54; PULSE 45–84; RESP 17–21; TEMP 36.7–37.3; O2SAT 93–97
[2022-09-27 06:17] LABS: BUN Creatinine Ratio 14.7 (6-22); Blood Urea Nitrogen 57 mg/dL (7-17); Calcium 8.3 mg/dL (8.4-10.2); Carbon Dioxide 22 mmol/L (22-32); Chloride 101 mmol/L (98-107); Estimated Glomerular Filt Rate 12 mL/min (>60); Glucose 159 mg/dL (80-110); HEMOLYSIS < 15 (0-50); Phosphorous 4.3 mg/dL (2.8-4.1); Potassium 4.3 mmol/L (3.4-5.1); Sodium 131 mmol/L (137-145)
[2022-09-27 06:52] LABS: Basophils Absolute Auto 0 /uL (0-100); Basophils Percent Auto 0.2 % (0-2); Eosinophils Absolute Auto 200 /uL (0-450); Eosinophils Percent Auto 2.8 % (2-4); Lymphocytes Absolute Auto 1500 /uL (1100-4500); Mean Corpuscular HGB Conc 33.5 % (30-36); Mean Corpuscular Hemoglobin 29.2 PG (26-34); Mean Corpuscular Volume 87.2 fL (80-100); Monocytes Absolute Auto 400 /uL (0-900); Monocytes Percent Auto 6.8 % (3-14); Neutrophils Absolute Auto 4400 /uL (1500-7000); Neutrophils Percent Auto 67.2 % (50-75); Platelet Count 185 X10^3/uL (150-400); Red Blood Cell Count 2.25 X10^6/uL (4.0-5.2); Red Cell Distribution Width 13.9 % (11.6-14.8); White Blood Cell Count 6.5 X10^3/uL (4.5-11.0)
[2022-09-27 07:06] LABS: Hemoglobin 6.6 g/dL (12.0-16.0)
[2022-09-27 07:07] LABS: Add Manual Diff / Slide Review SLIDE REVIEW; Hematocrit 19.6 % (36-46)
[2022-09-27 07:16] LABS: RBC Morphology Normal Morphology
[2022-09-27] MEDS: HYDROMORPHONE 0.5 MG INJ IV (09:30)
[2022-09-27] MEDS: GABAPENTIN 300 MG CAPSULE 600 MG PO ×2 (09:37→21:30)
[2022-09-27] MEDS: ACETAMINOPHEN 325 MG TABLET 650 MG PO ×2 (09:37→18:25)
[2022-09-27] MEDS: DOCUSATE 100 MG CAPSULE PO ×2 (09:37→21:31)
[2022-09-27] MEDS: ONDANSETRON 4 MG ODT PO (09:38)
[2022-09-27] MEDS: INSULIN NPH 100 UNIT/ML VIAL 12 UNIT SUBCUT (09:40)
[2022-09-27] MEDS: diphenhydrAMINE 50 MG/ML VIAL 25 MG IV (09:44)
[2022-09-27] MEDS: OXYCODONE IR 10 MG TABLET PO ×2 (09:53→18:25)
[2022-09-27] MEDS: ENOXAPARIN 30 MG/0.3 ML SYRINGE SUBCUT (12:37)
--- NOTE | 2022-09-27 16:19 | PT-IP ANOTE ---
Pt with low H and H. Receiving blood. Unavailable in afternoon.
--- NOTE | 2022-09-27 17:32 | P.PN_ITS ---
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 She is postoperative day 2 from ORIF.? Patient reports she is been feeling overall fairly well. She reports her pain is well managed. She has not been out of bed. She is receiving a unit of packed red blood cells secondary to hemoglobin of 6.6 this morning. She reports she is been drinking well this morning. ? She denies any chest pain, shortness breast, or abdominal pain.? Daughter is at bedside and reports no concerns. Exam Vital Signs (past 8 hours): - 09/27/22 12:39 09/27/22 13:02 09/27/22 16:00 Temperature 98.7 F 98.2 F 98.6 F Pulse Rate 66 60 74 Respiratory Rate 20 20 17 Blood Pressure 109/40 L 103/37 L 126/44 L Pulse Oximetry 96 Oxygen Flow Rate 0 Oxygen Delivery Method Room Air Oxygen Flow Rate 0 Narrative Exam Narrative: GEN:? Pleasant elderly female, Alert and oriented x 3, NAD HEENT:NC, Face symmetric CHEST: Respiratory excursions symmetric, CTAB CV: RRR, no M/R/G ABD: Soft, NT/ND, BT present in all 4 quadrants, no organomegaly or masses EXTR: warm, well perfused, no C/C/E SKIN: warm and dry, no rash NEURO: Alert and oriented x 3, nonfocal Objective Labs 09/27/22 05:43 09/27/22 05:43 Labs: Laboratory Results - last 24 hr 09/27/22 09/27/22 09/27/22 05:43 05:43 08:30 WBC 6.5 RBC 2.25 L Hgb 6.6 L* Hct 19.6 L* MCV 87.2 MCH 29.2 MCHC 33.5 RDW 13.9 Plt Count 185 Neut % (Auto) 67.2 Lymph % (Auto) 23.0 L [place] % (Auto) 6.8 Eos % (Auto) 2.8 Baso % (Auto) 0.2 Neut # (Auto) 4400 Lymph # (Auto) 1500 [place] # (Auto) 400 Eos # (Auto) 200 Baso # (Auto) 0 RBC Morphology Normal morphology Sodium 131 L Potassium 4.3 Chloride 101 Carbon Dioxide 22 BUN 57 H Creatinine 3.88 H Estimated GFR 12 L BUN/Creatinine Ratio 14.7 Glucose 159 H Calcium 8.3 L Phosphorus 4.3 H Blood Type A Positive Antibody Screen Negative Crossmatch See Detail [facility] Medical History Balance problem CKD stage 4 due to type 2 diabetes mellitus Closed head injury Diabetes mellitus with neuropathy Essential tremor High cholesterol Hypertension Neuropathy Surgical History History of shoulder surgery Hx of cataract surgery S/P cholecystectomy Family History Father Diabetes mellitus COPD (chronic obstructive pulmonary disease) Leukemia Mother Alzheimer disease Brother Diabetes mellitus Sister Hyperlipidemia Hypertension Social History household members: family Smoking Status: Never smoker alcohol intake: current Assessment & Plan Assessment & Plan narrative: 1. Right distal tibia and proximal fibular fractures, status post mechanical fall, now postoperative day 2 from ORIF Overall, patient reports she is doing reasonably well.? She states her pain has been fairly well controlled.? Therapy evaluated yesterday and has recommended SNF for rehab.? Patient and daughter are receptive.? Ongoing postoperative care per Orthopedic surgery. 2. JESSY in CKD 4 Her baseline appears to be a creatinine of 2-2.2.? On admission her creatinine was 2.8.? It was up to 3.66 yesterday and BUN was elevated at 56. Low urine output yesterday. IV fluids restarted and her urine output has been excellent. Continuing to hold hydrochlorothiazide. Renal ultrasound done yesterday revealed no obstruction. Additionally, she has evidence of an E coli UTI for which she is receiving Rocephin. Suspect ATN. Although her creatinine has increased again from 3.66-3.88, the rate of rise is significantly reduced. My hope is that we will see a decline in her creatinine in the next 24 hours. Her excellent urine output is reassuring. Will reduce IV fluid rate from 100 cc an hour to 75 cc/hour given her adequate oral intake. She is followed by Nephrology in [place].? If her creatinine continues to rise, I will make contact with them for further recommendations. 3. Diabetes mellitus type 2 Continue insulin dosing.? Continue fingersticks and sliding scale.? Blood sugars not documented in the record.? I have reordered them a.c. and HS. She remains on a controlled carb diet. 4. Acute blood loss anemia Hemoglobin was down to 6.6 today. Transfuse 1 unit packed red blood cells. Suspect this is secondary to her expected intraoperative losses as well as fracture. Recheck again in the morning. 5. Hypertension Holding hydrochlorothiazide as noted.? Medications have not been reconciled and she has both metoprolol and carvedilol listed on her home medications.? Await reconciliation. Blood pressures have been normotensive. 6. Hyperlipidemia Continue usual statin therapy 7. Essential tremor Continue primidone Code status DNR Prophylaxis On Lovenox Disposition Likely will require senior care facility for rehab Surrogate decisionmaker:? Radha Contreras, dtr Time Spent With Patient Critical Care time: I spent a total of [] minutes of critical care time on this patient's care today; this time is exclusive of procedural time. Quality VTE Deep Vein Thrombosis/Pulmonary Embolism Present on Admission: No
[2022-09-27] MEDS: INSULIN LISPRO 100 UNIT/ML 3ML VIAL SUBCUT ×3 (18:27→21:30)
--- NOTE | 2022-09-27 19:12 | PC.NURSE ---
1 unit PRBC started. RAC PIV blaise turnerky at beginning of shift, dressing was removed as it was leaking when flushed w/ NS. tiny little catheter was kinked, and this was remedied, area of insertion cleaned well, and PIV was covered w/ fresh tegaderm x 3 as patient noted to be itching on her UE's. taped into place and flushes easily. bruising and infiltration noted, blood was stopped a little bit early. PIV removed, and warm compress placed around arm. patient tolerated well. MD notified of above. RLE + csm checks. ice applied, and pain meds tolerated. encouraged position changes thru the shift. patient heavy 2pa bed mobility. prefers to lay supine. call light w/in reach.
[2022-09-27] MEDS: diphenhydrAMINE 25 MG TABLET PO (21:30)
[2022-09-27] MEDS: INSULIN NPH 100 UNIT/ML VIAL 15 UNIT SUBCUT (21:30)
[2022-09-27] MEDS: PRIMIDONE 50 MG TABLET 250 MG PO (21:31)
[2022-09-27] MEDS: cefTRIAXone 2,000 MG in SODIUM CHLORIDE 0.9% 100 ML 200 MG IV (22:56)
[2022-09-28] VITALS (14 sets, daily range): BP systolic 116–150; BP diastolic 40–50; PULSE 71–80; RESP 17–20; TEMP 36.6–36.9; O2SAT 94–98
[2022-09-28] MEDS: LACTATED RINGERS 1,000 ML 60 ML IV (00:44)
[2022-09-28 05:45] LABS: Add Manual Diff / Slide Review NO; Basophils Absolute Auto 0 /uL (0-100); Basophils Percent Auto 0.4 % (0-2); Eosinophils Absolute Auto 200 /uL (0-450); Eosinophils Percent Auto 3.1 % (2-4); Lymphocytes Absolute Auto 1500 /uL (1100-4500); Lymphocytes Percent Auto 28.2 % (25-40); Mean Corpuscular HGB Conc 33.8 % (30-36); Mean Corpuscular Hemoglobin 29.5 PG (26-34); Mean Corpuscular Volume 87.3 fL (80-100); Monocytes Absolute Auto 500 /uL (0-900); Monocytes Percent Auto 8.5 % (3-14); Neutrophils Absolute Auto 3200 /uL (1500-7000); Neutrophils Percent Auto 59.8 % (50-75); Platelet Count 197 X10^3/uL (150-400); Red Blood Cell Count 2.37 X10^6/uL (4.0-5.2); Red Cell Distribution Width 13.7 % (11.6-14.8); White Blood Cell Count 5.4 X10^3/uL (4.5-11.0)
[2022-09-28 05:51] LABS: Phosphorous 4.1 mg/dL (2.8-4.1)
[2022-09-28 05:53] LABS: BUN Creatinine Ratio 15.6 (6-22); Blood Urea Nitrogen 49 mg/dL (7-17); Calcium 8.1 mg/dL (8.4-10.2); Carbon Dioxide 21 mmol/L (22-32); Chloride 102 mmol/L (98-107); Estimated Glomerular Filt Rate 15 mL/min (>60); Glucose 126 mg/dL (80-110); HEMOLYSIS < 15 (0-50); Potassium 4.1 mmol/L (3.4-5.1); Sodium 131 mmol/L (137-145)
[2022-09-28 06:11] LABS: Hematocrit 20.7 % (36-46)
--- NOTE | 2022-09-28 09:11 | PC.NURSE ---
0745: blood transfusing to RFA PIV. approx 7 min later IV infiltrated, showing a bruised raised area at insertion site. transfusion stopped, PIV removed and warm blanket wrapped around her arm. 0830: FOOD AND BEVERAGE OUTLETS MANAGER in room to place IV. 0900: blood transfusing to LUE 20g PIV w/o issues. no s/sx of infiltration noted at this time. patient declined breakfast, would prefer to rest. reported 9/10 pain to R foot, prn oxycodone given after reposition and ice packs & elevation did not assist w/ alleviating her pain. 157/66 78 20 98.1 denies sob/chills. continue to monitor transfusion and PIV site.
[2022-09-28] MEDS: DOCUSATE 100 MG CAPSULE PO ×2 (09:17→21:16)
[2022-09-28] MEDS: GABAPENTIN 300 MG CAPSULE 600 MG PO ×2 (09:17→21:16)
[2022-09-28] MEDS: ENOXAPARIN 30 MG/0.3 ML SYRINGE SUBCUT (09:22)
[2022-09-28] MEDS: OXYCODONE IR 10 MG TABLET PO ×2 (09:27→15:09)
--- NOTE | 2022-09-28 13:01 | P.PN_ITS ---
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 She is postoperative day 3 from ORIF.? Patient did require 1 unit of packed red blood cells yesterday secondary to a low hemoglobin at 6.6. This was felt to be secondary to her fracture and intraoperative blood losses in the setting of chronic anemia. Additionally, her hospital course has been complicated by JESSY. Today, patient reports she is feeling about the same overall. She is frustrated this morning because her IV went bad she needed to have a new 1 placed. She denies any chest pain, shortness of breath, or abdominal pain. Her hemoglobin remained low at 7.0 this morning. She is receiving 1 unit of packed red blood cells at the time of my visit Exam Vital Signs (past 8 hours): - 09/28/22 07:35 09/28/22 07:53 09/28/22 07:00 Temperature 98.1 F 98.1 F Pulse Rate 80 80 Respiratory Rate 18 18 Blood Pressure 129/43 L 129/43 L Pulse Oximetry Oxygen Delivery Method Room Air 09/28/22 08:00 09/28/22 11:15 Temperature 98.0 F 98.5 F Pulse Rate 80 77 Respiratory Rate 18 20 Blood Pressure 126/45 L 150/50 H Pulse Oximetry 98 Oxygen Delivery Method Oxygen Delivery Method Room Air Oxygen Flow Rate 0 Narrative Exam Narrative: GEN:? Pleasant elderly female, Alert and oriented x 3, NAD HEENT:NC, Face symmetric CHEST: Respiratory excursions symmetric, coarse but CTAB CV: RRR, no M/R/G ABD: Soft, NT/ND, BT present in all 4 quadrants, no organomegaly or masses EXTR: warm, well perfused, no C/C/E SKIN: warm and dry NEURO: Alert and oriented x 3, nonfocal Objective Labs 09/28/22 05:32 09/28/22 05:32 Labs: Laboratory Results - last 24 hr 09/27/22 09/28/22 09/28/22 08:30 05:32 05:32 WBC 5.4 RBC 2.37 L Hgb 7.0 L Hct 20.7 L* MCV 87.3 MCH 29.5 MCHC 33.8 RDW 13.7 Plt Count 197 Neut % (Auto) 59.8 Lymph % (Auto) 28.2 [place] % (Auto) 8.5 Eos % (Auto) 3.1 Baso % (Auto) 0.4 Neut # (Auto) 3200 Lymph # (Auto) 1500 [place] # (Auto) 500 Eos # (Auto) 200 Baso # (Auto) 0 Sodium 131 L Potassium 4.1 Chloride 102 Carbon Dioxide 21 L BUN 49 H Creatinine 3.14 H Estimated GFR 15 L BUN/Creatinine Ratio 15.6 Glucose 126 H Calcium 8.1 L Phosphorus Blood Type A Positive Antibody Screen Negative Crossmatch See Detail 09/28/22 05:32 WBC RBC Hgb Hct MCV MCH MCHC RDW Plt Count Neut % (Auto) Lymph % (Auto) [place] % (Auto) Eos % (Auto) Baso % (Auto) Neut # (Auto) Lymph # (Auto) [place] # (Auto) Eos # (Auto) Baso # (Auto) Sodium Potassium Chloride Carbon Dioxide BUN Creatinine Estimated GFR BUN/Creatinine Ratio Glucose Calcium Phosphorus 4.1 Blood Type Antibody Screen Crossmatch [facility] Medical History Balance problem CKD stage 4 due to type 2 diabetes mellitus Closed head injury Diabetes mellitus with neuropathy Essential tremor High cholesterol Hypertension Neuropathy Surgical History History of shoulder surgery Hx of cataract surgery S/P cholecystectomy Family History Father Diabetes mellitus COPD (chronic obstructive pulmonary disease) Leukemia Mother Alzheimer disease Brother Diabetes mellitus Sister Hyperlipidemia Hypertension Social History household members: family Smoking Status: Never smoker alcohol intake: current Assessment & Plan Assessment & Plan narrative: 1. Right distal tibia and proximal fibular fractures, status post mechanical fall, now postoperative day 3 from ORIF Overall, patient reports she is doing reasonably well.? She states her pain has been fairly well controlled.? Therapy evaluated on September 26 and recommended SNF for rehab.? Patient and daughter are receptive.? Ongoing postoperative care per Orthopedic surgery. 2. JESSY in CKD 4 Her baseline appears to be a creatinine of 2-2.2.? On admission her creatinine was 2.8.? It was up to 3.66 2 days ago with a BUN of 56. She was noted to have low urine output at that time. Restarted IV fluids with brisk urine output. Yesterday, creatinine had increased again at 3.88, but a significantly decreased rate of rise. She is had ongoing excellent urine output. Today her creatinine is improved at 3.14. Suspect she had ATN. Renal ultrasound revealed no obstruction. She does have UTI as well for which she is being treated with Rocephin. Will saline lock fluids after her transfusion today. And BUN was elevated at 56.? Low urine output yesterday.? IV fluids restarted and her urine output has been excellent.? Continuing to hold hydrochlorothiazide.?She is followed by Nephrology in [place].? If her creatinine continues to rise, I will make contact with them for further recommendations. 3. Diabetes mellitus type 2 Continue insulin dosing.? Continue fingersticks and sliding scale.? Blood sugars have ranged from 159-125 in the past 24 hours.? I continue fingersticks q.a.c. HS, continue controlled carb diet. 4. Acute blood loss anemia in the setting of chronic anemia (likely of chronic kidney disease) Hemoglobin was down to 6.6 yesterday and she received 1 unit of packed red blood cells. Today it is up to 7 point 0. However given her multiple comorbidities she will receive 1 additional unit today. 5. Hypertension Holding hydrochlorothiazide as noted.? Medications have not been reconciled and she has both metoprolol and carvedilol listed on her home medications.? I have asked nursing to reconcile medications. Plan to restart her usual home medications once confirmed. Blood pressures today are in the 150 range systolic. 6. Hyperlipidemia Continue usual statin therapy 7. Essential tremor Continue primidone Code status DNR Prophylaxis On Lovenox Disposition Patient has been accepted to [facility] in [place] once stable. Anticipate possible discharge tomorrow for hemoglobin does not further decline Surrogate decisionmaker:? Radha Contreras dtr Time Spent With Patient Critical Care time: I spent a total of [] minutes of critical care time on this patient's care today; this time is exclusive of procedural time. Quality VTE Deep Vein Thrombosis/Pulmonary Embolism Present on Admission: No
[2022-09-28] MEDS: NYSTATIN POWDER 15GM 1 APPLIC TOP (13:32)
[2022-09-28] MEDS: INSULIN NPH 100 UNIT/ML VIAL 15 UNIT SUBCUT (21:16)
[2022-09-28] MEDS: diphenhydrAMINE 50 MG/ML VIAL 25 MG IV (21:17)
[2022-09-28] MEDS: PRIMIDONE 50 MG TABLET 250 MG PO (21:17)
[2022-09-28] MEDS: MAGNESIUM HYDROXIDE 30 ML UDC PO (21:17)
[2022-09-28] MEDS: SODIUM CHLORIDE 0.9% FLUSH 10 ML IV (21:19)
[2022-09-28] MEDS: cefTRIAXone 2,000 MG in SODIUM CHLORIDE 0.9% 100 ML 200 MG IV (21:46)
--- NOTE | 2022-09-28 23:15 | PC.NURSE ---
Patient is alert and oriented except did not know day of month. Breath sounds CTA w/RA sat of 94%. HRR. Denies nausea. BT present and is passing flatus; had BM earlier today. Indwelling catheter is patent; urine is clear, yellow. Is being assisted to reposition q2h as has some difficulty turning herself. Splint to right LE wrapped with mary is CDI. CMS is intact in right LE. Wearing calf SCD on left LE. Denied pain at time of assessment. Fall risk score is high and bed alarm is activated.
[2022-09-29 00:11] VITALS: BP 108/33; PULSE 77; RESP 19; TEMP 36.6; O2SAT 94
[2022-09-29 00:18] VITALS: BP 121/45
[2022-09-29 04:40] VITALS: BP 125/46; PULSE 72; RESP 18; TEMP 36.8; O2SAT 96
[2022-09-29 06:21] LABS: Add Manual Diff / Slide Review NO; Basophils Absolute Auto 0 /uL (0-100); Basophils Percent Auto 0.3 % (0-2); Eosinophils Absolute Auto 200 /uL (0-450); Eosinophils Percent Auto 3.4 % (2-4); Lymphocytes Absolute Auto 1400 /uL (1100-4500); Mean Corpuscular HGB Conc 33.6 % (30-36); Mean Corpuscular Hemoglobin 29.5 PG (26-34); Mean Corpuscular Volume 87.7 fL (80-100); Monocytes Absolute Auto 400 /uL (0-900); Monocytes Percent Auto 8.7 % (3-14); Neutrophils Absolute Auto 2900 /uL (1500-7000); Neutrophils Percent Auto 58.6 % (50-75); Platelet Count 215 X10^3/uL (150-400); Red Cell Distribution Width 14.2 % (11.6-14.8)
[2022-09-29 06:44] LABS: Hematocrit 23.6 % (36-46)
[2022-09-29 06:54] LABS: BUN Creatinine Ratio 16.8 (6-22); Blood Urea Nitrogen 43 mg/dL (7-17); Calcium 8.2 mg/dL (8.4-10.2); Carbon Dioxide 21 mmol/L (22-32); Chloride 104 mmol/L (98-107); Estimated Glomerular Filt Rate 19 mL/min (>60); Glucose 98 mg/dL (80-110); HEMOLYSIS < 15 (0-50); Potassium 4.2 mmol/L (3.4-5.1); Sodium 135 mmol/L (137-145)
[2022-09-29 08:00] VITALS: BP 145/49; PULSE 75; RESP 21; TEMP 36.9; O2SAT 95; O2SAT 96
--- NOTE | 2022-09-29 08:23 | CM.DPC ---
DCP Discharge SNF Per MD, pt likely stable for discharge to SNF today and no identified barriers to discharge. SW called [facility] admissions and confirmed they can still accept today and can likely transport between [phone]. MARISOL met bedside with pt and explained role and updated on above and pt remains in agreement with d/c to [facility] today via cabulance. SW updated RN and need for COVID swab updated today. SW updated body shop estimator and GARMENT MANUFACTURING SUPERVISOR as well. Plan: SW to fax d/c packet to [facility] when available for plan of d/c around 1030 via facility van. ALEJANDRO German
--- NOTE | 2022-09-29 08:39 | P.DS_ITS ---
History of Present Illness History of Present Illness Date Patient Seen: 09/29/22 Time Patient Seen: 08:40 Chief complaint: GLF,right knee and hip pain Narrative: Ms. Borrego is a 71W with PMH type 2 diabetes on insulin with neuropathy, htn, hl who presents to the hospital after a fall causing right leg pain. She states she uses a cane at baseline. She has poor sensation in her lower extremities secondary to progressing neuropathy from diabetes. She has poor balance problems secondary to this. She was attempting to go to the bathroom when she slipped and fell. She had no head strike, no loss of consciousness. She was unable to bear weight and she was on the ground for 3-4 hours. In the ED workup was done, vitals notable for afebrile, heart rate in the 80s, blood pressure 140s/60s. Labs notable for WBC 11.7, hgb 10, plts 244. Creatinine 2.81. Imaging noted for right distal tibial fracture and proximal fibular fracture. She was given pain medications. Orthopedic surgery was consulted and she was admitted for further treatment. Discharge Providers Provider Date of admission: 09/25/22 13:06 Discharge Date: 09/29/22 Primary care physician: Vanessa Hirsch MD Consults: 09/25/22 20:02 Consult to Discharge Planning Routine Comment: Consult to Physical Therapy Evaluate & Treat Comment: Physician Instructions: Evaluate and Treat Discharge provider: Ciro Palacios DO Summary Hospital Course Discharge Diagnosis: 1. Right distal tibia and proximal fibular fractures, status post mechanical fall, s/p ORIF Overall, patient reports she is doing reasonably well.? She states her pain has been fairly well controlled.? Therapy evaluated on September 26 and recommended SNF for rehab.? Patient and daughter are receptive.? Ongoing postoperative care per Orthopedic surgery. 25% weight bearing per ortho on RLE. 2. JESSY in CKD 4, JESSY resolved Her baseline appears to be a creatinine of 2-2.2.? On admission her creatinine was 2.8.? Peaked 3.66 with a BUN of 56.? She was noted to have low urine output at that time.? Restarted IV fluids with brisk urine output.? Yesterday, creatinine had increased again at 3.88, but a significantly decreased rate of rise.? She is had ongoing excellent urine output.? Today her creatinine is improved at 2.56.? Suspect she had ATN.? Renal ultrasound revealed no obstruction.? She does have UTI as well for which she is being treated with Rocephin and finished 3 day course.? F/u with her outpatient senior technical architect for ongoing CKD management. 3. Diabetes mellitus type 2 Continue insulin dosing.? Continue fingersticks and sliding scale.? Blood sugars have ranged from 159-125 in the past 24 hours.? I continue fingersticks q.a.c. HS, continue controlled carb diet.? 4. Acute blood loss anemia in the setting of chronic anemia (likely of chronic kidney disease) Hemoglobin was down to 6.6 on 09/27 and s/p 2 units of PRBCs. Currently stable at 8.0. F/u with outpatient nephro for Epo therapy. 5. Hypertension Stopped HCTZ due to hyponatremia. Continue coreg. BP well controlled without HCTZ in hospital. 6. Hyperlipidemia Continue usual statin therapy 7. 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 She is postoperative day 3 from ORIF.? Patient did require 1 unit of packed red blood cells yesterday secondary to a low hemoglobin at 6.6.? This was felt to be secondary to her fracture and intraoperative blood losses in the setting of chronic anemia.? Additionally, her hospital course has been complicated by JESSY. See above problem list for course. Time Spent with Patient Time spent: Greater than 30 minutes Exam Vital Signs (past 8 hours): - 09/29/22 04:40 09/29/22 04:40 Temperature 98.3 F Pulse Rate 72 Respiratory Rate 18 Blood Pressure 125/46 L Pulse Oximetry 96 96 Oxygen Delivery Method Room Air Oxygen Flow Rate 0 0 Oxygen Delivery Method Room Air Oxygen Flow Rate 0 Narrative Exam Narrative: GEN:? Pleasant elderly female, Alert and oriented x 3, NAD HEENT:NC, Face symmetric CHEST: Respiratory excursions symmetric, coarse but CTAB CV: RRR, no M/R/G ABD: Soft, NT/ND, BT present in all 4 quadrants, no organomegaly or masses EXTR: warm, well perfused, no C/C/E SKIN: warm and dry NEURO: Alert and oriented x 3, nonfocal Objective Labs 09/29/22 05:27 09/29/22 05:27 Labs: Laboratory Results - last 24 hr 09/27/22 09/29/22 09/29/22 08:30 05:27 05:27 WBC 5.0 RBC 2.70 L Hgb 8.0 L Hct 23.6 L MCV 87.7 MCH 29.5 MCHC 33.6 RDW 14.2 Plt Count 215 Neut % (Auto) 58.6 Lymph % (Auto) 29.0 [place] % (Auto) 8.7 Eos % (Auto) 3.4 Baso % (Auto) 0.3 Neut # (Auto) 2900 Lymph # (Auto) 1400 [place] # (Auto) 400 Eos # (Auto) 200 Baso # (Auto) 0 Sodium 135 L Potassium 4.2 Chloride 104 Carbon Dioxide 21 L BUN 43 H Creatinine 2.56 H Estimated GFR 19 L BUN/Creatinine Ratio 16.8 Glucose 98 Calcium 8.2 L Crossmatch See Detail [facility] Medical History Balance problem CKD stage 4 due to type 2 diabetes mellitus Closed head injury Diabetes mellitus with neuropathy Essential tremor High cholesterol Hypertension Neuropathy Surgical History History of shoulder surgery Hx of cataract surgery S/P cholecystectomy Family History Father Diabetes mellitus COPD (chronic obstructive pulmonary disease) Leukemia Mother Alzheimer disease Brother Diabetes mellitus Sister Hyperlipidemia Hypertension Social History household members: family Smoking Status: Never smoker alcohol intake: current Discharge Plan Discharge Plan Patient Disposition: SNF Transfer to: [facility], [facility] Under care of provider: Facility , Orthopedic surgery Provider Discharge Comment: Please check FSBG QACHS. Contact MD for BG<80 or >400 Recommend f/u BMP in 3-5 days - results to facility F/u with orthopedic surgery, Dr. Ramires in 2 weeks Return to the ED for fevers, shortness of breath, inability to hold down fluids/liquids, increasing pain to surgical site or drainage Discharge orders & Medications Prescriptions: New oxycodone 10 mg Tablet 10 mg PO Q4HR PRN (Reason: Pain, Moderate (4-6)) Qty: 30 0RF Continued ondansetron 4 mg tablet,disintegrating 4 mg PO Q6-8H PRN (Reason: nausea and vomiting) Qty: 30 0RF gabapentin [Neurontin] 300 MG capsule 600 mg PO BID Qty: 0 primidone 50 mg tablet 250 mg PO BEDTIME Rx Instructions: can increase does to 250mg (5 tabs) weekly prn atorvastatin 20 mg tablet 20 mg PO QAM sodium bicarbonate 650 mg tablet 2 tab PO BID insulin NPH isoph U-100 human 100 unit/mL suspension 15 unit subcut BEDTIME insulin regular human 100 unit/mL solution 3 - 6 unit subcut TID Rx Instructions: 3units breakfast, 4units noon, 6units dinner insulin NPH isoph U-100 human 100 unit/mL Suspension 12 unit SUBCUT QAM cholecalciferol (vitamin D3) [Vitamin D3] 2,000 unit Capsule 4,000 unit PO DAILY hydroxyzine pamoate [Vistaril] 25 mg capsule 25 mg PO TID-QID PRN (Reason: spasms) Qty: 60 0RF metoclopramide HCl [Reglan] 5 mg tablet 5 mg PO BID-TID PRN (Reason: nausea and vomiting) Qty: 30 0RF Rx Instructions: May take as needed for nausea, vomiting or early satiety gabapentin 300 mg capsule 300 mg PO DAILY Label Comments: TAKE 5 CAPSULES BY MOUTH ONCE DAILY IN DIVIDED DOSES INSTRUCTED Rx Instructions: at noon carvedilol 12.5 mg tablet 12.5 mg PO BID Label Comments: TAKE 1 TABLET BY MOUTH TWICE DAILY WITH MEALS Discontinued hydrochlorothiazide 25 mg tablet 25 mg PO DAILY metoprolol tartrate 25 mg Tablet 25 mg PO BID Qty: 60 0RF Follow up/Referrals: Quincy Ramires MD [Physician] - 2 Weeks Vanessa Hirsch MD [Primary Care Provider] - 2 Weeks Discharge Health Status Multidrug resistant organism: No MDRO Precautions: [place] Diet/Activity/Treatments Diet: Carb-consistent/Diabetic Liquid consistency: Normal/Thin Food texture: Regular Activity: As tolerated, per PT/OT. 25% weight bearing on right lower extremity Oxygen: N/A Visit Report/Discharge Packet Stand Alone Forms: Patient Portal/API, Stroke Signs & Symptoms Discharge Data Primary Care Provider: Vanessa Hirsch VTE Deep Vein Thrombosis/Pulmonary Embolism Present on Admission: No
[2022-09-29 08:53] LABS: COVID19 -Nasal RAPID Negative (Negative)
[2022-09-29] MEDS: OXYCODONE IR 10 MG TABLET PO (09:11)
[2022-09-29] MEDS: GABAPENTIN 300 MG CAPSULE 600 MG PO (09:12)
[2022-09-29] MEDS: DOCUSATE 100 MG CAPSULE PO (09:12)
[2022-09-29] MEDS: methocarbamoL 500 MG TABLET PO (09:12)
[2022-09-29] MEDS: ENOXAPARIN 30 MG/0.3 ML SYRINGE SUBCUT (09:42)
[2022-09-29] MEDS: NYSTATIN POWDER 15GM 1 APPLIC TOP (09:42)
[2022-09-29] MEDS: SODIUM CHLORIDE 0.9% FLUSH 10 ML IV (09:43)
--- NOTE | 2022-09-29 10:06 | PC.NURSE ---
patient doing well this AM. alert and oriented, eager to d/c to [facility] brandy eron. PRN oxycodone and robaxin given prior to dc. moving about better in the bed, seems motivated. glucose 93, insulin held as appetite is poor. + CSM checks RLE. encouraged small shifts in position to assist w/ pain relief. 1-2+ edema BLE's. nystatin to pannus, much improved since yesterday. belongings are packed and she is ready to go. orders to keep otero in. report to facility at [phone]. call from Radha, patients daughter, update given on above info.
--- NOTE | 2022-09-29 11:44 | PC.NURSE ---
report phoned to laura meyer at [facility] mvJames otero left in, due to immobility. patient tolerated transfer to w/c, and packet given to parts delivery driver.
== END 2022-09-29 11:00 | DRG 493 ==
LOC: ED 09:13 → AC 13:06
PROVIDERS: Family Medicine; Internal Medicine; Orthopaedic Surgery; Student in an Organized Health Care Education/Training Program; Admitting Provider Internal Medicine; Emergency Provider Emergency Medicine; PCP Internal Medicine; Referring Provider Emergency Medicine; Visit Provider Internal Medicine
PROC: 0QSG04Z Reposition Right Tibia with Internal Fixation Device, Open Approach (ICD-10-PCS; CPT 27759; principal; 2022-09-25 16:30)
DX: S82.301A Unspecified fracture of lower end of right tibia, initial encounter for closed fracture (principal); D62 Acute posthemorrhagic anemia; N17.9 Acute kidney failure, unspecified; N18.4 Chronic kidney disease, stage 4 (severe); S82.401A Unspecified fracture of shaft of right fibula, initial encounter for closed fracture; E11.22 Type 2 diabetes mellitus with diabetic chronic kidney disease; I12.9 Hypertensive chronic kidney disease with stage 1 through stage 4 chronic kidney disease, or unspecified chronic kidney disease; E78.5 Hyperlipidemia, unspecified; G25.0 Essential tremor; E11.40 Type 2 diabetes mellitus with diabetic neuropathy, unspecified; D63.1 Anemia in chronic kidney disease; W01.0XXA Fall on same level from slipping, tripping and stumbling without subsequent striking against object, initial encounter; Z79.4 Long term (current) use of insulin; Z20.822 Contact with and (suspected) exposure to COVID-19; Z66 Do not resuscitate
CPT/HCPCS: 36415; 36430; 70450; 71045; 72125; 72170; 73590; 76000; 76770; 80048; 80053; 81001; 82550; 82553; 82962; 83735; 83880; 84100; 84484; 85025; 85610; 86850; 86900; 86901; 87077; 87086; 87186; 87635; 93005; 96374; 96375; 96376; 97110; 97162; 99284; C9803; P9016; J0690; J0696; J1170; J1200; J1650; J1815; J2405; J2704; J3010

== ENCOUNTER → 2022-12-26 07:11 | Outpatient (CLI) | payer MEDICARE, OTHER, SELFPAY ==
[2022-09-25 21:10] VITALS: BMI 22.8
[2022-12-26 08:05] LABS: Hematocrit 28.9 % (36-46); Hemoglobin 9.8 g/dL (12.0-16.0)
[2022-12-26 08:16] LABS: BUN Creatinine Ratio 13.9 (6-22); Blood Urea Nitrogen 32 mg/dL (7-17); Calcium 10.5 mg/dL (8.4-10.2); Carbon Dioxide 23 mmol/L (22-32); Chloride 104 mmol/L (98-107); Estimated Glomerular Filt Rate 22 mL/min (>60); Glucose 113 mg/dL (80-110); HEMOLYSIS < 15 (0-50); Potassium 4.2 mmol/L (3.4-5.1); Sodium 138 mmol/L (137-145)
[2022-12-26 08:49] LABS: Ferritin 84 ng/mL (11-264)
[2022-12-26 09:12] LABS: HEMOLYSIS < 15 (0-50); Iron 84 ug/dL (37-170)
[2022-12-26 09:23] LABS: Percent Iron Saturation 38 % (15-50); Total Iron Binding Capacity 219 ug/dL (265-497); Transferrin 170 mg/dL (206-381)
[2022-12-26 11:34] LABS: Creatinine Urine Random 63.1 mg/dL; Protein (Total) Urine Random 26 mg/dL (0-12); Protein Creatinine Ratio Urine 0.41 GRAM/24H
== END ==
PROVIDERS: PCP Internal Medicine; Referring Provider Student in an Organized Health Care Education/Training Program; Visit Provider Student in an Organized Health Care Education/Training Program
DX: D50.0 Iron deficiency anemia secondary to blood loss (chronic) (principal); N05.9 Unspecified nephritic syndrome with unspecified morphologic changes; D64.9 Anemia, unspecified; R80.9 Proteinuria, unspecified
CPT/HCPCS: 36415; 80048; 82570; 82728; 83540; 83550; 84156; 85014; 85018

== ENCOUNTER → 2023-01-28 10:41 | Outpatient (CLI) | payer MEDICARE, OTHER, SELFPAY ==
[2022-09-25 21:10] VITALS: BMI 22.8
[2023-01-28 12:54] LABS: Hematocrit 31.4 % (36-46); Hemoglobin 10.5 g/dL (12.0-16.0)
[2023-01-28 13:25] LABS: BUN Creatinine Ratio 10.5 (6-22); Blood Urea Nitrogen 22 mg/dL (7-17); Calcium 9.7 mg/dL (8.4-10.2); Carbon Dioxide 27 mmol/L (22-32); Chloride 102 mmol/L (98-107); Estimated Glomerular Filt Rate 25 mL/min (>60); Glucose 126 mg/dL (80-110); HEMOLYSIS < 15 (0-50); Potassium 4.4 mmol/L (3.4-5.1); Sodium 139 mmol/L (137-145)
[2023-01-28 13:27] LABS: Iron 59 ug/dL (37-170)
[2023-01-28 13:39] LABS: Total Iron Binding Capacity 241 ug/dL (265-497)
[2023-01-28 13:54] LABS: Ferritin 61 ng/mL (11-264)
[2023-01-30 05:54] LABS: Parathyroid Hormone Int 40 pg/mL (15-65)
== END ==
PROVIDERS: PCP Internal Medicine; Referring Provider Student in an Organized Health Care Education/Training Program; Visit Provider Student in an Organized Health Care Education/Training Program
DX: D50.0 Iron deficiency anemia secondary to blood loss (chronic) (principal); N05.9 Unspecified nephritic syndrome with unspecified morphologic changes; D64.9 Anemia, unspecified; R80.9 Proteinuria, unspecified; N25.81 Secondary hyperparathyroidism of renal origin
CPT/HCPCS: 36415; 80048; 82728; 83540; 83550; 83970; 85014; 85018

== ENCOUNTER → 2023-01-29 11:21 | Outpatient (CLI) | payer MEDICARE, OTHER, SELFPAY ==
[2022-09-25 21:10] VITALS: BMI 22.8
[2023-01-29 13:48] LABS: Creatinine Urine Random 35.1 mg/dL; Protein (Total) Urine Random 26 mg/dL (0-12); Protein Creatinine Ratio Urine 0.74 GRAM/24H
== END ==
PROVIDERS: PCP Internal Medicine; Referring Provider Student in an Organized Health Care Education/Training Program; Visit Provider Student in an Organized Health Care Education/Training Program
DX: E11.9 Type 2 diabetes mellitus without complications (principal)
CPT/HCPCS: 82570; 84156

== ENCOUNTER → 2023-06-09 07:21 | Outpatient (CLI) | payer MEDICARE, OTHER, SELFPAY ==
[2022-09-25 21:10] VITALS: BMI 22.8
[2023-06-09 08:55] LABS: Hematocrit 32.3 % (36-46); Hemoglobin 10.8 g/dL (12.0-16.0)
[2023-06-09 09:08] LABS: BUN Creatinine Ratio 15.8 (6-22); Blood Urea Nitrogen 35 mg/dL (7-17); Calcium 10.8 mg/dL (8.4-10.2); Carbon Dioxide 23 mmol/L (22-32); Chloride 105 mmol/L (98-107); Estimated Glomerular Filt Rate 23 mL/min (>60); Glucose 136 mg/dL (80-110); HEMOLYSIS < 15 (0-50); Potassium 4.6 mmol/L (3.4-5.1); Sodium 138 mmol/L (137-145)
[2023-06-09 09:40] LABS: Ferritin 43 ng/mL (11-264)
[2023-06-09 09:54] LABS: HEMOLYSIS < 15 (0-50); Iron 47 ug/dL (37-170)
[2023-06-09 10:05] LABS: Percent Iron Saturation 20 % (15-50); Total Iron Binding Capacity 230 ug/dL (265-497); Transferrin 179 mg/dL (206-381)
[2023-06-09 15:22] LABS: Creatinine Urine Random 57.2 mg/dL; Protein (Total) Urine Random 29 mg/dL (0-12)
[2023-06-11 09:15] LABS: Parathyroid Hormone Int 25 pg/mL (15-65)
== END ==
PROVIDERS: PCP Internal Medicine; Referring Provider Student in an Organized Health Care Education/Training Program; Visit Provider Student in an Organized Health Care Education/Training Program
DX: D50.0 Iron deficiency anemia secondary to blood loss (chronic) (principal); N05.9 Unspecified nephritic syndrome with unspecified morphologic changes; D64.9 Anemia, unspecified; N25.81 Secondary hyperparathyroidism of renal origin; R80.9 Proteinuria, unspecified
CPT/HCPCS: 36415; 80048; 82570; 82728; 83540; 83550; 83970; 84156; 85014; 85018

== ENCOUNTER → 2023-08-13 07:27 | Outpatient (CLI) | payer MEDICARE, OTHER, SELFPAY ==
[2022-09-25 21:10] VITALS: BMI 22.8
[2023-08-13 10:32] LABS: Blood Urea Nitrogen 25 mg/dL (7-17); Calcium 9.6 mg/dL (8.4-10.2); Carbon Dioxide 20 mmol/L (22-32); Chloride 109 mmol/L (98-107); Estimated Glomerular Filt Rate 27 mL/min (>60); Glucose 102 mg/dL (80-110); HEMOLYSIS < 15 (0-50); Potassium 4.3 mmol/L (3.4-5.1); Sodium 140 mmol/L (137-145)
== END ==
PROVIDERS: PCP Internal Medicine; Referring Provider Student in an Organized Health Care Education/Training Program; Visit Provider Student in an Organized Health Care Education/Training Program
DX: N05.9 Unspecified nephritic syndrome with unspecified morphologic changes (principal)
CPT/HCPCS: 36415; 80048

== ENCOUNTER → 2023-12-31 07:42 | Outpatient (CLI) | payer MEDICARE, OTHER, SELFPAY ==
[2022-09-25 21:10] VITALS: BMI 22.8
[2023-12-31 08:57] LABS: Hematocrit 32.3 % (36-46); Hemoglobin 10.6 g/dL (12.0-16.0)
[2023-12-31 09:30] LABS: Blood Urea Nitrogen 31 mg/dL (7-17); Calcium 8.2 mg/dL (8.4-10.2); Carbon Dioxide 18 mmol/L (22-32); Chloride 112 mmol/L (98-107); Estimated Glomerular Filt Rate 23 mL/min (>60); Glucose 141 mg/dL (80-110); HEMOLYSIS < 15 (0-50); Potassium 5.1 mmol/L (3.4-5.1); Sodium 141 mmol/L (137-145)
[2023-12-31 11:40] LABS: Creatinine Urine Random 88.34 mg/dL; Protein (Total) Urine Random 28 mg/dL (0-12); Protein Creatinine Ratio Urine 0.31 GRAM/24H
== END ==
LOC: LAB 07:44
PROVIDERS: PCP Internal Medicine; Referring Provider Student in an Organized Health Care Education/Training Program; Visit Provider Student in an Organized Health Care Education/Training Program
DX: N05.9 Unspecified nephritic syndrome with unspecified morphologic changes (principal); D70.9 Neutropenia, unspecified; D63.1 Anemia in chronic kidney disease; N25.81 Secondary hyperparathyroidism of renal origin; R80.9 Proteinuria, unspecified
CPT/HCPCS: 36415; 80048; 82570; 83970; 84156; 85014; 85018

== ENCOUNTER → 2024-03-24 09:28 | Outpatient (CLI) | payer MEDICARE, OTHER, SELFPAY ==
[2022-09-25 21:10] VITALS: BMI 22.8
[2024-03-24 11:30] LABS: BUN Creatinine Ratio 16.2 (6-22); Blood Urea Nitrogen 36 mg/dL (7-17); Calcium 9.8 mg/dL (8.4-10.2); Carbon Dioxide 21 mmol/L (22-32); Chloride 106 mmol/L (98-107); Cholesterol 198 mg/dL (140-199); Estimated Glomerular Filt Rate 23 mL/min (>60); Glucose 58 mg/dL (80-110); HDL Cholesterol 55 mg/dL (40-60); HEMOLYSIS < 15 (0-50); LDL Cholesterol Calculated 124 mg/dL (<100); Potassium 4.6 mmol/L (3.4-5.1); Sodium 139 mmol/L (137-145); Triglycerides 96 mg/dL (35-150)
[2024-03-24 12:09] LABS: Hemoglobin A1C% w Est Avg Glu 5.5 % (4.0-6.0)
[2024-03-24 14:29] LABS: Creatinine Urine Random 60.77 mg/dL
[2024-03-24 14:36] LABS: Microalbumin Urine Random 3.5 mg/dL (0-1.6)
[2024-03-25 07:41] LABS: Fructosamine 256 umol/L (0-285)
== END ==
PROVIDERS: PCP Internal Medicine; Referring Provider Internal Medicine Endocrinology, Diabetes & Metabolism; Visit Provider Internal Medicine Endocrinology, Diabetes & Metabolism
DX: E11.49 Type 2 diabetes mellitus with other diabetic neurological complication (principal); M81.0 Age-related osteoporosis without current pathological fracture
CPT/HCPCS: 36415; 80048; 80061; 82043; 82306; 82570; 82985; 83036

== ENCOUNTER → 2024-05-11 08:42 | Outpatient (CLI) | payer MEDICARE, OTHER, SELFPAY ==
[2022-09-25 21:10] VITALS: BMI 22.8
[2024-05-11 09:41] LABS: Hematocrit 32.3 % (36-46); Hemoglobin 10.8 g/dL (12.0-16.0)
[2024-05-11 09:56] LABS: BUN Creatinine Ratio 14.8 (6-22); Blood Urea Nitrogen 27 mg/dL (7-17); Calcium 8.7 mg/dL (8.4-10.2); Carbon Dioxide 21 mmol/L (22-32); Chloride 109 mmol/L (98-107); Estimated Glomerular Filt Rate 29 mL/min (>60); Glucose 128 mg/dL (80-110); HEMOLYSIS < 15 (0-50); Potassium 4.8 mmol/L (3.4-5.1); Sodium 139 mmol/L (137-145)
[2024-05-11 14:28] LABS: Creatinine Urine Random 47.79 mg/dL; Protein (Total) Urine Random 33 mg/dL (0-12); Protein Creatinine Ratio Urine 0.69 GRAM/24H
[2024-05-12 08:11] LABS: Parathyroid Hormone Int 231 pg/mL (15-65)
== END ==
PROVIDERS: PCP Internal Medicine; Referring Provider Student in an Organized Health Care Education/Training Program; Visit Provider Student in an Organized Health Care Education/Training Program
DX: N05.9 Unspecified nephritic syndrome with unspecified morphologic changes (principal); D70.9 Neutropenia, unspecified; D63.1 Anemia in chronic kidney disease; R80.9 Proteinuria, unspecified; N25.81 Secondary hyperparathyroidism of renal origin
CPT/HCPCS: 36415; 80048; 82570; 83970; 84156; 85014; 85018

== ENCOUNTER → 2024-09-28 08:13 | Outpatient (CLI) | payer MEDICARE, OTHER, SELFPAY ==
[2022-09-25 21:10] VITALS: BMI 22.8
[2024-09-28 08:52] LABS: Hemoglobin A1C% w Est Avg Glu 5.4 % (4.0-6.0)
[2024-09-28 08:59] LABS: BUN Creatinine Ratio 14.5 (6-22); Blood Urea Nitrogen 32 mg/dL (7-17); Calcium 10.2 mg/dL (8.4-10.2); Carbon Dioxide 21 mmol/L (22-32); Chloride 106 mmol/L (98-107); Cholesterol 205 mg/dL (140-199); Estimated Glomerular Filt Rate 23 mL/min (>60); Glucose 149 mg/dL (80-110); HDL Cholesterol 56 mg/dL (40-60); HEMOLYSIS < 15 (0-50); LDL Cholesterol Calculated 124 mg/dL (<100); Potassium 5.1 mmol/L (3.4-5.1); Sodium 141 mmol/L (137-145); Triglycerides 127 mg/dL (35-150)
[2024-09-28 09:12] LABS: Vitamin D 25 Hydroxy (D3) 31.5 ng/mL (30.0-100.0)
[2024-09-29 03:40] LABS: Fructosamine 295 umol/L (0-285)
== END ==
PROVIDERS: PCP Internal Medicine; Referring Provider Internal Medicine Endocrinology, Diabetes & Metabolism; Visit Provider Internal Medicine Endocrinology, Diabetes & Metabolism
DX: E11.49 Type 2 diabetes mellitus with other diabetic neurological complication (principal); M81.0 Age-related osteoporosis without current pathological fracture
CPT/HCPCS: 36415; 80048; 80061; 82306; 82985; 83036

== ENCOUNTER → 2024-11-14 07:49 | Outpatient (CLI) | payer MEDICARE, OTHER, SELFPAY ==
[2022-09-25 21:10] VITALS: BMI 22.8
[2024-11-14 08:31] LABS: Hematocrit 33.3 % (36-46); Hemoglobin 10.9 g/dL (12.0-16.0)
[2024-11-14 08:54] LABS: BUN Creatinine Ratio 17.8 (6-22); Blood Urea Nitrogen 43 mg/dL (7-17); Calcium 10.1 mg/dL (8.4-10.2); Carbon Dioxide 21 mmol/L (22-32); Chloride 106 mmol/L (98-107); Estimated Glomerular Filt Rate 20 mL/min (>60); Glucose 143 mg/dL (80-110); HEMOLYSIS < 15 (0-50); Sodium 141 mmol/L (137-145)
[2024-11-14 13:51] LABS: Creatinine Urine Random 113.48 mg/dL; Protein (Total) Urine Random 26 mg/dL (0-12); Protein Creatinine Ratio Urine 0.22 GRAM/24H
[2024-11-15 08:36] LABS: Parathyroid Hormone Int 69 pg/mL (15-65)
== END ==
PROVIDERS: PCP Internal Medicine; Referring Provider Student in an Organized Health Care Education/Training Program; Visit Provider Student in an Organized Health Care Education/Training Program
DX: N05.9 Unspecified nephritic syndrome with unspecified morphologic changes (principal); D70.9 Neutropenia, unspecified; D63.1 Anemia in chronic kidney disease; N25.81 Secondary hyperparathyroidism of renal origin; R80.9 Proteinuria, unspecified
CPT/HCPCS: 36415; 80048; 82570; 83970; 84156; 85014; 85018

== ENCOUNTER → 2025-01-21 08:18 | Outpatient (CLI) | payer MEDICARE, OTHER, SELFPAY ==
[2022-09-25 21:10] VITALS: BMI 22.8
[2025-01-21 09:10] LABS: Hematocrit 34.3 % (36-46)
[2025-01-21 09:53] LABS: Blood Urea Nitrogen 28 mg/dL (7-17); Calcium 9.5 mg/dL (8.4-10.2); Carbon Dioxide 19 mmol/L (22-32); Chloride 109 mmol/L (98-107); Estimated Glomerular Filt Rate 26 mL/min (>60); Glucose 180 mg/dL (70-99); HEMOLYSIS < 15 (0-50); Potassium 4.7 mmol/L (3.4-5.1); Sodium 141 mmol/L (137-145)
[2025-01-21 12:24] LABS: Creatinine Urine Random 103.46 mg/dL; Protein (Total) Urine Random 30 mg/dL (0-12); Protein Creatinine Ratio Urine 0.28 GRAM/24H
[2025-01-24 07:36] LABS: Parathyroid Hormone Int 101 pg/mL (15-65)
== END ==
PROVIDERS: PCP Internal Medicine; Referring Provider Student in an Organized Health Care Education/Training Program; Visit Provider Student in an Organized Health Care Education/Training Program
DX: D64.9 Anemia, unspecified (principal); N05.9 Unspecified nephritic syndrome with unspecified morphologic changes; N25.81 Secondary hyperparathyroidism of renal origin; R80.9 Proteinuria, unspecified
CPT/HCPCS: 36415; 80048; 82570; 83970; 84156; 85014; 85018

== ENCOUNTER → 2025-04-21 07:22 | Outpatient (CLI) | payer MEDICARE, OTHER, SELFPAY ==
[2022-09-25 21:10] VITALS: BMI 22.8
[2025-04-21 08:27] LABS: Blood Urea Nitrogen 26 mg/dL (7-17); Calcium 10.0 mg/dL (8.4-10.2); Carbon Dioxide 21 mmol/L (22-32); Chloride 106 mmol/L (98-107); Cholesterol 221 mg/dL (140-199); Estimated Glomerular Filt Rate 27 mL/min (>60); Glucose 173 mg/dL (70-99); HDL Cholesterol 59 mg/dL (40-60); Potassium 4.3 mmol/L (3.4-5.1); Sodium 138 mmol/L (137-145); Triglycerides 155 mg/dL (35-150)
[2025-04-21 08:31] LABS: Hemoglobin A1C% w Est Avg Glu 5.7 % (4.0-6.0)
[2025-04-21 08:35] LABS: HEMOLYSIS 53 (0-50)
[2025-04-21 08:54] LABS: Vitamin D 25 Hydroxy (D3) 24.5 ng/mL (30.0-100.0)
== END ==
LOC: LAB 07:25
PROVIDERS: PCP Internal Medicine; Referring Provider Internal Medicine Endocrinology, Diabetes & Metabolism; Visit Provider Internal Medicine Endocrinology, Diabetes & Metabolism
DX: E11.22 Type 2 diabetes mellitus with diabetic chronic kidney disease (principal); N18.4 Chronic kidney disease, stage 4 (severe); Z79.4 Long term (current) use of insulin
CPT/HCPCS: 36415; 80048; 80061; 82306; 83036